=== PATIENT | male | born 1995 | race Caucasian/White ===

== ENCOUNTER 2022-05-20 17:30 | Inpatient (IN) | payer MEDICARE, MEDICAID, SELFPAY ==
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
[2022-05-20] MEDS: Milk of Magnesia 30 ML ORAL.SUSP PO (19:24)
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
[2022-05-21] MEDS: Magnesium Hydrox/Alum Hydrox 30 ML ORAL.SUSP PO (02:40)
[2022-05-21] MEDS: Acetaminophen 325 MG TABLET 650 MG PO (02:40)
[2022-05-21] MEDS: hydrOXYzine HCL 25 MG TABLET PO (04:23)
[2022-05-21 09:35] LABS: Estimated Average Glucose 105 mg/dL; Hemoglobin A1c % 5.3 %
[2022-05-21 10:18] LABS: Alanine Aminotransferase 75 U/L (0-40); Albumin Level 4.8 g/dL (3.5-5.0); Alkaline Phosphatase 109 U/L (39-117); Anion Gap 14 (12-20); Aspartate Amino Transferase 74 U/L (5-37); Bilirubin Direct 0.3 mg/dL (0.0-0.5); Bilirubin Total 0.9 mg/dL (0.0-1.0); Blood Urea Nitrogen 11 mg/dL (9-16); Calcium 9.5 mg/dL (8.4-10.2); Carbon Dioxide 25 mmol/L (22-29); Chloride 101 mmol/L (96-108); Cholesterol 203 mg/dL; Estimated Glomerular Filt Rate > 60; Glucose Fasting 73 mg/dL (60-99); HDL Cholesterol 43 mg/dL; LDL Cholesterol Calculated 150 mg/dl; Magnesium 2.3 mg/dL (1.6-2.6); Potassium 4.3 mmol/L (3.3-5.1); Sodium 136 mmol/L (135-145); Triglycerides 51 mg/dL
[2022-05-21 10:26] LABS: Free T4 (Free Thyroxine) 1.29 ng/dL (0.71-1.85); Thyroid Stimulating Hormone 1.47 uIU/mL (0.32-4.0)
[2022-05-21 10:31] VITALS: BP 120/81; PULSE 88; RESP 18; TEMP 36.4; O2SAT 98
[2022-05-21 11:10] LABS: Folate 10.2 ng/mL (> or = 4.0); Vitamin B12 605 pg/mL (200-900)
--- NOTE | 2022-05-21 16:10 | HO.PM.IMCN ---
History of Present Illness Data of Consult Service Date: 05/21/22 Requesting physician: Romana Sands Primary Care Provider: Karlo Hart MD [facility] Reason for consult: medical history and physical 26-year-old gentleman with past medical history of schizoaffective disorder bipolar type admitted to with vague suicidal ideation, patient offers no acute complaints at present he quit smoking 8 months ago he denies shortness of breath, no chest pain no palpitation tolerating diet denies nausea vomiting diarrhea, he denies chronic medical issues has not seen a primary care physician and a long time.. Review of Systems Review of Systems: General no headache no dizziness no fever chills. CVS no chest pain, no palpitation. Respiratory no cough, no sob. Gastrointestinal no nausea no vomiting, no abdominal pain Yes all other systems are reviewed and are negative PMFSH Pertinent family history: Family history of depression anxiety in mother side of family Social History Household Members: None Patient Tobacco Use Status: Never used Tobacco Currently Displaying Signs/Symptoms of Drug Intoxication Withdrawal: No Have you been hit, kicked, punched, or otherwise hurt by someone within the past year? If so, by whom?: No Do you feel safe in your current relationship?: No Current Relationship Is there a partner from a previous relationship who is making you feel unsafe now?: No Are you made to feel afraid or neglected: No Advance Directives: No Advance Directives Information Provided: No Do you have thoughts of harming others: None Do you have a plan to hurt others: No Plan Recently lost weight without trying: No Nutrition Risks: No Nutritional Risk Poor oral hygiene: No Meds Allergies Allergy/AdvReac Type Severity Reaction Status Date / Time olanzapine [From ZYPREXA] Allergy Unknown UNK Unverified 08/14/20 19:00 trazodone [TRAZODONE] Allergy Unknown UNK Unverified 08/14/20 19:00 lithium [LITHIUM] AdvReac Unknown OVER Unverified 08/14/20 19:00 SEDATION Active Medications: Current Medications Acetaminophen (Acetaminophen 325 Mg Tablet) 650 mg PO Q6H PRN PRN Reason: Headache/Pain Mild Scale (1-3) Last Admin: 05/21/22 02:40 Dose: 650 mg Al Hydroxide/Mg Hydroxide (Magnesium Hydrox/Alum Hydrox 30 Ml Oral.Susp) 30 ml PO Q6H PRN PRN Reason: Heartburn/Nausea Last Admin: 05/21/22 02:40 Dose: 30 ml Hydroxyzine HCl (Hydroxyzine Hcl 25 Mg Tablet) 25 mg PO Q6H PRN PRN Reason: Anxiety Last Admin: 05/21/22 04:23 Dose: 25 mg Magnesium Hydroxide (Milk Of Magnesia 30 Ml Oral.Susp) 30 ml PO DAILY PRN PRN Reason: Constipation Last Admin: 05/20/22 19:24 Dose: 30 ml Polyethylene Glycol (Polyethylene Glycol 3350 17 Gm Powd.Pack) 17 gm PO BID BRIGITTE Last Admin: 05/21/22 10:10 Dose: Not Given Physical Exam Vital Signs and Narrative: Vital Signs: Last Vital Signs Temp 97.6 F 05/21/22 10:31 Pulse 88 05/21/22 10:31 Resp 18 05/21/22 10:31 BP 120/81 05/21/22 10:31 Pulse Ox 98 05/21/22 10:31 O2 Del Method 05/21/22 10:31 Const: Other: General awake alert ,in no acute distress. HEENT PERRLA Neck no JVD. CVS regular rate rhythm, Respiratory lungs clear to auscultation, no respiratory distress, no wheeze, no rhonchi. Gastrointestinal abdomen soft, nontender, bowel sounds audible, no guarding , no rigidity. Extremities no edema. Neuro nonfocal Skin no rash Results Labs CBC and Chem 7: 05/21/22 08:36 Labs: Laboratory Results - last 24 hr 05/21/22 05/21/22 05/21/22 08:36 08:36 08:36 Anion Gap 14 Estim Creat Clear Calc TNP Estimated GFR > 60 Fasting Glucose 73 Estimat Average Glucose 105 Hemoglobin A1c % 5.3 Calcium 9.5 Magnesium 2.3 Total Bilirubin 0.9 Direct Bilirubin 0.3 AST 74 H ALT 75 H Alkaline Phosphatase 109 Total Protein 8.0 Albumin 4.8 Triglycerides 51 Cholesterol 203 LDL Cholesterol, Calc 150 HDL Cholesterol 43 Vitamin B12 605 Folate 10.2 TSH 1.47 Free T4 1.29 Assessment and Plan (1) Schizoaffective disorder, bipolar type: Status: Acute Plan 26-year-old gentleman with past medical history of schizoaffective bipolar type disorder order admitted to at present patient offers no acute medical complaints, patient quit smoking 8 months ago occasionally drinks alcohol uses cannabinoid is 1-2 times per week patient has no acute medical issues at this time thank you for allowing us to participate in the care of this gentleman.
[2022-05-21 16:39] VITALS: BP 134/91; PULSE 102
--- NOTE | 2022-05-21 17:38 | P.PNPSI_ITS ---
Subjective Subjective Date of Service: 05/21/22 Reason For Visit: SI, Med non-adherence Subjective Notes: Mckeon Warning and Conditional Voluntary Healthcare Proxy: No Guardianship: No Medical Problems Affecting Mental Status: No Interim History: Patient seen and discussed with team. Patient evaluated today and upon interview pt admits to med non-adherence, says he was skipping an extra day or two of invega PO. Pt says I dont wanna go invega no more, however later on in the evening pt asks for his medication. Re- started invega PO 6 mg QHS, as per chart review pt has been stable on invega sustenna. Reviewed past clozapine trial and pt says naw, i'm good. Pt says he feels safe here. Pt is ambivalent about medication, as he says it doesnt help, I still hears the voices regardless. Pt is responding to internal stimuli, appears internally preoccupied. [place] through interview, pt abruptly says im all done, walks out of the room, says something about disrespect under his breath. In the milieu, patient is pacing the hallways and responding to internal stimuli. Medication Compliance: Yes Side effects from medications: No Attending Groups: No Review of Systems Acute medical concerns: No Medical Review of Systems: unchanged Mental Status Exam Mental Status Exam Narrative: Alert but not oriented to situation. Poor eye contact, inattentive. No Tics or Tremors. No abnormal involuntary movements. Suspicious, difficult to engage. Non-pressured speech, spontaneous with regular rate and rhythm, normal volume and prosody. No prolonged speech latency or dysarthria. Mood is [does not state], affect is constricted. Denies SI/SIB/HI upon inquiry. Endorses AH, denies VH. Endorses paranoid delusional thought content. Thoughts are ta ngential, disorganized. No known cognitive or memory impairment. Insight/ Judgment poor. Diagnostics Vital Signs (24Hr): Vital Signs - 24 hr 05/21/22 10:31 05/21/22 16:39 Temperature 97.6 F Pulse Rate 88 102 H Respiratory Rate 18 Blood Pressure 120/81 134/91 H Pulse Oximetry 98 Oxygen Delivery Method Room Air Room Air Labs Results: 05/21/22 08:36 Labs: Laboratory Results - last 48 hr 06/24/22 06/24/22 06/24/22 08:36 08:36 08:36 Sodium 136 Potassium 4.3 Chloride 101 Carbon Dioxide 25 Anion Gap 14 BUN 11 Creatinine 1.15 Estim Creat Clear Calc TNP Estimated GFR > 60 Fasting Glucose 73 Estimat Average Glucose 105 Hemoglobin A1c % 5.3 Calcium 9.5 Magnesium 2.3 Total Bilirubin 0.9 Direct Bilirubin 0.3 AST 74 H ALT 75 H Alkaline Phosphatase 109 Total Protein 8.0 Albumin 4.8 Triglycerides 51 Cholesterol 203 LDL Cholesterol, Calc 150 HDL Cholesterol 43 Vitamin B12 605 Folate 10.2 TSH 1.47 Free T4 1.29 Medications Medications Current Medications Acetaminophen (Acetaminophen 325 Mg Tablet) 650 mg PO Q6H PRN PRN Reason: Headache/Pain Mild Scale (1-3) Last Admin: 05/21/22 02:40 Dose: 650 mg Al Hydroxide/Mg Hydroxide (Magnesium Hydrox/Alum Hydrox 30 Ml Oral.Susp) 30 ml PO Q6H PRN PRN Reason: Heartburn/Nausea Last Admin: 05/21/22 02:40 Dose: 30 ml Hydroxyzine HCl (Hydroxyzine Hcl 25 Mg Tablet) 25 mg PO Q6H PRN PRN Reason: Anxiety Last Admin: 05/21/22 04:23 Dose: 25 mg Magnesium Hydroxide (Milk Of Magnesia 30 Ml Oral.Susp) 30 ml PO DAILY PRN PRN Reason: Constipation Last Admin: 05/20/22 19:24 Dose: 30 ml Polyethylene Glycol (Polyethylene Glycol 3350 17 Gm Powd.Pack) 17 gm PO BID BRIGITTE Last Admin: 05/21/22 10:10 Dose: Not Given Allergies Allergies Allergy/AdvReac Type Severity Reaction Status Date / Time olanzapine [From ZYPREXA] Allergy Unknown UNK Unverified 08/14/20 19:00 trazodone [TRAZODONE] Allergy Unknown UNK Unverified 08/14/20 19:00 lithium [LITHIUM] AdvReac Unknown OVER Unverified 08/14/20 19:00 SEDATION Assessment & Plan Assessment & Plan (1) Schizoaffective disorder, bipolar type: Status: Acute Code(s): F25.0 - Schizoaffective disorder, bipolar type Plan Oliver is a 26 y.o. Who carries a dx of schizoaffective disorder bipolar type. He self-presented to [facility] on 05/18/22 due to , said I feel like I don't belong. In the ED he appeared anxious, tangential, and disorganized. He made vague SI statements. He reported he has not taken his invega PO ?for a long time,? however later said he has been taking it every other day. He had a recent medication change, as he was on invega sustenna 234 mg (last administered 02/16), this was switched to invega 6 mg PO (last filled 03/02/22) QD. Hx of multiple psych admissions, previous M5 admission in 2019, was on section VIII and given clozapine trial. Plan: -Discussed going back on invega sustenna vs switching to another antipsychotic, will defer to primary psych team. Will obtain EKG, baseline labs. Will start miralax for constipation. 05/21: Will re-start invega PO 6 mg and consider switching to NAPIER. Q15 min safety checks, CV Monitor response to medications. Monitor for safety in the milieu. Discharge on stabilization. Patient seen. Chart reviewed. Discussed with team. Obtain collateral contact info?as needed I spent minutes with the patient and/or on the patient floor today, greater than?50% of which was spent counseling/coordinating care. Patient educated on: medication risk/benefits Reason for contiued inpatient stay Substantial Risk for: inability to function, rapid decompensation and med/psych decompensation
[2022-05-21] MEDS: polyethylene glycoL 3350 17 GM POWD.PACK PO (23:14)
[2022-05-21] MEDS: Paliperidone ER 6 MG TAB.ER.24 PO (23:15)
[2022-05-22 06:00] VITALS: BP 126/83; PULSE 97; RESP 18; TEMP 36.6; O2SAT 98
--- NOTE | 2022-05-22 13:01 | PC.NURSE ---
pt eloped off the unit and refused to come back into the unit. pushed the elevator buttons. was escorted back onto unit after brief struggle.
[2022-05-22] MEDS: risperiDONE 1 MG TABLET PO ×3 (14:31→22:02)
[2022-05-22] MEDS: LORazepam 1 MG TABLET 2 MG PO (14:31)
--- NOTE | 2022-05-22 16:31 | PC.NURSE ---
Pt given nintendo switch. Pts mother is aware during visit. Pts mother took home pts green duffel bag with a secondary nintendo switch along with with fire stick and cable cords.
[2022-05-22 18:00] VITALS: BP 140/69; PULSE 120
[2022-05-22] MEDS: Paliperidone ER 6 MG TAB.ER.24 PO (19:03)
--- NOTE | 2022-05-22 22:31 | P.PNPSI_ITS ---
Subjective Subjective Date of Service: 05/22/22 Reason For Visit: SI, Med non-adherence Healthcare Proxy: No Guardianship: No Interim History: Patient manic pacing restless agitated and irritable.Has been manic agiated mostly not speaking Intermittently excepting medication Mental Status Exam Mental Status Exam Narrative: Patient observed on the unit pacing restless internally preoccupied patient internally preoccupied agitated suspicious intrusive intermittently aggressive not responding to redirection not answering questions directly Diagnostics Vital Signs (24Hr): Vital Signs - 24 hr 05/22/22 06:00 05/22/22 18:00 Temperature 97.8 F Pulse Rate 97 120 H Respiratory Rate 18 Blood Pressure 126/83 140/69 H Pulse Oximetry 98 Labs Results: 05/21/22 08:36 Labs: Laboratory Results - last 48 hr 05/21/22 05/21/22 05/21/22 08:36 08:36 08:36 Sodium 136 Potassium 4.3 Chloride 101 Carbon Dioxide 25 Anion Gap 14 BUN 11 Creatinine 1.15 Estim Creat Clear Calc TNP Estimated GFR > 60 Fasting Glucose 73 Estimat Average Glucose 105 Hemoglobin A1c % 5.3 Calcium 9.5 Magnesium 2.3 Total Bilirubin 0.9 Direct Bilirubin 0.3 AST 74 H ALT 75 H Alkaline Phosphatase 109 Total Protein 8.0 Albumin 4.8 Triglycerides 51 Cholesterol 203 LDL Cholesterol, Calc 150 HDL Cholesterol 43 Vitamin B12 605 Folate 10.2 TSH 1.47 Free T4 1.29 Medications Medications Current Medications Acetaminophen (Acetaminophen 325 Mg Tablet) 650 mg PO Q6H PRN PRN Reason: Headache/Pain Mild Scale (1-3) Last Admin: 05/21/22 02:40 Dose: 650 mg Al Hydroxide/Mg Hydroxide (Magnesium Hydrox/Alum Hydrox 30 Ml Oral.Susp) 30 ml PO Q6H PRN PRN Reason: Heartburn/Nausea Last Admin: 05/21/22 02:40 Dose: 30 ml Hydroxyzine HCl (Hydroxyzine Hcl 25 Mg Tablet) 25 mg PO Q6H PRN PRN Reason: Anxiety Last Admin: 05/21/22 04:23 Dose: 25 mg Lorazepam (Lorazepam 1 Mg Tablet) 2 mg PO TID PRN PRN Reason: anxiety/restlessness Magnesium Hydroxide (Milk Of Magnesia 30 Ml Oral.Susp) 30 ml PO DAILY PRN PRN Reason: Constipation Last Admin: 06/23/22 19:24 Dose: 30 ml Paliperidone (Paliperidone Er 6 Mg Tab.Er.24) 6 mg PO BEDTIME [facility] Last Admin: 05/22/22 19:03 Dose: 6 mg Polyethylene Glycol (Polyethylene Glycol 3350 17 Gm Powd.Pack) 17 gm PO BID [facility] Last Admin: 05/22/22 19:06 Dose: Not Given Risperidone (Risperidone 1 Mg Tablet) 1 mg PO TID PRN PRN Reason: Psychosis Last Admin: 05/22/22 22:02 Dose: 1 mg Allergies Allergies Allergy/AdvReac Type Severity Reaction Status Date / Time olanzapine [From ZYPREXA] Allergy Unknown UNK Unverified 08/14/20 19:00 trazodone [TRAZODONE] Allergy Unknown UNK Unverified 08/14/20 19:00 lithium [LITHIUM] AdvReac Unknown OVER Unverified 08/14/20 19:00 SEDATION Assessment & Plan Assessment & Plan (1) Schizoaffective disorder, bipolar type: Status: Acute Code(s): F25.0 - Schizoaffective disorder, bipolar type Sonam Boyd is a 26 y.o. Who carries a dx of schizoaffective disorder bipolar type. He self-presented to [facility] ED on 05/18/22 due to AH, said I feel like I don't belong. In the ED he appeared anxious, tangential, and disorganized. He made vague SI statements. He reported he has not taken his invega PO ?for a long time,? however later said he has been taking it every other day. He had a recent medication change, as he was on invega sustenna 234 mg (last administered 02/16/22), this was switched to invega 6 mg PO (last filled 03/02/22) QD. Hx of multiple psych admissions, previous M5 admission in 2019, was on section VIII and given clozapine trial. Plan: -Discussed going back on invega sustenna vs switching to another antipsychotic, will defer to primary psych team. Will obtain EKG, baseline labs. Will start miralax for constipation. Q15 min safety checks, CV Monitor response to medications. Monitor for safety in the milieu. Discharge on stabilization. Patient seen. Chart reviewed. Discussed with team. Obtain collateral contact info?as needed Assessment and plan for 05/22/2022 Patient seen in the milieu would not engage 101 aggressive pacing restless and intrusive restart Depakote follow LFTs Invega clonazepam for anxiety agitation Required clozapine last admission I spent minutes with the patient and/or on the patient floor today, greater than?50% of which was spent counseling/coordinating care. Reason for contiued inpatient stay Substantial Risk for: harm to others and rapid decompensation
[2022-05-23] MEDS: LORazepam 1 MG TABLET 2 MG PO ×3 (00:01→15:57)
[2022-05-23] MEDS: hydrOXYzine HCL 25 MG TABLET PO ×2 (02:34→15:57)
[2022-05-23] MEDS: Acetaminophen 325 MG TABLET 650 MG PO (02:34)
[2022-05-23 06:00] VITALS: BP 138/87; PULSE 112; RESP 18; TEMP 36.3; O2SAT 98
[2022-05-23] MEDS: clonazePAM 1 MG TABLET PO ×3 (08:16→20:30)
[2022-05-23] MEDS: Paliperidone ER 3 MG TAB.ER.24 PO (08:17)
--- NOTE | 2022-05-23 09:12 | PM.EVENT ---
Event Note Date of Service: 05/23/22 Event Note: SPOKE WITH STAFF PT MANIC IRRITABLE AGGRESSIVE THREATENING NOT RESPONDING TO VERBAL REDIRECTION REFUSING PO MEDS THORAZINE 100 MG IM ORDERED SPOKE WITH JOSE VIERA
--- NOTE | 2022-05-23 09:55 | P.PNPSI_ITS ---
Subjective Subjective Date of Service: 05/23/22 Reason For Visit: SI, Med non-adherence Subjective Notes: Mistry Order and Section 8 Interim History: pt seen for response to chemical restraint. Pt refused vital signs twice. Pt presents calm with gait steady, intermittently yelling; walking and up in bedroom;no balance problems or gait disturbance; no slurred speech. awake and alert; calmer; able to converse calmly; pt asking for headphones to listen to music. he denies distress; respirations regular and even; no acute distress. tolerating IM thorazine 100mg. Diagnostics Vital Signs (24Hr): Vital Signs - 24 hr 05/22/22 18:00 05/23/22 06:00 Temperature 97.4 F Pulse Rate 120 H 112 H Respiratory Rate 18 Blood Pressure 140/69 H 138/87 Pulse Oximetry 98 Labs Results: 05/21/22 08:36 Labs: Laboratory Results - last 48 hr 05/21/22 05/21/22 08:36 08:36 Sodium 136 Potassium 4.3 Chloride 101 Carbon Dioxide 25 Anion Gap 14 BUN 11 Creatinine 1.15 Estim Creat Clear Calc TNP Estimated GFR > 60 Fasting Glucose 73 Calcium 9.5 Magnesium 2.3 Total Bilirubin 0.9 Direct Bilirubin 0.3 AST 74 H ALT 75 H Alkaline Phosphatase 109 Total Protein 8.0 Albumin 4.8 Triglycerides 51 Cholesterol 203 LDL Cholesterol, Calc 150 HDL Cholesterol 43 Vitamin B12 605 Folate 10.2 TSH 1.47 Free T4 1.29 Medications Medications Current Medications Acetaminophen (Acetaminophen 325 Mg Tablet) 650 mg PO Q6H PRN PRN Reason: Headache/Pain Mild Scale (1-3) Last Admin: 05/23/22 02:34 Dose: 650 mg Al Hydroxide/Mg Hydroxide (Magnesium Hydrox/Alum Hydrox 30 Ml Oral.Susp) 30 ml PO Q6H PRN PRN Reason: Heartburn/Nausea Last Admin: 05/21/22 02:40 Dose: 30 ml Clonazepam (Clonazepam 1 Mg Tablet) 1 mg PO TID BRIGITTE Last Admin: 05/23/22 08:16 Dose: 1 mg Hydroxyzine HCl (Hydroxyzine Hcl 25 Mg Tablet) 25 mg PO Q6H PRN PRN Reason: Anxiety Last Admin: 05/23/22 02:34 Dose: 25 mg Lorazepam (Lorazepam 1 Mg Tablet) 2 mg PO TID PRN PRN Reason: anxiety/restlessness Last Admin: 05/23/22 00:01 Dose: 2 mg Magnesium Hydroxide (Milk Of Magnesia 30 Ml Oral.Susp) 30 ml PO DAILY PRN PRN Reason: Constipation Last Admin: 05/20/22 19:24 Dose: 30 ml Paliperidone (Paliperidone Er 6 Mg Tab.Er.24) 6 mg PO BEDTIME BRIGITTE Last Admin: 05/22/22 19:03 Dose: 6 mg Paliperidone (Paliperidone Er 3 Mg Tab.Er.24) 3 mg PO DAILY [facility] Last Admin: 05/23/22 08:17 Dose: 3 mg Polyethylene Glycol (Polyethylene Glycol 3350 17 Gm Powd.Pack) 17 gm PO BID BRIGITTE Last Admin: 05/23/22 08:17 Dose: Not Given Risperidone (Risperidone 1 Mg Tablet) 1 mg PO TID PRN PRN Reason: Psychosis Last Admin: 05/22/22 22:02 Dose: 1 mg Allergies Allergies Allergy/AdvReac Type Severity Reaction Status Date / Time olanzapine [From ZYPREXA] Allergy Unknown UNK Unverified 08/14/20 19:00 trazodone [TRAZODONE] Allergy Unknown UNK Unverified 08/14/20 19:00 lithium [LITHIUM] AdvReac Unknown OVER Unverified 08/14/20 19:00 SEDATION Assessment & Plan Assessment & Plan (1) Schizoaffective disorder, bipolar type: Status: Acute Code(s): F25.0 - Schizoaffective disorder, bipolar type Plan Oliver is a 26 y.o. Who carries a dx of schizoaffective disorder bipolar type. He self[place] [facility] [place] due to AH, said I feel like I don't belong. In the ED he appeared anxious, tangential, and disorganized. He made vague SI statements. He reported he has not taken his invega PO ?for a long time,? however later said he has been taking it every other day. He had a recent medication change, as he was on invega sustenna 234 mg (last administered 02/16/22), this was switched to invega 6 mg PO (last filled 03/02/22) QD. Hx of multiple psych admissions, previous M5 admission in 2019, was on section VIII and given clozapine trial. Plan: -Discussed going back on invega sustenna vs switching to another antipsychotic, will defer to primary psych team. Will obtain EKG, baseline labs. Will start miralax for constipation. Q15 min safety checks, CV Monitor response to medications. Monitor for safety in the milieu. Discharge on stabilization. Patient seen. Chart reviewed. Discussed with team. Obtain collateral contact info?as needed 05/23/22 change to 5 min checks continue treatment paln continue to assess response to medication I spent ____15__ minutes with the patient and/or on the patient floor today, greater than?50% of which was spent counseling/coordinating care. Reason for contiued inpatient stay Substantial Risk for: harm to self, harm to others, inability to function and rapid decompensation
--- NOTE | 2022-05-23 09:56 | PC.NURSE ---
Pt agitated, walking up and down the halls. Making threats to punch people in the face, and/or kill them. Pt yelling racial slurs at other pts. Laying on another pt's bed and refusing to leave room. Pt offered prn medications, refused. Security called, called. Pt received IM medications.
[2022-05-23] MEDS: risperiDONE 1 MG TABLET PO ×2 (14:00→15:57)
--- NOTE | 2022-05-23 16:25 | HO.PSYCHPN ---
Subjective Subjective Date of Service: 05/23/22 Reason For Visit: SI, Med non-adherence Subjective Notes: Conditional Voluntary Healthcare Proxy: No Guardianship: No Medical Problems Affecting Mental Status: No Interim History: Patient required medication restraint earlier in the day is secondary to aggressive behavior threatening refusing to leave another person's room and menacing and refusing p.o. medication. Did respond well to IM Thorazine without problem. Prior admission 2020 had responded to clozapine Invega Depakote and Klonopin. 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 appears to be responding to internal stimuli unable to evaluate mental status cognition further patient was reasonably groomed casually dressed Diagnostics Vital Signs (24Hr): Vital Signs - 24 hr 05/23/22 18:00 05/24/22 06:00 Temperature 97.6 F Pulse Rate 94 Respiratory Rate 18 18 Blood Pressure 128/86 Pulse Oximetry 98 Labs Results: 05/21/22 08:36 Labs: Laboratory Results - last 48 hr 05/24/22 05/24/22 07:51 07:51 Total Bilirubin 1.2 H Direct Bilirubin 0.5 AST 195 H ALT 152 H Alkaline Phosphatase 108 Total Protein 7.6 Albumin 4.5 Hep Bs Antigen Negative Hep Bs Antibody NONREACTIVE Hep B Core Total Ab Nonreactive Hepatitis C Ab (EIA) Nonreactive Medications Medications Current Medications Acetaminophen (Acetaminophen 325 Mg Tablet) 650 mg PO Q6H PRN PRN Reason: Headache/Pain Mild Scale (1-3) Last Admin: 05/23/22 02:34 Dose: 650 mg Al Hydroxide/Mg Hydroxide (Magnesium Hydrox/Alum Hydrox 30 Ml Oral.Susp) 30 ml PO Q6H PRN PRN Reason: Heartburn/Nausea Last Admin: 05/21/22 02:40 Dose: 30 ml Clonazepam (Clonazepam 1 Mg Tablet) 1 mg PO TID BRIGITTE Last Admin: 05/24/22 08:40 Dose: 1 mg Divalproex Sodium (Divalproex Sodium Er 500 Mg Tab.Er.24h) 1,500 mg PO BEDTIME BRIGITTE Last Admin: 05/23/22 20:30 Dose: 1,500 mg Hydroxyzine HCl (Hydroxyzine Hcl 25 Mg Tablet) 25 mg PO Q6H PRN PRN Reason: Anxiety Last Admin: 05/24/22 03:13 Dose: 25 mg Lorazepam (Lorazepam 1 Mg Tablet) 2 mg PO TID PRN PRN Reason: anxiety/restlessness Last Admin: 05/24/22 03:13 Dose: 2 mg Magnesium Hydroxide (Milk Of Magnesia 30 Ml Oral.Susp) 30 ml PO DAILY PRN PRN Reason: Constipation Last Admin: 05/20/22 19:24 Dose: 30 ml Paliperidone (Paliperidone Er 6 Mg Tab.Er.24) 6 mg PO BEDTIME BRIGITTE Last Admin: 05/23/22 20:30 Dose: 6 mg Paliperidone (Paliperidone Er 3 Mg Tab.Er.24) 3 mg PO DAILY BRIGITTE Last Admin: 05/24/22 08:40 Dose: 3 mg Polyethylene Glycol (Polyethylene Glycol 3350 17 Gm Powd.Pack) 17 gm PO BID BRIGITTE Last Admin: 05/24/22 08:55 Dose: Not Given Risperidone (Risperidone 1 Mg Tablet) 1 mg PO TID PRN PRN Reason: Psychosis Last Admin: 05/24/22 03:13 Dose: 1 mg Allergies Allergies Allergy/AdvReac Type Severity Reaction Status Date / Time olanzapine [From ZYPREXA] Allergy Unknown UNK Unverified 08/14/20 19:00 trazodone [TRAZODONE] Allergy Unknown UNK Unverified 08/14/20 19:00 lithium [LITHIUM] AdvReac Unknown OVER Unverified 08/14/20 19:00 SEDATION Assessment & Plan Assessment & Plan (1) Schizoaffective disorder, bipolar type: Status: Acute Code(s): F25.0 - Schizoaffective disorder, bipolar type Sonam Boyd is a 26 y.o. Who carries a dx of schizoaffective disorder bipolar type. He self[place]present[place] [facility]18[place] due to AH, said I feel like I don't belong. In the ED he appeared anxious, tangential, and disorganized. He made vague SI statements. He reported he has not taken his invega PO ?for a long time,? however later said he has been taking it every other day. He had a recent medication change, as he was on invega sustenna 234 mg (last administered 02/16/22), this was switched to invega 6 mg PO (last filled 03/02/22) QD. Hx of multiple psych admissions, previous M5 admission in 2019, was on section VIII and given clozapine trial. Plan: -Discussed going back on invega sustenna vs switching to another antipsychotic, will defer to primary psych team. Will obtain EKG, baseline labs. Will start miralax for constipation. Q15 min safety checks, CV Monitor response to medications. Monitor for safety in the milieu. Discharge on stabilization. Patient seen. Chart reviewed. Discussed with team. Obtain collateral contact info?as needed Assessment and plan for 05/22/2022 Patient seen in the milieu would not engage 101 aggressive pacing restless and intrusive restart Depakote follow LFTs Invega clonazepam for anxiety agitation Required clozapine last admission Assessment and plan for 05/23/2022 Patient started on 1500 mg of Depakote LFTs noted to be somewhat increased will follow did respond well the Depakote previously check hepatitis screen did well previously for for nadege with Klonopin increase Invega consider Clozaril encourage therapeutic [place] p.o. med compliance patient with history of noncompliance with outpatient treatment after initial medication restraint did not require further medication restraint I spent minutes with the patient and/or on the patient floor today, greater than?50% of which was spent counseling/coordinating care. Reason for contiued inpatient stay Substantial Risk for: harm to others, inability to function and rapid decompensation
[2022-05-23 18:00] VITALS: RESP 18
[2022-05-23] MEDS: Paliperidone ER 6 MG TAB.ER.24 PO (20:30)
[2022-05-23] MEDS: Divalproex Sodium ER 500 MG TAB.ER.24H 1500 MG PO (20:30)
[2022-05-24] MEDS: risperiDONE 1 MG TABLET PO (03:13)
[2022-05-24] MEDS: LORazepam 1 MG TABLET 2 MG PO ×2 (03:13→23:29)
[2022-05-24] MEDS: hydrOXYzine HCL 25 MG TABLET PO (03:13)
[2022-05-24 06:00] VITALS: BP 128/86; PULSE 94; RESP 18; TEMP 36.4; O2SAT 98
[2022-05-24] MEDS: clonazePAM 1 MG TABLET PO ×2 (08:40→21:25)
[2022-05-24] MEDS: Paliperidone ER 3 MG TAB.ER.24 PO (08:40)
[2022-05-24 09:00] LABS: Alanine Aminotransferase 152 U/L (0-40); Albumin Level 4.5 g/dL (3.5-5.0); Alkaline Phosphatase 108 U/L (39-117); Aspartate Amino Transferase 195 U/L (5-37); Bilirubin Direct 0.5 mg/dL (0.0-0.5); Bilirubin Total 1.2 mg/dL (0.0-1.0); Total Protein 7.6 g/dL (6.5-8.0)
[2022-05-24 09:16] LABS: HBc Num1 0.11 S/CO (0.00-0.79); HBsAGNum1 0.15 S/CO (0.00-0.99); Hepatitis B Core Antibody Nonreactive (Nonreactive); Hepatitis B Surface Antigen Negative (Negative); ~HepC Num1 0.06 S/CO (0.00-0.79); ~Hepatitis B Surface Antibody NONREACTIVE (Nonreactive); ~Hepatitis C Antibody Nonreactive (Nonreactive)
--- NOTE | 2022-05-24 10:57 | HO.PSYCHPN ---
Subjective Subjective Date of Service: 05/24/22 Reason For Visit: SI, Med non-adherence Interim History: Patient floridly manic and psychotic, pacing up and down the halls rambling with nonsensical speech talking about various unrelated things, such as being a principal, being the president, buying and selling tongue... or skin.... Difficult to approach as patient is highly irritable and reactive. At 1st he said I do not know you the ghost writer as ghost writer approached however after deductions patient was willing to talk a little bit and said he made a mistake of smoking cannabis and drinking alcohol which he said dysregulated him and that he will not do that again; then he said that the hospital is vampires since the drawing his blood and then he went on to talk about blood and numerous other unrelated things that were nonsensical; patient then said he was done talking and walked off continuing to rant and pacing the halls. Patient's afraid of him and removing themselves. Staff also wary. Discussed case with staff who know him, including Dr. Nguyen who reports pt stabilized in the past on Clozaril, Invega and Depakote. Patient has recently been on Haldol and Invega. Will get collateral Mental Status Exam Mental Status Exam Narrative: Pt is alert and oriented to self, place, not fully to situation; behavior is hyperactive, aggressively ranting about nonsensical things while pacing the hallways; dressed in casual attire with unkempt hair; adequate hygiene; mood is described as irritable and affect congruent, glaring at times; Speech is pressured and loud; significant psychomotor agitation present; thought process is disorganized and can only be briefly goal oriented; Thought content is on various bizarre unrelated topics; can think about treatment and at times has said he needs medications, though other times says he does not; delusional, paranoid and grandiose; denies any SI/HI. Unclear regarding AVH. Patients insight and judgment impaired though he has some sense that he may need medication though is ambivalent Diagnostics Vital Signs (24Hr): Vital Signs - 24 hr 05/23/22 18:00 05/24/22 06:00 Temperature 97.6 F Pulse Rate 94 Respiratory Rate 18 18 Blood Pressure 128/86 Pulse Oximetry 98 Labs Results: 05/25/22 07:51 05/21/22 08:36 Labs: Laboratory Results - last 48 hr 05/24/22 05/24/22 07:51 07:51 Total Bilirubin 1.2 H Direct Bilirubin 0.5 AST 195 H ALT 152 H Alkaline Phosphatase 108 Total Protein 7.6 Albumin 4.5 Hep Bs Antigen Negative Hep Bs Antibody NONREACTIVE Hep B Core Total Ab Nonreactive Hepatitis C Ab (EIA) Nonreactive Medications Medications Current Medications Acetaminophen (Acetaminophen 325 Mg Tablet) 650 mg PO Q6H PRN PRN Reason: Headache/Pain Mild Scale (1-3) Last Admin: 05/23/22 02:34 Dose: 650 mg Al Hydroxide/Mg Hydroxide (Magnesium Hydrox/Alum Hydrox 30 Ml Oral.Susp) 30 ml PO Q6H PRN PRN Reason: Heartburn/Nausea Last Admin: 05/21/22 02:40 Dose: 30 ml Clonazepam (Clonazepam 1 Mg Tablet) 1 mg PO TID BRIGITTE Last Admin: 05/24/22 08:40 Dose: 1 mg Divalproex Sodium (Divalproex Sodium Er 500 Mg Tab.Er.24h) 1,500 mg PO BEDTIME BRIGITTE Last Admin: 05/23/22 20:30 Dose: 1,500 mg Hydroxyzine HCl (Hydroxyzine Hcl 25 Mg Tablet) 25 mg PO Q6H PRN PRN Reason: Anxiety Last Admin: 05/24/22 03:13 Dose: 25 mg Lorazepam (Lorazepam 1 Mg Tablet) 2 mg PO TID PRN PRN Reason: anxiety/restlessness Last Admin: 05/24/22 03:13 Dose: 2 mg Magnesium Hydroxide (Milk Of Magnesia 30 Ml Oral.Susp) 30 ml PO DAILY PRN PRN Reason: Constipation Last Admin: 05/20/22 19:24 Dose: 30 ml Paliperidone (Paliperidone Er 6 Mg Tab.Er.24) 6 mg PO BEDTIME BRIGITTE Last Admin: 05/23/22 20:30 Dose: 6 mg Paliperidone (Paliperidone Er 3 Mg Tab.Er.24) 3 mg PO DAILY BRIGITTE Last Admin: 05/24/22 08:40 Dose: 3 mg Polyethylene Glycol (Polyethylene Glycol 3350 17 Gm Powd.Pack) 17 gm PO BID BRIGITTE Last Admin: 05/24/22 08:55 Dose: Not Given Risperidone (Risperidone 1 Mg Tablet) 1 mg PO TID PRN PRN Reason: Psychosis Last Admin: 05/24/22 03:13 Dose: 1 mg Allergies Allergies Allergy/AdvReac Type Severity Reaction Status Date / Time olanzapine [From ZYPREXA] Allergy Unknown UNK Unverified 08/14/20 19:00 trazodone [TRAZODONE] Allergy Unknown UNK Unverified 08/14/20 19:00 lithium [LITHIUM] AdvReac Unknown OVER Unverified 08/14/20 19:00 SEDATION Assessment & Plan Assessment & Plan (1) Schizoaffective disorder, bipolar type: Status: Acute Code(s): F25.0 - Schizoaffective disorder, bipolar type Plan Oliver is a 26 y.o. Who carries a dx of schizoaffective disorder bipolar type. He self-presented to [facility] [place] [facility] on 05/18/22 due to AH, said I feel like I don't belong. In the ED he appeared anxious, tangential, and disorganized. He made vague SI statements. He reported he has not taken his invega PO ?for a long time,? however later said he has been taking it every other day. He had a recent medication change, as he was on invega sustenna 234 mg (last administered 02/16/22), this was switched to invega 6 mg PO (last filled 03/02/22) QD. Hx of multiple psych admissions, previous M5 admission in 2019, was on section VIII and given clozapine trial. 05/22/22 would not engage 1:1; aggressive pacing restless and intrusive -restart Depakote follow LFTs -Invega -clonazepam for anxiety agitation -Required clozapine last admission 05/23/2022 [remains floridly manic] initial medication restraint did not require further medication restraint -started on 1500 mg of Depakote -LFTs noted to be somewhat increased will follow (did respond well the Depakote previously) -check hepatitis screen -Klonopin -increase Invega -consider Clozaril 05/24 floridly manic, pressured speech pacing the halls and aggressively yelling; irritable and with aggressive Edge making staff and patients wary. Has been willing to take some medications and not others. Currently refuses Invega Sustenna. Plan: Q15 min safety checks, CV Patient was started on Depakote ER 1500 mg q.h.s. Repeat LFTs as they were elevated; if remains stable will continue Depakote Continue Invega b.i.d. Encourage Invega Lee Zavala p.r.n. Consider Clozaril (reportedly patient stabilized on this in the past; however blood draws may pose a problem with adherence) Gather collateral since outpatient regimen seems to say Invega and Haldol Otherwise: Monitor response to medications. Monitor for safety in the milieu. Discharge on stabilization. Patient seen. Chart reviewed. Discussed with team. Obtain collateral contact info?as needed I spent minutes with the patient and/or on the patient floor today, greater than?50% of which was spent counseling/coordinating care. Patient educated on: diagnosis and medication risk/benefits Informed Consent: does not understand Reason for contiued inpatient stay Substantial Risk for: harm to others, inability to function and rapid decompensation
--- NOTE | 2022-05-24 14:02 | PC.NURSE ---
05/24 pt signed 3 day notice
--- NOTE | 2022-05-24 17:00 | PM.EVENT ---
Event Note Date of Service: 05/24/22 Event Note: evening shift pt barricaded in handicapped bathroom naked; threw feces at staff. Security called; could not be redirected and required IM medication and Thorazine 100mg, Ativan 2mg and Benadryl 50mg ordered.
[2022-05-24] MEDS: diphenhydrAMINE HCL 50 MG/ML VIAL IM (17:12)
[2022-05-24] MEDS: LORazepam 2 MG/ML VIAL IM (17:12)
[2022-05-24 18:00] VITALS: BP 123/89; PULSE 120; TEMP 36.4; O2SAT 96
--- NOTE | 2022-05-24 18:35 | PM.EVENT ---
Event Note Date of Service: 05/24/22 Event Note: Seen post chemical restraint, he was walking in the hospital on his power and then proceeded to go his room and sit to eat his dinner. Had no other complaint, no physical injury noted, Cardiac, lung exam unremarkable.
[2022-05-24] MEDS: Paliperidone ER 6 MG TAB.ER.24 PO (21:25)
[2022-05-24] MEDS: Divalproex Sodium ER 500 MG TAB.ER.24H 1500 MG PO (21:25)
[2022-05-24] MEDS: chlorproMAZINE HCl 25 MG TABLET 50 MG PO (23:29)
[2022-05-25 08:08] LABS: MANUAL DIFF FLAG NO
[2022-05-25 08:24] LABS: Basophils Percent Auto 0.4 % (0-2); Eosinophils Absolute Auto 0.1 X10*3/uL (0.0-0.4); Eosinophils Percent Auto 1.7 % (0-4); Hemoglobin 12.4 g/dl (14.0-18.0); Imm Gran Abs Auto 0.02 X10*3/uL (0.00-0.03); Imm Gran Pct Auto 0.3 % (0.0-0.4); Lymphocytes Absolute Auto 1.6 X10*3/uL (1.2-4.9); Lymphocytes Percent Auto 22.3 % (20-40); Mean Corpuscular HGB Conc 33.5 g/dl (31.0-36.0); Mean Corpuscular Hemoglobin 26.5 pg (27.0-33.0); Mean Corpuscular Volume 79.1 fL (80.0-98.0); Mean Platelet Volume 9.8 fL (9.4-12.4); Monocytes Absolute Auto 0.6 X10*3/uL (0.1-1.2); Monocytes Percent Auto 8.4 % (2-11); Neutrophils Absolute Auto 4.9 x10*3/uL (2.0-8.3); Neutrophils Percent Auto 66.9 % (45-73); Platelet Count 207 X10*3/uL (160-400); Red Blood Count 4.68 X10*6/uL (4.60-5.80); Red Cell Distribution Width 12.9 % (11.0-16.0); White Blood Count 7.3 X10*3/uL (4.8-10.8)
[2022-05-25 08:53] LABS: Ammonia 32 umol/L (13-55)
[2022-05-25 08:55] LABS: Alanine Aminotransferase 138 U/L (0-40); Albumin Level 4.4 g/dL (3.5-5.0); Alkaline Phosphatase 110 U/L (39-117); Aspartate Amino Transferase 174 U/L (5-37); Bilirubin Direct 0.5 mg/dL (0.0-0.5); Bilirubin Total 1.2 mg/dL (0.0-1.0); Total Protein 7.3 g/dL (6.5-8.0)
[2022-05-25 08:56] LABS: Valproate 64.1 mcg/mL (50.0-100.0)
[2022-05-25] MEDS: clonazePAM 1 MG TABLET PO ×3 (08:57→20:43)
[2022-05-25] MEDS: Paliperidone ER 3 MG TAB.ER.24 PO (08:57)
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
[2022-05-25] MEDS: chlorproMAZINE HCl 100 MG TABLET 200 MG PO (11:20)
[2022-05-25] MEDS: LORazepam 1 MG TABLET 2 MG PO ×2 (11:23→16:55)
[2022-05-25] MEDS: chlorproMAZINE HCl 25 MG TABLET 50 MG PO (16:55)
[2022-05-25 17:02] VITALS: TEMP 36.6
[2022-05-25] MEDS: Paliperidone ER 6 MG TAB.ER.24 PO (20:43)
[2022-05-25] MEDS: Divalproex Sodium ER 500 MG TAB.ER.24H 1500 MG PO (20:43)
[2022-05-25] MEDS: chlorproMAZINE HCl 100 MG TABLET PO (20:44)
[2022-05-26] MEDS: clonazePAM 1 MG TABLET PO ×2 (08:03→22:33)
[2022-05-26] MEDS: HaloperidoL 5 MG TABLET PO (08:03)
[2022-05-26] MEDS: HaloperidoL 1 MG TABLET PO (08:03)
[2022-05-26 08:11] LABS: Hepatitis A Antibody IgM 0.18 Index (0-0.79); ~Hepatitis A Antibody IgM Nonreactive (Nonreactive)
[2022-05-26] MEDS: LORazepam 1 MG TABLET 2 MG PO ×2 (08:45→18:01)
[2022-05-26] MEDS: chlorproMAZINE HCl 100 MG TABLET 200 MG PO (08:45)
[2022-05-26] MEDS: Omeprazole 20 MG CAPSULE.DR PO (09:02)
[2022-05-26] MEDS: Ezetimibe 10 MG TABLET PO (09:02)
[2022-05-26] MEDS: Atorvastatin Calcium 20 MG TABLET PO (09:02)
[2022-05-26] MEDS: hydrOXYzine HCL 25 MG TABLET PO (09:02)
[2022-05-26] MEDS: Cholecalciferol (Vitamin D3) 25 MCG TABLET PO (09:02)
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
[2022-05-26 13:39] VITALS: BP 133/79; PULSE 107; RESP 20; TEMP 36.4; O2SAT 97
[2022-05-26] MEDS: chlorproMAZINE HCl 100 MG TABLET PO (18:01)
[2022-05-26] MEDS: Paliperidone ER 3 MG TAB.ER.24 PO (20:52)
[2022-05-26] MEDS: Paliperidone ER 6 MG TAB.ER.24 PO (22:34)
[2022-05-26] MEDS: Divalproex Sodium Sprinkles 125 MG CAP.DR.SPR 1000 MG PO (22:34)
[2022-05-27 06:44] VITALS: BP 125/79; PULSE 103; RESP 20; TEMP 36.7; O2SAT 96
[2022-05-27] MEDS: polyethylene glycoL 3350 17 GM POWD.PACK PO ×2 (08:27→20:44)
[2022-05-27] MEDS: Ezetimibe 10 MG TABLET PO (08:27)
[2022-05-27] MEDS: Paliperidone ER 6 MG TAB.ER.24 PO ×2 (08:27→20:40)
[2022-05-27] MEDS: Lactulose 20 GM/30 ML SOLUTION 10 GM PO (08:27)
[2022-05-27] MEDS: clonazePAM 1 MG TABLET PO ×2 (08:27→20:38)
[2022-05-27] MEDS: Atorvastatin Calcium 20 MG TABLET PO (08:27)
[2022-05-27] MEDS: Cholecalciferol (Vitamin D3) 25 MCG TABLET PO (08:27)
[2022-05-27] MEDS: Omeprazole 20 MG CAPSULE.DR PO (08:28)
[2022-05-27 10:40] LABS: Alanine Aminotransferase 125 U/L (0-40); Albumin Level 4.3 g/dL (3.5-5.0); Alkaline Phosphatase 103 U/L (39-117); Aspartate Amino Transferase 161 U/L (5-37); Bilirubin Direct 0.3 mg/dL (0.0-0.5); Bilirubin Total 0.7 mg/dL (0.0-1.0)
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
[2022-05-27] MEDS: LORazepam 1 MG TABLET 2 MG PO ×2 (14:47→21:42)
[2022-05-27] MEDS: chlorproMAZINE HCl 100 MG TABLET PO (14:47)
[2022-05-27] MEDS: Milk of Magnesia 30 ML ORAL.SUSP PO (14:47)
[2022-05-27 19:55] VITALS: BP 117/72; PULSE 116; TEMP 36.4
[2022-05-27] MEDS: Divalproex Sodium Sprinkles 125 MG CAP.DR.SPR 1000 MG PO (20:32)
[2022-05-27] MEDS: Zolpidem Tartrate 5 MG TABLET PO (20:43)
[2022-05-27] MEDS: chlorproMAZINE HCl 100 MG TABLET 200 MG PO (21:42)
--- NOTE | 2022-05-28 | ECG_ITS ---
Test Reason : cp Blood Pressure : / mmHG Vent. Rate : 106 BPM Atrial Rate : 106 BPM P-R Int : 154 ms QRS Dur : 088 ms QT Int : 346 ms P-R-T Axes : 052 076 037 degrees QTc Int : 459 ms Sinus tachycardia Otherwise normal ECG When compared with ECG of 20-MAY-2022 20:55, No significant change was found Referred By: Aris Smith Electronically Signed By:Colton Hayward
[2022-05-28] MEDS: Ibuprofen 600 MG TABLET PO ×2 (02:26→12:24)
[2022-05-28] MEDS: Lactulose 20 GM/30 ML SOLUTION 10 GM PO (08:20)
[2022-05-28] MEDS: Ezetimibe 10 MG TABLET PO (08:20)
[2022-05-28] MEDS: Cholecalciferol (Vitamin D3) 25 MCG TABLET PO (08:20)
[2022-05-28] MEDS: chlorproMAZINE HCl 100 MG TABLET PO ×3 (08:20→20:04)
[2022-05-28] MEDS: Paliperidone ER 6 MG TAB.ER.24 PO ×2 (08:20→20:03)
[2022-05-28] MEDS: Omeprazole 20 MG CAPSULE.DR PO (08:20)
[2022-05-28] MEDS: Atorvastatin Calcium 20 MG TABLET PO (08:21)
[2022-05-28] MEDS: clonazePAM 1 MG TABLET PO ×2 (08:21→20:04)
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
[2022-05-28 18:00] VITALS: BP 133/76; PULSE 117; TEMP 36.8; O2SAT 98
[2022-05-28] MEDS: Divalproex Sodium Sprinkles 125 MG CAP.DR.SPR 1000 MG PO (20:03)
[2022-05-28] MEDS: Zolpidem Tartrate 5 MG TABLET PO (20:04)
[2022-05-28] MEDS: polyethylene glycoL 3350 17 GM POWD.PACK PO (20:05)
[2022-05-28] MEDS: chlorproMAZINE HCl 100 MG TABLET 200 MG PO (23:30)
[2022-05-28] MEDS: LORazepam 1 MG TABLET 2 MG PO (23:30)
[2022-05-29] MEDS: Atorvastatin Calcium 20 MG TABLET PO (08:18)
[2022-05-29] MEDS: chlorproMAZINE HCl 100 MG TABLET PO ×2 (08:18→16:39)
[2022-05-29] MEDS: Omeprazole 20 MG CAPSULE.DR PO (08:18)
[2022-05-29] MEDS: Paliperidone ER 6 MG TAB.ER.24 PO ×2 (08:18→19:48)
[2022-05-29] MEDS: Cholecalciferol (Vitamin D3) 25 MCG TABLET PO (08:18)
[2022-05-29] MEDS: Lactulose 20 GM/30 ML SOLUTION 10 GM PO (08:18)
[2022-05-29] MEDS: Ezetimibe 10 MG TABLET PO (08:19)
[2022-05-29] MEDS: clonazePAM 1 MG TABLET PO ×2 (08:19→19:48)
[2022-05-29] MEDS: LORazepam 1 MG TABLET 2 MG PO ×3 (08:19→23:24)
[2022-05-29] MEDS: chlorproMAZINE HCl 100 MG TABLET 200 MG PO ×2 (10:45→19:49)
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
[2022-05-29 18:00] VITALS: BP 118/79; PULSE 79; RESP 16; TEMP 36.6; O2SAT 99
[2022-05-29] MEDS: polyethylene glycoL 3350 17 GM POWD.PACK PO (19:49)
[2022-05-29] MEDS: Divalproex Sodium Sprinkles 125 MG CAP.DR.SPR 1000 MG PO (19:49)
--- NOTE | 2022-05-29 22:18 | PC.NURSE ---
Pt alert and wake, drowsy on medications, took evening depakote but spat it out. Provider Zachary Clarke notified. No new orders given.
[2022-05-29] MEDS: diphenhydrAMINE HCL 25 MG TABLET 50 MG PO (23:23)
[2022-05-30] MEDS: Paliperidone ER 6 MG TAB.ER.24 PO ×2 (08:40→21:21)
[2022-05-30] MEDS: polyethylene glycoL 3350 17 GM POWD.PACK PO (08:40)
[2022-05-30] MEDS: Atorvastatin Calcium 20 MG TABLET PO (08:40)
[2022-05-30] MEDS: Omeprazole 20 MG CAPSULE.DR PO (08:40)
[2022-05-30] MEDS: clonazePAM 1 MG TABLET PO ×2 (08:40→21:22)
[2022-05-30] MEDS: Lactulose 20 GM/30 ML SOLUTION 10 GM PO (08:40)
[2022-05-30] MEDS: chlorproMAZINE HCl 100 MG TABLET PO ×2 (08:40→14:19)
[2022-05-30] MEDS: Ezetimibe 10 MG TABLET PO (08:40)
[2022-05-30] MEDS: Cholecalciferol (Vitamin D3) 25 MCG TABLET PO (08:40)
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
[2022-05-30 13:45] LABS: Glucose, Whole Blood 99 mg/dL (60-115)
--- NOTE | 2022-05-30 13:50 | PC.NURSE ---
Intentional Fall This afternoon Oliver was noted having an intentional fall in the hallway outside of Group Room C. He was walking with his 2:1 staff and noted lunging to the ground head first and braced himself with his hand, elbow, and knees. Staff reported that he did not hit his head and may have hit an elbow hard on the way down. The 2:1 staff called for help and nursing staff on the floor responded with vital signs, POC, and physical assessment. Oliver was initially not responding to staff's verbal and physical prompts, he did respond to a sternal rub. The production generalist Psychiatrist, Dr. Clarke, and Hospitalist were notified and the Hospitalist came to the unit to examine Oliver. Before the Hospitalist could arrive Oliver popped up off the floor, laughed, and stated, I got you . He admitted that he was playing possum when asked by staff. The Hospitalist, Dr. Azar, reported that there was no apparent injuries; he was able to walk, talk, was alert and oriented, responded appropriately to questions, and had full range of motion. No orders nor interventions were obtained nor recommended at the time. Oliver was instructed on the dangerousness of these repeated false alarms while in the hospital.
--- NOTE | 2022-05-30 13:53 | PM.EVENT ---
Event Note Date of Service: 05/30/22 Event Note: Called to evaluate patient- Patient was walking with the staff in the hallway lowered himself to the ground , did not hit his head. intially not responding to staff and reportedly had a similar presentation last week as per the staff,by the time i reached to see him -he was awake and standing. staff said- He popped up laughing and said, I got you and just admitted he was playing possum Vitals: 115/64, 98, 98%, 14 resp. Physical exam: Appearance: Alert.? Oriented X3.? not in distress.? head : AT Neck: supple cvs: rrr, [id number] res: clear to auscultation ,no rhonchii or wheezing abd: no rebound or guarding ,nt, bs present. ext pulses present , no cyanosis. skin : intact ,no bruise neuro: axo3 , nonfocal Cn2-12 intact gait stable walked fine with staff and me.
[2022-05-30] MEDS: LORazepam 1 MG TABLET 2 MG PO (17:22)
[2022-05-30] MEDS: Divalproex Sodium Sprinkles 125 MG CAP.DR.SPR 1000 MG PO (21:21)
[2022-05-30] MEDS: chlorproMAZINE HCl 100 MG TABLET 200 MG PO (21:22)
[2022-05-30] MEDS: Zolpidem Tartrate 5 MG TABLET PO (21:23)
[2022-05-31 06:00] VITALS: BP 122/77; PULSE 114; TEMP 36.8; O2SAT 97
[2022-05-31] MEDS: Ezetimibe 10 MG TABLET PO (08:23)
[2022-05-31] MEDS: Paliperidone ER 6 MG TAB.ER.24 PO (08:23)
[2022-05-31] MEDS: Atorvastatin Calcium 20 MG TABLET PO (08:23)
[2022-05-31] MEDS: Omeprazole 20 MG CAPSULE.DR PO (08:23)
[2022-05-31] MEDS: clonazePAM 1 MG TABLET PO (08:23)
[2022-05-31] MEDS: Cholecalciferol (Vitamin D3) 25 MCG TABLET PO (08:23)
[2022-05-31] MEDS: chlorproMAZINE HCl 100 MG TABLET PO ×3 (08:23→15:11)
[2022-05-31] MEDS: Lactulose 20 GM/30 ML SOLUTION 10 GM PO (08:24)
[2022-05-31] MEDS: polyethylene glycoL 3350 17 GM POWD.PACK PO (08:24)
[2022-05-31] MEDS: LORazepam 1 MG TABLET 2 MG PO (13:41)
[2022-05-31] MEDS: diphenhydrAMINE HCL 25 MG TABLET 50 MG PO (15:11)
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
[2022-06-01] MEDS: Ibuprofen 600 MG TABLET PO (01:20)
[2022-06-01] MEDS: diphenhydrAMINE HCL 25 MG TABLET 50 MG PO (01:21)
[2022-06-01] MEDS: clonazePAM 1 MG TABLET PO ×3 (01:21→19:00)
[2022-06-01] MEDS: Zolpidem Tartrate 5 MG TABLET PO ×2 (01:21→18:59)
[2022-06-01] MEDS: chlorproMAZINE HCl 100 MG TABLET 200 MG PO (01:45)
[2022-06-01] MEDS: Divalproex Sodium Sprinkles 125 MG CAP.DR.SPR 1000 MG PO ×2 (01:45→19:00)
[2022-06-01] MEDS: Atorvastatin Calcium 20 MG TABLET PO (08:04)
[2022-06-01] MEDS: Paliperidone ER 6 MG TAB.ER.24 PO ×2 (08:05→18:59)
[2022-06-01] MEDS: Cholecalciferol (Vitamin D3) 25 MCG TABLET PO (08:05)
[2022-06-01] MEDS: chlorproMAZINE HCl 100 MG TABLET PO (08:07)
[2022-06-01] MEDS: Ezetimibe 10 MG TABLET PO (08:07)
[2022-06-01] MEDS: Lactulose 20 GM/30 ML SOLUTION 10 GM PO (08:08)
[2022-06-01] MEDS: Omeprazole 20 MG CAPSULE.DR PO (08:17)
[2022-06-01] MEDS: polyethylene glycoL 3350 17 GM POWD.PACK PO ×2 (08:21→18:20)
[2022-06-01] MEDS: OLANZapine 5 MG TABLET PO (13:41)
[2022-06-01] MEDS: Paliperidone Palmitate 234 MG/1.5 ML SYRINGE IM (13:42)
[2022-06-01 13:46] VITALS: BP 126/82; PULSE 111
[2022-06-01] MEDS: OLANZapine ODT 10 MG TAB.RAPDIS TRANSLINGU (16:09)
[2022-06-01 16:49] VITALS: BP 115/77; PULSE 97; TEMP 36.6
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
[2022-06-01] MEDS: OLANZapine 10 MG TABLET PO (18:59)
[2022-06-02] MEDS: polyethylene glycoL 3350 17 GM POWD.PACK PO ×2 (08:03→23:18)
[2022-06-02] MEDS: Lactulose 20 GM/30 ML SOLUTION 10 GM PO (08:03)
[2022-06-02] MEDS: Ibuprofen 600 MG TABLET PO (08:04)
[2022-06-02] MEDS: Milk of Magnesia 30 ML ORAL.SUSP PO (08:04)
[2022-06-02] MEDS: Omeprazole 20 MG CAPSULE.DR PO (08:04)
[2022-06-02] MEDS: Cholecalciferol (Vitamin D3) 25 MCG TABLET PO (08:05)
[2022-06-02] MEDS: OLANZapine ODT 10 MG TAB.RAPDIS TRANSLINGU ×2 (08:05→16:25)
[2022-06-02] MEDS: Ezetimibe 10 MG TABLET PO (08:05)
[2022-06-02] MEDS: clonazePAM 1 MG TABLET PO ×2 (08:05→23:09)
[2022-06-02] MEDS: Paliperidone ER 6 MG TAB.ER.24 PO ×2 (08:05→23:09)
[2022-06-02] MEDS: Atorvastatin Calcium 20 MG TABLET PO (08:05)
[2022-06-02] MEDS: chlorproMAZINE HCl 100 MG TABLET PO ×2 (08:06→17:11)
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
--- NOTE | 2022-06-02 20:36 | PC.NURSE ---
Oliver's mother called at approx 20:36, concerned about him not being able to sleep at night, she referred to Thorazine as the reason why he might be sleepless, mother reassured about the safety of the patient and advised to discuss this concern with the provider.
[2022-06-02] MEDS: Divalproex Sodium Sprinkles 125 MG CAP.DR.SPR 1000 MG PO (23:08)
[2022-06-02] MEDS: Zolpidem Tartrate 5 MG TABLET PO (23:12)
--- NOTE | 2022-06-03 | ECG_ITS ---
Test Reason : CHECK QTC Blood Pressure : / mmHG Vent. Rate : 102 BPM Atrial Rate : 102 BPM P-R Int : 148 ms QRS Dur : 086 ms QT Int : 336 ms P-R-T Axes : 052 071 039 degrees QTc Int : 437 ms Sinus tachycardia Otherwise normal ECG When compared with ECG of 28-MAY-2022 18:38, No significant change was found Referred By: Aris Smith Electronically Signed By:Colton Hayward
[2022-06-03] MEDS: chlorproMAZINE HCl 100 MG TABLET PO ×2 (01:54→10:12)
[2022-06-03 07:00] VITALS: BMI 36.0
[2022-06-03 08:00] VITALS: BP 116/64; PULSE 109; RESP 16; TEMP 36.6; O2SAT 96
[2022-06-03] MEDS: polyethylene glycoL 3350 17 GM POWD.PACK PO ×2 (08:27→19:58)
[2022-06-03] MEDS: Lactulose 20 GM/30 ML SOLUTION 10 GM PO (08:27)
[2022-06-03] MEDS: OLANZapine ODT 10 MG TAB.RAPDIS TRANSLINGU ×2 (08:28→16:20)
[2022-06-03] MEDS: Ezetimibe 10 MG TABLET PO (08:28)
[2022-06-03] MEDS: Paliperidone ER 6 MG TAB.ER.24 PO (08:29)
[2022-06-03] MEDS: Cholecalciferol (Vitamin D3) 25 MCG TABLET PO (08:29)
[2022-06-03] MEDS: Atorvastatin Calcium 20 MG TABLET PO (08:29)
[2022-06-03] MEDS: Omeprazole 20 MG CAPSULE.DR PO (08:29)
[2022-06-03] MEDS: clonazePAM 1 MG TABLET PO ×2 (08:29→19:58)
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
[2022-06-03] MEDS: Ibuprofen 600 MG TABLET PO (15:55)
[2022-06-03 18:00] VITALS: RESP 16
[2022-06-03] MEDS: Zolpidem Tartrate 5 MG TABLET PO (19:58)
[2022-06-03] MEDS: Divalproex Sodium Sprinkles 125 MG CAP.DR.SPR 1000 MG PO (19:58)
[2022-06-03] MEDS: OLANZapine ODT 10 MG TAB.RAPDIS 20 MG TRANSLINGU (19:58)
[2022-06-04 06:00] VITALS: BP 118/68; PULSE 100; RESP 18; TEMP 36.5; O2SAT 97
[2022-06-04] MEDS: Ezetimibe 10 MG TABLET PO (08:30)
[2022-06-04] MEDS: clonazePAM 1 MG TABLET PO ×2 (08:30→21:01)
[2022-06-04] MEDS: Cholecalciferol (Vitamin D3) 25 MCG TABLET PO (08:30)
[2022-06-04] MEDS: OLANZapine ODT 10 MG TAB.RAPDIS TRANSLINGU (08:30)
[2022-06-04] MEDS: Lactulose 20 GM/30 ML SOLUTION 10 GM PO (08:31)
[2022-06-04] MEDS: Atorvastatin Calcium 20 MG TABLET PO (08:31)
[2022-06-04] MEDS: polyethylene glycoL 3350 17 GM POWD.PACK PO ×2 (08:35→21:14)
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
[2022-06-04] MEDS: Milk of Magnesia 30 ML ORAL.SUSP PO (16:46)
[2022-06-04 18:56] VITALS: BP 114/75; PULSE 106; TEMP 36.2
[2022-06-04] MEDS: Divalproex Sodium Sprinkles 125 MG CAP.DR.SPR 1000 MG PO (20:55)
[2022-06-04] MEDS: OLANZapine ODT 10 MG TAB.RAPDIS 20 MG TRANSLINGU (21:00)
[2022-06-04] MEDS: Ibuprofen 600 MG TABLET PO (21:11)
[2022-06-05 06:00] VITALS: BP 117/65; PULSE 102; RESP 16; TEMP 36.3; O2SAT 97
[2022-06-05] MEDS: Omeprazole 20 MG CAPSULE.DR PO (06:28)
[2022-06-05] MEDS: Ezetimibe 10 MG TABLET PO (08:35)
[2022-06-05] MEDS: clonazePAM 1 MG TABLET PO ×2 (08:35→19:22)
[2022-06-05] MEDS: Cholecalciferol (Vitamin D3) 25 MCG TABLET PO (08:35)
[2022-06-05] MEDS: Lactulose 20 GM/30 ML SOLUTION 10 GM PO (08:35)
[2022-06-05] MEDS: OLANZapine ODT 10 MG TAB.RAPDIS TRANSLINGU (08:35)
[2022-06-05] MEDS: polyethylene glycoL 3350 17 GM POWD.PACK PO (08:35)
[2022-06-05] MEDS: Atorvastatin Calcium 20 MG TABLET PO (08:36)
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
[2022-06-05 17:54] VITALS: BP 130/68; PULSE 82; TEMP 36.7; O2SAT 100
[2022-06-05] MEDS: Divalproex Sodium Sprinkles 125 MG CAP.DR.SPR 1000 MG PO (19:21)
[2022-06-05] MEDS: Zolpidem Tartrate 5 MG TABLET PO (19:22)
[2022-06-05] MEDS: OLANZapine ODT 10 MG TAB.RAPDIS 20 MG TRANSLINGU (19:22)
[2022-06-05] MEDS: diphenhydrAMINE HCL 25 MG TABLET 50 MG PO (23:53)
[2022-06-05] MEDS: chlorproMAZINE HCl 100 MG TABLET 200 MG PO (23:54)
[2022-06-06 06:00] VITALS: BP 139/73; PULSE 91; RESP 16; TEMP 36.3; O2SAT 98
[2022-06-06] MEDS: Omeprazole 20 MG CAPSULE.DR PO (07:08)
[2022-06-06] MEDS: Atorvastatin Calcium 20 MG TABLET PO (07:59)
[2022-06-06] MEDS: Ezetimibe 10 MG TABLET PO (07:59)
[2022-06-06] MEDS: Cholecalciferol (Vitamin D3) 25 MCG TABLET PO (07:59)
[2022-06-06] MEDS: clonazePAM 1 MG TABLET PO ×2 (07:59→20:05)
[2022-06-06] MEDS: OLANZapine ODT 10 MG TAB.RAPDIS TRANSLINGU (07:59)
[2022-06-06] MEDS: Lactulose 20 GM/30 ML SOLUTION 10 GM PO (08:00)
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
[2022-06-06 10:56] LABS: Neut%MD 59.1 %; Neutrophils Absolute Auto 4.3 x10*3/uL (2.0-8.3); WBCANC 7.3 X10*3/uL
[2022-06-06] MEDS: cloZAPine 25 MG TABLET PO ×2 (13:23→20:05)
[2022-06-06] MEDS: Ibuprofen 600 MG TABLET PO (16:45)
[2022-06-06] MEDS: OLANZapine ODT 10 MG TAB.RAPDIS 20 MG TRANSLINGU (20:05)
[2022-06-06] MEDS: Divalproex Sodium Sprinkles 125 MG CAP.DR.SPR 1000 MG PO (20:06)
[2022-06-06] MEDS: polyethylene glycoL 3350 17 GM POWD.PACK PO (20:09)
[2022-06-06 23:30] VITALS: BP 125/68; PULSE 92; TEMP 36
[2022-06-07] MEDS: chlorproMAZINE HCl 100 MG TABLET 200 MG PO (02:48)
[2022-06-07] MEDS: diphenhydrAMINE HCL 25 MG TABLET 50 MG PO (02:49)
[2022-06-07] MEDS: Omeprazole 20 MG CAPSULE.DR PO (05:40)
[2022-06-07 06:00] VITALS: BP 119/63; PULSE 84; RESP 16; TEMP 36.4; O2SAT 96
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
[2022-06-07] MEDS: Atorvastatin Calcium 20 MG TABLET PO (12:46)
[2022-06-07] MEDS: cloZAPine 25 MG TABLET PO ×2 (12:47→15:05)
[2022-06-07] MEDS: Ezetimibe 10 MG TABLET PO (12:47)
[2022-06-07] MEDS: OLANZapine ODT 10 MG TAB.RAPDIS TRANSLINGU (12:47)
[2022-06-07] MEDS: clonazePAM 1 MG TABLET PO (12:49)
[2022-06-07] MEDS: Cholecalciferol (Vitamin D3) 25 MCG TABLET PO (12:50)
[2022-06-07] MEDS: Lactulose 20 GM/30 ML SOLUTION 10 GM PO (12:51)
[2022-06-07] MEDS: Milk of Magnesia 30 ML ORAL.SUSP PO (13:42)
[2022-06-07 18:00] VITALS: BP 129/75; PULSE 102; TEMP 36.3; O2SAT 99
[2022-06-07] MEDS: Divalproex Sodium Sprinkles 125 MG CAP.DR.SPR 1000 MG PO (19:40)
[2022-06-07] MEDS: cloZAPine 25 MG TABLET 50 MG PO (19:40)
[2022-06-07] MEDS: clonazePAM 0.5 MG TABLET PO (19:40)
[2022-06-07] MEDS: OLANZapine ODT 10 MG TAB.RAPDIS 20 MG TRANSLINGU (19:40)
[2022-06-08] MEDS: polyethylene glycoL 3350 17 GM POWD.PACK PO ×2 (08:27→22:41)
[2022-06-08] MEDS: Lactulose 20 GM/30 ML SOLUTION 10 GM PO (08:28)
[2022-06-08] MEDS: Cholecalciferol (Vitamin D3) 25 MCG TABLET PO (08:29)
[2022-06-08] MEDS: OLANZapine ODT 10 MG TAB.RAPDIS TRANSLINGU (08:29)
[2022-06-08] MEDS: Atorvastatin Calcium 20 MG TABLET PO (08:29)
[2022-06-08] MEDS: Omeprazole 20 MG CAPSULE.DR PO (08:29)
[2022-06-08] MEDS: Ezetimibe 10 MG TABLET PO (08:29)
[2022-06-08] MEDS: clonazePAM 0.5 MG TABLET PO ×3 (08:30→22:40)
[2022-06-08 08:49] VITALS: BP 132/86; PULSE 90; RESP 18; TEMP 36.2; O2SAT 98
[2022-06-08] MEDS: chlorproMAZINE HCl 100 MG TABLET PO (14:01)
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
[2022-06-08] MEDS: chlorproMAZINE HCl 100 MG TABLET 200 MG PO (17:01)
[2022-06-08 18:00] VITALS: BP 119/79; PULSE 101; RESP 16; TEMP 37; O2SAT 99
[2022-06-08] MEDS: OLANZapine ODT 10 MG TAB.RAPDIS 20 MG TRANSLINGU (22:40)
[2022-06-08] MEDS: cloZAPine 25 MG TABLET 75 MG PO (22:40)
[2022-06-08] MEDS: Milk of Magnesia 30 ML ORAL.SUSP PO (22:42)
[2022-06-09] MEDS: Omeprazole 20 MG CAPSULE.DR PO (08:54)
[2022-06-09] MEDS: cloZAPine 25 MG TABLET PO ×2 (08:54→14:10)
[2022-06-09] MEDS: Lactulose 20 GM/30 ML SOLUTION 10 GM PO (08:55)
[2022-06-09] MEDS: polyethylene glycoL 3350 17 GM POWD.PACK PO ×2 (08:55→22:26)
[2022-06-09] MEDS: Ezetimibe 10 MG TABLET PO (09:03)
[2022-06-09] MEDS: clonazePAM 0.5 MG TABLET PO ×2 (14:10→22:25)
[2022-06-09] MEDS: Milk of Magnesia 30 ML ORAL.SUSP PO (15:07)
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
[2022-06-09 20:52] VITALS: BP 115/69; PULSE 109; TEMP 36.6
[2022-06-09] MEDS: cloZAPine 100 MG TABLET PO (22:24)
[2022-06-09] MEDS: Divalproex Sodium Sprinkles 125 MG CAP.DR.SPR 1000 MG PO (22:25)
[2022-06-09] MEDS: Zolpidem Tartrate 5 MG TABLET PO (22:26)
[2022-06-09] MEDS: OLANZapine ODT 10 MG TAB.RAPDIS 20 MG TRANSLINGU (22:26)
[2022-06-10 07:00] VITALS: BMI 35.6
[2022-06-10 07:06] VITALS: BP 132/72; PULSE 104; RESP 16; TEMP 36.2; O2SAT 97
--- NOTE | 2022-06-10 08:37 | PC.NURSE ---
pt signed a 3 day up on friday 06/15. , efren, ur aware.
[2022-06-10] MEDS: clonazePAM 0.5 MG TABLET PO ×3 (08:41→20:44)
[2022-06-10] MEDS: Cholecalciferol (Vitamin D3) 25 MCG TABLET PO (08:41)
[2022-06-10] MEDS: cloZAPine 25 MG TABLET PO (08:41)
[2022-06-10] MEDS: OLANZapine ODT 10 MG TAB.RAPDIS TRANSLINGU (08:41)
[2022-06-10] MEDS: Atorvastatin Calcium 20 MG TABLET PO (08:41)
[2022-06-10] MEDS: Ezetimibe 10 MG TABLET PO (08:41)
[2022-06-10] MEDS: Omeprazole 20 MG CAPSULE.DR PO (08:42)
[2022-06-10] MEDS: polyethylene glycoL 3350 17 GM POWD.PACK PO (09:09)
[2022-06-10] MEDS: Lactulose 20 GM/30 ML SOLUTION 10 GM PO (09:09)
[2022-06-10] MEDS: chlorproMAZINE HCl 100 MG TABLET PO (14:29)
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
[2022-06-10 18:00] VITALS: BP 140/80; PULSE 89
[2022-06-10] MEDS: cloZAPine 25 MG TABLET 150 MG PO (20:43)
[2022-06-10] MEDS: Zolpidem Tartrate 5 MG TABLET PO (20:44)
[2022-06-10] MEDS: OLANZapine ODT 10 MG TAB.RAPDIS 20 MG TRANSLINGU (20:44)
[2022-06-10] MEDS: Divalproex Sodium Sprinkles 125 MG CAP.DR.SPR 1000 MG PO (20:44)
[2022-06-11 06:00] VITALS: BP 134/82; PULSE 102; RESP 18; TEMP 36.3; O2SAT 98
[2022-06-11] MEDS: Omeprazole 20 MG CAPSULE.DR PO (06:19)
[2022-06-11 08:20] LABS: Neut%MD 66.2 %; Neutrophils Absolute Auto 5.5 x10*3/uL (2.0-8.3); WBCANC 8.2 X10*3/uL
[2022-06-11] MEDS: Atorvastatin Calcium 20 MG TABLET PO (08:41)
[2022-06-11] MEDS: polyethylene glycoL 3350 17 GM POWD.PACK PO (08:41)
[2022-06-11] MEDS: Ezetimibe 10 MG TABLET PO (08:41)
[2022-06-11] MEDS: clonazePAM 0.5 MG TABLET PO ×3 (08:41→20:42)
[2022-06-11] MEDS: Cholecalciferol (Vitamin D3) 25 MCG TABLET PO (08:41)
[2022-06-11] MEDS: Lactulose 20 GM/30 ML SOLUTION 10 GM PO (08:41)
[2022-06-11] MEDS: Milk of Magnesia 30 ML ORAL.SUSP PO (16:11)
[2022-06-11] MEDS: cloZAPine 25 MG TABLET 175 MG PO (20:41)
[2022-06-11] MEDS: Zolpidem Tartrate 5 MG TABLET PO (20:42)
[2022-06-11] MEDS: OLANZapine ODT 10 MG TAB.RAPDIS 30 MG TRANSLINGU (20:42)
[2022-06-11] MEDS: Divalproex Sodium Sprinkles 125 MG CAP.DR.SPR 1000 MG PO (20:42)
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
[2022-06-12 06:00] VITALS: BP 134/89; PULSE 108; TEMP 36.2; O2SAT 97
[2022-06-12] MEDS: polyethylene glycoL 3350 17 GM POWD.PACK PO ×2 (08:24→19:36)
[2022-06-12] MEDS: Atorvastatin Calcium 20 MG TABLET PO (08:24)
[2022-06-12] MEDS: Omeprazole 20 MG CAPSULE.DR PO (08:24)
[2022-06-12] MEDS: Ezetimibe 10 MG TABLET PO (08:24)
[2022-06-12] MEDS: Cholecalciferol (Vitamin D3) 25 MCG TABLET PO (08:24)
[2022-06-12] MEDS: clonazePAM 0.5 MG TABLET PO ×2 (08:24→19:36)
[2022-06-12] MEDS: Lactulose 20 GM/30 ML SOLUTION 10 GM PO (08:24)
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
[2022-06-12 18:00] VITALS: BP 135/78; PULSE 102; RESP 16; TEMP 36.6; O2SAT 99
[2022-06-12] MEDS: OLANZapine ODT 10 MG TAB.RAPDIS 30 MG TRANSLINGU (19:34)
[2022-06-12] MEDS: Zolpidem Tartrate 5 MG TABLET PO (19:34)
[2022-06-12] MEDS: Divalproex Sodium Sprinkles 125 MG CAP.DR.SPR 1000 MG PO (19:34)
[2022-06-12] MEDS: cloZAPine 25 MG TABLET 175 MG PO (19:35)
[2022-06-13 06:00] VITALS: BP 122/71; PULSE 100; TEMP 36.2; O2SAT 96
[2022-06-13 08:08] LABS: Neut%MD 64.6 %; Neutrophils Absolute Auto 5.3 x10*3/uL (2.0-8.3); WBCANC 8.2 X10*3/uL
[2022-06-13] MEDS: Cholecalciferol (Vitamin D3) 25 MCG TABLET PO (08:46)
[2022-06-13] MEDS: Atorvastatin Calcium 20 MG TABLET PO (08:46)
[2022-06-13] MEDS: polyethylene glycoL 3350 17 GM POWD.PACK PO (08:46)
[2022-06-13] MEDS: Omeprazole 20 MG CAPSULE.DR PO (08:46)
[2022-06-13] MEDS: Ezetimibe 10 MG TABLET PO (08:47)
[2022-06-13] MEDS: Lactulose 20 GM/30 ML SOLUTION 10 GM PO (08:47)
[2022-06-13] MEDS: clonazePAM 0.5 MG TABLET PO ×2 (08:47→20:18)
[2022-06-13 18:00] VITALS: BP 142/82; PULSE 98; RESP 16; TEMP 36.5; O2SAT 99
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
[2022-06-13] MEDS: OLANZapine ODT 10 MG TAB.RAPDIS 30 MG TRANSLINGU (20:18)
[2022-06-13] MEDS: Zolpidem Tartrate 5 MG TABLET PO (20:19)
[2022-06-13] MEDS: cloZAPine 100 MG TABLET 200 MG PO (20:19)
[2022-06-13] MEDS: chlorproMAZINE HCl 100 MG TABLET 200 MG PO (21:19)
--- NOTE | 2022-06-13 22:38 | PC.NURSE ---
Pt alert and confused. VSS. Pt refused bed time depakote 1000mg.
[2022-06-14] MEDS: diphenhydrAMINE HCL 25 MG TABLET 50 MG PO (01:19)
[2022-06-14] MEDS: chlorproMAZINE HCl 100 MG TABLET PO (01:19)
[2022-06-14 06:00] VITALS: BP 131/86; PULSE 102; RESP 18; TEMP 36.6; O2SAT 99
[2022-06-14] MEDS: Omeprazole 20 MG CAPSULE.DR PO (06:58)
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
[2022-06-14 21:20] VITALS: BP 135/84; PULSE 119; RESP 18; TEMP 36.4; O2SAT 96
[2022-06-14] MEDS: cloZAPine 25 MG TABLET 250 MG PO (21:27)
[2022-06-14] MEDS: clonazePAM 0.5 MG TABLET PO (21:28)
[2022-06-14] MEDS: Zolpidem Tartrate 5 MG TABLET PO (21:28)
[2022-06-14] MEDS: OLANZapine ODT 10 MG TAB.RAPDIS 30 MG TRANSLINGU (21:28)
[2022-06-14] MEDS: Divalproex Sodium Sprinkles 125 MG CAP.DR.SPR 1000 MG PO (21:36)
[2022-06-15 06:00] VITALS: BP 129/68; PULSE 104; RESP 18; TEMP 36.6; O2SAT 96
[2022-06-15] MEDS: Lactulose 20 GM/30 ML SOLUTION 10 GM PO (08:40)
[2022-06-15] MEDS: clonazePAM 0.5 MG TABLET PO ×2 (08:42→19:03)
[2022-06-15] MEDS: Cholecalciferol (Vitamin D3) 25 MCG TABLET PO (08:43)
[2022-06-15] MEDS: Omeprazole 20 MG CAPSULE.DR PO (08:43)
[2022-06-15] MEDS: polyethylene glycoL 3350 17 GM POWD.PACK PO (08:51)
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
[2022-06-15 17:25] VITALS: BP 137/81; PULSE 105
[2022-06-15] MEDS: cloZAPine 25 MG TABLET 275 MG PO (19:02)
[2022-06-15] MEDS: Zolpidem Tartrate 5 MG TABLET PO (19:02)
[2022-06-15] MEDS: OLANZapine ODT 10 MG TAB.RAPDIS 30 MG TRANSLINGU (19:03)
[2022-06-15] MEDS: Divalproex Sodium Sprinkles 125 MG CAP.DR.SPR 1000 MG PO (19:03)
[2022-06-16 06:00] VITALS: BP 134/81; PULSE 104; TEMP 35.8; O2SAT 97
[2022-06-16] MEDS: Lactulose 20 GM/30 ML SOLUTION 10 GM PO (08:43)
[2022-06-16] MEDS: polyethylene glycoL 3350 17 GM POWD.PACK PO ×2 (08:43→20:05)
[2022-06-16] MEDS: clonazePAM 0.5 MG TABLET PO ×2 (08:43→20:06)
[2022-06-16] MEDS: Cholecalciferol (Vitamin D3) 25 MCG TABLET PO (08:43)
[2022-06-16] MEDS: Omeprazole 20 MG CAPSULE.DR PO (08:43)
--- NOTE | 2022-06-16 13:08 | PC.NURSE ---
Three Day Notice Oliver filed another Three Day Notice today, which will be up on Tuesday
[2022-06-16 18:00] VITALS: BP 120/78; PULSE 87; RESP 16; TEMP 36.5; O2SAT 97
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
[2022-06-16] MEDS: OLANZapine ODT 10 MG TAB.RAPDIS 25 MG TRANSLINGU (20:02)
[2022-06-16] MEDS: cloZAPine 100 MG TABLET 300 MG PO (20:05)
[2022-06-16] MEDS: Divalproex Sodium Sprinkles 125 MG CAP.DR.SPR 1000 MG PO (20:06)
[2022-06-16] MEDS: Zolpidem Tartrate 5 MG TABLET PO (20:06)
[2022-06-16] MEDS: chlorproMAZINE HCl 100 MG TABLET 200 MG PO (20:47)
[2022-06-16] MEDS: chlorproMAZINE HCl 100 MG TABLET PO (20:47)
[2022-06-16] MEDS: diphenhydrAMINE HCL 25 MG TABLET 50 MG PO (21:48)
[2022-06-17 06:35] VITALS: BP 121/80; PULSE 89; RESP 16; TEMP 36.1; O2SAT 99
[2022-06-17 07:00] VITALS: BMI 35.7
[2022-06-17] MEDS: Omeprazole 20 MG CAPSULE.DR PO (09:13)
[2022-06-17] MEDS: Lactulose 20 GM/30 ML SOLUTION 10 GM PO (09:13)
[2022-06-17] MEDS: polyethylene glycoL 3350 17 GM POWD.PACK PO (09:13)
[2022-06-17] MEDS: Cholecalciferol (Vitamin D3) 25 MCG TABLET PO (09:13)
[2022-06-17] MEDS: clonazePAM 0.5 MG TABLET PO ×2 (09:13→18:45)
[2022-06-17] MEDS: chlorproMAZINE HCl 100 MG TABLET 200 MG PO (18:40)
[2022-06-17] MEDS: Divalproex Sodium Sprinkles 125 MG CAP.DR.SPR 1000 MG PO (18:44)
[2022-06-17] MEDS: OLANZapine ODT 10 MG TAB.RAPDIS 25 MG TRANSLINGU (18:45)
[2022-06-17] MEDS: cloZAPine 300 MG, cloZAPine 25 MG 325 MG PO (18:45)
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
[2022-06-17] MEDS: Zolpidem Tartrate 5 MG TABLET PO (21:17)
[2022-06-18 06:00] VITALS: BP 132/85; PULSE 98; RESP 18; TEMP 36.2; O2SAT 94
[2022-06-18] MEDS: Cholecalciferol (Vitamin D3) 25 MCG TABLET PO (08:46)
[2022-06-18] MEDS: Omeprazole 20 MG CAPSULE.DR PO (08:46)
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
[2022-06-18] MEDS: chlorproMAZINE HCl 100 MG TABLET 200 MG PO (14:19)
[2022-06-18 18:36] VITALS: RESP 18
[2022-06-19 06:00] VITALS: BP 128/84; PULSE 101; RESP 18; TEMP 36.3; O2SAT 97
[2022-06-19] MEDS: Omeprazole 20 MG CAPSULE.DR PO (06:37)
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
[2022-06-19] MEDS: chlorproMAZINE HCl 100 MG TABLET 200 MG PO (09:29)
[2022-06-19] MEDS: Cholecalciferol (Vitamin D3) 25 MCG TABLET PO (09:29)
[2022-06-19] MEDS: cloZAPine 300 MG, cloZAPine 25 MG 325 MG PO (15:45)
--- NOTE | 2022-06-19 15:52 | PC.NURSE ---
Per doctor, pt given 325 clozapine this afternoon. Pt refused his nightly dose yesterday.
[2022-06-19 17:24] VITALS: BP 151/88; PULSE 115; RESP 18; TEMP 36.5; O2SAT 96
[2022-06-19] MEDS: polyethylene glycoL 3350 17 GM POWD.PACK PO (18:53)
[2022-06-19] MEDS: clonazePAM 0.5 MG TABLET PO (18:54)
[2022-06-19] MEDS: OLANZapine ODT 10 MG TAB.RAPDIS 25 MG TRANSLINGU (18:54)
[2022-06-19] MEDS: Divalproex Sodium Sprinkles 125 MG CAP.DR.SPR 1000 MG PO (18:54)
[2022-06-19] MEDS: Zolpidem Tartrate 5 MG TABLET PO (18:54)
[2022-06-20 06:00] VITALS: BP 131/68; PULSE 103; RESP 16; TEMP 36.7; O2SAT 97
[2022-06-20] MEDS: Omeprazole 20 MG CAPSULE.DR PO (06:12)
[2022-06-20 07:16] LABS: Neut%MD 62.3 %; Neutrophils Absolute Auto 5.3 x10*3/uL (2.0-8.3); WBCANC 8.5 X10*3/uL
[2022-06-20] MEDS: chlorproMAZINE HCl 100 MG TABLET 200 MG PO (08:07)
[2022-06-20] MEDS: Cholecalciferol (Vitamin D3) 25 MCG TABLET PO (08:08)
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
[2022-06-20 16:44] VITALS: BP 155/76; PULSE 125; RESP 18; TEMP 35.8; O2SAT 95
[2022-06-20] MEDS: cloZAPine 300 MG, cloZAPine 25 MG 325 MG PO (19:06)
[2022-06-21] MEDS: Omeprazole 20 MG CAPSULE.DR PO (05:57)
[2022-06-21 06:00] VITALS: BP 136/76; PULSE 111; RESP 18; TEMP 36.3; O2SAT 96
[2022-06-21] MEDS: chlorproMAZINE HCl 100 MG TABLET 200 MG PO (08:22)
[2022-06-21] MEDS: Cholecalciferol (Vitamin D3) 25 MCG TABLET PO (08:22)
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
[2022-06-21 18:00] VITALS: BP 125/84; PULSE 100; TEMP 36.7; O2SAT 97
[2022-06-21] MEDS: cloZAPine 300 MG, cloZAPine 25 MG 325 MG PO (18:23)
[2022-06-21] MEDS: diphenhydrAMINE HCL 25 MG TABLET 50 MG PO (18:25)
[2022-06-22 06:41] VITALS: BP 125/80; PULSE 101; RESP 16; TEMP 36.4; O2SAT 96
[2022-06-22 08:40] LABS: MANUAL DIFF FLAG NO
[2022-06-22] MEDS: chlorproMAZINE HCl 100 MG TABLET 200 MG PO (08:54)
[2022-06-22 08:57] LABS: Basophils Percent Auto 0.4 % (0-2); Eosinophils Absolute Auto 0.2 X10*3/uL (0.0-0.4); Eosinophils Percent Auto 2.7 % (0-4); Hematocrit 40.3 % (42.0-52.0); Imm Gran Abs Auto 0.03 X10*3/uL (0.00-0.03); Imm Gran Pct Auto 0.4 % (0.0-0.4); Lymphocytes Absolute Auto 1.9 X10*3/uL (1.2-4.9); Lymphocytes Percent Auto 24.7 % (20-40); Mean Corpuscular HGB Conc 32.3 g/dl (31.0-36.0); Mean Corpuscular Hemoglobin 26.4 pg (27.0-33.0); Mean Corpuscular Volume 81.9 fL (80.0-98.0); Mean Platelet Volume 9.8 fL (9.4-12.4); Monocytes Absolute Auto 0.9 X10*3/uL (0.1-1.2); Monocytes Percent Auto 11.1 % (2-11); Neutrophils Absolute Auto 4.7 x10*3/uL (2.0-8.3); Neutrophils Percent Auto 60.7 % (45-73); Platelet Count 258 X10*3/uL (160-400); Red Blood Count 4.92 X10*6/uL (4.60-5.80); Red Cell Distribution Width 12.8 % (11.0-16.0); White Blood Count 7.8 X10*3/uL (4.8-10.8)
[2022-06-22 09:05] LABS: Estimated Average Glucose 111 mg/dL; Hemoglobin A1c % 5.5 %
[2022-06-22 09:21] LABS: Alanine Aminotransferase 81 U/L (0-40); Albumin Level 4.4 g/dL (3.5-5.0); Alkaline Phosphatase 107 U/L (39-117); Aspartate Amino Transferase 73 U/L (5-37); Bilirubin Direct 0.2 mg/dL (0.0-0.5); Bilirubin Total 0.3 mg/dL (0.0-1.0); Total Protein 7.5 g/dL (6.5-8.0)
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
[2022-06-22 18:00] VITALS: BP 136/86; PULSE 107; RESP 16; TEMP 36.5; O2SAT 97
[2022-06-22] MEDS: cloZAPine 300 MG, cloZAPine 25 MG 325 MG PO (23:44)
--- NOTE | 2022-06-22 23:59 | PC.NURSE ---
pt took his clozaril that was earlier refused.
[2022-06-23] MEDS: Zolpidem Tartrate 5 MG TABLET PO (01:13)
[2022-06-23] MEDS: diphenhydrAMINE HCL 25 MG TABLET 50 MG PO ×2 (01:14→08:37)
[2022-06-23] MEDS: OLANZapine ODT 10 MG TAB.RAPDIS 30 MG TRANSLINGU ×2 (01:14→21:07)
[2022-06-23] MEDS: chlorproMAZINE HCl 100 MG TABLET 200 MG PO ×3 (01:14→15:40)
[2022-06-23] MEDS: Divalproex Sodium ER 500 MG TAB.ER.24H 1000 MG PO (11:13)
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
[2022-06-23] MEDS: diazePAM 10 MG/2 ML CARTRIDGE 15 MG IM (12:15)
[2022-06-23] MEDS: diphenhydrAMINE HCL 50 MG/ML VIAL 100 MG IM (12:26)
[2022-06-23 12:30] VITALS: BP 142/67
[2022-06-23 12:45] VITALS: BP 113/70; PULSE 124; O2SAT 97
[2022-06-23 13:00] VITALS: BP 112/62; PULSE 120
[2022-06-23 17:10] VITALS: BP 123/59; PULSE 122; TEMP 35.7
[2022-06-23] MEDS: Divalproex Sodium ER 500 MG TAB.ER.24H PO (19:15)
[2022-06-23] MEDS: Paliperidone Palmitate 234 MG/1.5 ML SYRINGE IM (19:37)
[2022-06-23] MEDS: clonazePAM 1 MG TABLET PO (21:08)
[2022-06-23] MEDS: cloZAPine 100 MG TABLET 350 MG PO (21:09)
[2022-06-24 06:30] VITALS: BP 130/67; PULSE 111; RESP 16; TEMP 36.9; O2SAT 97
[2022-06-24 07:00] VITALS: BMI 35.8
[2022-06-24] MEDS: chlorproMAZINE HCl 100 MG TABLET 200 MG PO (09:01)
[2022-06-24] MEDS: clonazePAM 1 MG TABLET PO ×2 (09:01→19:06)
[2022-06-24] MEDS: Omeprazole 20 MG CAPSULE.DR PO (09:08)
[2022-06-24] MEDS: Throat Lozenge, Medicated LOZENGE 1 LOZENGE MUCOUS MEM ×2 (09:08→11:50)
[2022-06-24] MEDS: diphenhydrAMINE HCL 25 MG TABLET 50 MG PO (09:16)
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
--- NOTE | 2022-06-24 09:36 | PC.NURSE ---
Late entrance from event of 06/23/22: At approximately 1200 pt had been becoming increasingly agitated, having refused his scheduled morning meds multiple times, pt began disrobing, then soaking a shirt in water and swinging it around while running up and down the unit screaming. Pt was not able to be re-dircted, he was hyperverbal and continued to refuse PO meds secondary to paranoid thoughts. MD Dr Espinoza notified, medication restraint orders received for Thorazine 100mg, Diazepam 15mg and Benedryl 100MG, all IM, with good effect.
[2022-06-24 16:37] VITALS: BP 128/73; PULSE 102; TEMP 36.3; O2SAT 98
[2022-06-24] MEDS: cloZAPine 100 MG TABLET 350 MG PO (19:05)
--- NOTE | 2022-06-24 21:08 | PC.NURSE ---
Pt signed a 3-day notice on 06/24/22, up on 06/29/22
[2022-06-25 06:00] VITALS: BP 121/62; PULSE 112; RESP 18; TEMP 36.3; O2SAT 97
[2022-06-25] MEDS: Omeprazole 20 MG CAPSULE.DR PO ×2 (07:15→07:17)
[2022-06-25] MEDS: chlorproMAZINE HCl 100 MG TABLET 200 MG PO (09:49)
[2022-06-25] MEDS: Glycopyrrolate 1 MG TABLET PO ×2 (09:50→19:25)
[2022-06-25] MEDS: clonazePAM 1 MG TABLET PO ×2 (09:50→19:24)
[2022-06-25] MEDS: diphenhydrAMINE HCL 25 MG TABLET 50 MG PO (19:25)
[2022-06-25] MEDS: OLANZapine ODT 10 MG TAB.RAPDIS 30 MG TRANSLINGU (19:25)
[2022-06-25] MEDS: Divalproex Sodium ER 500 MG TAB.ER.24H 1500 MG PO (19:25)
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
[2022-06-26 08:33] LABS: Blood Urea Nitrogen 9 mg/dL (9-16); Creatinine Clr Calc Pharmacy 153.8; Estimated Glomerular Filt Rate > 60
[2022-06-26] MEDS: clonazePAM 1 MG TABLET PO ×2 (08:39→20:12)
[2022-06-26] MEDS: chlorproMAZINE HCl 100 MG TABLET 200 MG PO ×2 (08:39→20:13)
[2022-06-26] MEDS: cloZAPine 100 MG TABLET 350 MG PO ×2 (13:14→20:12)
[2022-06-26] MEDS: Glycopyrrolate 1 MG TABLET PO (13:14)
[2022-06-26] MEDS: Magnesium Hydrox/Alum Hydrox 30 ML ORAL.SUSP PO (17:18)
[2022-06-26 18:00] VITALS: BP 119/82; PULSE 99; RESP 16; TEMP 36.8; O2SAT 98
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
[2022-06-26] MEDS: OLANZapine ODT 10 MG TAB.RAPDIS 20 MG TRANSLINGU (20:11)
[2022-06-26] MEDS: Divalproex Sodium ER 500 MG TAB.ER.24H 1500 MG PO (20:12)
[2022-06-26] MEDS: chlorproMAZINE HCl 100 MG TABLET PO (20:13)
[2022-06-27 06:00] VITALS: BP 115/77; PULSE 110; RESP 18; TEMP 36.4; O2SAT 98
[2022-06-27 06:47] LABS: Neut%MD 60.6 %; Neutrophils Absolute Auto 4.4 x10*3/uL (2.0-8.3); WBCANC 7.3 X10*3/uL
[2022-06-27] MEDS: Omeprazole 20 MG CAPSULE.DR PO (08:35)
[2022-06-27] MEDS: chlorproMAZINE HCl 100 MG TABLET 200 MG PO (08:35)
[2022-06-27] MEDS: clonazePAM 1 MG TABLET PO ×2 (08:35→19:29)
[2022-06-27] MEDS: Glycopyrrolate 1 MG TABLET PO (08:35)
[2022-06-27] MEDS: Ibuprofen 600 MG TABLET PO (08:59)
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
[2022-06-27 18:00] VITALS: BP 122/78; PULSE 99; RESP 16; TEMP 36.4; O2SAT 99
[2022-06-27] MEDS: cloZAPine 100 MG TABLET 350 MG PO (19:29)
[2022-06-27] MEDS: OLANZapine ODT 10 MG TAB.RAPDIS 20 MG TRANSLINGU (19:31)
[2022-06-27] MEDS: Divalproex Sodium ER 500 MG TAB.ER.24H 1500 MG PO (19:33)
[2022-06-28 00:06] LABS: Clozapine (Clozaril) 291 mcg/L; Norclozapine 109 mcg/L (25-400)
[2022-06-28 06:00] VITALS: BP 122/83; PULSE 102; RESP 18; TEMP 36.6; O2SAT 99
[2022-06-28] MEDS: Omeprazole 20 MG CAPSULE.DR PO (06:49)
[2022-06-28] MEDS: chlorproMAZINE HCl 100 MG TABLET 200 MG PO (08:12)
[2022-06-28] MEDS: clonazePAM 1 MG TABLET PO ×2 (08:13→20:39)
[2022-06-28 16:20] VITALS: BP 121/70; PULSE 122; TEMP 36.3
[2022-06-28] MEDS: Melatonin 3 MG TABLET 6 MG PO (20:37)
[2022-06-28] MEDS: OLANZapine ODT 10 MG TAB.RAPDIS 20 MG TRANSLINGU (20:37)
[2022-06-28] MEDS: cloZAPine 100 MG TABLET 350 MG PO (20:38)
[2022-06-28] MEDS: Divalproex Sodium ER 500 MG TAB.ER.24H 1500 MG PO (20:39)
[2022-06-28] MEDS: Glycopyrrolate 1 MG TABLET PO (20:43)
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
[2022-06-29 06:00] VITALS: BP 137/84; PULSE 94; RESP 20; TEMP 36.3; O2SAT 96
[2022-06-29] MEDS: Omeprazole 20 MG CAPSULE.DR PO (06:19)
[2022-06-29] MEDS: Ibuprofen 600 MG TABLET PO (08:31)
[2022-06-29] MEDS: Glycopyrrolate 1 MG TABLET PO (11:00)
[2022-06-29 18:00] VITALS: BP 139/58; PULSE 110; TEMP 36.7; O2SAT 94
[2022-06-29] MEDS: Divalproex Sodium ER 500 MG TAB.ER.24H 1500 MG PO (19:47)
[2022-06-29] MEDS: cloZAPine 100 MG TABLET 350 MG PO (19:48)
[2022-06-29] MEDS: OLANZapine ODT 10 MG TAB.RAPDIS 15 MG TRANSLINGU (19:49)
[2022-06-29] MEDS: Melatonin 3 MG TABLET 6 MG PO (21:20)
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
[2022-06-30] MEDS: chlorproMAZINE HCl 100 MG TABLET 200 MG PO (07:55)
[2022-06-30] MEDS: Omeprazole 20 MG CAPSULE.DR PO (07:55)
[2022-06-30 08:00] VITALS: BP 118/84; PULSE 115; RESP 16; TEMP 36.2; O2SAT 96
[2022-06-30 18:15] VITALS: BP 124/63; PULSE 122; TEMP 36.4; O2SAT 97
[2022-06-30] MEDS: OLANZapine ODT 10 MG TAB.RAPDIS 15 MG TRANSLINGU (20:46)
[2022-06-30] MEDS: Divalproex Sodium ER 500 MG TAB.ER.24H 1500 MG PO (20:49)
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
[2022-07-01 06:00] VITALS: BP 144/79; PULSE 60; RESP 16; TEMP 35.9; O2SAT 98
[2022-07-01] MEDS: Omeprazole 20 MG CAPSULE.DR PO (08:43)
[2022-07-01] MEDS: chlorproMAZINE HCl 100 MG TABLET 200 MG PO (08:43)
[2022-07-01] MEDS: cloZAPine 100 MG TABLET 400 MG PO (08:56)
[2022-07-01] MEDS: diphenhydrAMINE HCL 25 MG TABLET 50 MG PO (10:18)
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
[2022-07-01] MEDS: Glycopyrrolate 1 MG TABLET PO (13:44)
[2022-07-01 17:04] VITALS: BP 143/81; PULSE 110; RESP 16; TEMP 36.5; O2SAT 99
[2022-07-01] MEDS: Divalproex Sodium ER 500 MG TAB.ER.24H 1500 MG PO (20:03)
[2022-07-01] MEDS: OLANZapine ODT 10 MG TAB.RAPDIS 15 MG TRANSLINGU (20:03)
[2022-07-02 08:30] VITALS: BP 131/69; PULSE 121; TEMP 36.9
[2022-07-02] MEDS: Omeprazole 20 MG CAPSULE.DR PO (08:58)
[2022-07-02] MEDS: chlorproMAZINE HCl 100 MG TABLET 200 MG PO (08:58)
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
[2022-07-02] MEDS: cloZAPine 100 MG TABLET PO (13:04)
[2022-07-02 15:59] VITALS: BP 141/67; PULSE 107; TEMP 36.6; O2SAT 98
[2022-07-02] MEDS: Divalproex Sodium ER 500 MG TAB.ER.24H 1500 MG PO (19:28)
[2022-07-02] MEDS: OLANZapine ODT 10 MG TAB.RAPDIS 15 MG TRANSLINGU (19:28)
[2022-07-02] MEDS: cloZAPine 100 MG TABLET 300 MG PO (19:28)
[2022-07-02] MEDS: Glycopyrrolate 1 MG TABLET PO (19:34)
[2022-07-03 06:00] VITALS: BP 136/82; PULSE 79; RESP 18; TEMP 36.4; O2SAT 96
[2022-07-03] MEDS: Omeprazole 20 MG CAPSULE.DR PO (06:25)
[2022-07-03 07:41] LABS: MANUAL DIFF FLAG NO
[2022-07-03 07:45] LABS: Basophils Percent Auto 0.4 % (0-2); Eosinophils Absolute Auto 0.3 X10*3/uL (0.0-0.4); Eosinophils Percent Auto 3.9 % (0-4); Hematocrit 39.5 % (42.0-52.0); Hemoglobin 12.6 g/dl (14.0-18.0); Imm Gran Abs Auto 0.04 X10*3/uL (0.00-0.03); Imm Gran Pct Auto 0.5 % (0.0-0.4); Lymphocytes Absolute Auto 1.9 X10*3/uL (1.2-4.9); Lymphocytes Percent Auto 23.6 % (20-40); Mean Corpuscular HGB Conc 31.9 g/dl (31.0-36.0); Mean Corpuscular Hemoglobin 26.3 pg (27.0-33.0); Mean Corpuscular Volume 82.5 fL (80.0-98.0); Mean Platelet Volume 9.3 fL (9.4-12.4); Monocytes Absolute Auto 0.8 X10*3/uL (0.1-1.2); Monocytes Percent Auto 9.8 % (2-11); Neutrophils Percent Auto 61.8 % (45-73); Platelet Count 245 X10*3/uL (160-400); Red Blood Count 4.79 X10*6/uL (4.60-5.80); Red Cell Distribution Width 12.7 % (11.0-16.0); White Blood Count 8.2 X10*3/uL (4.8-10.8)
[2022-07-03] MEDS: chlorproMAZINE HCl 100 MG TABLET 200 MG PO (08:18)
[2022-07-03] MEDS: cloZAPine 100 MG TABLET PO (08:18)
[2022-07-03] MEDS: Glycopyrrolate 1 MG TABLET PO (08:22)
[2022-07-03 16:15] VITALS: BP 124/74; PULSE 122
[2022-07-03] MEDS: cloZAPine 100 MG TABLET 300 MG PO (18:19)
[2022-07-03] MEDS: Divalproex Sodium ER 500 MG TAB.ER.24H 1500 MG PO (18:19)
[2022-07-03] MEDS: Glycopyrrolate 1 MG TABLET 2 MG PO (18:20)
[2022-07-03] MEDS: OLANZapine ODT 10 MG TAB.RAPDIS 15 MG TRANSLINGU (18:20)
[2022-07-03] MEDS: diphenhydrAMINE HCL 25 MG TABLET 50 MG PO (21:21)
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
[2022-07-04] MEDS: Melatonin 3 MG TABLET 6 MG PO (04:12)
[2022-07-04 06:00] VITALS: BP 127/86; PULSE 88; RESP 18; TEMP 36.4; O2SAT 96
[2022-07-04 07:30] LABS: Neut%MD 59.4 %; Neutrophils Absolute Auto 5.7 x10*3/uL (2.0-8.3); WBCANC 9.6 X10*3/uL
[2022-07-04] MEDS: chlorproMAZINE HCl 100 MG TABLET 200 MG PO (07:56)
[2022-07-04] MEDS: cloZAPine 100 MG TABLET PO (07:56)
[2022-07-04] MEDS: Glycopyrrolate 1 MG TABLET PO (07:57)
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
[2022-07-04 16:27] VITALS: BP 131/81; PULSE 130; TEMP 36.6
[2022-07-04] MEDS: Divalproex Sodium ER 500 MG TAB.ER.24H 1500 MG PO (19:25)
[2022-07-04] MEDS: OLANZapine ODT 10 MG TAB.RAPDIS 15 MG TRANSLINGU (19:25)
[2022-07-04] MEDS: Glycopyrrolate 1 MG TABLET 2 MG PO (19:26)
[2022-07-04] MEDS: cloZAPine 100 MG TABLET 300 MG PO (19:26)
[2022-07-05 06:00] VITALS: BP 132/78; PULSE 107; TEMP 36.6; O2SAT 96
[2022-07-05] MEDS: Omeprazole 20 MG CAPSULE.DR PO ×2 (08:03→08:06)
[2022-07-05] MEDS: chlorproMAZINE HCl 100 MG TABLET 200 MG PO ×2 (08:04→19:24)
[2022-07-05] MEDS: cloZAPine 100 MG TABLET PO (08:04)
[2022-07-05 16:52] VITALS: BP 137/91; PULSE 124; TEMP 36.8
[2022-07-05] MEDS: cloZAPine 100 MG TABLET 300 MG PO (18:50)
[2022-07-05] MEDS: OLANZapine ODT 10 MG TAB.RAPDIS 15 MG TRANSLINGU (18:51)
[2022-07-05] MEDS: Divalproex Sodium ER 500 MG TAB.ER.24H 1500 MG PO (18:53)
[2022-07-05] MEDS: Glycopyrrolate 1 MG TABLET 2 MG PO (18:54)
[2022-07-05] MEDS: diphenhydrAMINE HCL 25 MG TABLET 50 MG PO (18:54)
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
[2022-07-06 06:00] VITALS: BP 140/74; PULSE 126; RESP 18; TEMP 36.4; O2SAT 96
[2022-07-06] MEDS: chlorproMAZINE HCl 100 MG TABLET 200 MG PO (08:42)
[2022-07-06] MEDS: Omeprazole 20 MG CAPSULE.DR PO (08:42)
[2022-07-06] MEDS: cloZAPine 100 MG TABLET PO (08:42)
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
[2022-07-06] MEDS: Glycopyrrolate 1 MG TABLET PO ×2 (17:45→21:08)
[2022-07-06 18:00] VITALS: BP 156/92; PULSE 113; RESP 20; TEMP 36.1; O2SAT 100
[2022-07-06] MEDS: Zolpidem Tartrate 5 MG TABLET PO (21:07)
[2022-07-06] MEDS: Divalproex Sodium ER 500 MG TAB.ER.24H 1500 MG PO (21:07)
[2022-07-06] MEDS: cloZAPine 100 MG TABLET 300 MG PO (21:08)
[2022-07-06] MEDS: OLANZapine ODT 10 MG TAB.RAPDIS 15 MG TRANSLINGU (21:08)
[2022-07-07 02:16] LABS: Clozapine (Clozaril) 497 mcg/L; Norclozapine 175 mcg/L (25-400)
[2022-07-07 06:00] VITALS: BP 139/79; PULSE 110; RESP 16; TEMP 36.2; O2SAT 96
[2022-07-07] MEDS: cloZAPine 100 MG TABLET PO (08:17)
[2022-07-07] MEDS: chlorproMAZINE HCl 100 MG TABLET 200 MG PO ×2 (08:18→18:25)
[2022-07-07] MEDS: Glycopyrrolate 1 MG TABLET PO ×3 (08:18→22:00)
[2022-07-07] MEDS: Omeprazole 20 MG CAPSULE.DR PO (08:19)
[2022-07-07] MEDS: Ezetimibe 10 MG TABLET PO (09:54)
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
[2022-07-07 18:00] VITALS: BP 144/86; PULSE 124; RESP 24; TEMP 36.8; O2SAT 98
[2022-07-07] MEDS: Divalproex Sodium ER 500 MG TAB.ER.24H 1500 MG PO (21:55)
[2022-07-07] MEDS: cloZAPine 25 MG TABLET 325 MG PO (21:57)
[2022-07-07] MEDS: diphenhydrAMINE HCL 25 MG TABLET 50 MG PO (21:58)
[2022-07-07] MEDS: OLANZapine ODT 10 MG TAB.RAPDIS 15 MG TRANSLINGU (21:58)
[2022-07-07] MEDS: Melatonin 3 MG TABLET 6 MG PO (22:00)
[2022-07-07] MEDS: Zolpidem Tartrate 5 MG TABLET PO (22:00)
[2022-07-08 06:00] VITALS: BP 133/67; PULSE 104; RESP 19; TEMP 36.3; O2SAT 96
[2022-07-08] MEDS: chlorproMAZINE HCl 100 MG TABLET 200 MG PO ×2 (08:06→20:03)
[2022-07-08] MEDS: Ezetimibe 10 MG TABLET PO (08:06)
[2022-07-08] MEDS: Omeprazole 20 MG CAPSULE.DR PO (08:06)
[2022-07-08] MEDS: Glycopyrrolate 1 MG TABLET PO ×3 (08:06→18:54)
[2022-07-08 08:08] VITALS: BMI 37.0
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
[2022-07-08 15:54] VITALS: BP 142/75; PULSE 120; TEMP 35.9
[2022-07-08] MEDS: chlorproMAZINE HCl 100 MG TABLET PO (18:53)
[2022-07-08] MEDS: diphenhydrAMINE HCL 25 MG TABLET 50 MG PO (18:53)
[2022-07-08] MEDS: cloZAPine 100 MG TABLET 400 MG PO (18:53)
[2022-07-08] MEDS: OLANZapine ODT 10 MG TAB.RAPDIS 15 MG TRANSLINGU (18:53)
[2022-07-08] MEDS: cloZAPine 25 MG TABLET PO (18:53)
[2022-07-08] MEDS: Divalproex Sodium ER 500 MG TAB.ER.24H 1500 MG PO (18:54)
[2022-07-09 06:00] VITALS: BP 132/72; PULSE 102; RESP 18; TEMP 36.3; O2SAT 97
[2022-07-09] MEDS: Omeprazole 20 MG CAPSULE.DR PO (06:06)
[2022-07-09] MEDS: Ezetimibe 10 MG TABLET PO (08:20)
[2022-07-09] MEDS: Glycopyrrolate 1 MG TABLET PO (08:21)
[2022-07-09] MEDS: chlorproMAZINE HCl 100 MG TABLET 200 MG PO (08:21)
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
== END 2022-07-09 15:05 | disposition home or self-care (01) | DRG 885 ==
PROVIDERS: Psychiatry & Neurology Psychiatry; Registered Nurse; Admitting Provider Psychiatry & Neurology Psychiatry; PCP Internal Medicine; Visit Provider Psychiatry & Neurology Psychiatry
DX: F25.0 Schizoaffective disorder, bipolar type (principal); R45.851 Suicidal ideations; F43.12 Post-traumatic stress disorder, chronic; Z88.8 Allergy status to other drugs, medicaments and biological substances; Z79.899 Other long term (current) drug therapy
CPT/HCPCS: 36415; 80053; 80061; 80076; 80159; 80164; 82140; 82565; 82607; 82746; 82947; 83036; 83735; 84439; 84443; 84520; 85025; 85048; 86704; 86706; 86709; 86803; 87340; 92950; 93005; J1200; J2060; J2426; J3230; J3360; Q0163

== ENCOUNTER 2024-10-30 13:12 | Inpatient (IN) | payer OTHER, MEDICAID, SELFPAY ==
[2024-10-30 13:52] VITALS: BMI 39.8
[2024-10-30 13:53] VITALS: BP 116/70; PULSE 92; RESP 18; TEMP 36.2; O2SAT 97
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
[2024-10-30 18:22] LABS: Anion Gap 15 (12-20); Blood Urea Nitrogen 11 mg/dL (9-16); Calcium 9.5 mg/dL (8.4-10.2); Carbon Dioxide 22 mmol/L (22-29); Chloride 105 mmol/L (96-108); Creatinine Clr Calc Pharmacy 139.2; Estimated Glomerular Filt Rate > 60; Glucose Random 83 mg/dL (60-115); Potassium 3.7 mmol/L (3.3-5.1); Sodium 138 mmol/L (135-145)
[2024-10-30 20:00] VITALS: BP 118/73; PULSE 114; RESP 16; TEMP 36.4; O2SAT 97
[2024-10-30] MEDS: Divalproex Sodium ER 500 MG TAB.ER.24H PO (21:54)
[2024-10-30 21:55] VITALS: BP 118/73; PULSE 114
[2024-10-30] MEDS: Propranolol HCL 20 MG TABLET PO (21:55)
--- NOTE | 2024-10-30 23:16 | P.CONHOSP_ITS ---
History of Present Illness Data of Consult Service Date: 10/30/24 Requesting physician: Mark Mendes Primary Care Provider: Unknown Physician HPI Reason for consult: medical consult Patient is a 28-year-old male with a past medical history significant for mild intermittent asthma and schizoaffective disorder, admitted to adult Psychiatry for decompensated schizoaffective disorder after stopping his medications 1 week ago. He did receive Invega on 10/26 and reported feeling tremors afterwards. He has no medical concerns currently. Review of Systems 2 Constitutional: Constitutional: Denies chills, Denies fatigue, Denies fever(s) and Denies headache(s) Eyes: Eyes: Denies change in vision ENT: Denies headache(s), Denies nasal congestion, Denies nasal discharge and Denies sore throat Cardiovascular: Cardiovascular: Denies chest pain, Denies rapid heart rate, Denies leg edema and Denies dyspnea Respiratory: Respiratory: Denies chest congestion, Denies cough, Denies dyspnea and Denies wheezing Gastrointestinal: Gastrointestinal: Denies constipation, Denies diarrhea, Denies nausea and Denies vomiting Genitourinary: Genitourinary: Denies dysuria and Denies urinary frequency Musculoskeletal: Musculoskeletal: Denies numbness and Denies tingling Integumentary/Breasts: Skin/Breast: Denies rash Neurologic: Denies headache(s), Denies numbness and Denies tingling Psychiatric: Psychiatric: Reports as per HPI Endocrine: Endocrine: Denies fatigue Hematologic/Lymphatic: Hematologic/Lymphatic: Denies easy bleeding Allergic/Immunologic: Allergic/Immunologic: Denies wheezing [facility] Medical History (Updated 10/30/24 @ 23:23 by Ela Cueto PA-C) Mild intermittent asthma Schizoaffective disorder, bipolar type Chronic post-traumatic stress disorder (PTSD) Functional capacity: independent ambulation Social History Household Members: Family Housing: House Do you presently have visiting nurse or other home services: Yes Patient Tobacco Use Status: Never used Tobacco Smoked in Last 30 Days: No Patient Interested in Nicotine Replacement: No Patient Given Instructions on How to Stop Smoking: No Second Hand Smoke Exposure: No Use of substances other than those prescribed or required for medical reasons: Yes Substance Use Type: Marijuana Last Used Substance Other:: 4.5 years ago Currently Displaying Signs/Symptoms of Drug Intoxication Withdrawal: No Any prior treatment program specific to substance use: No Have you been hit, kicked, punched, or otherwise hurt by someone within the past year? If so, by whom?: No Do you feel safe in your current relationship?: Yes Is there a partner from a previous relationship who is making you feel unsafe now?: No Are you made to feel afraid or neglected: No Advance Directives: No Advance Directives Information Provided: Yes Do you have a plan to hurt others: No Plan Recently lost weight without trying: No How much weight loss: Not applicable Eating poorly because of decreased appetite: No Nutrition screen score: 0 Nutrition Risks: No Nutritional Risk Poor oral hygiene: No service: No Sexual orientation: Straight/Heterosexual Narrative: no smoking, etoh or drug use. Meds Allergies Allergy/AdvReac Type Severity Reaction Status Date / Time trazodone [TRAZODONE] Allergy Severe OVER Verified 06/08/22 14:15 SEDATION Active Medications: Current Medications Acetaminophen (Acetaminophen 325 Mg Tablet) 650 mg PO Q6H PRN PRN Reason: Headache/Pain Mild Scale (1-3) Al Hydroxide/Mg Hydroxide (Magnesium Hydrox/Alum Hydrox 30 Ml Oral.Susp) 30 ml PO Q6H PRN PRN Reason: Heartburn/Nausea Divalproex Sodium (Divalproex Sodium Er 500 Mg Tab.Er.24h) 500 mg PO BEDTIME [facility] Last Admin: 10/30/24 21:54 Dose: 500 mg Hydroxyzine HCl (Hydroxyzine Hcl 25 Mg Tablet) 25 mg PO Q6H PRN PRN Reason: Anxiety Loratadine (Loratadine 10 Mg Tablet) 10 mg PO DAILY [facility] Magnesium Hydroxide (Milk Of Magnesia 30 Ml Oral.Susp) 30 ml PO DAILY PRN PRN Reason: Constipation Nicotine Polacrilex (Nicotine Polacrilex 2 Mg Gum) 4 mg BUCCAL Q2H PRN PRN Reason: Nicotine Cravings Omeprazole (Omeprazole 20 Mg Capsule.Dr) 20 mg PO DAILY@0630 [facility] Polyethylene Glycol (Polyethylene Glycol 3350 17 Gm Powd.Pack) 17 gm PO BID PRN PRN Reason: constipation Propranolol HCl (Propranolol Hcl 20 Mg Tablet) 20 mg PO BID [facility]; Protocol Last Admin: 10/30/24 21:55 Dose: 20 mg Trazodone HCl (Trazodone Hcl 50 Mg Tablet) 50 mg PO BEDTIME MRX1 PRN PRN Reason: Insomnia Vitamin D (Cholecalciferol (Vitamin D3) 25 Mcg Tablet) 50 mcg PO DAILY [facility] Home Medications ?Medication ?Instructions ?Recorded ?Confirmed ?Last Taken ?Type omega 2-tkj-uyb-fish oil 300 2 cap PO DAILY 05/25/22 10/30/24 Unknown History mg-1,000 mg capsule (Fish Oil) cholecalciferol (vitamin D3) 50 50 mcg PO DAILY 10/30/24 10/30/24 Unknown History mcg (2,000 unit) capsule divalproex 500 mg tablet,extended 500 mg PO BEDTIME 10/30/24 10/30/24 Unknown History release 24 hr loratadine 10 mg tablet 10 mg PO DAILY 10/30/24 10/30/24 Unknown History lorazepam 1 mg tablet 1 mg PO BID-TID 10/30/24 10/30/24 10/29/24 History paliperidone palmitate 156 mg/mL 156 mg IM Q4W 10/30/24 10/30/24 Unknown History intramuscular syringe (Invega Sustenna) pantoprazole 40 mg tablet,delayed 40 mg PO DAILY 10/30/24 10/30/24 Unknown History release propranolol 10 mg tablet 20 mg PO BID 10/30/24 10/30/24 Unknown History Physical Exam 2 Vital Signs and Narrative: Vital Signs: Last Vital Signs Temp 97.5 F 10/30/24 20:00 Pulse 114 H 10/30/24 21:55 Resp 16 10/30/24 20:00 BP 118/73 10/30/24 21:55 Pulse Ox 97 10/30/24 20:00 O2 Del Method Room Air 10/30/24 20:00 BMI result Body Mass Index 39.8 General: AOx3, no acute distress Resp: CTA bilaterally CVS: S1, S2, RRR GI: +BS, NT, no distention Skin: Warm, dry Neuro: Cranial nerves II-XII grossly intact bilaterally. Motor grossly intact bilaterally. strength 5/5 bilateral upper and lower extremities. constant tremor or the upper extremities. Extremities: No LE edema Psych: Appropriate affect, appears nervous. some occasional inappropriate laughing. Results Labs 10/30/24 13:54 Labs: Laboratory Results - last 24 hr 10/30/24 10/30/24 13:54 14:09 Hold Purple Top SEE NOTE Anion Gap 15 Estim Creat Clear Calc 139.2 Estimated GFR > 60 Random Glucose 83 Calcium 9.5 Assessment and Plan (1) Medical clearance for psychiatric admission: Status: Acute Plan Patient is a 28-year-old male with a past medical history significant for mild intermittent asthma and schizoaffective disorder, admitted to adult Psychiatry M3 for decompensated schizoaffective disorder after stopping his medications 1 week ago. He reported a tremor after his last Invega injection. mood disorder - plan per psych tremor - likely medication related due to timing per pt hx - no seizure-like activity mild intermittent asthma - albuterol PRN Thank you for allowing me to participate in the pt's care. Signing off for now. Please contact the medical team if any questions or concerns.
[2024-10-31] MEDS: traZODone HCL 50 MG TABLET PO ×2 (02:22→20:23)
[2024-10-31 08:17] VITALS: BP 125/66; PULSE 107; RESP 16; TEMP 36.5; O2SAT 95
[2024-10-31] MEDS: Propranolol HCL 20 MG TABLET PO ×2 (08:17→20:23)
[2024-10-31] MEDS: Loratadine 10 MG TABLET PO (08:17)
[2024-10-31] MEDS: Cholecalciferol (Vitamin D3) 25 MCG TABLET 50 MCG PO (08:17)
[2024-10-31] MEDS: Omeprazole 20 MG CAPSULE.DR PO (08:17)
[2024-10-31] MEDS: Acetaminophen 325 MG TABLET 650 MG PO (08:19)
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
--- NOTE | 2024-10-31 17:03 | PC.NURSE ---
Per Arlene Zuniga RN at [facility] in Dr Dakota Mendez's note from 09/06/24 the medications ordered were: Depakote 500mg q hs, propranolol 10mg bid, invega sustenna 156mg IM q 28 days and Ativan 1mg qam, q noon and an additional 1mg daily prn.
[2024-10-31 20:00] VITALS: BP 140/80; PULSE 114; RESP 16; TEMP 36.8; O2SAT 95
[2024-10-31] MEDS: Divalproex Sodium ER 500 MG TAB.ER.24H PO (20:23)
[2024-10-31] MEDS: hydrOXYzine HCL 25 MG TABLET PO (20:23)
[2024-10-31 21:00] VITALS: BP 132/78
[2024-11-01] MEDS: Acetaminophen 325 MG TABLET 650 MG PO (01:44)
--- NOTE | 2024-11-01 05:12 | HO.PSYEVENT ---
Event Note Date of Service: 11/01/24 Psych Restraint Event Note: I was called earlier last night regarding this patient refusing [place] and Invega. Later, around 3 AM, I was called again and the patient was grossly disorganzied and disruptive, he was eating plastic, loud but he agreed to go to the quiet room, it looked like descalation was working but later, around 5 AM, he was self harming banging himself on the floor, , loud and aggressive so we needed to do a chemical restrain and physical hold for medications. As per nursing report, no evident injuries, VS stable. Hospitalist called as per protocol. Time Spent With Patient Time: Total time managing care of this patient today _30___ minutes.
[2024-11-01] MEDS: LORazepam 2 MG/ML VIAL IM (05:22)
[2024-11-01] MEDS: OLANZapine 10 MG VIAL IM (05:22)
--- NOTE | 2024-11-01 05:45 | PM.EVENT ---
Event Note Date of Service: 11/01/24 Event Note: Code assist was called on patient who became agitated and aggressive towards roommate and staff. Earlier this morning he was attempting to eat a water bottle and security was called to help remove it. Deescalation and redirection techniques initally helped however a few hours later he was laying on the gound naked in the hallway hitting himself, requiring pt to be chemically restrained. he is refusing PO meds, IM order for olanzapine put in by Dr Cortes. he was placed in 4-point restraints with spit cervantes. Patient seen and examined, alert and verbal, swearing at staff members. lungs clear.circulation intact to upper and lower extremities bilaterally. Patient appears in no acute distress. Time Spent With Patient Time: Total time managing care of this patient today ____ minutes.
[2024-11-01 07:00] VITALS: BMI 89.3
[2024-11-01 09:31] VITALS: BP 128/80; PULSE 106; RESP 18; TEMP 36.8; O2SAT 96
--- NOTE | 2024-11-01 13:48 | P.PNPSI_ITS ---
Subjective Subjective Date of Service: 11/01/24 Reason For Visit: Schizophrenia Subjective Notes: Mckeon Warning Interim History: restraint this morning due to aggressive/disorganized behavior, self-harm. disorganized, non-sensical. refusing medication. Mental Status Exam Mental Status Exam Narrative: Pt is alert and oriented; friendly, pleasant; intermittent pacing halls, bizarre behaviors like robotic movements; appropriately dressed; rambles to himself, nonsensical, bizarre delusional things; mood is euthymic and affect congruent; Speech is normal loudness, amount, rate. Mild psychomotor agitation present; thought process can be goal oriented, but also disorganized; rambling with loose associations; Thought content is on various delusional unrelated topics; no SI/HI expressed;? no AVH expressed. Patient's insight and judgment impaired. Diagnostics Vital Signs (24Hr): Vital Signs - 24 hr 10/31/24 20:00 10/31/24 21:00 11/01/24 09:31 Temperature 98.2 F 98.2 F Pulse Rate 114 H 106 H Respiratory Rate 16 18 Blood Pressure 140/80 H 132/78 128/80 Pulse Oximetry 95 96 Oxygen Delivery Method Room Air Room Air BMI result Body Mass Index 89.3 Labs 10/30/24 13:54 Labs: Laboratory Results - last 48 hr 10/30/24 10/30/24 13:54 14:09 Hold Purple Top SEE NOTE Sodium 138 Potassium 3.7 Chloride 105 Carbon Dioxide 22 Anion Gap 15 BUN 11 Creatinine 1.02 Estim Creat Clear Calc 139.2 Estimated GFR > 60 Random Glucose 83 Calcium 9.5 Medications Medications Current Medications Acetaminophen (Acetaminophen 325 Mg Tablet) 650 mg PO Q6H PRN PRN Reason: Headache/Pain Mild Scale (1-3) Last Admin: 11/01/24 01:44 Dose: 650 mg Al Hydroxide/Mg Hydroxide (Magnesium Hydrox/Alum Hydrox 30 Ml Oral.Susp) 30 ml PO Q6H PRN PRN Reason: Heartburn/Nausea Albuterol Sulfate (Albuterol Sulfate 90 Mcg 8 Gm Inhaler) 2 puff INHALE Q4H PRN PRN Reason: Shortness of Breath/Wheezing Hydroxyzine HCl (Hydroxyzine Hcl 25 Mg Tablet) 25 mg PO Q6H PRN PRN Reason: Anxiety Last Admin: 10/31/24 20:23 Dose: 25 mg [place] Carbonate ([place] Carbonate Er 300 Mg Tablet.Er) 600 mg PO BID [facility] Last Admin: 11/01/24 09:11 Dose: Not Given Loratadine (Loratadine 10 Mg Tablet) 10 mg PO DAILY [facility] Last Admin: 11/01/24 09:11 Dose: Not Given Magnesium Hydroxide (Milk Of Magnesia 30 Ml Oral.Susp) 30 ml PO DAILY PRN PRN Reason: Constipation Nicotine Polacrilex (Nicotine Polacrilex 2 Mg Gum) 4 mg BUCCAL Q2H PRN PRN Reason: Nicotine Cravings Omeprazole (Omeprazole 20 Mg Capsule.Dr) 20 mg PO DAILY@0630 [facility] Last Admin: 11/01/24 06:29 Dose: Not Given Paliperidone (Paliperidone Er 6 Mg Tab.Er.24) 6 mg PO BEDTIME [facility] Last Admin: 10/31/24 21:15 Dose: Not Given Polyethylene Glycol (Polyethylene Glycol 3350 17 Gm Powd.Pack) 17 gm PO BID PRN PRN Reason: constipation Propranolol HCl (Propranolol Hcl 20 Mg Tablet) 20 mg PO BID [facility]; Protocol Last Admin: 11/01/24 09:11 Dose: Not Given Trazodone HCl (Trazodone Hcl 50 Mg Tablet) 50 mg PO BEDTIME MRX1 PRN PRN Reason: Insomnia Last Admin: 10/31/24 20:23 Dose: 50 mg Vitamin D (Cholecalciferol (Vitamin D3) 25 Mcg Tablet) 50 mcg PO DAILY [facility] Last Admin: 11/01/24 09:11 Dose: Not Given Allergies Allergies Allergy/AdvReac Type Severity Reaction Status Date / Time trazodone [TRAZODONE] Allergy Severe OVER Verified 06/08/22 14:15 SEDATION Assessment & Plan Assessment & Plan (1) Schizoaffective disorder, bipolar type: Status: Acute Code(s): F25.0 - Schizoaffective disorder, bipolar type Plan 10/31: DC VPA as it appears outpt provider was tapering it, likely due to LFT elevations. start lithium. start PO invega, plan to increase NAPIER dosing. collect collateral. 11/01: refusing lithium and PO invega. states he will not take medication and will stay here indefinitely. file for commitment tomorrow. mckeon warning provided. Reason for continued inpatient stay Substantial Risk for: harm to self, harm to others and inability to function Time Spent With Patient Time: Total time managing care of this patient today __25__ minutes.
[2024-11-01 20:10] VITALS: BP 134/87; PULSE 119; RESP 16; TEMP 37; O2SAT 96
[2024-11-02 08:00] VITALS: RESP 18
--- NOTE | 2024-11-02 10:52 | PC.NURSE ---
Pt was sitting by the patient phone yelling, swearing and becoming increasingly agitated. Pt stated I want to take all the drugs in the fucking world. RN offered pt medication which pt initially agreed to, but when RN approached pt with medication pt did not look up and said I'm not taking that. RN emphasized to pt that if he wanted to yell and swear he would need to go in his room otherwise he would need to remain calm while in the milieu due to frightening other patients. Pt was unable to verbalize understanding but remained in behavioral control.
--- NOTE | 2024-11-02 15:05 | P.PNPSI_ITS ---
Subjective Subjective Date of Service: 11/02/24 Reason For Visit: Schizophrenia Interim History: disorganized, constant activity in the [place], pacing, clapping, screaming, incessantly talking to himself. 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 refusing medication. asking about discharge or commitment. informed we are filing, he said that's fine he'll stay. but he won't take meds. per staff, 12b up today. denies depression, endorses anxiety. labile, visible. bizarre movements and comments. +RIS. selling body parts fixation. lots of time naked in his room. masturbating. Mental Status Exam Mental Status Exam Narrative: Pt is alert and oriented; friendly, pleasant; pacing halls, bizarre behaviors like robotic movements; appropriately dressed; rambles to himself, nonsensical, bizarre delusional things; mood is euthymic and affect congruent; Speech is normal loudness, incr amount, nml rate. Mild psychomotor agitation present; thought process can be goal oriented, but also disorganized; rambling with loose associations; Thought content is on various delusional unrelated topics, especially what body parts he does not sell; no SI/HI expressed;? no AVH expressed. Patient's insight and judgment impaired. Diagnostics Vital Signs (24Hr): Vital Signs - 24 hr 11/01/24 20:10 11/02/24 08:00 Temperature 98.6 F Pulse Rate 119 H Respiratory Rate 16 18 Blood Pressure 134/87 Pulse Oximetry 96 Oxygen Delivery Method Room Air BMI result Body Mass Index 89.3 Labs 10/30/24 13:54 Medications Medications Current Medications Acetaminophen (Acetaminophen 325 Mg Tablet) 650 mg PO Q6H PRN PRN Reason: Headache/Pain Mild Scale (1-3) Last Admin: 11/01/24 01:44 Dose: 650 mg Al Hydroxide/Mg Hydroxide (Magnesium Hydrox/Alum Hydrox 30 Ml Oral.Susp) 30 ml PO Q6H PRN PRN Reason: Heartburn/Nausea Albuterol Sulfate (Albuterol Sulfate 90 Mcg 8 Gm Inhaler) 2 puff INHALE Q4H PRN PRN Reason: Shortness of Breath/Wheezing Chlorpromazine HCl (Chlorpromazine Hcl 100 Mg Tablet) 200 mg PO QID PRN PRN Reason: agitation Hydroxyzine HCl (Hydroxyzine Hcl 25 Mg Tablet) 25 mg PO Q6H PRN PRN Reason: Anxiety Last Admin: 10/31/24 20:23 Dose: 25 mg [place] Carbonate ([place] Carbonate Er 300 Mg Tablet.Er) 600 mg PO BID [facility] Last Admin: 11/02/24 09:00 Dose: Not Given Loratadine (Loratadine 10 Mg Tablet) 10 mg PO DAILY [facility] Last Admin: 11/02/24 09:00 Dose: Not Given Magnesium Hydroxide (Milk Of Magnesia 30 Ml Oral.Susp) 30 ml PO DAILY PRN PRN Reason: Constipation Nicotine Polacrilex (Nicotine Polacrilex 2 Mg Gum) 4 mg BUCCAL Q2H PRN PRN Reason: Nicotine Cravings Omeprazole (Omeprazole 20 Mg Capsule.Dr) 20 mg PO DAILY@629 [facility] Last Admin: 11/02/24 05:56 Dose: Not Given Paliperidone (Paliperidone Er 6 Mg Tab.Er.24) 6 mg PO BEDTIME [facility] Last Admin: 11/01/24 22:19 Dose: Not Given Polyethylene Glycol (Polyethylene Glycol 3350 17 Gm Powd.Pack) 17 gm PO BID PRN PRN Reason: constipation Propranolol HCl (Propranolol Hcl 20 Mg Tablet) 20 mg PO BID [facility]; Protocol Last Admin: 11/02/24 09:00 Dose: Not Given Trazodone HCl (Trazodone Hcl 50 Mg Tablet) 50 mg PO BEDTIME MRX1 PRN PRN Reason: Insomnia Last Admin: 10/31/24 20:23 Dose: 50 mg Vitamin D (Cholecalciferol (Vitamin D3) 25 Mcg Tablet) 50 mcg PO DAILY [facility] Last Admin: 11/02/24 09:00 Dose: Not Given Allergies Allergies Allergy/AdvReac Type Severity Reaction Status Date / Time trazodone [TRAZODONE] Allergy Severe OVER Verified 06/08/22 14:15 SEDATION Assessment & Plan Assessment & Plan (1) Schizoaffective disorder, bipolar type: Status: Acute Code(s): F25.0 - Schizoaffective disorder, bipolar type Plan 10/31: DC VPA as it appears outpt provider was tapering it, likely due to LFT elevations. start lithium. start PO invega, plan to increase NAPIER dosing. collect collateral. 11/01: refusing lithium and PO invega. states he will not take medication and will stay here indefinitely. file for commitment tomorrow. ramirez warning provided. 11/02: filed for commitment. 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 continue to offer medication. Reason for continued inpatient stay Substantial Risk for: harm to self, harm to others, inability to function and rapid decompensation Time Spent With Patient Time: Total time managing care of this patient today __35__ minutes.
[2024-11-02 20:00] VITALS: RESP 20
[2024-11-03] MEDS: Acetaminophen 325 MG TABLET 650 MG PO (02:17)
[2024-11-03] MEDS: chlorproMAZINE HCl 100 MG TABLET 200 MG PO (02:18)
--- NOTE | 2024-11-03 07:39 | P.PNPSI_ITS ---
Subjective Subjective Date of Service: 11/03/24 Reason For Visit: Schizophrenia Subjective Notes: Section 7 Interim History: ongoing difficulty with boundaries, intrusiveness, verbal outbursts, bizarre behavior and refusing medications. Reports that is all poison. Clear bizarre behavior on the unit Strange hand movements, laying on the floor in certain positions, rambling, clearly internally preoccupied. Talked about food and poison. Reported he was not going to court and did not need medications. Was also disrobing throughout the day. Noted [address] scheduled 11/08/2024[address] Medication Compliance: No Side effects from medications: No Attending Groups: No Review of Systems Acute medical concerns: No Review of Systems Review of Systems Yes Unobtainable due to mental status Mental Status Exam Mental Status Exam Narrative: Bizarre behavior. Paranoid and guarded. Strange hand movements and body positions. Disrobing at times. Internally preoccupied. Diagnostics Vital Signs (24Hr): Vital Signs - 24 hr 11/02/24 08:00 11/02/24 20:00 Respiratory Rate 18 20 BMI result Body Mass Index 89.3 Labs 10/30/24 13:54 Medications Medications Current Medications Acetaminophen (Acetaminophen 325 Mg Tablet) 650 mg PO Q6H PRN PRN Reason: Headache/Pain Mild Scale (1-3) Last Admin: 11/03/24 02:17 Dose: 650 mg Al Hydroxide/Mg Hydroxide (Magnesium Hydrox/Alum Hydrox 30 Ml Oral.Susp) 30 ml PO Q6H PRN PRN Reason: Heartburn/Nausea Albuterol Sulfate (Albuterol Sulfate 90 Mcg 8 Gm Inhaler) 2 puff INHALE Q4H PRN PRN Reason: Shortness of Breath/Wheezing Chlorpromazine HCl (Chlorpromazine Hcl 100 Mg Tablet) 200 mg PO QID PRN PRN Reason: agitation Last Admin: 11/03/24 02:18 Dose: 200 mg Hydroxyzine HCl (Hydroxyzine Hcl 25 Mg Tablet) 25 mg PO Q6H PRN PRN Reason: Anxiety Last Admin: 10/31/24 20:23 Dose: 25 mg [place] Carbonate ([place] Carbonate Er 300 Mg Tablet.Er) 600 mg PO BID [facility] Last Admin: 11/02/24 22:34 Dose: Not Given Loratadine (Loratadine 10 Mg Tablet) 10 mg PO DAILY [facility] Last Admin: 11/02/24 09:00 Dose: Not Given Magnesium Hydroxide (Milk Of Magnesia 30 Ml Oral.Susp) 30 ml PO DAILY PRN PRN Reason: Constipation Nicotine Polacrilex (Nicotine Polacrilex 2 Mg Gum) 4 mg BUCCAL Q2H PRN PRN Reason: Nicotine Cravings Omeprazole (Omeprazole 20 Mg Capsule.Dr) 20 mg PO DAILY@0630 [facility] Last Admin: 11/02/24 05:56 Dose: Not Given Paliperidone (Paliperidone Er 6 Mg Tab.Er.24) 6 mg PO BEDTIME [facility] Last Admin: 11/02/24 22:34 Dose: Not Given Polyethylene Glycol (Polyethylene Glycol 3350 17 Gm Powd.Pack) 17 gm PO BID PRN PRN Reason: constipation Propranolol HCl (Propranolol Hcl 20 Mg Tablet) 20 mg PO BID [facility]; Protocol Last Admin: 11/02/24 22:36 Dose: Not Given Trazodone HCl (Trazodone Hcl 50 Mg Tablet) 50 mg PO BEDTIME MRX1 PRN PRN Reason: Insomnia Last Admin: 10/31/24 20:23 Dose: 50 mg Vitamin D (Cholecalciferol (Vitamin D3) 25 Mcg Tablet) 50 mcg PO DAILY [facility] Last Admin: 11/02/24 09:00 Dose: Not Given Allergies Allergies Allergy/AdvReac Type Severity Reaction Status Date / Time trazodone [TRAZODONE] Allergy Severe OVER Verified 06/08/22 14:15 SEDATION haloperidol [From Haldol] Allergy Hives Verified 11/02/24 18:44 lithium Allergy Hives Verified 11/02/24 18:44 Assessment & Plan Assessment & Plan (1) Schizoaffective disorder, bipolar type: Status: Acute Code(s): F25.0 - Schizoaffective disorder, bipolar type Plan 10/31: DC VPA as it appears outpt provider was tapering it, likely due to LFT elevations. start lithium. start PO invega, plan to increase NAPIER dosing. collect collateral. 11/01: refusing lithium and PO invega. states he will not take medication and will stay here indefinitely. file for commitment tomorrow. ramirez warning provided. 11/02: filed for commitment. 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 continue to offer medication. 11/03/2024: Continue to encourage med adherence. [address] hearing scheduled 11/08/2024[address] Reason for continued inpatient stay Substantial Risk for: inability to function Time Spent With Patient Time: Total time managing care of this patient today ____ minutes.
[2024-11-03 08:00] VITALS: BP 131/71; PULSE 132; RESP 18; TEMP 36.6; O2SAT 95
[2024-11-03] MEDS: LORazepam 2 MG/ML VIAL 4 MG IM (16:15)
[2024-11-03] MEDS: chlorproMAZINE HCl 25 MG/ML AMPUL 100 MG IM (16:16)
[2024-11-03 16:19] VITALS: BP 109/85; PULSE 145; RESP 16; TEMP 37.9
--- NOTE | 2024-11-03 16:33 | HO.BHRESTREX ---
Behavioral Restraint Exam Behavioral Health Restraint Exam Type of Restraint: Medication and Mechanical Reason for Restraint: Substantial Risk Medical Concerns for Restraint: No medical concerns, pt w/o acute inj / no noted resp/VS abnormalities Behavioral Assessment / Plan: No further behavioral concerns, continue current plan.
[2024-11-03 16:34] VITALS: PULSE 143; RESP 16; TEMP 37.9
--- NOTE | 2024-11-03 16:36 | HO.PSYEVENT ---
Event Note Date of Service: 11/03/24 Psych Restraint Event Note: Pt escalating throughout the day, with disrobing, increasing disorganized behavior driven by psychosis agitation. No insight/ Declining medications. Posturing at staff. Later shoving and charging at security staff. Given clear danger to others, Restraint initiated at 1604, restraint chair 1606. IM medications (ativan 4mg and thorazine 100mg) given. Time Spent With Patient Time: Total time managing care of this patient today ____ minutes.
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
[2024-11-03 22:52] VITALS: BP 118/68; PULSE 122; RESP 18; TEMP 37; O2SAT 97
[2024-11-04 06:48] VITALS: RESP 20
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
[2024-11-04 08:00] VITALS: BP 135/78; PULSE 128; RESP 18; TEMP 36.4; O2SAT 100
--- NOTE | 2024-11-04 08:47 | PC.NURSE ---
Patient has tachycardia and is refusing propranolol. I am not taking any pills. Yall can keep me here on section 5 but you can't make me swallow pills. Patient education provided r/t tachycardia and propranolol to treat it. Patient continued to refuse all medications.
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
[2024-11-04 20:00] VITALS: RESP 18
[2024-11-05 07:45] VITALS: BP 115/72; PULSE 106; RESP 16; TEMP 36.4; O2SAT 97
--- NOTE | 2024-11-05 13:49 | P.PNPSI_ITS ---
Subjective Subjective Date of Service: 11/05/24 Reason For Visit: Schizophrenia Interim History: labile, disorganized, delusional. per staff, commitment hearing 11/08. remains on 1:1 paranoid, labile, PMA. verbal sexual-themed content. refusing PO meds. restrained x2 on tuesday. later in the morning naked in the hallway again, had to be redirected back to room. Mental Status Exam Mental Status Exam Narrative: intense and labile. Bizarre behavior. paranoid. Internally preoccupied. Thought form still tangential and loose. No SI or HI noted. Insight very poor Diagnostics Vital Signs (24Hr): Vital Signs - 24 hr 11/04/24 20:00 11/05/24 07:45 Temperature 97.5 F Pulse Rate 106 H Respiratory Rate 18 16 Blood Pressure 115/72 Pulse Oximetry 97 Oxygen Delivery Method Room Air BMI result Body Mass Index 89.3 Labs 10/30/24 13:54 Medications Medications Current Medications Acetaminophen (Acetaminophen 325 Mg Tablet) 650 mg PO Q6H PRN PRN Reason: Headache/Pain Mild Scale (1-3) Last Admin: 11/03/24 02:17 Dose: 650 mg Al Hydroxide/Mg Hydroxide (Magnesium Hydrox/Alum Hydrox 30 Ml Oral.Susp) 30 ml PO Q6H PRN PRN Reason: Heartburn/Nausea Albuterol Sulfate (Albuterol Sulfate 90 Mcg 8 Gm Inhaler) 2 puff INHALE Q4H PRN PRN Reason: Shortness of Breath/Wheezing Chlorpromazine HCl (Chlorpromazine Hcl 100 Mg Tablet) 200 mg PO QID PRN PRN Reason: agitation Last Admin: 11/03/24 02:18 Dose: 200 mg Loratadine (Loratadine 10 Mg Tablet) 10 mg PO DAILY [facility] Last Admin: 11/05/24 08:33 Dose: Not Given Lorazepam (Lorazepam 1 Mg Tablet) 2 mg PO Q6H PRN PRN Reason: anxiety, restlessness Magnesium Hydroxide (Milk Of Magnesia 30 Ml Oral.Susp) 30 ml PO DAILY PRN PRN Reason: Constipation Nicotine Polacrilex (Nicotine Polacrilex 2 Mg Gum) 4 mg BUCCAL Q2H PRN PRN Reason: Nicotine Cravings Omeprazole (Omeprazole 20 Mg Capsule.) 20 mg PO DAILY@0630 [facility] Last Admin: 11/05/24 06:12 Dose: Not Given Paliperidone (Paliperidone Er 6 Mg Tab.Er.24) 6 mg PO BEDTIME [facility] Last Admin: 11/04/24 21:54 Dose: Not Given Polyethylene Glycol (Polyethylene Glycol 3350 17 Gm Powd.Pack) 17 gm PO BID PRN PRN Reason: constipation Propranolol HCl (Propranolol Hcl 20 Mg Tablet) 20 mg PO BID [facility]; Protocol Last Admin: 11/05/24 08:33 Dose: Not Given Trazodone HCl (Trazodone Hcl 50 Mg Tablet) 50 mg PO BEDTIME MRX1 PRN PRN Reason: Insomnia Last Admin: 10/31/24 20:23 Dose: 50 mg Vitamin D (Cholecalciferol (Vitamin D3) 25 Mcg Tablet) 50 mcg PO DAILY [facility] Last Admin: 11/05/24 08:33 Dose: Not Given Allergies Allergies Allergy/AdvReac Type Severity Reaction Status Date / Time trazodone [TRAZODONE] Allergy Severe OVER Verified 06/08/22 14:15 SEDATION haloperidol [From Haldol] Allergy Hives Verified 11/02/24 18:44 lithium Allergy Hives Verified 11/02/24 18:44 Assessment & Plan Assessment & Plan (1) Schizoaffective disorder, bipolar type: Status: Acute Code(s): F25.0 - Schizoaffective disorder, bipolar type Plan 10/31: DC VPA as it appears outpt provider was tapering it, likely due to LFT elevations. start lithium. start PO invega, plan to increase NAPIER dosing. collect collateral. 11/01: refusing lithium and PO invega. states he will not take medication and will stay here indefinitely. file for commitment tomorrow. ramirez warning provided. 11/02: filed for commitment. 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 continue to offer medication. 11/04/2024: Continue to encourage med adherence. Section [address] hearing scheduled 11/08/2024. 11/05: commitment hearing . continue current mgmt. behaviors c/w nadege persist. Reason for continued inpatient stay Substantial Risk for: harm to self, harm to others and inability to function Time Spent With Patient Time: Total time managing care of this patient today __25__ minutes.
[2024-11-06] VITALS (11 sets, daily range): BP systolic 100–122; BP diastolic 52–72; PULSE 67–116; RESP 16–24; TEMP 36.7–37.7
[2024-11-06] MEDS: OLANZapine 10 MG VIAL IM (07:51)
[2024-11-06] MEDS: LORazepam 2 MG/ML VIAL 1 MG IM (07:51)
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
--- NOTE | 2024-11-06 08:43 | PC.NURSE ---
Mother, Jossy notified of restraint.
--- NOTE | 2024-11-06 09:12 | PC.NURSE ---
released from chair restraint at 0900. patient is in control. was able to move from chair to bed with assist. in bed with eyes closed. released at 0900. bruising upper, inner L arm.
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
[2024-11-06] MEDS: chlorproMAZINE HCl 25 MG/ML AMPUL 200 MG IM (16:29)
[2024-11-06] MEDS: LORazepam 2 MG/ML VIAL IM (16:30)
--- NOTE | 2024-11-06 17:02 | HO.BHRESTREX ---
Behavioral Restraint Exam Behavioral Health Restraint Exam Type of Restraint: Physical Hold, Medication and Mechanical Reason for Restraint: Substantial Risk of Harm to Others Medical Concerns for Restraint: No medical concerns, pt w/o acute inj / no noted resp/VS abnormalities Behavioral Assessment / Plan: No further behavioral concerns, continue current plan.
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
[2024-11-07] VITALS (9 sets, daily range): BP systolic 109–140; BP diastolic 57–73; PULSE 82–112; RESP 16–20; TEMP 36.6–37.1; O2SAT 97
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
[2024-11-07] MEDS: OLANZapine 10 MG VIAL IM (03:47)
[2024-11-07] MEDS: LORazepam 2 MG/ML VIAL 1 MG IM (03:47)
--- NOTE | 2024-11-07 04:05 | PC.NURSE ---
seen by hospitalist.
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
--- NOTE | 2024-11-07 04:43 | PC.NURSE ---
released from chair restraint at 0415 as patent fell asleep. in currently in bed. 1:1 maintained.
--- NOTE | 2024-11-07 05:35 | PC.NURSE ---
documentation reviewed. for clarification patient was singing and rapping. misspelling was noted when documentation was reviewed.
--- NOTE | 2024-11-07 06:30 | PC.NURSE ---
patient is up and awake. no change in delusional thinking. is also speaking in a grandiose manner ''I am the doctor, I am God, I am an assisted sales representative'' remains tense. easily escalates. 1:1 at side
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
[2024-11-07] MEDS: chlorproMAZINE HCl 25 MG/ML AMPUL 200 MG IM (13:39)
[2024-11-07] MEDS: LORazepam 2 MG/ML VIAL IM (13:39)
--- NOTE | 2024-11-07 13:57 | HO.BHRESTREX ---
Behavioral Restraint Exam Behavioral Health Restraint Exam Type of Restraint: Physical Hold, Medication and Mechanical Reason for Restraint: Substantial Risk of Harm to Others Medical Concerns for Restraint: No medical concerns, pt w/o acute inj / no noted resp/VS abnormalities Behavioral Assessment / Plan: No further behavioral concerns, continue current plan. Comment: softly snoring in restraint chair
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
--- NOTE | 2024-11-08 03:27 | PC.NURSE ---
NN FOR event on 11/01/24 @ 0522: Code assist was called on patient who became agitated and aggressive towards staff, exhibiting SIB. Earlier in shift He attempted to eat a water bottle which was removed by staff. Deescalation and redirection techniques initially helped however a few hours later he was laying on the ground naked in the hallway and began hitting himself in the groin, requiring pt to be physically restrained, He refused PO meds. Aggression toward staff escalated and SIB continued requiring IM order given by on-call provider and placement in 4-point restraints with spit cervantes because he was spitting @ staff. Patient seen and examined by Hospitalist on-call. Released from restraints once he regained control, restraint x 45 min.
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
[2024-11-08 07:00] VITALS: BMI 44.8
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
[2024-11-08] MEDS: Ziprasidone Mesylate 20 MG VIAL 40 MG IM (07:14)
[2024-11-08] MEDS: LORazepam 2 MG/ML VIAL IM (07:15)
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
[2024-11-08 11:02] VITALS: BP 119/61; PULSE 120; RESP 16; TEMP 36.8
--- NOTE | 2024-11-08 14:00 | HO.BHRESTREX ---
Behavioral Restraint Exam Behavioral Health Restraint Exam Type of Restraint: Physical Hold, Medication and Mechanical Reason for Restraint: Substantial Risk and Substantial Risk of Harm to Others Medical Concerns for Restraint: No medical concerns, pt w/o acute inj / no noted resp/VS abnormalities Behavioral Assessment / Plan: No further behavioral concerns, continue current plan. Comment: late entry; pt was seen at 1405.
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
[2024-11-08] MEDS: diazePAM 10 MG/2 ML CARTRIDGE IM (14:07)
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
== END 2024-11-08 14:58 | disposition short-term general hospital (02) | DRG 885 ==
PROVIDERS: Admitting Provider Psychiatry & Neurology Psychiatry; Visit Provider Psychiatry & Neurology Psychiatry
DX: F25.0 Schizoaffective disorder, bipolar type (principal); F43.12 Post-traumatic stress disorder, chronic; J45.20 Mild intermittent asthma, uncomplicated; G25.1 Drug-induced tremor; Z78.1 Physical restraint status; Z79.899 Other long term (current) drug therapy
CPT/HCPCS: 36415; 80048; J2060; J2359; J3230; J3360; J3486

== ENCOUNTER → 2024-10-30 13:12 | Outpatient (BNV) | payer MEDICARE, MEDICAID, SELFPAY | PROVIDERS: Admitting Provider Psychiatry & Neurology Psychiatry; Visit Provider Physician Assistant | DX: Z02.2 Encounter for examination for admission to residential institution (principal) | CPT/HCPCS: 99429; 99499 ==

== ENCOUNTER → 2024-10-30 13:12 | Outpatient (BNV) | payer MEDICARE, MEDICAID, SELFPAY | PROVIDERS: Admitting Provider Psychiatry & Neurology Psychiatry; Visit Provider Psychiatry & Neurology Psychiatry | DX: F25.0 Schizoaffective disorder, bipolar type (principal) | CPT/HCPCS: 90792; 99232; 99233; 99499 ==

== ENCOUNTER 2024-11-08 15:18 | Outpatient (BNV) | payer MEDICARE, MEDICAID, SELFPAY | END 2024-11-12 11:19 | PROVIDERS: Admitting Provider Internal Medicine Pulmonary Disease; Visit Provider Internal Medicine | DX: I45.81 Long QT syndrome (principal) | CPT/HCPCS: 93010 ==

== ENCOUNTER 2024-11-08 15:18 | Outpatient (BNV) | payer MEDICARE, MEDICAID, SELFPAY | END 2024-11-11 08:19 | PROVIDERS: Admitting Provider Internal Medicine Pulmonary Disease; Visit Provider Internal Medicine Cardiovascular Disease | DX: I45.81 Long QT syndrome (principal) | CPT/HCPCS: 93010 ==

== ENCOUNTER 2024-11-08 15:18 | Outpatient (BNV) | payer MEDICARE, MEDICAID, SELFPAY | END 2024-11-09 08:43 | PROVIDERS: Admitting Provider Internal Medicine Pulmonary Disease; Visit Provider Internal Medicine Cardiovascular Disease | DX: R00.1 Bradycardia, unspecified (principal) | CPT/HCPCS: 93010 ==

== ENCOUNTER 2024-11-08 15:18 | Inpatient (IN) | payer MEDICARE, MEDICAID, SELFPAY ==
[2024-11-08] VITALS (14 sets, daily range): BP systolic 89–99; BP diastolic 50–58; PULSE 61–78; RESP 18–20; TEMP 35.9–36.2; O2SAT 97–100
--- NOTE | ~2024-11-08 | US_ITS ---
EXAMINATION: US ABDOMEN LIMITED CLINICAL INFORMATION: Assess fatty liver. COMPARISON: None available. TECHNIQUE: Real-time imaging of the right upper quadrant abdominal viscera. Limited visualization due to bowel gas and patient movement. FINDINGS: PANCREAS: Limited visualization. LIVER: Hepatomegaly, 16.5 cm. Hepatic contour is smooth. Substantially limited visualization due to bowel gas and patient movement. Hepatic parenchymal echogenicity is unremarkable. GALLBLADDER: Partially contracted, limiting visualization. Per residential service technician patient not fasting COMMON BILE DUCT: Poorly visualized, although a structure felt to possibly represent common duct measures 0.3 cm in diameter. RIGHT KIDNEY: No hydronephrosis. No renal calculi. Limited visualization. The kidney measures 12.2 cm in maximum dimension. FREE FLUID: None. US/US abdomen limited IMPRESSION: Hepatomegaly, 16.5 cm. Gallbladder partially contracted, limiting visualization. Per residential service technician patient not fasting . This study was presented today to November 14, 2024 for interpretation. Stat results provided at this time as requested by referring provider. Electronically signed by: Paula George MD 11/14/2024 11:36 AM EST
[2024-11-08] MEDS: dexmedeTOMIDidine HCL/NS 400 MCG/100 ML INFUS..BTL 46.31 MCG IVCONT ×3 (15:05→18:41)
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
--- NOTE | 2024-11-08 16:04 | PC.NURSE ---
Pt. Transferred to ICU from at approx 1500 via restraint chair, accompanied by 5 security officers, M3 RN, and [facility] director. Pt drowsy but arousable to name, with nonsensical and bizzare speech. Pt. FELISA, tracking speaker, occasionally following commands. IV access obtained. MD at bedside, precedex gtt started per MD- see EMAR. Pt. assisted to bed by security personnel. Pt. HR 80s-120s, O2 >92% on RA, MAPs >65. B/L soft wrist and ankle restraints applied per MD order. End-tidal NC applied by RT- EtCO2 40-50, MD aware. Currently pt. resting in bed with eyes closed, RASS -3, CUrrent VS HR 73, RR20, 98% on 1L NC, BP 98/54 (65). Bed locked in lowest position. Q2 repositioning performed as tolerated. Call jerez within reach. Plan of care ongoing.
[2024-11-08 16:23] LABS: MANUAL DIFF FLAG NO
[2024-11-08 16:26] LABS: Basophils Percent Auto 0.4 % (0-2); Eosinophils Absolute Auto 0.1 X10*3/uL (0.0-0.4); Eosinophils Percent Auto 1.1 % (0-4); Hemoglobin 10.2 g/dl (14.0-18.0); Imm Gran Abs Auto 0.01 X10*3/uL (0.00-0.03); Imm Gran Pct Auto 0.1 % (0.0-0.4); Lymphocytes Absolute Auto 1.6 X10*3/uL (1.2-4.9); Lymphocytes Percent Auto 20.3 % (20-40); Mean Corpuscular Hemoglobin 26.8 pg (27.0-33.0); Mean Corpuscular Volume 78.9 fL (80.0-98.0); Mean Platelet Volume 9.4 fL (9.4-12.4); Monocytes Absolute Auto 1.2 X10*3/uL (0.1-1.2); Monocytes Percent Auto 14.6 % (2-11); Neutrophils Percent Auto 63.5 % (45-73); Platelet Count 219 X10*3/uL (160-400); Red Cell Distribution Width 12.9 % (11.0-16.0); White Blood Count 7.9 X10*3/uL (4.8-10.8)
[2024-11-08 16:40] LABS: Alanine Aminotransferase 331 U/L (0-40); Albumin Level 3.7 g/dL (3.5-5.0); Alkaline Phosphatase 81 U/L (39-117); Anion Gap 13 (12-20); Aspartate Amino Transferase 247 U/L (5-37); Bilirubin Total 0.9 mg/dL (0.0-1.0); Blood Urea Nitrogen 9 mg/dL (9-16); Calcium 8.9 mg/dL (8.4-10.2); Carbon Dioxide 27 mmol/L (22-29); Chloride 103 mmol/L (96-108); Estimated Glomerular Filt Rate > 60; Glucose Random 108 mg/dL (60-115); Magnesium 1.9 mg/dL (1.6-2.6); Phosphorus 4.1 mg/dL (2.7-4.5); Potassium 3.9 mmol/L (3.3-5.1); Sodium 139 mmol/L (135-145); Total Protein 6.5 g/dL (6.5-8.0)
[2024-11-08] MEDS: Enoxaparin Sodium 40 MG/0.4 ML SYRINGE SUBCUT (17:39)
[2024-11-08 18:09] LABS: Ammonia 41 umol/L (13-55)
[2024-11-08] MEDS: dexmedeTOMIDidine HCL/NS 400 MCG/100 ML INFUS..BTL 30.88 MCG IVCONT (20:53)
--- NOTE | 2024-11-08 21:27 | PHA.MEDREC ---
Addendum entered by Essence Santana RPh 11/08/24 21:37: reviewed by [facility]. Original Note: Pharmacy Consult ? Medication Reconciliation Pharmacy has completed the medication reconciliation. Spoke with patients Mom (Jossy [phone]) and she was able to confirm patients medications. She confirmed her sons Invega Sustenna and confirmed he is taking the 156mg dose once every 4 weeks and states she got it about 2 weeks ago but did not remember the exact date and states he is due for it in 2 weeks. She also confirmed his Propanolol and confirmed he is taking the 10mg tab once daily. She cofnirmed her sons Fish oil tablet and stated he is taking 1 tab TID now. She states her son has no been home in about a week ago and he has not taken them at home since then.
[2024-11-08] MEDS: Lactated Ringers 1,000 ML 80 ML IVCONT (22:22)
[2024-11-09] VITALS (32 sets, daily range): BP systolic 94–126; BP diastolic 56–78; PULSE 53–80; RESP 12–24; TEMP 35.3–36.6; O2SAT 90–100; BMI 38.8
[2024-11-09] MEDS: dexmedeTOMIDidine HCL/NS 400 MCG/100 ML INFUS..BTL 30.88 MCG IVCONT ×2 (00:03→03:05)
[2024-11-09] MEDS: Midazolam HCl/PF 2 MG/2 ML VIAL 4 MG IVPUSH ×5 (03:40→22:05)
[2024-11-09] MEDS: Haloperidol Lactate 5 MG/ML VIAL IM ×4 (03:40→22:00)
--- NOTE | 2024-11-09 04:22 | PC.NURSE ---
`CARE ASSUMED 7PM...DEEPLY SEDATED ON PRECIDEX 1.5 MCG/KG/HR...NSR/S.NINA HR 60-64...RESPIRATIONS EASY...BLADDER SCANNED FOR 550ML...TEMP RECIO INSERTED PER ICU PA...PRECIDEX DRIP WEANED TO 1.0 MCG/KG/HR OVER TIME PER PA...initially with deep sedation..suddenly wide awake o3:35..agitated/yelling..sitting up in bed attempting to climb oob despite 4pt soft limb restraints...STATED GET THE FUCK AWAY FROM ME..I'M CALLING MY NEWBORN HEARING SCREENER...ATTEMPTING TO PULL OFF LEADS AND LINES...SECURITY PRESENT..PER ICU PA PRECIDEX DRIP RETURNED TO 1.5 MCG/KG/HR...HALDOL 5MG IM GIVEN PER PA..VERSED 4MG IV GIVEN..GRADUAL RETURN TO DEEP SEDATION...PRECIDEX DRIP WEANED TO 1.3 MCG/KG/HR PER ICU PA
[2024-11-09 04:49] LABS: MANUAL DIFF FLAG NO
[2024-11-09 04:51] LABS: Basophils Percent Auto 0.3 % (0-2); Eosinophils Absolute Auto 0.2 X10*3/uL (0.0-0.4); Eosinophils Percent Auto 2.5 % (0-4); Hemoglobin 10.4 g/dl (14.0-18.0); Imm Gran Abs Auto 0.03 X10*3/uL (0.00-0.03); Imm Gran Pct Auto 0.4 % (0.0-0.4); Lymphocytes Absolute Auto 1.6 X10*3/uL (1.2-4.9); Lymphocytes Percent Auto 23.3 % (20-40); Mean Corpuscular HGB Conc 33.5 g/dl (31.0-36.0); Mean Corpuscular Hemoglobin 26.8 pg (27.0-33.0); Mean Corpuscular Volume 79.9 fL (80.0-98.0); Mean Platelet Volume 9.4 fL (9.4-12.4); Monocytes Percent Auto 13.8 % (2-11); Neutrophils Absolute Auto 4.1 x10*3/uL (2.0-8.3); Neutrophils Percent Auto 59.7 % (45-73); Platelet Count 208 X10*3/uL (160-400); Red Blood Count 3.88 X10*6/uL (4.60-5.80); White Blood Count 6.9 X10*3/uL (4.8-10.8)
[2024-11-09] MEDS: dexmedeTOMIDidine HCL/NS 400 MCG/100 ML INFUS..BTL 40.14 MCG IVCONT ×2 (05:05→07:30)
[2024-11-09 05:10] LABS: Alanine Aminotransferase 302 U/L (0-40); Albumin Level 3.5 g/dL (3.5-5.0); Alkaline Phosphatase 79 U/L (39-117); Anion Gap 12 (12-20); Aspartate Amino Transferase 177 U/L (5-37); Blood Urea Nitrogen 10 mg/dL (9-16); Calcium 8.6 mg/dL (8.4-10.2); Carbon Dioxide 26 mmol/L (22-29); Chloride 104 mmol/L (96-108); Creatinine Clr Calc Pharmacy 162.8; Estimated Glomerular Filt Rate > 60; Glucose Random 109 mg/dL (60-115); Lipase 127 U/L (8-78); Magnesium 2.1 mg/dL (1.6-2.6); Potassium 4.1 mmol/L (3.3-5.1); Sodium 138 mmol/L (135-145); Total Protein 6.3 g/dL (6.5-8.0)
[2024-11-09] MEDS: FLUPHENAZINE 2.5 MG/5 ML PO (08:33)
[2024-11-09] MEDS: carBAMazepine 200 MG/10 ML ORAL.SUSP PO (08:33)
--- NOTE | 2024-11-09 08:43 | ECG_ITS ---
Test Reason : check qtc Blood Pressure : / mmHG Vent. Rate : 056 BPM Atrial Rate : 056 BPM P-R Int : 152 ms QRS Dur : 092 ms QT Int : 476 ms P-R-T Axes : 035 073 049 degrees QTc Int : 459 ms Sinus bradycardia Early repolarization Otherwise normal ECG When compared with ECG of 03-JUN-2022 13:48, Vent. rate has decreased BY 46 BPM Referred By: Antoni Mcfadden Electronically Signed By:KARY SORIANO MD
[2024-11-09 09:13] LABS: HBS Num1 0.59 mIU/mL (0-7.99); HBsAGNum1 0.58 S/CO (0.00-0.99); Hepatitis A Antibody IgM 0.16 Index (0-0.79); Hepatitis B Core Antibody Nonreactive (Nonreactive); Hepatitis B Surface Antigen Negative (Negative); ~HepC Num1 0.08 S/CO (0.00-0.79); ~Hepatitis A Antibody IgM Nonreactive (Nonreactive); ~Hepatitis B Surface Antibody NONREACTIVE (Nonreactive); ~Hepatitis C Antibody Nonreactive (Nonreactive)
[2024-11-09] MEDS: dexmedeTOMIDidine HCL/NS 400 MCG/100 ML INFUS..BTL 46.31 MCG IVCONT ×8 (09:42→23:58)
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
--- NOTE | 2024-11-09 09:43 | MHC.CM.PN ---
CM assessment primarily completed w/ chart review. Patient currently in ICU care on precedex gtt for agitation, unable to participate in conversation. LM for mother, Jossy, and verbally delivered IMM on VM. Patient initially admitted to [facility]. Lives independently, but goes to [facility] day [facility]. Has a [facility] showcase maker (Tena [phone]). No PCP listed and no HCP on file. Will address when patient is more alert. DP: Per MD rounds, plan to return to [facility] on Monday 11/12 if behaviors are controlled. CM will continue to follow.
[2024-11-09] MEDS: Lactated Ringers 1,000 ML 80 ML IVCONT ×2 (09:52→20:54)
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
[2024-11-09] MEDS: Valproic Acid (as Sodium Salt) 750 MG in Dextrose 5 % 50 ML 55 MG IV (18:16)
[2024-11-09] MEDS: 0.9 % Sodium Chloride Flush 3 ML SYRINGE IVFLUSH (23:58)
[2024-11-10] VITALS (24 sets, daily range): BP systolic 102–155; BP diastolic 44–91; PULSE 53–92; RESP 13–24; TEMP 35.8–36.3; O2SAT 95–100; BMI 39.2
[2024-11-10] MEDS: Midazolam HCl/PF 2 MG/2 ML VIAL 4 MG IVPUSH ×5 (01:16→16:30)
[2024-11-10] MEDS: Valproic Acid (as Sodium Salt) 750 MG in Dextrose 5 % 50 ML 55 MG IV ×2 (01:18→13:13)
[2024-11-10] MEDS: dexmedeTOMIDidine HCL/NS 400 MCG/100 ML INFUS..BTL 46.31 MCG IVCONT ×4 (02:03→21:49)
[2024-11-10] MEDS: Haloperidol Lactate 5 MG/ML VIAL IM ×3 (02:45→12:35)
[2024-11-10] MEDS: Midazolam HCl/NS 50 MG/50 ML PLAST..BAG IVCONT ×2 (03:00→11:35)
[2024-11-10] MEDS: dexmedeTOMIDidine HCL/NS 400 MCG/100 ML INFUS..BTL 30.88 MCG IVCONT ×3 (04:36→11:37)
[2024-11-10 05:06] LABS: MANUAL DIFF FLAG NO
[2024-11-10 05:08] LABS: Basophils Percent Auto 0.3 % (0-2); Eosinophils Absolute Auto 0.1 X10*3/uL (0.0-0.4); Eosinophils Percent Auto 2.1 % (0-4); Hematocrit 31.9 % (42.0-52.0); Hemoglobin 10.5 g/dl (14.0-18.0); Imm Gran Abs Auto 0.01 X10*3/uL (0.00-0.03); Imm Gran Pct Auto 0.2 % (0.0-0.4); Lymphocytes Absolute Auto 1.3 X10*3/uL (1.2-4.9); Lymphocytes Percent Auto 20.5 % (20-40); Mean Corpuscular HGB Conc 32.9 g/dl (31.0-36.0); Mean Corpuscular Hemoglobin 26.9 pg (27.0-33.0); Mean Corpuscular Volume 81.8 fL (80.0-98.0); Monocytes Absolute Auto 0.8 X10*3/uL (0.1-1.2); Monocytes Percent Auto 11.9 % (2-11); Neutrophils Absolute Auto 4.1 x10*3/uL (2.0-8.3); Platelet Count 217 X10*3/uL (160-400); Red Cell Distribution Width 12.7 % (11.0-16.0); White Blood Count 6.3 X10*3/uL (4.8-10.8)
[2024-11-10 05:25] LABS: Alanine Aminotransferase 229 U/L (0-40); Albumin Level 3.3 g/dL (3.5-5.0); Alkaline Phosphatase 76 U/L (39-117); Anion Gap 11 (12-20); Aspartate Amino Transferase 106 U/L (5-37); Bilirubin Total 0.5 mg/dL (0.0-1.0); Blood Urea Nitrogen 6 mg/dL (9-16); Calcium 8.3 mg/dL (8.4-10.2); Carbon Dioxide 24 mmol/L (22-29); Chloride 107 mmol/L (96-108); Creatinine Clr Calc Pharmacy 197.8; Estimated Glomerular Filt Rate > 60; Glucose Random 108 mg/dL (60-115); Lipase 24 U/L (8-78); Potassium 4.1 mmol/L (3.3-5.1); Sodium 138 mmol/L (135-145); Total Protein 6.2 g/dL (6.5-8.0)
--- NOTE | 2024-11-10 05:44 | W.MHC.ACPN ---
Advanced Care Planning Note Advanced Care Planning Note Discussed with: family member(s) (pts mother Jossy) Time spent (in minutes): 15 Narrative: Throughout the night, the patient has been very difficult to control despite of the administration of multiple medications including Precedex drip, Haldol, Versed p.r.n. doses The patient has been extremely agitated, verbally and physically aggressive. Given the repetitive and risky situations of harming nursing personnel and myself, I reached out to the patient's mother and made her aware of the situation explaining her that if we were not able to control him he may need to be sedated and intubated. In addition his current status does not allow us to have him take his antipsychotic medications. Patient's mother agreed that if we were having trouble controlling him she would be okay with intubation, this information was also share with the ICU nurse Catrina who was a witness to this conversation and decision. Since the conversation with the patient's mother, however the patient last received Haldol and was placed on a Versed drip which has had good effect. Critical care time used for critical evaluation of this patient controlling his behavioral issues, diagnosis, treatment and coordination of care, review her records and documentation TOTAL CRITICAL CARE TIME 60 MIN . discussion and coordination with consultants, completely separate from any procedures performed. . Patient's care was discussed in detail with Dr. Mcfadden. He is aware of all the above as well as the plan of care for this patient. Problems Discussed (1) Schizoaffective disorder, bipolar type:
[2024-11-10] MEDS: 0.9 % Sodium Chloride Flush 3 ML SYRINGE IVFLUSH ×2 (08:03→15:05)
[2024-11-10] MEDS: Lactated Ringers 1,000 ML 80 ML IVCONT ×2 (08:34→20:57)
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
[2024-11-10] MEDS: chlorproMAZINE HCl 25 MG/ML AMPUL IM (10:59)
[2024-11-10] MEDS: dexmedeTOMIDidine HCL/NS 400 MCG/100 ML INFUS..BTL 43.23 MCG IVCONT (14:35)
[2024-11-10] MEDS: Haloperidol Lactate 5 MG/ML VIAL IVPUSH ×2 (14:58→19:46)
[2024-11-10] MEDS: Valproic Acid (as Sodium Salt) 1,000 MG in Dextrose 5 % 50 ML 55 MG IV ×2 (15:01→21:51)
--- NOTE | 2024-11-10 16:39 | P.PNCC_ITS ---
Subjective Subjective Date of Service: 11/10/24 Critical Care Time (minutes): 35 Comment: Continues to be significantly agitated despite being on Precedex and Versed drip needing multiple p.r.n. medications every couple of hours Physical Exam 2 Vital Signs: Vital Signs: Last Vital Signs Temp 97.0 F 11/10/24 16:00 Pulse 67 11/10/24 16:00 Resp 13 11/10/24 16:00 BP 113/70 11/10/24 16:00 Pulse Ox 100 11/10/24 16:00 O2 Del Method Room Air 11/10/24 16:00 O2 Flow Rate 2 11/09/24 15:00 Oxygen Flow Rate 1 11/08/24 15:18 BMI result Body Mass Index 39.2 General: acute distress, ill appearing and tired appearing Nutritional Appearance: well nourished and overweight Eyes: appearance normal, both eyes and all related structures; Alignment and Position: alignment normal and position normal Neck: No lymphadenopathy, no thyromegaly Resp: bilateral air entry equal, no added sounds present Cardio: Regular rate, regular rhythm; Heart sounds: S1 normal heart sound present and S2 normal heart sound present GI: soft, nontender, no guarding, no hepatosplenomegaly : bladder normal to inspection, bladder normal to palpation, no renal angle tenderness Skin: no rashes or lesions noted and elasticity normal Neuro: Confused, agitated moves all extremities Objective Data Labs 11/10/24 04:29 11/10/24 04:29 Labs: Laboratory Results - last 24 hr 11/10/24 04:29 WBC 6.3 RBC 3.90 L Hgb 10.5 L Hct 31.9 L MCV 81.8 MCH 26.9 L MCHC 32.9 RDW 12.7 Plt Count 217 MPV 10.0 Immature Gran % (Auto) 0.2 Neut % (Auto) 65.0 Lymph % (Auto) 20.5 [place] % (Auto) 11.9 H Eos % (Auto) 2.1 Baso % (Auto) 0.3 Lymph # (Auto) 1.3 [place] # (Auto) 0.8 Eos # (Auto) 0.1 Baso # (Auto) 0.0 Abs Immat Gran (auto) 0.01 Absolute Neuts (auto) 4.1 Absolute Nucleated RBC 0.000 Nucleated RBC % (auto) 0.0 Sodium 138 Potassium 4.1 Chloride 107 Carbon Dioxide 24 Anion Gap 11 L BUN 6 L Creatinine 0.73 Estim Creat Clear Calc 197.8 Estimated GFR > 60 Random Glucose 108 Calcium 8.3 L Total Bilirubin 0.5 AST 106 H ALT 229 H Alkaline Phosphatase 76 Total Protein 6.2 L Albumin 3.3 L Lipase 24 Progress Note: A&P Assessment and plan (1) Schizoaffective disorder, bipolar type: Status: Acute (2) Chronic post-traumatic stress disorder (PTSD): Status: Acute (3) Acute encephalopathy: Status: Acute (4) Mild intermittent asthma: Status: Acute Plan Acute encephalopathy: Schizoaffective disorder: Bipolar disorder: Patient has medication-related encephalopathy as he is on a continuous Precedex drip and Versed drip to keep him calm and drowsy to prevent the agitation episodes. He still has multiple episodes of agitation and rage every couple of hours needing p.r.n. IV Haldol and IV Versed pushes. We will try to change the Versed drip to a ketamine drip to see if we have any better affect. We are closely monitoring his QT intervals every few hours, the last QT interval I have is 472 given his multiple need for antipsychotic medications. His psych medications is being up titrated per by Psychology once the medications were up titrated we will slowly wean the Precedex we will closely monitor his mental status. His antipsychotics are being managed and adjusted by Psychiatry. Transaminitis: Slightly better when compared to yesterday Hepatitis panel pending, ammonia normal Could not get ultrasound of the liver due to agitation Quality Stroke Does the patient have a stroke diagnosis?: No VTE Prior VTE?: No VTE Risk Level:: Medical - low VTE Device Contraindication: N/A - Device Ordered VTE Drug Contraindication: N/A - Med Ordered
[2024-11-10] MEDS: Enoxaparin Sodium 40 MG/0.4 ML SYRINGE SUBCUT (17:18)
[2024-11-10] MEDS: Ketamine HCl 500 MG in 0.9 % Sodium Chloride 250 ML 18.94 MG IVCONT (20:13)
[2024-11-11] VITALS (24 sets, daily range): BP systolic 94–144; BP diastolic 61–96; PULSE 51–99; RESP 12–25; TEMP 35.7–36.6; O2SAT 95–100; BMI 39.4
[2024-11-11] MEDS: Haloperidol Lactate 5 MG/ML VIAL IVPUSH ×3 (01:12→23:01)
[2024-11-11] MEDS: 0.9 % Sodium Chloride Flush 3 ML SYRINGE IVFLUSH ×3 (01:13→15:21)
[2024-11-11] MEDS: dexmedeTOMIDidine HCL/NS 400 MCG/100 ML INFUS..BTL 30.88 MCG IVCONT (01:26)
[2024-11-11] MEDS: dexmedeTOMIDidine HCL/NS 400 MCG/100 ML INFUS..BTL 24.7 MCG IVCONT ×2 (04:45→09:20)
[2024-11-11 05:18] LABS: VBG Base Excess 3.4 mmol/L; VBG HCO3 29 mmol/L (22-26); VBG pCO2 50 mmHg; VBG pH 7.37 (7.32-7.43); VBG pO2 64 mmHg
[2024-11-11 05:19] LABS: MANUAL DIFF FLAG NO
[2024-11-11 05:22] LABS: Basophils Percent Auto 0.2 % (0-2); Eosinophils Absolute Auto 0.1 X10*3/uL (0.0-0.4); Eosinophils Percent Auto 1.7 % (0-4); Hematocrit 33.9 % (42.0-52.0); Hemoglobin 11.4 g/dl (14.0-18.0); Imm Gran Abs Auto 0.03 X10*3/uL (0.00-0.03); Imm Gran Pct Auto 0.5 % (0.0-0.4); Lymphocytes Absolute Auto 1.3 X10*3/uL (1.2-4.9); Lymphocytes Percent Auto 20.3 % (20-40); Mean Corpuscular HGB Conc 33.6 g/dl (31.0-36.0); Mean Corpuscular Hemoglobin 26.8 pg (27.0-33.0); Mean Corpuscular Volume 79.6 fL (80.0-98.0); Mean Platelet Volume 9.3 fL (9.4-12.4); Monocytes Absolute Auto 0.6 X10*3/uL (0.1-1.2); Monocytes Percent Auto 9.9 % (2-11); Neutrophils Absolute Auto 4.3 x10*3/uL (2.0-8.3); Neutrophils Percent Auto 67.4 % (45-73); Platelet Count 245 X10*3/uL (160-400); Red Blood Count 4.26 X10*6/uL (4.60-5.80); Red Cell Distribution Width 12.6 % (11.0-16.0); White Blood Count 6.4 X10*3/uL (4.8-10.8)
[2024-11-11 05:54] LABS: Alanine Aminotransferase 188 U/L (0-40); Albumin Level 3.2 g/dL (3.5-5.0); Alkaline Phosphatase 84 U/L (39-117); Anion Gap 13 (12-20); Aspartate Amino Transferase 85 U/L (5-37); Bilirubin Total 0.4 mg/dL (0.0-1.0); Blood Urea Nitrogen 6 mg/dL (9-16); Calcium 8.5 mg/dL (8.4-10.2); Carbon Dioxide 26 mmol/L (22-29); Chloride 109 mmol/L (96-108); Creatinine Clr Calc Pharmacy 188.5; Estimated Glomerular Filt Rate > 60; Glucose Random 104 mg/dL (60-115); Potassium 3.9 mmol/L (3.3-5.1); Sodium 144 mmol/L (135-145); Total Protein 6.2 g/dL (6.5-8.0)
[2024-11-11 06:03] LABS: Venous Blood Gas Refer to POC result
[2024-11-11] MEDS: Valproic Acid (as Sodium Salt) 1,000 MG in Dextrose 5 % 50 ML 55 MG IV ×3 (06:28→21:50)
[2024-11-11] MEDS: Ketamine HCl 500 MG in 0.9 % Sodium Chloride 250 ML 31.57 MG IVCONT ×3 (07:02→22:42)
--- NOTE | 2024-11-11 08:19 | ECG_ITS ---
Test Reason : QTC Blood Pressure : / mmHG Vent. Rate : 066 BPM Atrial Rate : 066 BPM P-R Int : 190 ms QRS Dur : 104 ms QT Int : 480 ms P-R-T Axes : 042 048 023 degrees QTc Int : 503 ms Normal sinus rhythm Early Repolarization Prolonged QT Lead misplacement When compared with ECG of 09-NOV-2024 08:55, Repeat EKG with proper precordial lead placement Referred By: Antoni Mcfadden Electronically Signed By:KARY SORIANO MD
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
[2024-11-11] MEDS: dexmedeTOMIDidine HCL/NS 400 MCG/100 ML INFUS..BTL 46.31 MCG IVCONT (13:40)
--- NOTE | 2024-11-11 14:54 | P.PNCC_ITS ---
Subjective Subjective Date of Service: 11/11/24 Critical Care Time (minutes): 30 Comment: No new events overnight, episodes of agitation better after starting ketamine drip Added ketamine drip to taper off Versed Liver function test slowly improving Physical Exam 2 Vital Signs: Vital Signs: Last Vital Signs Temp 96.5 F L 11/11/24 12:00 Pulse 64 11/11/24 14:00 Resp 16 11/11/24 14:00 BP 125/91 H 11/11/24 14:00 Pulse Ox 100 11/11/24 14:00 O2 Del Method Room Air 11/11/24 14:00 O2 Flow Rate 2 11/09/24 15:00 Oxygen Flow Rate 1 11/08/24 15:18 BMI result Body Mass Index 39.4 General: Not in acute distress, often agitated Nutritional Appearance: well nourished and overweight Eyes: appearance normal, both eyes and all related structures; Alignment and Position: alignment normal and position normal Neck: No lymphadenopathy, no thyromegaly Resp: bilateral air entry equal, no added sounds present Cardio: Regular rate, regular rhythm; Heart sounds: S1 normal heart sound present and S2 normal heart sound present GI: soft, nontender, no guarding, no hepatosplenomegaly : bladder normal to inspection, bladder normal to palpation, no renal angle tenderness Skin: no rashes or lesions noted and elasticity normal Neuro: Drowsy, no focal deficits and moves all extremities Objective Data Labs 11/11/24 05:09 11/11/24 05:09 Labs: Laboratory Results - last 24 hr 11/11/24 11/11/24 05:05 05:09 WBC 6.4 RBC 4.26 L Hgb 11.4 L Hct 33.9 L MCV 79.6 L MCH 26.8 L MCHC 33.6 RDW 12.6 Plt Count 245 MPV 9.3 L Immature Gran % (Auto) 0.5 H Neut % (Auto) 67.4 Lymph % (Auto) 20.3 [place] % (Auto) 9.9 Eos % (Auto) 1.7 Baso % (Auto) 0.2 Lymph # (Auto) 1.3 [place] # (Auto) 0.6 Eos # (Auto) 0.1 Baso # (Auto) 0.0 Abs Immat Gran (auto) 0.03 Absolute Neuts (auto) 4.3 Absolute Nucleated RBC 0.000 Nucleated RBC % (auto) 0.0 VBG pH 7.37 VBG pCO2 50 VBG pO2 64 VBG HCO3 29 H VBG O2 Saturation 90.0 VBG Base Excess 3.4 Sodium 144 Potassium 3.9 Chloride 109 H Carbon Dioxide 26 Anion Gap 13 BUN 6 L Creatinine 0.77 Estim Creat Clear Calc 188.5 Estimated GFR > 60 Random Glucose 104 Calcium 8.5 Total Bilirubin 0.4 AST 85 H ALT 188 H Alkaline Phosphatase 84 Total Protein 6.2 L Albumin 3.2 L Progress Note: A&P Assessment and plan (1) Schizoaffective disorder, bipolar type: Status: Acute (2) Chronic post-traumatic stress disorder (PTSD): Status: Acute (3) Mild intermittent asthma: Status: Acute (4) Medical clearance for psychiatric admission: Status: Acute (5) Acute encephalopathy: Status: Acute Plan Acute encephalopathy: Schizoaffective disorder: Bipolar disorder: Patient has medication-related encephalopathy as he is on a continuous Precedex drip, ketamine drip and Versed drip to keep him calm and drowsy to prevent the agitation episodes. Patient was agitated despite being on Versed and Precedex drip yesterday so ketamine was added to taper off the Versed. Now the Versed drip has a at 1 milligram/hour He still has multiple episodes of agitation and rage every couple of hours needing p.r.n. IV Haldol and IV Versed pushes. We are closely monitoring his QT intervals every few hours, the last QT interval I have is 494 given his multiple need for antipsychotic medications. His psych medications is being up titrated per by Psychology once the medications were up titrated we will slowly wean the drips down we will closely monitor his mental status. His antipsychotics are being managed and adjusted by Psychiatry. Transaminitis: Liver function test improving Hepatitis panel pending, ammonia normal Could not get ultrasound of the liver due to agitation Quality Stroke Does the patient have a stroke diagnosis?: No VTE Prior VTE?: No VTE Risk Level:: Medical - low VTE Device Contraindication: N/A - Device Ordered VTE Drug Contraindication: N/A - Med Ordered
[2024-11-11] MEDS: dexmedeTOMIDidine HCL/NS 400 MCG/100 ML INFUS..BTL 40.14 MCG IVCONT (15:50)
[2024-11-11] MEDS: dexmedeTOMIDidine HCL/NS 400 MCG/100 ML INFUS..BTL 27.79 MCG IVCONT ×2 (19:27→22:41)
[2024-11-11] MEDS: Enoxaparin Sodium 40 MG/0.4 ML SYRINGE SUBCUT (21:51)
[2024-11-12] VITALS (25 sets, daily range): BP systolic 95–178; BP diastolic 50–130; PULSE 55–132; RESP 10–25; TEMP 35.6–37.2; O2SAT 91–100; BMI 38.4
[2024-11-12] MEDS: dexmedeTOMIDidine HCL/NS 400 MCG/100 ML INFUS..BTL 46.31 MCG IVCONT ×5 (00:43→08:50)
[2024-11-12] MEDS: 0.9 % Sodium Chloride Flush 3 ML SYRINGE IVFLUSH ×4 (00:44→22:06)
[2024-11-12 05:03] LABS: MANUAL DIFF FLAG NO
[2024-11-12 05:05] LABS: Basophils Percent Auto 0.2 % (0-2); Eosinophils Absolute Auto 0.1 X10*3/uL (0.0-0.4); Eosinophils Percent Auto 1.6 % (0-4); Hemoglobin 11.9 g/dl (14.0-18.0); Imm Gran Abs Auto 0.02 X10*3/uL (0.00-0.03); Imm Gran Pct Auto 0.4 % (0.0-0.4); Lymphocytes Percent Auto 18.8 % (20-40); Mean Corpuscular HGB Conc 33.1 g/dl (31.0-36.0); Mean Corpuscular Hemoglobin 26.7 pg (27.0-33.0); Mean Corpuscular Volume 80.9 fL (80.0-98.0); Mean Platelet Volume 9.6 fL (9.4-12.4); Monocytes Absolute Auto 0.6 X10*3/uL (0.1-1.2); Monocytes Percent Auto 11.2 % (2-11); Neutrophils Absolute Auto 3.5 x10*3/uL (2.0-8.3); Neutrophils Percent Auto 67.8 % (45-73); Platelet Count 253 X10*3/uL (160-400); Red Blood Count 4.45 X10*6/uL (4.60-5.80); Red Cell Distribution Width 12.6 % (11.0-16.0); White Blood Count 5.2 X10*3/uL (4.8-10.8)
[2024-11-12 05:09] LABS: VBG Base Excess 1.3 mmol/L; VBG HCO3 23 mmol/L (22-26); VBG pCO2 30 mmHg; VBG pH 7.49 (7.32-7.43); VBG pO2 76 mmHg; Venous Blood Gas Refer to POC result
[2024-11-12 05:29] LABS: Sodium 143 mmol/L (135-145)
[2024-11-12 05:30] LABS: Anion Gap 16 (12-20); Blood Urea Nitrogen 6 mg/dL (9-16); Carbon Dioxide 22 mmol/L (22-29); Chloride 109 mmol/L (96-108); Creatinine Clr Calc Pharmacy 173.4; Estimated Glomerular Filt Rate > 60; Potassium 4.1 mmol/L (3.3-5.1)
[2024-11-12 05:31] LABS: Aspartate Amino Transferase 73 U/L (5-37); Bilirubin Total 0.4 mg/dL (0.0-1.0); Calcium 8.5 mg/dL (8.4-10.2); Glucose Random 82 mg/dL (60-115); Phosphorus 3.9 mg/dL (2.7-4.5)
[2024-11-12 05:32] LABS: Albumin Level 3.3 g/dL (3.5-5.0); Total Protein 6.4 g/dL (6.5-8.0)
[2024-11-12 05:37] LABS: Alanine Aminotransferase 156 U/L (0-40); Alkaline Phosphatase 84 U/L (39-117)
[2024-11-12] MEDS: Ketamine HCl 500 MG in 0.9 % Sodium Chloride 250 ML 31.57 MG IVCONT (06:11)
[2024-11-12] MEDS: Haloperidol Lactate 5 MG/ML VIAL IVPUSH ×3 (08:54→19:39)
--- NOTE | 2024-11-12 09:15 | MHC.CM.PN ---
Patient remains in ICU care w/ ketamine gtt for behaviors. Plan to return to M3 when medically cleared. CM will continue to follow.
[2024-11-12] MEDS: Valproic Acid (as Sodium Salt) 750 MG in Dextrose 5 % 50 ML 55 MG IV (09:54)
[2024-11-12 11:07] LABS: Glucose, Whole Blood 86 mg/dL (60-115)
[2024-11-12] MEDS: dexmedeTOMIDidine HCL/NS 400 MCG/100 ML INFUS..BTL 33.96 MCG IVCONT (11:11)
--- NOTE | 2024-11-12 11:19 | ECG_ITS ---
Test Reason : QTc Monitoring Blood Pressure : / mmHG Vent. Rate : 082 BPM Atrial Rate : 082 BPM P-R Int : 168 ms QRS Dur : 090 ms QT Int : 406 ms P-R-T Axes : 045 048 013 degrees QTc Int : 474 ms Normal sinus rhythm Normal ECG When compared with ECG of 11-NOV-2024 08:23, Early Repolarization changes not present Referred By: Bisi Brown Electronically Signed By:ZA MALDONADO
--- NOTE | 2024-11-12 11:20 | PM.CCPN ---
Subjective Subjective Date of Service: 11/12/24 Critical Care Time (minutes): 60 Physical Exam Vital Signs: Vital Signs: Last Vital Signs Temp 97.8 F 11/12/24 08:00 Pulse 55 11/12/24 11:00 Resp 20 11/12/24 11:00 BP 118/79 11/12/24 11:00 Pulse Ox 99 11/12/24 11:00 O2 Del Method Room Air 11/12/24 11:00 O2 Flow Rate 2 11/09/24 15:00 Oxygen Flow Rate 1 11/08/24 15:18 BMI result Body Mass Index 38.4 Const: Other: sleeping, no acute distress; appreciable spontaneous movements HEENT: Head: Yes normal to inspection, Yes normocephalic and Yes atraumatic Eyes: General: appearance normal, both eyes and all related structures Neck: Neck: Yes normal visual inspection, Yes full ROM, Yes no meningeal signs, Yes trachea midline and Yes supple Chest: Chest palpation & inspection: normal inspection of the chest Resp: Other: no appreciable rales, rhonchi, wheezing Effort & Inspection: normal respiratory effort Cardio: Rate: regular rate Rhythm: regular rhythm GI: Inspection: Yes normal to inspection, No Abdominal wall edema and No distended Palpation (GI): not soft, not firm, nontender, no guarding and not rigid Skin: General skin exam: no rashes or lesions noted Neuro: General: tone normal, moves all extremities, no meningeal signs and no focal motor deficits Extrem: General: Yes normal to inspection, Yes full ROM, Yes capillary refill normal and Yes no clubbing, cyanosis or edema Psych: Other: appreciable intermittent agitation Objective Data Labs 11/12/24 04:56 11/12/24 04:56 Labs: Laboratory Results - last 24 hr 11/12/24 11/12/24 11/12/24 04:56 04:57 10:43 WBC 5.2 RBC 4.45 L Hgb 11.9 L Hct 36.0 L MCV 80.9 MCH 26.7 L MCHC 33.1 RDW 12.6 Plt Count 253 MPV 9.6 Immature Gran % (Auto) 0.4 Neut % (Auto) 67.8 Lymph % (Auto) 18.8 L [place] % (Auto) 11.2 H Eos % (Auto) 1.6 Baso % (Auto) 0.2 Lymph # (Auto) 1.0 L [place] # (Auto) 0.6 Eos # (Auto) 0.1 Baso # (Auto) 0.0 Abs Immat Gran (auto) 0.02 Absolute Neuts (auto) 3.5 Absolute Nucleated RBC 0.000 Nucleated RBC % (auto) 0.0 VBG pH 7.49 H VBG pCO2 30 VBG pO2 76 VBG HCO3 23 VBG O2 Saturation 97.0 VBG Base Excess 1.3 Sodium 143 Potassium 4.1 Chloride 109 H Carbon Dioxide 22 Anion Gap 16 BUN 6 L Creatinine 0.84 Estim Creat Clear Calc 173.4 Estimated GFR > 60 POC Glucose Random Glucose 82 Calcium 8.5 Phosphorus 3.9 Magnesium 2.0 Total Bilirubin 0.4 AST 73 H ALT 156 H Alkaline Phosphatase 84 Total Protein 6.4 L Albumin 3.3 L Valproic Acid 63.0 11/12/24 10:51 WBC RBC Hgb Hct MCV MCH MCHC RDW Plt Count MPV Immature Gran % (Auto) Neut % (Auto) Lymph % (Auto) [place] % (Auto) Eos % (Auto) Baso % (Auto) Lymph # (Auto) [place] # (Auto) Eos # (Auto) Baso # (Auto) Abs Immat Gran (auto) Absolute Neuts (auto) Absolute Nucleated RBC Nucleated RBC % (auto) VBG pH VBG pCO2 VBG pO2 VBG HCO3 VBG O2 Saturation VBG Base Excess Sodium Potassium Chloride Carbon Dioxide Anion Gap BUN Creatinine Estim Creat Clear Calc Estimated GFR POC Glucose 86 Random Glucose Calcium Phosphorus Magnesium Total Bilirubin AST ALT Alkaline Phosphatase Total Protein Albumin Valproic Acid Progress Note: A&P Assessment and plan (1) Schizoaffective disorder, bipolar type: Status: Acute Plan Patient is a 28 Y M w/ schizoaffective disorder, presenting initially to the emergency department on 10/30 w/ decompensated schizoaffective disorder, admitted psychiatry; psychiatry course c/b worsening agitation, prompting ICU admission N: no acute issues CV: no acute issues; to monitor QTc in setting of psychiatric medications R: no acute issues GI: no acute issues, advance diet as tolerated : no acute issues H: no acute issues; chemical DVT prophylaxis w/ enoxaparin ID: no acute issues E: no acute issues; to monitor hypo-/hyper-glycemia P: schizoaffective disorder, decompensated; agitation, dexmedetomidine, ketamine gtt, wean as tolerated; appreciate psych recommendations Quality Stroke Does the patient have a stroke diagnosis?: No VTE Prior VTE?: No VTE Risk Level:: Medical - low VTE Device Contraindication: N/A - Device Ordered VTE Drug Contraindication: N/A - Med Ordered
--- NOTE | 2024-11-12 12:32 | P.CDIM_ITS ---
PROVIDER RESPONSE TEXT: To clarify, the appropriate diagnosis supported by the clinical indicators: Toxic metabolic QUERY TEXT: PHYSICIAN'S DOCUMENTATION REQUEST Date of Query: 11/12/2024 12:17 PM EST Patient Name: Oliver Moser Admit Date: 11/08/2024 Dear Bisi Brown MD, A review of the medical record indicates additional documentation may be needed. Please review below and update the documentation accordingly. Clinical Indicators: Progress note dated - Patient has medication related encephalopathy as he is on a continuous P recedex drip/psych medications. IV Haldol, IV Versed pushes. Confused, agitated,. Restraint note 11/08 -Patient has significant encephalopathy from all the medications that he has rec eived since this morning, will do continuous non behavioral restraints. Based on the above, please further specify, in the Progress Notes, the known or suspected type of the documented encephalopathy: Metabolic Toxic Toxic metabolic Other (explain) Clinically unable to determine (explain) Thank you, Esther Mae, CCS, CDIS Use of terms such as suspected, likely, concern for, or probable (associated with a specific diagnosi s that is being evaluated, monitored, or treated as if it exists) are acceptable and can be coded in the inpatient se tting, when documented at the time of discharge. Please use your independent medical judgment in providing your response. THIS QUERY IS PART OF THE PERMANENT MEDICAL RECORD
[2024-11-12] MEDS: Valproic Acid (as Sodium Salt) 250 MG in Dextrose 5 % 50 ML 55 MG IV (16:41)
[2024-11-12] MEDS: OLANZapine 10 MG VIAL 5 MG IM (17:14)
[2024-11-12] MEDS: Valproic Acid (as Sodium Salt) 1,000 MG in Dextrose 5 % 50 ML 55 MG IV (17:44)
[2024-11-12 18:02] LABS: Glucose, Whole Blood 70 mg/dL (60-115)
[2024-11-12] MEDS: dexmedeTOMIDidine HCL/NS 400 MCG/100 ML INFUS..BTL 30.35 MCG IVCONT ×2 (18:44→22:03)
[2024-11-12] MEDS: Dextrose 10 % 250 ML 750 ML IV (18:50)
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
[2024-11-12] MEDS: FLUPHENAZINE 2.5 MG/5 ML 5 MG PO (21:22)
[2024-11-12] MEDS: carBAMazepine 200 MG/10 ML ORAL.SUSP PO (21:22)
[2024-11-12] MEDS: Enoxaparin Sodium 40 MG/0.4 ML SYRINGE SUBCUT (21:26)
[2024-11-13] VITALS (28 sets, daily range): BP systolic 101–141; BP diastolic 46–90; PULSE 80–163; RESP 11–25; TEMP 36.7–37.4; O2SAT 92–100; BMI 37.6
[2024-11-13] MEDS: Valproic Acid (as Sodium Salt) 1,000 MG in Dextrose 5 % 50 ML 55 MG IV ×2 (00:23→09:12)
[2024-11-13] MEDS: dexmedeTOMIDidine HCL/NS 400 MCG/100 ML INFUS..BTL 30.35 MCG IVCONT ×2 (01:09→03:50)
[2024-11-13 02:52] LABS: Glucose, Whole Blood 80 mg/dL (60-115)
[2024-11-13] MEDS: Haloperidol Lactate 5 MG/ML VIAL IVPUSH ×5 (03:14→19:47)
[2024-11-13 05:50] LABS: MANUAL DIFF FLAG NO
[2024-11-13 05:54] LABS: Basophils Percent Auto 0.2 % (0-2); Eosinophils Absolute Auto 0.1 X10*3/uL (0.0-0.4); Eosinophils Percent Auto 0.8 % (0-4); Hematocrit 37.9 % (42.0-52.0); Hemoglobin 12.6 g/dl (14.0-18.0); Imm Gran Abs Auto 0.02 X10*3/uL (0.00-0.03); Imm Gran Pct Auto 0.3 % (0.0-0.4); Lymphocytes Absolute Auto 1.2 X10*3/uL (1.2-4.9); Lymphocytes Percent Auto 19.4 % (20-40); Mean Corpuscular HGB Conc 33.2 g/dl (31.0-36.0); Mean Corpuscular Hemoglobin 26.5 pg (27.0-33.0); Mean Corpuscular Volume 79.8 fL (80.0-98.0); Mean Platelet Volume 9.6 fL (9.4-12.4); Monocytes Percent Auto 15.7 % (2-11); Neutrophils Percent Auto 63.6 % (45-73); Platelet Count 249 X10*3/uL (160-400); Red Blood Count 4.75 X10*6/uL (4.60-5.80); Red Cell Distribution Width 12.8 % (11.0-16.0); White Blood Count 6.2 X10*3/uL (4.8-10.8)
[2024-11-13 06:09] LABS: Anion Gap 17 (12-20); Blood Urea Nitrogen 10 mg/dL (9-16); Calcium 8.9 mg/dL (8.4-10.2); Carbon Dioxide 24 mmol/L (22-29); Chloride 102 mmol/L (96-108); Creatinine Clr Calc Pharmacy 137.9; Estimated Glomerular Filt Rate > 60; Glucose Random 80 mg/dL (60-115); Magnesium 1.9 mg/dL (1.6-2.6); Phosphorus 3.7 mg/dL (2.7-4.5); Potassium 3.7 mmol/L (3.3-5.1); Sodium 139 mmol/L (135-145)
[2024-11-13] MEDS: dexmedeTOMIDidine HCL/NS 400 MCG/100 ML INFUS..BTL 36.42 MCG IVCONT (06:19)
[2024-11-13] MEDS: 0.9 % Sodium Chloride Flush 3 ML SYRINGE IVFLUSH ×2 (07:31→16:10)
--- NOTE | 2024-11-13 08:35 | PM.CCPN ---
Subjective Subjective Date of Service: 11/13/24 Interval History: no significant overnight events; interval improvement of mentation, tolerating PO Critical Care Time (minutes): 0 Physical Exam Vital Signs: Vital Signs: Last Vital Signs Temp 98.1 F 11/13/24 08:00 Pulse 85 11/13/24 08:00 Resp 18 11/13/24 08:00 BP 128/76 11/13/24 08:00 Pulse Ox 95 11/13/24 08:00 O2 Del Method Room Air 11/13/24 08:00 O2 Flow Rate 2 11/09/24 15:00 Oxygen Flow Rate 1 11/08/24 15:18 BMI result Body Mass Index 37.6 Const: Other: intermittently cooperative General: no acute distress, well developed, alert, awake and Physically active Orientation/consciousness: oriented to person and oriented to place HEENT: Head: Yes normal to inspection, Yes normocephalic and Yes atraumatic Eyes: General: appearance normal, both eyes and all related structures Neck: Neck: Yes normal visual inspection, Yes full ROM, Yes no meningeal signs, Yes trachea midline and Yes supple Chest: Chest palpation & inspection: normal inspection of the chest Resp: Other: no appreciable rales, rhonchi, wheezing Effort & Inspection: normal respiratory effort Cardio: Rate: regular rate Rhythm: regular rhythm GI: Inspection: Yes normal to inspection, No Abdominal wall edema and No distended Palpation (GI): Soft to palpation, not firm, nontender, no guarding and not rigid Skin: General skin exam: no rashes or lesions noted Neuro: General: oriented to person, oriented to place, tone normal, moves all extremities, no meningeal signs and no focal motor deficits Extrem: General: Yes normal to inspection, Yes full ROM, Yes capillary refill normal and Yes no clubbing, cyanosis or edema Psych: Other: intermittently attempts to get out of bed, sometimes verbally re-directable Objective Data Labs 11/13/24 05:42 11/13/24 05:42 Labs: Laboratory Results - last 24 hr 11/12/24 11/12/24 11/12/24 10:43 10:51 17:58 WBC RBC Hgb Hct MCV MCH MCHC RDW Plt Count MPV Immature Gran % (Auto) Neut % (Auto) Lymph % (Auto) [place] % (Auto) Eos % (Auto) Baso % (Auto) Lymph # (Auto) [place] # (Auto) Eos # (Auto) Baso # (Auto) Abs Immat Gran (auto) Absolute Neuts (auto) Absolute Nucleated RBC Nucleated RBC % (auto) Sodium Potassium Chloride Carbon Dioxide Anion Gap BUN Creatinine Estim Creat Clear Calc Estimated GFR POC Glucose 86 70 Random Glucose Calcium Phosphorus Magnesium Valproic Acid 63.0 11/13/24 11/13/24 00:28 05:42 WBC 6.2 RBC 4.75 Hgb 12.6 L Hct 37.9 L MCV 79.8 L MCH 26.5 L MCHC 33.2 RDW 12.8 Plt Count 249 MPV 9.6 Immature Gran % (Auto) 0.3 Neut % (Auto) 63.6 Lymph % (Auto) 19.4 L [place] % (Auto) 15.7 H Eos % (Auto) 0.8 Baso % (Auto) 0.2 Lymph # (Auto) 1.2 [place] # (Auto) 1.0 Eos # (Auto) 0.1 Baso # (Auto) 0.0 Abs Immat Gran (auto) 0.02 Absolute Neuts (auto) 4.0 Absolute Nucleated RBC 0.000 Nucleated RBC % (auto) 0.0 Sodium 139 Potassium 3.7 Chloride 102 Carbon Dioxide 24 Anion Gap 17 BUN 10 Creatinine 1.03 Estim Creat Clear Calc 137.9 Estimated GFR > 60 POC Glucose 80 Random Glucose 80 Calcium 8.9 Phosphorus 3.7 Magnesium 1.9 Valproic Acid Progress Note: A&P Assessment and plan (1) Schizoaffective disorder, bipolar type: Status: Acute (2) Delirium: Status: Acute Plan Patient is a 28 Y M w/ schizoaffective disorder, presenting initially to the emergency department on 10/30 w/ decompensated schizoaffective disorder, admitted psychiatry; psychiatry course c/b worsening agitation, prompting ICU admission N: no acute issues CV: no acute issues; to monitor QTc in setting of psychiatric medications R: no acute issues GI: no acute issues, advance diet as tolerated : no acute issues H: no acute issues; chemical DVT prophylaxis w/ enoxaparin ID: no acute issues E: no acute issues; to monitor hypo-/hyper-glycemia P: schizoaffective disorder, decompensated; agitation, valproic acid, carbamazepine, fluphenazine, haloperidol, dexmedetomidine gtt, wean as tolerated; appreciate psych recommendations Quality Stroke Does the patient have a stroke diagnosis?: No VTE Prior VTE?: No VTE Risk Level:: Medical - low VTE Device Contraindication: N/A - Device Ordered VTE Drug Contraindication: N/A - Med Ordered
[2024-11-13] MEDS: carBAMazepine 200 MG/10 ML ORAL.SUSP PO (09:12)
[2024-11-13] MEDS: FLUPHENAZINE 2.5 MG/5 ML 5 MG PO (09:12)
--- NOTE | 2024-11-13 09:45 | MHC.CM.PN ---
Pt continues in ICU for medical management of delirium r/t psych condition: Precedex gtt paused this am: attempting to start pt on po meds: pt aggitated and yelling out: attempting to exit bed if not restrained: Pt from M3 - will need psych reconsult once medically stable for determination of d/c needs.
[2024-11-13] MEDS: cloNIDine HCL 0.1 MG TABLET 0.3 MG PO ×3 (10:50→20:18)
[2024-11-13 11:15] LABS: Glucose, Whole Blood 96 mg/dL (60-115)
--- NOTE | 2024-11-13 11:19 | ECG_ITS ---
Test Reason : check qtc Blood Pressure : / mmHG Vent. Rate : 079 BPM Atrial Rate : 079 BPM P-R Int : 190 ms QRS Dur : 092 ms QT Int : 414 ms P-R-T Axes : 052 067 031 degrees QTc Int : 474 ms Normal sinus rhythm with sinus arrhythmia Normal ECG When compared with ECG of 12-NOV-2024 14:07, No significant change was found Referred By: Bisi Brown Electronically Signed By:ZA MALDONADO
[2024-11-13] MEDS: Magnesium Sulfate/D5W 1 GM/100 ML PIGGYBACK IV (11:59)
[2024-11-13] MEDS: LORazepam 1 MG TABLET PO ×2 (11:59→20:17)
[2024-11-13] MEDS: VALPROIC ACID IV (12:58)
[2024-11-13] MEDS: DEXTROSE 5% IV (12:58)
--- NOTE | 2024-11-13 14:53 | HO.WOUND ---
Wound Consult: Initial 28yr old male? admitted to [facility] on 11/08/24 - See progress notes and H&P for detailed history.? Wound consult placed for Right heel. Right Heel Etiology: ??Abrasion with Fissure Wound Bed: appears to be resurfacing - healing dry fissure Drainage / Odor: no drainage noted Edges: ? linear Lis[place] wound: ?intact No Induration, Fluctuance or Warmth noted Pain: denies Goals of Treatment: ? Off Load Pressure from surface of bed and skin prep to protect from friction Recommendations: 1. Turn and Reposition every 2 hours and as needed for patient comfort.? Use pillows or wedges to support off loading positions. 2. Off Load all bony prominences with use of pillows and heel boots if needed.? Apply Preventative foams where needed. ? 3. Monitor for incontinence and moisture control, use barrier creams when needed for prevention and treatment. 4. Provide adequate and supplemental nutrition.? 5. Order low air loss mattress. 6. When applicable maintain blood glucose levels per Providers order. 7.Right Heel - Apply Skin prep allow to dry. Off Load pressure on heels from surface of bed. Re-consult wound care Nurse for wound deterioration or wound changes.
[2024-11-13] MEDS: Propranolol HCL 10 MG TABLET 5 MG PO ×2 (16:09→20:22)
[2024-11-13] MEDS: carBAMazepine 100 MG TAB.CHEW 200 MG PO ×2 (16:33→20:17)
[2024-11-13 17:31] LABS: Glucose, Whole Blood 100 mg/dL (60-115)
[2024-11-13] MEDS: fluPHENAZine HCl 5 MG TABLET 10 MG PO (20:17)
[2024-11-13] MEDS: Divalproex Sodium Sprinkles 125 MG CAP.DR.SPR 1250 MG PO (20:17)
[2024-11-13] MEDS: Enoxaparin Sodium 40 MG/0.4 ML SYRINGE SUBCUT (22:05)
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
[2024-11-13] MEDS: Valproic Acid Liquid 250 MG/5 ML SOLUTION 625 MG PO (22:56)
[2024-11-14] VITALS (14 sets, daily range): BP systolic 108–138; BP diastolic 53–77; PULSE 101–129; RESP 15–20; TEMP 37.4; O2SAT 95–98
[2024-11-14] MEDS: 0.9 % Sodium Chloride Flush 3 ML SYRINGE IVFLUSH ×3 (00:06→14:48)
[2024-11-14] MEDS: Haloperidol Lactate 5 MG/ML VIAL IVPUSH ×4 (00:06→12:52)
[2024-11-14 00:08] LABS: Glucose, Whole Blood 109 mg/dL (60-115)
[2024-11-14] MEDS: Calcium Carbonate 750 MG TAB.CHEW PO (05:08)
[2024-11-14] MEDS: cloNIDine HCL 0.1 MG TABLET 0.3 MG PO ×2 (05:12→12:44)
[2024-11-14 05:40] LABS: MANUAL DIFF FLAG NO
[2024-11-14 05:43] LABS: Basophils Percent Auto 0.4 % (0-2); Eosinophils Absolute Auto 0.1 X10*3/uL (0.0-0.4); Eosinophils Percent Auto 1.3 % (0-4); Hematocrit 35.4 % (42.0-52.0); Hemoglobin 11.9 g/dl (14.0-18.0); Imm Gran Abs Auto 0.01 X10*3/uL (0.00-0.03); Imm Gran Pct Auto 0.2 % (0.0-0.4); Lymphocytes Absolute Auto 1.4 X10*3/uL (1.2-4.9); Lymphocytes Percent Auto 29.8 % (20-40); Mean Corpuscular HGB Conc 33.6 g/dl (31.0-36.0); Mean Corpuscular Hemoglobin 26.3 pg (27.0-33.0); Mean Corpuscular Volume 78.3 fL (80.0-98.0); Monocytes Absolute Auto 0.9 X10*3/uL (0.1-1.2); Monocytes Percent Auto 18.8 % (2-11); Neutrophils Absolute Auto 2.4 x10*3/uL (2.0-8.3); Neutrophils Percent Auto 49.5 % (45-73); Platelet Count 239 X10*3/uL (160-400); Red Blood Count 4.52 X10*6/uL (4.60-5.80); Red Cell Distribution Width 12.8 % (11.0-16.0); White Blood Count 4.8 X10*3/uL (4.8-10.8)
[2024-11-14 06:01] LABS: Alanine Aminotransferase 137 U/L (0-40); Albumin Level 3.7 g/dL (3.5-5.0); Alkaline Phosphatase 86 U/L (39-117); Anion Gap 13 (12-20); Aspartate Amino Transferase 96 U/L (5-37); Bilirubin Direct 0.2 mg/dL (0.0-0.5); Bilirubin Total 0.4 mg/dL (0.0-1.0); Blood Urea Nitrogen 7 mg/dL (9-16); Calcium 8.5 mg/dL (8.4-10.2); Carbon Dioxide 24 mmol/L (22-29); Chloride 100 mmol/L (96-108); Creatinine Clr Calc Pharmacy 161.4; Estimated Glomerular Filt Rate > 60; Glucose Random 128 mg/dL (60-115); Magnesium 1.9 mg/dL (1.6-2.6); Phosphorus 3.8 mg/dL (2.7-4.5); Potassium 3.3 mmol/L (3.3-5.1); Sodium 134 mmol/L (135-145); Total Protein 7.1 g/dL (6.5-8.0)
--- NOTE | 2024-11-14 08:11 | P.PNCC_ITS ---
Subjective Subjective Date of Service: 11/14/24 Interval History: no significant overnight events; off dexmedetomidine gtt for over 24 hours, off restraints, sitting, eating, cooperative Critical Care Time (minutes): 0 Physical Exam 2 Vital Signs: Vital Signs: Last Vital Signs Temp 99.4 F 11/14/24 04:43 Pulse 114 H 11/14/24 08:00 Resp 15 11/14/24 08:00 BP 123/70 11/14/24 07:00 Pulse Ox 98 11/14/24 07:00 O2 Del Method Room Air 11/14/24 07:00 O2 Flow Rate 2 11/09/24 15:00 Oxygen Flow Rate 1 11/08/24 15:18 BMI result Body Mass Index 37.6 Const: General: cooperative, healthy appearing, comfortable, no acute distress, well developed, alert, awake and Physically active O rientation/consciousness: patient oriented x3 HEENT: Head: Yes normal to inspection, Yes normocephalic and Yes atraumatic Eyes: General: appearance normal, both eyes and all related structures Neck: Neck: Yes normal visual inspection, Yes full ROM, Yes no meningeal signs, Yes trachea midline and Yes supple Chest: Chest palpation & inspection: normal inspection of the chest Resp: Other: no appreciable rales, rhonchi, wheezing Effort & Inspection: normal respiratory effort Cardio: Rate: regular rate Rhythm: regular rhythm GI: Inspection: Yes normal to inspection, No Abdominal wall edema and No distended Palpation (GI): Soft to palpation, not firm, nontender, no guarding and not rigid Skin: General skin exam: no rashes or lesions noted Neuro: General: patient oriented x3, tone normal, moves all extremities, no meningeal signs and no focal motor deficits Extrem: General: Yes normal to inspection, Yes full ROM, Yes capillary refill normal and Yes no clubbing, cyanosis or edema Psych: Other: interval improvement of agitation, now cooperative Objective Data Labs 11/14/24 05:33 11/14/24 05:33 Labs: Laboratory Results - last 24 hr 11/13/24 11/13/24 11/14/24 11:11 17:27 00:03 WBC RBC Hgb Hct MCV MCH MCHC RDW Plt Count MPV Immature Gran % (Auto) Neut % (Auto) Lymph % (Auto) [place] % (Auto) Eos % (Auto) Baso % (Auto) Lymph # (Auto) [place] # (Auto) Eos # (Auto) Baso # (Auto) Abs Immat Gran (auto) Absolute Neuts (auto) Absolute Nucleated RBC Nucleated RBC % (auto) Sodium Potassium Chloride Carbon Dioxide Anion Gap BUN Creatinine Estim Creat Clear Calc Estimated GFR POC Glucose 96 100 109 Random Glucose Calcium Phosphorus Magnesium Total Bilirubin Direct Bilirubin AST ALT Alkaline Phosphatase Total Protein Albumin Valproic Acid 11/14/24 05:33 WBC 4.8 RBC 4.52 L Hgb 11.9 L Hct 35.4 L MCV 78.3 L MCH 26.3 L MCHC 33.6 RDW 12.8 Plt Count 239 MPV 9.0 L Immature Gran % (Auto) 0.2 Neut % (Auto) 49.5 Lymph % (Auto) 29.8 Giles % (Auto) 18.8 H Eos % (Auto) 1.3 Baso % (Auto) 0.4 Lymph # (Auto) 1.4 [place]iles # (Auto) 0.9 Eos # (Auto) 0.1 Baso # (Auto) 0.0 Abs Immat Gran (auto) 0.01 Absolute Neuts (auto) 2.4 Absolute Nucleated RBC 0.000 Nucleated RBC % (auto) 0.0 Sodium 134 L Potassium 3.3 Chloride 100 Carbon Dioxide 24 Anion Gap 13 BUN 7 L Creatinine 0.88 Estim Creat Clear Calc 161.4 Estimated GFR > 60 POC Glucose Random Glucose 128 H Calcium 8.5 Phosphorus 3.8 Magnesium 1.9 Total Bilirubin 0.4 Direct Bilirubin 0.2 AST 96 H ALT 137 H Alkaline Phosphatase 86 Total Protein 7.1 Albumin 3.7 Valproic Acid 73.0 Progress Note: A&P Assessment and plan (1) Schizoaffective disorder, bipolar type: Status: Acute Plan Patient is a 28 Y M w/ schizoaffective disorder, presenting initially to the emergency department on 10/30 w/ decompensated schizoaffective disorder, admitted psychiatry; psychiatry course c/b worsening agitation, prompting ICU admission N: no acute issues CV: intermittent tachycardia, on propranolol at home, though decreased dose d/t additional clonidine, metoprolol IV PRN; to monitor QTc in setting of psychiatric medications R: no acute issues GI: no acute issues, regular diet : no acute issues H: no acute issues; chemical DVT prophylaxis w/ enoxaparin, OOB as tolerated ID: no acute issues E: no acute issues; to monitor hypo-/hyper-glycemia P: schizoaffective disorder, decompensated, improving; agitation, valproic acid, carbamazepine, fluphenazine, haloperidol; to discharge to psychiatry today Quality Stroke Does the patient have a stroke diagnosis?: No VTE Prior VTE?: No VTE Risk Level:: Medical - low VTE Device Contraindication: N/A - Device Ordered VTE Drug Contraindication: N/A - Med Ordered
--- NOTE | 2024-11-14 08:17 | PM.DS ---
DS: Providers Provider Date of Service: 11/14/24 Date of admission: 11/08/24 15:18 Date of discharge: 11/14/24 Primary care physician: None Physician Admitting clinician: Antoni Mcfadden Consults: 11/09/24 09:39 Consult to Psychiatry Routine Consulting Provider[place] [facility] [place] Reason for consultation: psychosis Has provider been notified: Yes 11/12/24 16:38 Consult for Sitter Routine Reason for consultation: Agitation, Delirium Attending physician on discharge: Bisi Brown DS: Transfer Hospital Acceptance Reason for Transfer[place] [facility] [place] DS: Diagnosis Discharge Diagnosis (1) Schizoaffective disorder, bipolar type: Status: Acute DS: Summary Hospital Course Hospital Course: Mr. Moser is a 28 year-old male w/ schizoaffective disorder, c/b prior inpatient admissions, previously on valproic acid, though weaned d/t transaminitis, presenting initially to the emergency department on 10/30 w/ decompensated schizoaffective disorder, admitted [place] [facility] [place]; psychiatry course c/b worsening agitation, prompting ICU admission; ICU course c/b hyperactive delirium; valproic acid, as well as other mood-stabilizing and psychotropic medications re-initiated, w/ interval improvement agitation, as well as hyperactive delirium; of note, patient w/ intermittent tachycardia, though otherwise asymptomatic, in no acute distress, for which home propranolol re-initiated, though at lower dose in setting of concomitant clonidine use Status at Discharge Functional status at discharge: independent ambulation Overall status at discharge: patient is progressing back to baseline Time Attestation Discharge Coordination Time (in mins): 30 Quality: Safe Use of Opioids Does Pt have an Active Cancer Diagnosis on the Problem List?: No Quality: Stroke Does the patient have a stroke diagnosis?: No Physical Exam Vital Signs: Vital Signs: Last Vital Signs Temp 99.4 F 11/14/24 04:43 Pulse 114 H 11/14/24 08:00 Resp 15 11/14/24 08:00 BP 123/70 11/14/24 07:00 Pulse Ox 98 11/14/24 07:00 O2 Del Method Room Air 11/14/24 07:00 O2 Flow Rate 2 11/09/24 15:00 Oxygen Flow Rate 1 11/08/24 15:18 BMI result Body Mass Index 37.6 Const: General: cooperative, healthy appearing, comfortable, no acute distress, well developed, alert, awake and Physically active Orientation/consciousness: patient oriented x3 HEENT: Head: Yes normal to inspection, Yes normocephalic and Yes atraumatic Eyes: General: appearance normal, both eyes and all related structures Neck: Neck: Yes normal visual inspection, Yes full ROM, Yes no lymphadenopathy, Yes no meningeal signs, Yes trachea midline and Yes supple Chest: Chest palpation & inspection: normal inspection of the chest Resp: Other: no appreciable rales, rhonchi, wheezing Effort & Inspection: normal respiratory effort Cardio: Rate: tachycardic Rhythm: regular rhythm GI: Inspection: Yes normal to inspection, No Abdominal wall edema and No distended Palpation (GI): Soft to palpation, not firm, nontender, no guarding and not rigid Skin: General skin exam: no rashes or lesions noted Neuro: General: patient oriented x3, tone normal, moves all extremities, no meningeal signs and no focal motor deficits Extrem: General: Yes normal to inspection, Yes full ROM, Yes capillary refill normal and Yes no clubbing, cyanosis or edema Psych: Appearance: grossly normal DS: Data Data Completed and Pending Labs on day of discharge: Laboratory Results - last 24 hr 11/13/24 11/13/24 11/14/24 11:11 17:27 00:03 WBC RBC Hgb Hct MCV MCH MCHC RDW Plt Count MPV Immature Gran % (Auto) Neut % (Auto) Lymph % (Auto) [place] % (Auto) Eos % (Auto) Baso % (Auto) Lymph # (Auto) [place] # (Auto) Eos # (Auto) Baso # (Auto) Abs Immat Gran (auto) Absolute Neuts (auto) Absolute Nucleated RBC Nucleated RBC % (auto) Sodium Potassium Chloride Carbon Dioxide Anion Gap BUN Creatinine Estim Creat Clear Calc Estimated GFR POC Glucose 96 100 109 Random Glucose Calcium Phosphorus Magnesium Total Bilirubin Direct Bilirubin AST ALT Alkaline Phosphatase Total Protein Albumin Valproic Acid 11/14/24 05:33 WBC 4.8 RBC 4.52 L Hgb 11.9 L Hct 35.4 L MCV 78.3 L MCH 26.3 L MCHC 33.6 RDW 12.8 Plt Count 239 MPV 9.0 L Immature Gran % (Auto) 0.2 Neut % (Auto) 49.5 Lymph % (Auto) 29.8 [place] % (Auto) 18.8 H Eos % (Auto) 1.3 Baso % (Auto) 0.4 Lymph # (Auto) 1.4 [place] # (Auto) 0.9 Eos # (Auto) 0.1 Baso # (Auto) 0.0 Abs Immat Gran (auto) 0.01 Absolute Neuts (auto) 2.4 Absolute Nucleated RBC 0.000 Nucleated RBC % (auto) 0.0 Sodium 134 L Potassium 3.3 Chloride 100 Carbon Dioxide 24 Anion Gap 13 BUN 7 L Creatinine 0.88 Estim Creat Clear Calc 161.4 Estimated GFR > 60 POC Glucose Random Glucose 128 H Calcium 8.5 Phosphorus 3.8 Magnesium 1.9 Total Bilirubin 0.4 Direct Bilirubin 0.2 AST 96 H ALT 137 H Alkaline Phosphatase 86 Total Protein 7.1 Albumin 3.7 Valproic Acid 73.0 Discharge Plan Discharge Patient Disposition: Xfer Psychiatric Hosp Referrals: Physician,None [Primary Care Provider] - 1 Week Discharge Medications: Continued polyethylene glycol 3350 17 gram Powder In Packet 17 g PO BID PRN (Reason: constipation) Qty: 0 0RF propranolol 10 mg tablet 10 mg PO BID pantoprazole 40 mg tablet,delayed release (DR/EC) 40 mg PO DAILY@0630 Invega Sustenna 156 mg/mL syringe 156 mg IM Q4W Patient Comments: Per [facility] last Invega injection was 10/26 albuterol sulfate [Ventolin HFA] 90 mcg/actuation Hfa Aerosol Inhaler 2 puff inhalation Q4H PRN (Reason: Shortness Of Breath/Wheezing) Qty: 0 0RF acetaminophen 325 mg Tablet 650 mg PO Q6H PRN (Reason: Headache/Pain Mild Scale (1-3)) Qty: 0 0RF divalproex 500 mg tablet extended release 24 hr 500 mg PO BEDTIME omega 8-[id number]-fish oil 1,000 (120-180) mg capsule 1 cap PO TID lorazepam 1 mg tablet 1 mg PO DAILY lorazepam 1 mg tablet 1 mg PO DAILY@1200 lorazepam 1 mg tablet 1 mg PO BEDTIME PRN (Reason: Anxiety) fluticasone propionate 50 mcg/actuation spray,suspension 1 spray intranasal DAILY Discharge Orders: Discharge Order (Routine); Ordered 11/14/24 Ordered By: Bisi Brown Activity on Discharge: As tolerated Stand Alone Forms: Patient Portal Discharge page Print Language: Micronesian
--- NOTE | 2024-11-14 08:33 | MHC.CM.PN ---
Pt will d/c back to [facility] psych today.
[2024-11-14] MEDS: LORazepam 1 MG TABLET PO (10:38)
[2024-11-14] MEDS: carBAMazepine 100 MG TAB.CHEW 200 MG PO ×2 (10:38→14:48)
[2024-11-14] MEDS: Propranolol HCL 10 MG TABLET 5 MG PO (10:38)
[2024-11-14] MEDS: fluPHENAZine HCl 5 MG TABLET 10 MG PO ×2 (10:39→14:48)
[2024-11-14] MEDS: Divalproex Sodium Sprinkles 125 MG CAP.DR.SPR 1250 MG PO ×2 (10:39→14:47)
[2024-11-14 12:10] LABS: Glucose, Whole Blood 124 mg/dL (60-115)
--- NOTE | 2024-11-14 13:59 | MHC.CM.PN ---
Pt will transfer to [facility] psych for continued MH needs/care.
== END 2024-11-14 15:34 | DRG 93 ==
PROVIDERS: Internal Medicine Critical Care Medicine; Physician Assistant Medical; Admitting Provider Internal Medicine Pulmonary Disease; Visit Provider Internal Medicine Pulmonary Disease
DX: G92.8 Other toxic encephalopathy (principal); T50.915A Adverse effect of multiple unspecified drugs, medicaments and biological substances, initial encounter; D64.9 Anemia, unspecified; F43.12 Post-traumatic stress disorder, chronic; J45.20 Mild intermittent asthma, uncomplicated; F25.0 Schizoaffective disorder, bipolar type; Z79.899 Other long term (current) drug therapy
CPT/HCPCS: 36415; 76705; 80048; 80053; 80076; 80164; 82140; 82803; 82947; 83690; 83735; 84100; 85025; 86704; 86706; 86709; 86803; 87340; 93005; C1758; J1630; J1650; J2250; J2251; J2359; J3230; J3475; J7120

== ENCOUNTER 2024-11-08 15:18 | Outpatient (BNV) | payer MEDICARE, MEDICAID, SELFPAY | END 2024-11-13 11:19 | PROVIDERS: Admitting Provider Internal Medicine Pulmonary Disease; Visit Provider Internal Medicine | DX: I45.81 Long QT syndrome (principal) | CPT/HCPCS: 93010 ==

== ENCOUNTER → 2024-11-08 15:18 | Outpatient (BNV) | payer MEDICARE, MEDICAID, SELFPAY | PROVIDERS: Admitting Provider Internal Medicine Pulmonary Disease; Visit Provider Internal Medicine Critical Care Medicine | DX: F25.0 Schizoaffective disorder, bipolar type (principal) | CPT/HCPCS: 99232; 99233; 99291; 99497; 99499 ==

== ENCOUNTER → 2024-11-08 15:18 | Outpatient (BNV) | payer MEDICARE, MEDICAID, SELFPAY | PROVIDERS: Admitting Provider Internal Medicine Pulmonary Disease; Visit Provider Psychiatry & Neurology Psychiatry | DX: F25.0 Schizoaffective disorder, bipolar type (principal) | CPT/HCPCS: 99223; 99232; 99233 ==

== ENCOUNTER 2024-11-14 15:37 | Inpatient (IN) | payer OTHER, MEDICAID, SELFPAY ==
[2024-11-14 16:43] VITALS: BMI 36.7
[2024-11-14 16:51] VITALS: BP 126/76; PULSE 88; RESP 16; TEMP 36.5; O2SAT 96
--- NOTE | 2024-11-14 17:57 | PC.NURSE ---
Oliver was admitted to M3 at 1530 from [facility] ICU on section 8 for treatment of mood disorder. He was on M3 prior, transferred to ICU for treatment with IV precedex, depakote and ketamine and is transferred back now for psychiatric care. VPA level is 73 today. He is in good behavioral control on arrival to the unit. He has not voiced any paranoid delusional thought content. He denies all auditory, visual, tactile and other hallucinations. He does not appear paranoid or suspicious. He is oriented to day, date, time and place.? Mood is somewhat labile with agitation noted when talking to mom on the phone and when told he had no belongings here. Mom has subsequently delivered clothing. Thought Process? is organized. He raised concerns about his tremor and drooling to Dr Mendes who agrees to address his concerns. Pt denies ideation, plan or intent to harm self or others. Appetite is good. Weight is stable. Sleep is reportedly good. Pt denies substance issues of any kind. Pt states his goal of admission is to get his medications adjusted to reduce his tremor and drooling. He is on Close Observation for recent history of aggression and obs status will be reassessed by team tomorrow.
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
[2024-11-14 20:52] VITALS: BP 122/88; PULSE 100; RESP 16; TEMP 37; O2SAT 95
[2024-11-14] MEDS: carBAMazepine ER 200 MG TAB.ER.12H 400 MG PO (21:04)
[2024-11-14] MEDS: fluPHENAZine HCl 5 MG TABLET 15 MG PO (21:04)
[2024-11-14] MEDS: Divalproex Sodium ER 250 MG TAB.ER.24H 1250 MG PO (21:07)
[2024-11-15] MEDS: hydrOXYzine HCL 25 MG TABLET PO (01:24)
[2024-11-15] MEDS: Magnesium Hydrox/Alum Hydrox 30 ML ORAL.SUSP PO ×2 (04:31→14:46)
[2024-11-15 07:00] VITALS: BMI 37.0
[2024-11-15 07:10] VITALS: BP 129/77; PULSE 100; RESP 14; TEMP 36.4; O2SAT 95
--- NOTE | 2024-11-15 09:17 | PC.NURSE ---
Pt reports blurred vision, eye movements, and diarrhea from medication side effects. This RN texted Dr. Mendes to ask if she should continue to dispense medication. Dr. Mendes stated to dispense medications to patient.
[2024-11-15] MEDS: fluPHENAZine HCL 2.5 MG/ML 10 ML VIAL 10 MG IM ×2 (09:37→21:29)
[2024-11-15] MEDS: Valproic Acid Liquid 250 MG/5 ML SOLUTION 1000 MG PO (10:51)
[2024-11-15] MEDS: carBAMazepine 200 MG/10 ML ORAL.SUSP 400 MG PO (12:01)
--- NOTE | 2024-11-15 15:24 | HO.PSYCHPN ---
Subjective Subjective Date of Service: 11/15/24 Reason For Visit: Yessi/Psychosis Interim History: met with pt, pt's mother, pt's aunt mili, pt's [facility] worker kaity, and [facility] this morning. pt remains much improved from previous admission and although initially resistant to taking medication, ultimately changed his mind with explanation of plan. Tx plan reviewed with all parties. pt interested in liquid formulations. per staff, VPA level was 73 at transfer. pt c/o left hand tremor as well as sialorrhea. slept only about 1 hour overnight. naked x2 overnight. refused PO meds this morning, then took liquid formulations after family mtg. Mental Status Exam Mental Status Exam Narrative: adequately dressed and groomed. cooperative. no PMA/PMR. left hand tremor. speech incr rate, nml amount, decr latency nml loudness. thoughts more organized than on prior days. affect full range, normo-intense, non-labile. mood euthymic. no SI/HI/AVH expressed. Diagnostics Vital Signs (24Hr): Vital Signs - 24 hr 11/14/24 16:51 11/14/24 20:52 11/15/24 07:10 Temperature 97.7 F 98.6 F 97.6 F Pulse Rate 88 100 100 Respiratory Rate 16 16 14 Blood Pressure 126/76 122/88 129/77 Pulse Oximetry 96 95 95 Oxygen Delivery Method Room Air Room Air Room Air BMI result Body Mass Index 37.0 Medications Medications Current Medications Acetaminophen (Acetaminophen 325 Mg Tablet) 650 mg PO Q6H PRN PRN Reason: Headache/Pain Mild Scale (1-3) Al Hydroxide/Mg Hydroxide (Magnesium Hydrox/Alum Hydrox 30 Ml Oral.Susp) 30 ml PO Q6H PRN PRN Reason: Heartburn/Nausea Last Admin: 11/15/24 14:46 Dose: 30 ml Carbamazepine (Carbamazepine 200 Mg/10 Ml Oral.Susp) 400 mg PO BID [facility] Last Admin: 11/15/24 12:01 Dose: 400 mg Diazepam (Diazepam 10 Mg/2 Ml Cartridge) 10 mg IM BID PRN PRN Reason: refusal of tegretol Fluphenazine HCl (Fluphenazine Hcl 2.5 Mg/Ml 10 Ml Vial) 10 mg IM BID PRN PRN Reason: refusal of PO prolixin Last Admin: 11/15/24 09:37 Dose: 10 mg Fluphenazine HCl (Fluphenazine Hcl Oral Liquid 2.5 Mg/5 Ml Elixir) 15 mg PO BID [facility] Last Admin: 11/15/24 10:50 Dose: Not Given Glycopyrrolate (Glycopyrrolate 1 Mg Tablet) 1 mg PO BID [facility] Hydroxyzine HCl (Hydroxyzine Hcl 25 Mg Tablet) 25 mg PO Q6H PRN PRN Reason: Anxiety Last Admin: 11/15/24 01:24 Dose: 25 mg Magnesium Hydroxide (Milk Of Magnesia 30 Ml Oral.Susp) 30 ml PO DAILY PRN PRN Reason: Constipation Trazodone HCl (Trazodone Hcl 50 Mg Tablet) 50 mg PO BEDTIME MRX1 PRN PRN Reason: Insomnia Valproic Acid (Valproic Acid Liquid 250 Mg/5 Ml Solution) 1,000 mg PO BID [facility] Last Admin: 11/15/24 10:51 Dose: 1,000 mg Allergies Allergies Allergy/AdvReac Type Severity Reaction Status Date / Time trazodone [TRAZODONE] Allergy Severe OVER Verified 06/08/22 14:15 SEDATION lithium Allergy Hives Verified 11/02/24 18:44 Assessment & Plan Assessment & Plan (1) Schizoaffective disorder, bipolar type: Status: Acute Code(s): F25.0 - Schizoaffective disorder, bipolar type Plan 11/14: tegretol per sara with valium IM back-up. prolixin per sara with prolixin IM back-up. 11/15: appears willing to take liquid formulations of tegretol and prolixin at the moment. continue current plan. taper VPA. give prolixin dec once it is established he is tolerating PO well. Reason for continued inpatient stay Substantial Risk for: harm to self, harm to others, inability to function and rapid decompensation Time Spent With Patient Time: Total time managing care of this patient today __45__ minutes.
[2024-11-15] MEDS: Sodium Chloride 0.65 % Nasal 44 ML SPRBTL 1 SPRAY NOSTRIL-B (17:37)
[2024-11-15] MEDS: Glycopyrrolate 1 MG TABLET PO (17:41)
[2024-11-15 20:00] VITALS: BP 179/88; PULSE 110; RESP 16; TEMP 36.8; O2SAT 97
[2024-11-15 20:36] VITALS: BP 138/80
[2024-11-15] MEDS: diazePAM 10 MG/2 ML CARTRIDGE IM (21:24)
[2024-11-16] MEDS: Acetaminophen 325 MG TABLET 650 MG PO (02:46)
[2024-11-16] MEDS: Sodium Chloride 0.65 % Nasal 44 ML SPRBTL 1 SPRAY NOSTRIL-B ×2 (05:52→18:10)
[2024-11-16 07:34] VITALS: BP 143/87; PULSE 116; RESP 16; TEMP 36.6; O2SAT 96
[2024-11-16] MEDS: carBAMazepine 200 MG/10 ML ORAL.SUSP 400 MG PO (08:39)
[2024-11-16] MEDS: Glycopyrrolate 1 MG TABLET PO ×2 (08:44→11:26)
[2024-11-16] MEDS: fluPHENAZine HCL 2.5 MG/ML 10 ML VIAL 10 MG IM (08:59)
[2024-11-16] MEDS: Ibuprofen Oral Susp 200 MG/10 ML ORAL.SUSP 800 MG PO ×3 (13:44→21:09)
--- NOTE | 2024-11-16 15:08 | P.PNPSI_ITS ---
Subjective Subjective Date of Service: 11/16/24 Reason For Visit: Yessi/Psychosis Interim History: c/o arm pain, tremor, dry eyes, sialorrhea. refusing VPA bcse he believes it is causing him blurry vision. agreeable to tegretol and prolixin. unable to tolerate prolixin liquid, switched to pills today. agreed to take tegretol if VPA DCed. agreed to tegretol dosing increase with VPA D/C. c/o sialorrhea, agrees to glycopyrrolate dosing increase from 1 BID to 2 BID. per staff, IMs yesterday morning. slept about 2 hours overnight. c/o dry eyes. Mental Status Exam Mental Status Exam Narrative: adequately dressed and groomed. cooperative. no PMA/PMR. left hand tremor. speech incr rate, nml amount, decr latency nml loudness. thoughts more organized than on prior days. affect full range, normo-intense, non-labile. mood euthymic. no SI/HI/AVH expressed. Diagnostics Vital Signs (24Hr): Vital Signs - 24 hr 11/15/24 20:00 11/15/24 20:36 11/16/24 07:34 Temperature 98.3 F 97.9 F Pulse Rate 110 H 116 H Respiratory Rate 16 16 Blood Pressure 179/88 H 138/80 143/87 H Pulse Oximetry 97 96 Oxygen Delivery Method Room Air Room Air BMI result Body Mass Index 37.0 Medications Medications Current Medications Acetaminophen (Acetaminophen 325 Mg Tablet) 650 mg PO Q6H PRN PRN Reason: Headache/Pain Mild Scale (1-3) Last Admin: 11/16/24 02:46 Dose: 650 mg Al Hydroxide/Mg Hydroxide (Magnesium Hydrox/Alum Hydrox 30 Ml Oral.Susp) 30 ml PO Q6H PRN PRN Reason: Heartburn/Nausea Last Admin: 11/15/24 14:46 Dose: 30 ml Artificial Tears (Artificial Tears 15 Ml Drops) 2 drop EYE-BOTH Q1H PRN PRN Reason: Dry Eyes Carbamazepine (Carbamazepine 200 Mg/10 Ml Oral.Susp) 600 mg PO BID [facility] Diazepam (Diazepam 10 Mg/2 Ml Cartridge) 10 mg IM BID PRN PRN Reason: refusal of tegretol or VPA Fluphenazine HCl (Fluphenazine Hcl 2.5 Mg/Ml 10 Ml Vial) 10 mg IM BID PRN PRN Reason: refusal of PO prolixin Last Admin: 11/16/24 08:59 Dose: 10 mg Fluphenazine HCl (Fluphenazine Hcl 5 Mg Tablet) 15 mg PO BID [facility] Glycopyrrolate (Glycopyrrolate 1 Mg Tablet) 2 mg PO BID [facility] Hydroxyzine HCl (Hydroxyzine Hcl 25 Mg Tablet) 25 mg PO Q6H PRN PRN Reason: Anxiety Last Admin: 11/15/24 01:24 Dose: 25 mg Ibuprofen (Ibuprofen Oral Susp 200 Mg/10 Ml Oral.Susp) 800 mg PO QID [facility] Last Admin: 11/16/24 13:44 Dose: 800 mg Magnesium Hydroxide (Milk Of Magnesia 30 Ml Oral.Susp) 30 ml PO DAILY PRN PRN Reason: Constipation Sodium Chloride (Sodium Chloride 0.65 % Nasal 44 Ml Sprbtl) 1 spray NOSTRIL-B Q1H PRN PRN Reason: Dry Nasal Passages Last Admin: 11/16/24 05:52 Dose: 1 spray Trazodone HCl (Trazodone Hcl 50 Mg Tablet) 50 mg PO BEDTIME MRX1 PRN PRN Reason: Insomnia Allergies Allergies Allergy/AdvReac Type Severity Reaction Status Date / Time trazodone [TRAZODONE] Allergy Severe OVER Verified 06/08/22 14:15 SEDATION lithium Allergy Hives Verified 11/02/24 18:44 Assessment & Plan Assessment & Plan (1) Schizoaffective disorder, bipolar type: Status: Acute Code(s): F25.0 - Schizoaffective disorder, bipolar type Plan 11/14: tegretol per sara with valium IM back-up. prolixin per sara with prolixin IM back-up. 11/15: appears willing to take liquid formulations of tegretol and prolixin at the moment. continue current plan. taper VPA. give prolixin dec once it is established he is tolerating PO well. 11/16: not tolerating liquid prolixin, switch to pills. increase glycopyrrol ate for sialorrhea (1 BID --> 2 BID). DC VPA, increase tegretol 400 BID--> 600 BID. eye drops for dry eyes. schedule ibuprofen for arm pain. not sleeping. hoping to achieve adequate mood stabilization with tegretol before pt decompensates into disorganized and violent state again. Reason for continued inpatient stay Substantial Risk for: harm to self, harm to others, inability to function and rapid decompensation Time Spent With Patient Time: Total time managing care of this patient today __35__ minutes.
[2024-11-16] MEDS: Magnesium Hydrox/Alum Hydrox 30 ML ORAL.SUSP PO (17:30)
[2024-11-16 19:20] VITALS: BP 150/95; PULSE 106; RESP 18; TEMP 36.8; O2SAT 96
[2024-11-16] MEDS: fluPHENAZine HCl 5 MG TABLET 15 MG PO (21:08)
[2024-11-16] MEDS: Glycopyrrolate 1 MG TABLET 2 MG PO (21:09)
[2024-11-16] MEDS: carBAMazepine 200 MG/10 ML ORAL.SUSP 600 MG PO (21:09)
[2024-11-16] MEDS: Famotidine 20 MG TABLET PO (21:56)
[2024-11-16] MEDS: hydrOXYzine HCL 25 MG TABLET PO (23:04)
[2024-11-16] MEDS: traZODone HCL 50 MG TABLET PO (23:04)
[2024-11-17] MEDS: Milk of Magnesia 30 ML ORAL.SUSP PO (04:56)
[2024-11-17] MEDS: Sodium Chloride 0.65 % Nasal 44 ML SPRBTL 1 SPRAY NOSTRIL-B (05:10)
[2024-11-17] MEDS: Artificial Tears 15 ML DROPS 2 DROP EYE-BOTH ×2 (06:35→19:50)
[2024-11-17 07:20] VITALS: BP 155/101; PULSE 110; RESP 14; TEMP 36.5; O2SAT 95
--- NOTE | 2024-11-17 07:41 | P.PNPSI_ITS ---
Subjective Subjective Date of Service: 11/17/24 Reason For Visit: Ysesi/Psychosis Subjective Notes: Section 8 Interim History: Pt slept only 2 hrs. He appears calmer and with some improved insight into mental illness. He reports he is not hearing voices as much. He also reports he now understands and agrees that he needs psychiatric treatment. He does have severe parkinsonism with high potency antipsychotic, from decrease blinking, mask-like facial expression, to resting tremors, more pronounced on left arm. He does continue to laugh at times inappropriately. He was also pacing and making drastic arm movement and told this food writer: I just don't get tired, I have too much energy. He is taking medications as prescribed, including carbamazepine. Diagnostics Vital Signs (24Hr): Vital Signs - 24 hr 11/16/24 19:20 Temperature 98.2 F Pulse Rate 106 H Respiratory Rate 18 Blood Pressure 150/95 H Pulse Oximetry 96 Oxygen Delivery Method Room Air BMI result Body Mass Index 37.0 Labs 11/17/24 10:26 Medications Medications Current Medications Acetaminophen (Acetaminophen 325 Mg Tablet) 650 mg PO Q6H PRN PRN Reason: Headache/Pain Mild Scale (1-3) Last Admin: 11/16/24 02:46 Dose: 650 mg Al Hydroxide/Mg Hydroxide (Magnesium Hydrox/Alum Hydrox 30 Ml Oral.Susp) 30 ml PO Q6H PRN PRN Reason: Heartburn/Nausea Last Admin: 11/16/24 17:30 Dose: 30 ml Artificial Tears (Artificial Tears 15 Ml Drops) 2 drop EYE-BOTH Q1H PRN PRN Reason: Dry Eyes Last Admin: 11/17/24 06:35 Dose: 2 drop Carbamazepine (Carbamazepine 200 Mg/10 Ml Oral.Susp) 600 mg PO BID [facility] Last Admin: 11/16/24 21:09 Dose: 600 mg Diazepam (Diazepam 10 Mg/2 Ml Cartridge) 10 mg IM BID PRN PRN Reason: refusal of tegretol or VPA Fluphenazine HCl (Fluphenazine Hcl 2.5 Mg/Ml 10 Ml Vial) 10 mg IM BID PRN PRN Reason: refusal of PO prolixin Last Admin: 11/16/24 08:59 Dose: 10 mg Fluphenazine HCl (Fluphenazine Hcl 5 Mg Tablet) 15 mg PO BID [facility] Last Admin: 11/16/24 21:08 Dose: 15 mg Glycopyrrolate (Glycopyrrolate 1 Mg Tablet) 2 mg PO BID [facility] Last Admin: 11/16/24 21:09 Dose: 2 mg Hydroxyzine HCl (Hydroxyzine Hcl 25 Mg Tablet) 25 mg PO Q6H PRN PRN Reason: Anxiety Last Admin: 11/16/24 23:04 Dose: 25 mg Ibuprofen (Ibuprofen Oral Susp 200 Mg/10 Ml Oral.Susp) 800 mg PO QID [facility] Last Admin: 11/16/24 21:09 Dose: 800 mg Magnesium Hydroxide (Milk Of Magnesia 30 Ml Oral.Susp) 30 ml PO DAILY PRN PRN Reason: Constipation Last Admin: 11/17/24 04:56 Dose: 30 ml Sodium Chloride (Sodium Chloride 0.65 % Nasal 44 Ml Sprbtl) 1 spray NOSTRIL-B Q1H PRN PRN Reason: Dry Nasal Passages Last Admin: 11/17/24 05:10 Dose: 1 spray Trazodone HCl (Trazodone Hcl 50 Mg Tablet) 50 mg PO BEDTIME MRX1 PRN PRN Reason: Insomnia Last Admin: 11/16/24 23:04 Dose: 50 mg Allergies Allergies Allergy/AdvReac Type Severity Reaction Status Date / Time trazodone [TRAZODONE] Allergy Severe OVER Verified 06/08/22 14:15 SEDATION lithium Allergy Hives Verified 11/02/24 18:44 Assessment & Plan Assessment & Plan (1) Schizoaffective disorder, bipolar type: Status: Acute Code(s): F25.0 - Schizoaffective disorder, bipolar type Plan 11/14: tegretol per sara with valium IM back-up. prolixin per sara with prolixin IM back-up. 11/15: appears willing to take liquid formulations of tegretol and prolixin at the moment. continue current plan. taper VPA. give prolixin dec once it is established he is tolerating PO well. 11/16: not tolerating liquid prolixin, switch to pills. increase glycopyrrolate for sialorrhea (1 BID --> 2 BID). DC VPA, increase tegretol 400 BID--> 600 BID. eye drops for dry eyes. schedule ibuprofen for arm pain. not sleeping. hoping to achieve adequate mood stabilization with tegretol before pt decompensates into disorganized and violent state again. 11/17- will lower prolixin to 10mg po BID due to parkinsonism. given one time cogentin and ativan. Reason for continued inpatient stay Substantial Risk for: inability to function Time Spent With Patient Time: Total time managing care of this patient today ____ minutes.
[2024-11-17] MEDS: carBAMazepine 200 MG/10 ML ORAL.SUSP 600 MG PO (08:32)
[2024-11-17] MEDS: fluPHENAZine HCl 5 MG TABLET 15 MG PO (08:34)
[2024-11-17] MEDS: Glycopyrrolate 1 MG TABLET 2 MG PO ×2 (08:34→23:29)
[2024-11-17 09:09] VITALS: BP 147/84
[2024-11-17] MEDS: LORazepam 1 MG TABLET PO (10:05)
[2024-11-17] MEDS: Benztropine Mesylate 1 MG TABLET 2 MG PO (10:05)
[2024-11-17 10:49] LABS: Alanine Aminotransferase 142 U/L (0-40); Albumin Level 4.6 g/dL (3.5-5.0); Alkaline Phosphatase 99 U/L (39-117); Anion Gap 15 (12-20); Aspartate Amino Transferase 86 U/L (5-37); Bilirubin Total 0.4 mg/dL (0.0-1.0); Blood Urea Nitrogen 6 mg/dL (9-16); Calcium 9.5 mg/dL (8.4-10.2); Carbon Dioxide 25 mmol/L (22-29); Chloride 102 mmol/L (96-108); Creatinine Clr Calc Pharmacy 146.6; Estimated Glomerular Filt Rate > 60; Glucose Random 103 mg/dL (60-115); Potassium 4.2 mmol/L (3.3-5.1); Sodium 138 mmol/L (135-145); Total Protein 8.8 g/dL (6.5-8.0)
[2024-11-17] MEDS: Acetaminophen 325 MG TABLET 650 MG PO (16:28)
[2024-11-17] MEDS: Calcium Carbonate 750 MG TAB.CHEW PO (17:44)
[2024-11-17 19:30] VITALS: BP 175/84; PULSE 80; RESP 16; TEMP 37.2; O2SAT 95
[2024-11-17] MEDS: Ibuprofen 800 MG TABLET PO (23:30)
[2024-11-17] MEDS: fluPHENAZine HCl 5 MG TABLET 10 MG PO (23:30)
[2024-11-17] MEDS: carBAMazepine 200 MG TABLET 600 MG PO (23:30)
[2024-11-18] MEDS: Artificial Tears 15 ML DROPS 2 DROP EYE-BOTH (00:56)
[2024-11-18] MEDS: hydrOXYzine HCL 25 MG TABLET PO (01:25)
[2024-11-18] MEDS: Calcium Carbonate 750 MG TAB.CHEW PO ×2 (02:29→13:44)
[2024-11-18 08:00] VITALS: BP 141/72; PULSE 102; RESP 18; TEMP 36.9; O2SAT 97
[2024-11-18] MEDS: diazePAM 10 MG/2 ML CARTRIDGE IM (08:51)
[2024-11-18] MEDS: fluPHENAZine HCL 2.5 MG/ML 10 ML VIAL 10 MG IM (08:51)
--- NOTE | 2024-11-18 10:06 | P.PNPSI_ITS ---
Subjective Subjective Date of Service: 11/18/24 Reason For Visit: Yessi/Psychosis Subjective Notes: Section 8 Interim History: Pt again slept only 2 hrs at the most. He tells this proposal lead writer he slept for 12hrs and that sleep is not an issue. He reports he declined oral medications and asked for IM bacause he is the devil and made of stone. He also reports he was told by cook ship that he should go to [facility] because they don't let you use drugs there, I should go there, I am not using drugs anymore. He denies SI/HI. inapropriate laughing, internally preoccupied, no aggression, pacing up and down the [place]. Mental Status Exam Mental Status Exam Narrative: adequately dressed and groomed. cooperative. no PMA/PMR. left hand tremor. speech incr rate, nml amount, decr latency nml loudness. thoughts more organized than on prior days. affect full range, normo-intense, non-labile. mood euthymic. no SI/HI/AVH expressed. Diagnostics Vital Signs (24Hr): Vital Signs - 24 hr 11/17/24 19:30 11/18/24 08:00 Temperature 98.9 F 98.5 F Pulse Rate 80 102 H Respiratory Rate 16 18 Blood Pressure 175/84 H 141/72 H Pulse Oximetry 95 97 Oxygen Delivery Method Room Air Room Air BMI result Body Mass Index 37.0 Labs 11/17/24 10:26 Labs: Laboratory Results - last 48 hr 11/17/24 10:26 Sodium 138 Potassium 4.2 D Chloride 102 Carbon Dioxide 25 Anion Gap 15 BUN 6 L Creatinine 0.99 Estim Creat Clear Calc 146.6 Estimated GFR > 60 Random Glucose 103 Calcium 9.5 D Total Bilirubin 0.4 AST 86 H ALT 142 H Alkaline Phosphatase 99 Total Protein 8.8 H Albumin 4.6 Medications Medications Current Medications Acetaminophen (Acetaminophen 325 Mg Tablet) 650 mg PO Q6H PRN PRN Reason: Headache/Pain Mild Scale (1-3) Last Admin: 11/17/24 16:28 Dose: 650 mg Al Hydroxide/Mg Hydroxide (Magnesium Hydrox/Alum Hydrox 30 Ml Oral.Susp) 30 ml PO Q6H PRN PRN Reason: Heartburn/Nausea Last Admin: 11/16/24 17:30 Dose: 30 ml Artificial Tears (Artificial Tears 15 Ml Drops) 2 drop EYE-BOTH Q1H PRN PRN Reason: Dry Eyes Last Admin: 11/18/24 00:56 Dose: 2 drop Calcium Carbonate (Calcium Carbonate 750 Mg Tab.Chew) 750 mg PO Q6H PRN PRN Reason: Heartburn Last Admin: 11/18/24 02:29 Dose: 750 mg Carbamazepine (Carbamazepine 200 Mg Tablet) 600 mg PO BID [facility] Last Admin: 11/18/24 08:53 Dose: Not Given Diazepam (Diazepam 10 Mg/2 Ml Cartridge) 10 mg IM BID PRN PRN Reason: refusal of tegretol or VPA Last Admin: 11/18/24 08:51 Dose: 10 mg Fluphenazine HCl (Fluphenazine Hcl 2.5 Mg/Ml 10 Ml Vial) 10 mg IM BID PRN PRN Reason: refusal of PO prolixin Last Admin: 11/18/24 08:51 Dose: 10 mg Fluphenazine HCl (Fluphenazine Hcl 5 Mg Tablet) 15 mg PO BID [facility] Glycopyrrolate (Glycopyrrolate 1 Mg Tablet) 2 mg PO BID [facility] Last Admin: 11/18/24 08:54 Dose: Not Given Hydroxyzine HCl (Hydroxyzine Hcl 25 Mg Tablet) 25 mg PO Q6H PRN PRN Reason: Anxiety Last Admin: 11/18/24 01:25 Dose: 25 mg Ibuprofen (Ibuprofen 800 Mg Tablet) 800 mg PO QID [facility] Last Admin: 11/18/24 08:54 Dose: Not Given Lorazepam (Lorazepam 1 Mg Tablet) 2 mg PO BEDTIME [facility] Magnesium Hydroxide (Milk Of Magnesia 30 Ml Oral.Susp) 30 ml PO DAILY PRN PRN Reason: Constipation Last Admin: 11/17/24 04:56 Dose: 30 ml Sodium Chloride (Sodium Chloride 0.65 % Nasal 44 Ml Sprbtl) 1 spray NOSTRIL-B Q1H PRN PRN Reason: Dry Nasal Passages Last Admin: 11/17/24 05:10 Dose: 1 spray Trazodone HCl (Trazodone Hcl 50 Mg Tablet) 50 mg PO BEDTIME MRX1 PRN PRN Reason: Insomnia Last Admin: 11/16/24 23:04 Dose: 50 mg Allergies Allergies Allergy/AdvReac Type Severity Reaction Status Date / Time trazodone [TRAZODONE] Allergy Severe OVER Verified 06/08/22 14:15 SEDATION lithium Allergy Hives Verified 11/02/24 18:44 Assessment & Plan Assessment & Plan (1) Schizoaffective disorder, bipolar type: Status: Acute Code(s): F25.0 - Schizoaffective disorder, bipolar type Plan 11/14: tegretol per ruiz with valium IM back-up. prolixin per ruiz with prolixin IM back-up. 11/15: appears willing to take liquid formulations of tegretol and prolixin at the moment. continue current plan. taper VPA. give prolixin dec once it is established he is tolerating PO well. 11/16: not tolerating liquid prolixin, switch to pills. increase glycopyrrolate for sialorrhea (1 BID --> 2 BID). DC VPA, increase tegretol 400 BID--> 600 BID. eye drops for dry eyes. schedule ibuprofen for arm pain. not sleeping. hoping to achieve adequate mood stabilization with tegretol before pt decompensates into disorganized and violent state again. 11/17- will lower prolixin to 10mg po BID due to parkinsonism. given one time cogentin and ativan. 11/18 increase back to prolixin 15mg po BID, continue all other medications. added ativan 2mg po qhs for sleep. Reason for continued inpatient stay Substantial Risk for: inability to function Time Spent With Patient Time: Total time managing care of this patient today ____ minutes.
[2024-11-18] MEDS: fluPHENAZine HCL 2.5 MG/ML 10 ML VIAL 5 MG IM (11:19)
[2024-11-18] MEDS: Ibuprofen 800 MG TABLET PO ×2 (13:42→20:07)
[2024-11-18] MEDS: Glycopyrrolate 1 MG TABLET 2 MG PO ×2 (14:52→20:06)
[2024-11-18 20:00] VITALS: BP 135/75; PULSE 120; RESP 16; TEMP 36.4; O2SAT 96
[2024-11-18] MEDS: LORazepam 1 MG TABLET 2 MG PO (20:02)
[2024-11-18] MEDS: fluPHENAZine HCl 5 MG TABLET 15 MG PO (20:02)
[2024-11-18] MEDS: carBAMazepine 200 MG TABLET 600 MG PO (20:03)
[2024-11-19] MEDS: Calcium Carbonate 750 MG TAB.CHEW PO (06:08)
[2024-11-19 08:00] VITALS: BP 134/71; PULSE 113; RESP 15; TEMP 36.3; O2SAT 96
[2024-11-19] MEDS: Ibuprofen 800 MG TABLET PO ×4 (08:41→20:16)
[2024-11-19] MEDS: Glycopyrrolate 1 MG TABLET 2 MG PO ×2 (08:42→20:15)
[2024-11-19] MEDS: fluPHENAZine HCL 2.5 MG/ML 10 ML VIAL 10 MG IM (09:02)
[2024-11-19] MEDS: diazePAM 10 MG/2 ML CARTRIDGE IM (09:03)
[2024-11-19] MEDS: Sodium Chloride 0.65 % Nasal 44 ML SPRBTL 1 SPRAY NOSTRIL-B (09:07)
--- NOTE | 2024-11-19 10:11 | HO.PSYCHPN ---
Subjective Subjective Date of Service: 11/19/24 Reason For Visit: Yessi/Psychosis Subjective Notes: Section 8 Interim History: pt has been taking prolixin bid valium bid in im has been refusing po psych medication.Was not overly aggressive ,but continues quite psychotic labile Mental Status Exam Mental Status Exam Narrative: pt casually d , speech nl rate mood apprehensive labile thoughts he is hulk illogical concerns regarding po medication no si no hi PI labile was not threatening when seem Diagnostics Vital Signs (24Hr): Vital Signs - 24 hr 11/18/24 20:00 11/19/24 08:00 Temperature 97.5 F 97.4 F Pulse Rate 120 H 113 H Respiratory Rate 16 15 Blood Pressure 135/75 134/71 Pulse Oximetry 96 96 Oxygen Delivery Method Room Air Room Air BMI result Body Mass Index 37.0 Labs 11/17/24 10:26 Labs: Laboratory Results - last 48 hr 11/17/24 10:26 Sodium 138 Potassium 4.2 D Chloride 102 Carbon Dioxide 25 Anion Gap 15 BUN 6 L Creatinine 0.99 Estim Creat Clear Calc 146.6 Estimated GFR > 60 Random Glucose 103 Calcium 9.5 D Total Bilirubin 0.4 AST 86 H ALT 142 H Alkaline Phosphatase 99 Total Protein 8.8 H Albumin 4.6 Medications Medications Current Medications Acetaminophen (Acetaminophen 325 Mg Tablet) 650 mg PO Q6H PRN PRN Reason: Headache/Pain Mild Scale (1-3) Last Admin: 11/17/24 16:28 Dose: 650 mg Al Hydroxide/Mg Hydroxide (Magnesium Hydrox/Alum Hydrox 30 Ml Oral.Susp) 30 ml PO Q6H PRN PRN Reason: Heartburn/Nausea Last Admin: 11/16/24 17:30 Dose: 30 ml Artificial Tears (Artificial Tears 15 Ml Drops) 2 drop EYE-BOTH Q1H PRN PRN Reason: Dry Eyes Last Admin: 11/18/24 00:56 Dose: 2 drop Calcium Carbonate (Calcium Carbonate 750 Mg Tab.Chew) 750 mg PO Q6H PRN PRN Reason: Heartburn Last Admin: 11/19/24 06:08 Dose: 750 mg Carbamazepine (Carbamazepine 200 Mg Tablet) 600 mg PO BID [facility] Last Admin: 11/19/24 09:20 Dose: Not Given Diazepam (Diazepam 10 Mg/2 Ml Cartridge) 10 mg IM BID PRN PRN Reason: refusal of tegretol or VPA Last Admin: 11/19/24 09:03 Dose: 10 mg Fluphenazine HCl (Fluphenazine Hcl 2.5 Mg/Ml 10 Ml Vial) 10 mg IM BID PRN PRN Reason: refusal of PO prolixin Last Admin: 11/19/24 09:02 Dose: 10 mg Fluphenazine HCl (Fluphenazine Hcl 5 Mg Tablet) 15 mg PO BID [facility] Last Admin: 11/19/24 09:20 Dose: Not Given Glycopyrrolate (Glycopyrrolate 1 Mg Tablet) 2 mg PO BID [facility] Last Admin: 11/19/24 08:42 Dose: 2 mg Hydroxyzine HCl (Hydroxyzine Hcl 25 Mg Tablet) 25 mg PO Q6H PRN PRN Reason: Anxiety Last Admin: 11/18/24 01:25 Dose: 25 mg Ibuprofen (Ibuprofen 800 Mg Tablet) 800 mg PO QID [facility] Last Admin: 11/19/24 08:41 Dose: 800 mg Lorazepam (Lorazepam 1 Mg Tablet) 2 mg PO BEDTIME [facility] Last Admin: 11/18/24 20:02 Dose: 2 mg Magnesium Hydroxide (Milk Of Magnesia 30 Ml Oral.Susp) 30 ml PO DAILY PRN PRN Reason: Constipation Last Admin: 11/17/24 04:56 Dose: 30 ml Sodium Chloride (Sodium Chloride 0.65 % Nasal 44 Ml Sprbtl) 1 spray NOSTRIL-B Q1H PRN PRN Reason: Dry Nasal Passages Last Admin: 11/19/24 09:07 Dose: 1 spray Trazodone HCl (Trazodone Hcl 50 Mg Tablet) 50 mg PO BEDTIME MRX1 PRN PRN Reason: Insomnia Last Admin: 11/16/24 23:04 Dose: 50 mg Allergies Allergies Allergy/AdvReac Type Severity Reaction Status Date / Time trazodone [TRAZODONE] Allergy Severe OVER Verified 06/08/22 14:15 SEDATION lithium Allergy Hives Verified 11/02/24 18:44 Assessment & Plan Assessment & Plan (1) Schizoaffective disorder, bipolar type: Status: Acute Code(s): F25.0 - Schizoaffective disorder, bipolar type Plan 11/14: tegretol per sara with valium IM back-up. prolixin per sara with prolixin IM back-up. 11/15: appears willing to take liquid formulations of tegretol and prolixin at the moment. continue current plan. taper VPA. give prolixin dec once it is established he is tolerating PO well. 11/16: not tolerating liquid prolixin, switch to pills. increase glycopyrrolate for sialorrhea (1 BID --> 2 BID). DC VPA, increase tegretol 400 BID--> 600 BID. eye drops for dry eyes. schedule ibuprofen for arm pain. not sleeping. hoping to achieve adequate mood stabilization with tegretol before pt decompensates into disorganized and violent state again. 11/17- will lower prolixin to 10mg po BID due to parkinsonism. given one time cogentin and ativan. 11/18 increase back to prolixin 15mg po BID, continue all other medications. added ativan 2mg po qhs for sleep. 11/19/24 Pt less manic hostile encourage po tegretol po prolixin needs much reassurance Reason for continued inpatient stay Substantial Risk for: harm to others, inability to function and rapid decompensation Time Spent With Patient Time: Total time managing care of this patient today ____ minutes.
[2024-11-19 20:00] VITALS: BP 135/77; PULSE 110; RESP 16; TEMP 36.6; O2SAT 97
[2024-11-19] MEDS: carBAMazepine 200 MG TABLET 600 MG PO (20:15)
[2024-11-19] MEDS: fluPHENAZine HCl 5 MG TABLET 15 MG PO (20:15)
[2024-11-19] MEDS: LORazepam 1 MG TABLET 2 MG PO (20:16)
--- NOTE | 2024-11-19 20:20 | PC.NURSE ---
IM'S ordered on previous shift not given. patient accepted all HS medications by mouth at this time.
[2024-11-19] MEDS: Acetaminophen 325 MG TABLET 650 MG PO (23:47)
[2024-11-19] MEDS: hydrOXYzine HCL 25 MG TABLET PO (23:47)
[2024-11-20] MEDS: Sodium Chloride 0.65 % Nasal 44 ML SPRBTL 1 SPRAY NOSTRIL-B ×2 (00:49→05:06)
[2024-11-20] MEDS: Artificial Tears 15 ML DROPS 2 DROP EYE-BOTH ×2 (00:49→05:06)
[2024-11-20] MEDS: Magnesium Hydrox/Alum Hydrox 30 ML ORAL.SUSP PO (05:06)
[2024-11-20] MEDS: Calcium Carbonate 750 MG TAB.CHEW PO (05:06)
[2024-11-20 07:39] VITALS: BP 139/88; PULSE 111; RESP 18; TEMP 36.8; O2SAT 95
--- NOTE | 2024-11-20 09:03 | HO.PSYCHPN ---
Subjective Subjective Date of Service: 11/20/24 Reason For Visit: Yessi/Psychosis Interim History: Met with patient; discussed with team; reviewed chart last night, pt ramping up, intrusive, angry, posturing...refused PO meds and pt was eventually redirectable today refused court ordered meds; policy writer sales tried to discuss with other staff but pt refused, said he knows staff is illumin[employer], that crisis told he does not need to and he's going to [place] [facility]..pt then baricaded himself into room; security called... However patient was redirectable and took court-ordered medications without issue. He later came up to policy writer sales and explained that he was scared of staff because he knows that we are the illuminati... Could not accept otherwise. Patient however was briefly able to have a goal-directed conversation about medication. He said that Depakote had caused him to have diarrhea and blurry vision and so did not want to be on it; and that Invega cause tremor,. However policy writer sales explained and patient seemed able to accept that for now, to help him stabilize he will need to go back on these medications and once stable can talk about alternatives. Otherwise throughout the day Patient remained with intermittent disorganized hyperactivity, nearly ending up in restraint several times. [employer] reviewed chart and when patient was in the ICU, he was getting both Tegretol and Depakote, even Depakote 1000 mg t.i.d. from 11/10 to 11/13; LFTs were monitored during this time and policy writer sales correlated LFTs which actually improved and trended towards normal, while getting Depakote. [employer] discussed treatment plan with pharmacist who agreed with IV Depakote IR 1000 mg, infused over 60 minutes b.i.d. (q.12 hours negotiable since the more time in between doses, the further peak concentrations are from 1 another and likely more therapeutic); infusion rate of 60 minutes is to mitigate risk of side effects which include altered mental status and hypertension if infused more quickly. [employer] also discussed case with outpatient psychiatric provider Dr. Mendez: Dr. Mendez reports that patient was relatively stable from 05/2024 after a psychiatric hospitalization discontinued Clozaril and Zyprexa and had patient on only Invega Sustenna 156 mg and Depakote ER [address] Mendez denies that patient had any significant symptoms from either of these medications, including drooling, blurry vision or diarrhea (some tremor and weight gain from Depakote; drooling only present when patient was on Clozaril). Dr. Mendez reports that patient and his mother both had a goal to have patient off all medications and over the past few months, patient himself lowered Depakote only 500 mg daily and then started skipping doses which resulted in decompensation and this admission. Mental Status Exam Mental Status Exam Narrative: Pt is alert and oriented; behavior is manic, goes in-between silly and menacing; patient is not in distress; dressed in casual attire with adequate hygiene; mood is described as scared and affect expansive and labile; eye contact appropriate; Speech is pressured and loud; intermittent severe psychomotor agitation present; thought process can be goal oriented but quickly disorganized; Thought content is on paranoid delusional ideas and grandiose ideations; denies any SI/HI. Internally preoccupied. Patients insight and judgment impaired Diagnostics Vital Signs (24Hr): Vital Signs - 24 hr 11/19/24 20:00 11/20/24 07:39 Temperature 97.8 F 98.2 F Pulse Rate 110 H 111 H Respiratory Rate 16 18 Blood Pressure 135/77 139/88 Pulse Oximetry 97 95 Oxygen Delivery Method Room Air Room Air BMI result Body Mass Index 37.0 Labs 11/17/24 10:26 Medications Medications Current Medications Acetaminophen (Acetaminophen 325 Mg Tablet) 650 mg PO Q6H PRN PRN Reason: Headache/Pain Mild Scale (1-3) Last Admin: 11/19/24 23:47 Dose: 650 mg Al Hydroxide/Mg Hydroxide (Magnesium Hydrox/Alum Hydrox 30 Ml Oral.Susp) 30 ml PO Q6H PRN PRN Reason: Heartburn/Nausea Last Admin: 11/20/24 05:06 Dose: 30 ml Artificial Tears (Artificial Tears 15 Ml Drops) 2 drop EYE-BOTH Q1H PRN PRN Reason: Dry Eyes Last Admin: 11/20/24 05:06 Dose: 2 drop Calcium Carbonate (Calcium Carbonate 750 Mg Tab.Chew) 750 mg PO Q6H PRN PRN Reason: Heartburn Last Admin: 11/20/24 05:06 Dose: 750 mg Carbamazepine (Carbamazepine 200 Mg Tablet) 600 mg PO BID [facility] Last Admin: 11/19/24 20:15 Dose: 600 mg Diazepam (Diazepam 10 Mg/2 Ml Cartridge) 10 mg IM BID PRN PRN Reason: refusal of tegretol or VPA Last Admin: 11/19/24 09:03 Dose: 10 mg Fluphenazine HCl (Fluphenazine Hcl 2.5 Mg/Ml 10 Ml Vial) 10 mg IM BID PRN PRN Reason: refusal of PO prolixin Last Admin: 11/19/24 09:02 Dose: 10 mg Fluphenazine HCl (Fluphenazine Hcl 5 Mg Tablet) 15 mg PO BID [facility] Last Admin: 11/19/24 20:15 Dose: 15 mg Glycopyrrolate (Glycopyrrolate 1 Mg Tablet) 2 mg PO BID [facility] Last Admin: 11/19/24 20:15 Dose: 2 mg Hydroxyzine HCl (Hydroxyzine Hcl 25 Mg Tablet) 25 mg PO Q6H PRN PRN Reason: Anxiety Last Admin: 11/19/24 23:47 Dose: 25 mg Ibuprofen (Ibuprofen 800 Mg Tablet) 800 mg PO QID [facility] Last Admin: 11/19/24 20:16 Dose: 800 mg Lorazepam (Lorazepam 1 Mg Tablet) 2 mg PO BEDTIME [facility] Last Admin: 11/19/24 20:16 Dose: 2 mg Magnesium Hydroxide (Milk Of Magnesia 30 Ml Oral.Susp) 30 ml PO DAILY PRN PRN Reason: Constipation Last Admin: 11/17/24 04:56 Dose: 30 ml Sodium Chloride (Sodium Chloride 0.65 % Nasal 44 Ml Sprbtl) 1 spray NOSTRIL-B Q1H PRN PRN Reason: Dry Nasal Passages Last Admin: 11/20/24 05:06 Dose: 1 spray Trazodone HCl (Trazodone Hcl 50 Mg Tablet) 50 mg PO BEDTIME MRX1 PRN PRN Reason: Insomnia Last Admin: 11/16/24 23:04 Dose: 50 mg Allergies Allergies Allergy/AdvReac Type Severity Reaction Status Date / Time trazodone [TRAZODONE] Allergy Severe OVER Verified 06/08/22 14:15 SEDATION lithium Allergy Hives Verified 11/02/24 18:44 Assessment & Plan Assessment & Plan (1) Schizoaffective disorder, bipolar type: Status: Acute Code(s): F25.0 - Schizoaffective disorder, bipolar type Plan HOSPITAL COURSE: 11/14: tegretol per sara with valium IM back-up. prolixin per sara with prolixin IM back-up. 11/15: appears willing to take liquid formulations of tegretol and prolixin at the moment. continue current plan. taper VPA. give prolixin dec once it is established he is tolerating PO well. 11/16: not tolerating liquid prolixin, switch to pills. increase glycopyrrolate for sialorrhea (1 BID --> 2 BID). DC VPA, increase tegretol 400 BID--> 600 BID. eye drops for dry eyes. schedule ibuprofen for arm pain. not sleeping. hoping to achieve adequate mood stabilization with tegretol before pt decompensates into disorganized and violent state again. 11/17- will lower prolixin to 10mg po BID due to parkinsonism. given one time cogentin and ativan. 11/18 increase back to prolixin 15mg po BID, continue all other medications. added ativan 2mg po qhs for sleep. 11/19/24 Pt less manic hostile encourage po tegretol po prolixin needs much reassurance 11/20 given presentation and collateral will change treatment plan: last night, pt ramping up, intrusive, angry, posturing...refused PO meds and pt was eventually redirectable today refused court ordered meds; policy writer sales tried to discuss with other staff but pt refused, said he knows staff is illumin[employer], that crisis told he does not need to and he's going to [place] [facility]..pt then baricaded himself into room; security called... However patient was redirectable and took court-ordered medications without issue. He later came up to policy writer sales and explained that he was scared of staff because he knows that we are the illuminati... Could not accept otherwise. Patient however was briefly able to have a goal-directed conversation about medication. He said that Depakote had caused him to have diarrhea and blurry vision and so did not want to be on it; and that Invega cause tremor,. However policy writer sales explained and patient seemed able to accept that for now, to help him stabilize he will need to go back on these medications and once stable can talk about alternatives. Otherwise throughout the day Patient remained with intermittent disorganized hyperactivity, nearly ending up in restraint several times. Case discussed with both Dr. Mendse and Dr. Nguyen who agree with changes [employer] reviewed chart and when patient was in the ICU, he was getting both Tegretol and Depakote, even Depakote 1000 mg t.i.d. from 11/10 to 11/13; LFTs were monitored during this time and policy writer sales correlated LFTs which actually improved and trended towards normal, while getting Depakote. [employer] discussed treatment plan with pharmacist who agreed with IV Depakote IR 1000 mg, infused over 60 minutes b.i.d. (q.12 hours negotiable since the more time in between doses, the further peak concentrations are from 1 another and likely more therapeutic); infusion rate of 60 minutes is to mitigate risk of side effects which include altered mental status and hypertension if infused more quickly. [employer] also discussed case with outpatient psychiatric provider Dr. Mendez: Dr. Mendez reports that patient was relatively stable from 05/2024 after a psychiatric hospitalization discontinued Clozaril and Zyprexa and had patient on only Invega Sustenna 156 mg and Depakote ER [address] Mendez denies that patient had any significant symptoms from either of these medications, including drooling, blurry vision or diarrhea (some tremor and weight gain from Depakote; drooling only present when patient was on Clozaril). Dr. Mendez reports that patient and his mother both had a goal to have patient off all medications and over the past few months, patient himself lowered Depakote only 500 mg daily and then started skipping doses which resulted in decompensation and this admission. Impression: Patient did a little better after getting Depakote in the ICU however is again decompensating, disorganized, agitated, [id number], menacing. Patient refusing Tegretol and has taken very few doses; Prolixin does not seem to help at all. Per outpatient provider, Patient has done well on Invega and Depakote in the past with minimal side effects. Will switch and restart Depakote and Invega and discontinue Prolixin and Tegretol Plan: 1:1 Section 8/involuntary commitment court order medication 1 TIME dose Invega Sustenna IM 234 mg; will follow-up with 156 mg (on court order) START paliperidone 3 mg b.i.d.; court-ordered, Prolixin IM if refuses START Depakote Sprinkles 1000 mg b.i.d. (patient will only take it of edible); court ordered, IV Depakote if refuses p.o. DISCONTINUE Prolixin; does not seem to be helping anyway; has a history of doing well on Invega (and Depakote) DISCONTINUE Tegretol; has hardly been taking anyway and patient has a history of doing well on Depakote Will monitor LFTs/ammonia however patient was getting both Depakote and Tegretol in the ICU and LFTs improved; per outpatient provider no known hepatotoxicity from this medication regimen -p.r.n. Prolixin IM if refuses p.o. paliperidone -p.r.n. Valproic acid IV 1000 mg (with dextrose) transfused over 1 hour if refuses p.o. Depakote Sprinkles; restraint as needed Start miconazole for tenia curis which patient reported; examined by policy writer sales with accompanying nurse Patient educated on: diagnosis, medication risk/benefits and medical condition Informed Consent: understands, does not understand and further education needed Reason for continued inpatient stay Substantial Risk for: inability to function Time Spent With Patient Time: Total time managing care of this patient today ____ minutes.
[2024-11-20] MEDS: diazePAM 10 MG/2 ML CARTRIDGE IM (09:15)
[2024-11-20] MEDS: fluPHENAZine HCL 2.5 MG/ML 10 ML VIAL 10 MG IM (09:34)
--- NOTE | 2024-11-20 10:46 | PC.NURSE ---
Pt barricaded himself in his bedroom with a mattress and a chair. Security was called and IM's from [facility] order list given to patient without restraints needed.
[2024-11-20] MEDS: Divalproex Sodium Sprinkles 125 MG CAP.DR.SPR 1000 MG PO ×2 (11:48→20:00)
[2024-11-20] MEDS: Miconazole Nitrate 2% Oint 57 GM OINT...G. 1 APPL TOPICAL (13:48)
[2024-11-20] MEDS: Paliperidone Palmitate 234 MG/1.5 ML SYRINGE IM (14:45)
[2024-11-20 20:00] VITALS: BP 140/78; PULSE 100; RESP 16; TEMP 36.6; O2SAT 96
[2024-11-20] MEDS: LORazepam 1 MG TABLET 2 MG PO (20:01)
[2024-11-20] MEDS: Ibuprofen 800 MG TABLET PO (20:01)
[2024-11-20] MEDS: Glycopyrrolate 1 MG TABLET 2 MG PO (20:02)
[2024-11-20] MEDS: Paliperidone ER 3 MG TAB.ER.24 PO (20:02)
[2024-11-21 07:05] VITALS: BP 124/63; PULSE 104; RESP 16; TEMP 36.3; O2SAT 96
[2024-11-21] MEDS: Paliperidone ER 3 MG TAB.ER.24 PO (09:10)
[2024-11-21] MEDS: Glycopyrrolate 1 MG TABLET 2 MG PO (09:10)
[2024-11-21] MEDS: Divalproex Sodium Sprinkles 125 MG CAP.DR.SPR 1000 MG PO ×2 (09:10→23:53)
[2024-11-21] MEDS: Ibuprofen 800 MG TABLET PO ×2 (09:10→18:17)
--- NOTE | 2024-11-21 10:40 | P.PNPSI_ITS ---
Subjective Subjective Date of Service: 11/21/24 Reason For Visit: Yessi/Psychosis Subjective Notes: Section 8 Interim History: Patient was seen and discussed in rounds today. Records and plans were reviewed. He has been irritable with varied affect. He received his IM injection per his Carlos's order and he is unhappy about it and states that he has a blurred vision and tremors which was visible in his left hand. I ordered Cogentin 1 mg b.i.d.. He continues to be delusional. No behavioral problems or issues. No other changes were made. Eating and sleeping adequately. Review of Systems Review of Systems Blurred vision and left hand tremor Yes all other systems are reviewed and are negative Mental Status Exam Mental Status Exam Narrative: In today's visit he is alert, oriented and pleasant. Speech is pressured. No acute observed signs of psychosis but chronic parameters persisting. He was lying in bed so I could not assess his gait but appears to be able to move all limbs. Denies AVH. Some paranoia present. No SI. Cognitively has slowed thought processes and disorganized. Judgment is marginal. Diagnostics Vital Signs (24Hr): Vital Signs - 24 hr 11/20/24 20:00 11/21/24 07:05 Temperature 97.8 F 97.4 F Pulse Rate 100 104 H Respiratory Rate 16 16 Blood Pressure 140/78 H 124/63 Pulse Oximetry 96 96 Oxygen Delivery Method Room Air Room Air BMI result Body Mass Index 37.0 Labs 11/17/24 10:26 Medications Medications Current Medications Acetaminophen (Acetaminophen 325 Mg Tablet) 650 mg PO Q6H PRN PRN Reason: Headache/Pain Mild Scale (1-3) Last Admin: 11/19/24 23:47 Dose: 650 mg Al Hydroxide/Mg Hydroxide (Magnesium Hydrox/Alum Hydrox 30 Ml Oral.Susp) 30 ml PO Q6H PRN PRN Reason: Heartburn/Nausea Last Admin: 11/20/24 05:06 Dose: 30 ml Artificial Tears (Artificial Tears 15 Ml Drops) 2 drop EYE-BOTH Q1H PRN PRN Reason: Dry Eyes Last Admin: 11/20/24 05:06 Dose: 2 drop Calcium Carbonate (Calcium Carbonate 750 Mg Tab.Chew) 750 mg PO Q6H PRN PRN Reason: Heartburn Last Admin: 11/20/24 05:06 Dose: 750 mg Diazepam (Diazepam 5 Mg Tablet) 10 mg PO BID PRN PRN Reason: for anxiety/mod agitation Divalproex Sodium (Divalproex Sodium Sprinkles 125 Mg ) 1,000 mg PO BID [facility] Last Admin: 11/21/24 09:10 Dose: 1,000 mg Fluphenazine HCl (Fluphenazine Hcl 2.5 Mg/Ml 10 Ml Vial) 15 mg IM BID PRN PRN Reason: refusal of PO Invega Glycopyrrolate (Glycopyrrolate 1 Mg Tablet) 2 mg PO BID [facility] Last Admin: 11/21/24 09:10 Dose: 2 mg Hydroxyzine HCl (Hydroxyzine Hcl 25 Mg Tablet) 25 mg PO Q6H PRN PRN Reason: Anxiety Last Admin: 11/19/24 23:47 Dose: 25 mg Valproic Acid 1,000 mg/ (Dextrose) 60 mls @ 60 mls/hr IV BID PRN PRN Reason: if refuses PO Valproic Acid Ibuprofen (Ibuprofen 800 Mg Tablet) 800 mg PO QID [facility] Last Admin: 11/21/24 09:10 Dose: 800 mg Lorazepam (Lorazepam 1 Mg Tablet) 2 mg PO BEDTIME [facility] Last Admin: 11/20/24 20:01 Dose: 2 mg Magnesium Hydroxide (Milk Of Magnesia 30 Ml Oral.Susp) 30 ml PO DAILY PRN PRN Reason: Constipation Last Admin: 11/17/24 04:56 Dose: 30 ml Miconazole Nitrate (Miconazole Nitrate 2% Oint 57 Gm Oint...G.) 1 appl TOPICAL BID [facility]; Protocol Last Admin: 11/20/24 23:02 Dose: Not Given Paliperidone (Paliperidone Er 3 Mg Tab.Er.24) 3 mg PO BID [facility] Last Admin: 11/21/24 09:10 Dose: 3 mg Sodium Chloride (Sodium Chloride 0.65 % Nasal 44 Ml Sprbtl) 1 spray NOSTRIL-B Q1H PRN PRN Reason: Dry Nasal Passages Last Admin: 11/20/24 05:06 Dose: 1 spray Trazodone HCl (Trazodone Hcl 50 Mg Tablet) 50 mg PO BEDTIME MRX1 PRN PRN Reason: Insomnia Last Admin: 11/16/24 23:04 Dose: 50 mg Allergies Allergies Allergy/AdvReac Type Severity Reaction Status Date / Time trazodone [TRAZODONE] Allergy Severe OVER Verified 06/08/22 14:15 SEDATION lithium Allergy Hives Verified 11/02/24 18:44 Assessment & Plan Assessment & Plan (1) Schizoaffective disorder, bipolar type: Status: Acute Code(s): F25.0 - Schizoaffective disorder, bipolar type Plan HOSPITAL COURSE: 11/14: tegretol per ruiz with valium IM back-up. prolixin per ruiz with prolixin IM back-up. 11/15: appears willing to take liquid formulations of tegretol and prolixin at the moment. continue current plan. taper VPA. give prolixin dec once it is established he is tolerating PO well. 11/16: not tolerating liquid prolixin, switch to pills. increase glycopyrrolate for sialorrhea (1 BID --> 2 BID). DC VPA, increase tegretol 400 BID--> 600 BID. eye drops for dry eyes. schedule ibuprofen for arm pain. not sleeping. hoping to achieve adequate mood stabilization with tegretol before pt decompensates into disorganized and violent state again. 11/17- will lower prolixin to 10mg po BID due to parkinsonism. given one time cogentin and ativan. 11/18 increase back to prolixin 15mg po BID, continue all other medications. added ativan 2mg po qhs for sleep. 11/19/24 Pt less manic hostile encourage po tegretol po prolixin needs much reassurance 11/20 given presentation and collateral will change treatment plan: last night, pt ramping up, intrusive, angry, posturing...refused PO meds and pt was eventually redirectable today refused court ordered meds; insurance underwriter sales tried to discuss with other staff but pt refused, said he knows staff is illuminati, that crisis told he does not need to and he's going to [facility]..pt then baricaded himself into room; security called... However patient was redirectable and took court-ordered medications without issue. He later came up to insurance underwriter sales and explained that he was scared of staff because he knows that we are the illuminati... Could not accept otherwise. Patient however was briefly able to have a goal-directed conversation about medication. He said that Depakote had caused him to have diarrhea and blurry vision and so did not want to be on it; and that Invega cause tremor,. However insurance underwriter sales explained and patient seemed able to accept that for now, to help him stabilize he will need to go back on these medications and once stable can talk about alternatives. Otherwise throughout the day Patient remained with intermittent disorganized hyperactivity, nearly ending up in restraint several times. Case discussed with both Dr. Mendes and Dr. Nguyen who agree with changes Steam Room Attendant reviewed chart and when patient was in the ICU, he was getting both Tegretol and Depakote, even Depakote 1000 mg t.i.d. from 11/10 to 11/13; LFTs were monitored during this time and insurance underwriter sales correlated LFTs which actually improved and trended towards normal, while getting Depakote. Steam Room Attendant discussed treatment plan with pharmacist who agreed with IV Depakote IR 1000 mg, infused over 60 minutes b.i.d. (q.12 hours negotiable since the more time in between doses, the further peak concentrations are from 1 another and likely more therapeutic); infusion rate of 60 minutes is to mitigate risk of side effects which include altered mental status and hypertension if infused more quickly. Steam Room Attendant also discussed case with outpatient psychiatric provider Dr. Mendez: Dr. Mendez reports that patient was relatively stable from 05/2024 after a psychiatric hospitalization discontinued Clozaril and Zyprexa and had patient on only Invega Sustenna 156 mg and Depakote ER [address] Mendez denies that patient had any significant symptoms from either of these medications, including drooling, blurry vision or diarrhea (some tremor and weight gain from Depakote; drooling only present when patient was on Clozaril). Dr. Mendez reports that patient and his mother both had a goal to have patient off all medications and over the past few months, patient himself lowered Depakote only 500 mg daily and then started skipping doses which resulted in decompensation and this admission. Impression: Patient did a little better after getting Depakote in the ICU however is again decompensating, disorganized, agitated, [id number], menacing. Patient refusing Tegretol and has taken very few doses; Prolixin does not seem to help at all. Per outpatient provider, Patient has done well on Invega and Depakote in the past with minimal side effects. Will switch and restart Depakote and Invega and discontinue Prolixin and Tegretol Plan: 1:1 Section 8/involuntary commitment court order medication 1 TIME dose Invega Sustenna IM 234 mg; will follow-up with 156 mg (on court order) START paliperidone 3 mg b.i.d.; court-ordered, Prolixin IM if refuses START Depakote Sprinkles 1000 mg b.i.d. (patient will only take it of edible); court ordered, IV Depakote if refuses p.o. DISCONTINUE Prolixin; does not seem to be helping anyway; has a history of doing well on Invega (and Depakote) DISCONTINUE Tegretol; has hardly been taking anyway and patient has a history of doing well on Depakote Will monitor LFTs/ammonia however patient was getting both Depakote and Tegretol in the ICU and LFTs improved; per outpatient provider no known hepatotoxicity from this medication regimen -p.r.n. Prolixin IM if refuses p.o. paliperidone -p.r.n. Valproic acid IV 1000 mg (with dextrose) transfused over 1 hour if refuses p.o. Depakote Sprinkles; restraint as needed Start miconazole for tenia curis which patient reported; examined by insurance underwriter sales with accompanying nurse 11/21: Continue current regimen and plans. Added Cogentin 1 mg b.i.d. Patient educated on: medication risk/benefits Reason for continued inpatient stay Substantial Risk for: med/psych decompensation Time Spent With Patient Time: Total time managing care of this patient today ____ minutes.
[2024-11-21] MEDS: Miconazole Nitrate 2% Oint 57 GM OINT...G. 1 APPL TOPICAL (11:32)
[2024-11-21 20:20] VITALS: BP 133/71; PULSE 114; TEMP 36.8; O2SAT 98
[2024-11-21 23:35] VITALS: RESP 22
[2024-11-21] MEDS: fluPHENAZine HCL 2.5 MG/ML 10 ML VIAL 15 MG IM (23:44)
[2024-11-21 23:50] VITALS: RESP 22
--- NOTE | 2024-11-21 23:50 | HO.EVEPSY_ITS ---
Documented by User: Brianne [email or web address] 11/22/24 01:14 Event Note Date of Service: 11/22/24 Psych Restraint Event Note: TW is esl instructional assistant and received text notification from Nicole Rod RN at 2329 that pt was agitated and refusing his medications. He is reportedly slamming do ors and experiencing delusional content. Security is present and they are about to used the chair to stabilize pt at 2330. Notified via text at 2340 that pt is in the restraint chair and Nicole is about to give pt his pre-ordered IM Prolixin which is court ordered as well. Notified via text at 2349 that pt had changed his mind as court ordered IV Depakote was being prepared, pt wanting to take PO Depakote Sprinkles as originally ordered. As a result of this request, team will attempt PO Depakote sprinkles and place IV Depakote on hold at this time. 1207: pt accepted Depakote Sprinkles 1229: Team will attempt to remove restraints 1242: Pt is out of restraint and has gone to bed Time Spent With Patient Time: Total time managing care of this patient today ____ minutes. Documented by User: Bear Nguyen MD 11/26/24 14:12 Event Note Date of Service: 11/26/24
[2024-11-22] VITALS (9 sets, daily range): BP systolic 120–141; BP diastolic 59–83; PULSE 96–117; RESP 16–22; TEMP 36.3–36.8; O2SAT 95–100; BMI 36.9
[2024-11-22] MEDS: Ibuprofen 800 MG TABLET PO ×2 (00:39→16:18)
[2024-11-22] MEDS: Calcium Carbonate 750 MG TAB.CHEW PO (06:57)
[2024-11-22] MEDS: Sodium Chloride 0.65 % Nasal 44 ML SPRBTL 1 SPRAY NOSTRIL-B (06:59)
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
[2024-11-22] MEDS: Divalproex Sodium Sprinkles 125 MG CAP.DR.SPR 1000 MG PO (09:29)
[2024-11-22] MEDS: fluPHENAZine HCL 2.5 MG/ML 10 ML VIAL 15 MG IM ×2 (09:54→22:52)
[2024-11-22] MEDS: Artificial Tears 15 ML DROPS 2 DROP EYE-BOTH (10:51)
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
[2024-11-22] MEDS: Valproic Acid (as Sodium Salt) 1,000 MG in Dextrose 5 % 50 ML 60 MG IV (23:24)
--- NOTE | 2024-11-22 23:28 | HO.EVEPSY_ITS ---
Event Note Date of Service: 11/22/24 Psych Restraint Event Note: The patient has a Mistry order for IV Depakote in case of patient refuse PO. He refused the pO and he needed to be on restrain chair for the IV infusion of Depakote. As per nursing report, no injuries on patient or staff, VS stable. Nursing staff reported that the restraiining started on 22:50, alteration workroom supervisor RN needed to put an iv access for the depakote infusion Time Spent With Patient Time: Total time managing care of this patient today __20__ minutes.
[2024-11-23 00:05] VITALS: BP 135/68; PULSE 118; RESP 20; TEMP 37.2; O2SAT 100
[2024-11-23 00:20] VITALS: BP 137/65; PULSE 116; RESP 20; TEMP 37.1; O2SAT 98
--- NOTE | 2024-11-23 07:40 | PC.NURSE ---
Entry for 11/22 HS: Pt refused all scheduled HS meds after being approached multiple times, stating that they were ?poison?. Pt requested to take the IM prolixin instead of invega and IV depakote instead of the depakote sprinkles; he stated that he would cooperate and be compliant with going into the restraint chair, having the IV started and receive the medication, saying that he would not ?thrash? around while in the chair. Provider donor floor technician, Dr. gNuyen, contacted and requested to enter restraint order. RN blood bank supervisor, Starr Stauffer, contacted and requested to start IV. Security called and requested to be on unit in case needed. Restraint chair initiated at 2250, IM prolixin administered at 2252 and IV depakote began at 2324. Hospitalist, Dr. Cruz, notified of restraint and need for consult; he was present on the unit at 2350. Pt was released from the chair at 0030, Dr. Nguyen notified. Vitals obtained and documented. Pt maintained behavioral control and appeared to rest comfortably in bed.?
[2024-11-23 08:00] VITALS: RESP 16
[2024-11-23] MEDS: Valproic Acid Liquid 250 MG/5 ML SOLUTION 1250 MG PO ×2 (10:42→20:25)
[2024-11-23] MEDS: FLUPHENAZINE 2.5 MG/5 ML 15 MG PO ×2 (11:08→20:26)
--- NOTE | 2024-11-23 12:02 | PM.EVENT ---
Documented by User: Brianne Medrano APRN 11/23/24 17:39 Event Note Date of Service: 11/23/24 Event Note: [facility] Restraint Order of 11/21/24 needed to be amended to add physical hold to use of restraint chair. This had to be done by writing a new order, with senior clinical solutions development analyst Lisa Ramon's guidance. A new order is in the system currently. Time Spent With Patient Time: Total time managing care of this patient today ____ minutes. Documented by User: Bear Nguyen MD 11/25/24 20:33 Event Note Date of Service: 11/25/24
--- NOTE | 2024-11-23 12:37 | P.PNPSI_ITS ---
Subjective Subjective Date of Service: 11/23/24 Reason For Visit: Yessi/Psychosis Interim History: refusing various medications and formulations for various reasons, saying medications are poison, talking about selling body parts, etc. delusional, paranoid, disorganized. agreeable to liquid VPA and prolixin, ultimately. per staff, took only VPA sprinkles yesterday morning. had prolixin IM. flooded bathroom. got prolixin IM and VPA IV yesterday evening. slept 4 hours overnight. labile, delusional. Mental Status Exam Mental Status Exam Narrative: adequately dressed and groomed. cooperative. mild PMR. left hand tremor. speech incr rate, nml amount, decr latency, nml loudness. affect constricted, non-labile. mood euthymic. no SI/HI/AVH expressed. Diagnostics Vital Signs (24Hr): Vital Signs - 24 hr 11/22/24 20:10 11/22/24 23:05 11/22/24 23:20 Temperature 97.3 F 98.1 F Pulse Rate 117 H 108 H 111 H Respiratory Rate 16 20 22 H Blood Pressure 141/74 H 122/83 Pulse Oximetry 97 100 Oxygen Delivery Method Room Air Room Air 11/22/24 23:35 11/22/24 23:50 11/23/24 00:05 Temperature 98.2 F 98.2 F 98.9 F Pulse Rate 112 H 112 H 118 H Respiratory Rate 20 22 H 20 Blood Pressure 124/60 122/59 L 135/68 Pulse Oximetry 99 100 100 Oxygen Delivery Method Room Air Room Air Room Air 11/23/24 00:20 Temperature 98.7 F Pulse Rate 116 H Respiratory Rate 20 Blood Pressure 137/65 Pulse Oximetry 98 Oxygen Delivery Method Room Air BMI result Body Mass Index 36.9 Labs 11/17/24 10:26 Medications Medications Current Medications Acetaminophen (Acetaminophen 325 Mg Tablet) 650 mg PO Q6H PRN PRN Reason: Headache/Pain Mild Scale (1-3) Last Admin: 11/19/24 23:47 Dose: 650 mg Al Hydroxide/Mg Hydroxide (Magnesium Hydrox/Alum Hydrox 30 Ml Oral.Susp) 30 ml PO Q6H PRN PRN Reason: Heartburn/Nausea Last Admin: 11/20/24 05:06 Dose: 30 ml Artificial Tears (Artificial Tears 15 Ml Drops) 2 drop EYE-BOTH Q1H PRN PRN Reason: Dry Eyes Last Admin: 11/22/24 10:51 Dose: 2 drop Benztropine Mesylate (Benztropine Mesylate 1 Mg Tablet) 1 mg PO BID [facility] Last Admin: 11/23/24 10:28 Dose: Not Given Calcium Carbonate (Calcium Carbonate 750 Mg Tab.Chew) 750 mg PO Q6H PRN PRN Reason: Heartburn Last Admin: 11/22/24 06:57 Dose: 750 mg Diazepam (Diazepam 5 Mg Tablet) 10 mg PO BID PRN PRN Reason: for anxiety/mod agitation Divalproex Sodium (Divalproex Sodium Sprinkles 125 Mg Jagdish.) 1,250 mg PO BID [facility] Last Admin: 11/23/24 10:30 Dose: Not Given Fluphenazine HCl (Fluphenazine Hcl Oral Liquid 2.5 Mg/5 Ml Elixir) 15 mg PO BID [facility] Fluphenazine HCl (Fluphenazine Hcl 2.5 Mg/Ml 10 Ml Vial) 15 mg IM BID PRN PRN Reason: refusal of PO Prolixin Glycopyrrolate (Glycopyrrolate 1 Mg Tablet) 2 mg PO BID [facility] Last Admin: 11/23/24 10:28 Dose: Not Given Hydroxyzine HCl (Hydroxyzine Hcl 25 Mg Tablet) 25 mg PO Q6H PRN PRN Reason: Anxiety Last Admin: 11/19/24 23:47 Dose: 25 mg Valproic Acid 1,000 mg/ (Dextrose) 60 mls @ 60 mls/hr IV BID [facility] Last Infusion: 11/23/24 00:28 Dose: Infused Ibuprofen (Ibuprofen 800 Mg Tablet) 800 mg PO QID [facility] Last Admin: 11/23/24 10:28 Dose: Not Given Lorazepam (Lorazepam 1 Mg Tablet) 2 mg PO BEDTIME [facility] Last Admin: 11/22/24 22:22 Dose: Not Given Magnesium Hydroxide (Milk Of Magnesia 30 Ml Oral.Susp) 30 ml PO DAILY PRN PRN Reason: Constipation Last Admin: 11/17/24 04:56 Dose: 30 ml Miconazole Nitrate (Miconazole Nitrate 2% Oint 57 Gm Oint...G.) 1 appl TOPICAL BID [facility]; Protocol Last Admin: 11/23/24 10:29 Dose: Not Given Ondansetron HCl (Ondansetron Odt 8 Mg Tab.Rapdis) 8 mg TRANSLINGU Q8H PRN PRN Reason: Nausea and Vomiting Sodium Chloride (Sodium Chloride 0.65 % Nasal 44 Ml Sprbtl) 1 spray NOSTRIL-B Q1H PRN PRN Reason: Dry Nasal Passages Last Admin: 11/22/24 06:59 Dose: 1 spray Trazodone HCl (Trazodone Hcl 50 Mg Tablet) 50 mg PO BEDTIME MRX1 PRN PRN Reason: Insomnia Last Admin: 11/16/24 23:04 Dose: 50 mg Valproic Acid (Valproic Acid Liquid 250 Mg/5 Ml Solution) 1,250 mg PO BID [facility] Last Admin: 11/23/24 10:42 Dose: 1,250 mg Allergies Allergies Allergy/AdvReac Type Severity Reaction Status Date / Time trazodone [TRAZODONE] Allergy Severe OVER Verified 06/08/22 14:15 SEDATION lithium Allergy Hives Verified 11/02/24 18:44 Assessment & Plan Assessment & Plan (1) Schizoaffective disorder, bipolar type: Status: Acute Code(s): F25.0 - Schizoaffective disorder, bipolar type Plan HOSPITAL COURSE: 11/14: tegretol per sara with valium IM back-up. prolixin per sara with prolixin IM back-up. 11/15: appears willing to take liquid formulations of tegretol and prolixin at the moment. continue current plan. taper VPA. give prolixin dec once it is established he is tolerating PO well. 11/16: not tolerating liquid prolixin, switch to pills. increase glycopyrrolate for sialorrhea (1 BID --> 2 BID). DC VPA, increase tegretol 400 BID--> 600 BID. eye drops for dry eyes. schedule ibuprofen for arm pain. not sleeping. hoping to achieve adequate mood stabilization with tegretol before pt decompensates into disorganized and violent state again. 11/17- will lower prolixin to 10mg po BID due to parkinsonism. given one time cogentin and ativan. 11/18 increase back to prolixin 15mg po BID, continue all other medications. added ativan 2mg po qhs for sleep. 11/19/24 Pt less manic hostile encourage po tegretol po prolixin needs much reassurance 11/20 given presentation and collateral will change treatment plan: last night, pt ramping up, intrusive, angry, posturing...refused PO meds and pt was eventually redirectable today refused court ordered meds; check writer tried to discuss with other staff but pt refused, said he knows staff is illuminati, that crisis told he does not need to and he's going to [facility]..pt then baricaded himself into room; security called... However patient was redirectable and took court-ordered medications without issue. He later came up to check writer and explained that he was scared of staff because he knows that we are the illuminati... Could not accept otherwise. Patient however was briefly able to have a goal-directed conversation about medication. He said that Depakote had caused him to have diarrhea and blurry vision and so did not want to be on it; and that Invega cause tremor,. However check writer explained and patient seemed able to accept that for now, to help him stabilize he will need to go back on these medications and once stable can talk about alternatives. Otherwise throughout the day Patient remained with intermittent disorganized hyperactivity, nearly ending up in restraint several times. Case discussed with both Dr. Mendes and Dr. Nguyen who agree with changes Metal Mockup Maker reviewed chart and when patient was in the ICU, he was getting both Tegretol and Depakote, even Depakote 1000 mg t.i.d. from 11/10 to 11/13; LFTs were monitored during this time and check writer correlated LFTs which actually improved and trended towards normal, while getting Depakote. Metal Mockup Maker discussed treatment plan with pharmacist who agreed with IV Depakote IR 1000 mg, infused over 60 minutes b.i.d. (q.12 hours negotiable since the more time in between doses, the further peak concentrations are from 1 another and likely more therapeutic); infusion rate of 60 minutes is to mitigate risk of side effects which include altered mental status and hypertension if infused more quickly. Metal Mockup Maker also discussed case with outpatient psychiatric provider Dr. Mendez: Dr. Mendez reports that patient was relatively stable from 05/2024 after a psychiatric hospitalization discontinued Clozaril and Zyprexa and had patient on only Invega Sustenna 156 mg and Depakote ER [address] Mendez denies that patient had any significant symptoms from either of these medications, including drooling, blurry vision or diarrhea (some tremor and weight gain from Depakote; drooling only present when patient was on Clozaril). Dr. Mendez reports that patient and his mother both had a goal to have patient off all medications and over the past few months, patient himself lowered Depakote only 500 mg daily and then started skipping doses which resulted in decompensation and this admission. Impression: Patient did a little better after getting Depakote in the ICU however is again decompensating, disorganized, agitated, [id number], menacing. Patient refusing Tegretol and has taken very few doses; Prolixin does not seem to help at all. Per outpatient provider, Patient has done well on Invega and Depakote in the past with minimal side effects. Will switch and restart Depakote and Invega and discontinue Prolixin and Tegretol Plan: 1:1 Section 8/involuntary commitment court order medication 1 TIME dose Invega Sustenna IM 234 mg; will follow-up with 156 mg (on court order) START paliperidone 3 mg b.i.d.; court-ordered, Prolixin IM if refuses START Depakote Sprinkles 1000 mg b.i.d. (patient will only take it of edible); court ordered, IV Depakote if refuses p.o. DISCONTINUE Prolixin; does not seem to be helping anyway; has a history of doing well on Invega (and Depakote) DISCONTINUE Tegretol; has hardly been taking anyway and patient has a history of doing well on Depakote Will monitor LFTs/ammonia however patient was getting both Depakote and Tegretol in the ICU and LFTs improved; per outpatient provider no known hepatotoxicity from this medication regimen -p.r.n. Prolixin IM if refuses p.o. paliperidone -p.r.n. Valproic acid IV 1000 mg (with dextrose) transfused over 1 hour if refuses p.o. Depakote Sprinkles; restraint as needed Start miconazole for tenia curis which patient reported; examined by check writer with accompanying nurse 11/21: Continue current regimen and plans. Added Cogentin 1 mg b.i.d. 11/22: continue current mgmt. 11/23: got IMs yesterday for most meds, took PO liquids this morning. grossly disorganized, paranoid delusions with recent 234 mg IM of invega, adequate invega in pt's body, will DC PO invega. offer prolixin PO with IM back-up. VPA liquid, IV VPA if refuses PO. Reason for continued inpatient stay Substantial Risk for: harm to self, harm to others, inability to function and rapid decompensation Time Spent With Patient Time: Total time managing care of this patient today _35___ minutes.
[2024-11-23] MEDS: Ondansetron ODT 8 MG TAB.RAPDIS TRANSLINGU (16:56)
[2024-11-23] MEDS: Calcium Carbonate 750 MG TAB.CHEW PO (16:58)
[2024-11-23 20:00] VITALS: BP 120/65; PULSE 100; RESP 16; TEMP 36.2; O2SAT 97
[2024-11-23] MEDS: LORazepam 1 MG TABLET 2 MG PO (20:23)
[2024-11-23] MEDS: Ibuprofen 800 MG TABLET PO (20:23)
[2024-11-23] MEDS: Glycopyrrolate 1 MG TABLET 2 MG PO (20:24)
[2024-11-23] MEDS: Miconazole Nitrate 2% Oint 57 GM OINT...G. 1 APPL TOPICAL (20:37)
[2024-11-24] MEDS: Acetaminophen 325 MG TABLET 650 MG PO (01:59)
--- NOTE | 2024-11-24 07:27 | P.EN_ITS ---
Event Note Date of Service: 11/24/24 Event Note: Late entry 11/22/24 1295. mechanical restraint were placed due to agitation and spitting at security and refused his bard's order medication. I evaluated him in person within an hour. he was alert, disoriented, cooperative. followed chemical restraint orders. no adverse effect. On 11/23/24 at 2250 he was restraint again. refused his oral med, per his brad's order. he was restrained in chair to receive this as per his treatment team and plan by psychiatric team. restraint chair was initiated at 2250, IV was placed and he was started the depakote when i saw him within an hour. I evaluated him in person within an hour. he was alert, disoriented, coopera tive. followed chemical restraint orders. no adverse effect. Time Spent With Patient Time: Total time managing care of this patient today ____ minutes.
[2024-11-24] MEDS: Valproic Acid Liquid 250 MG/5 ML SOLUTION 1250 MG PO ×2 (08:36→20:26)
[2024-11-24] MEDS: fluPHENAZine HCL 2.5 MG/ML 10 ML VIAL 15 MG IM (09:17)
--- NOTE | 2024-11-24 10:02 | HO.HSGERICON ---
History of Present Illness Data of Consult Service Date: 11/24/24 Requesting physician: Mark Mendes Primary Care Provider: Unknown Physician HPI Reason for consult: sialadenitis/parotitis? I was asked to consult on this patient with the hospitalist team This is a 28-year-old male history of mild intermittent asthma, PTSD and schizoaffective disorder a consult was put in for concerns of possible sialadenitis parotitis. I went to evaluate the patient, he appears to be acutely manic and a poor historian. When I asked him if he is having pain anywhere he tells me no. He says yesterday he had pain when they gave him medicine and when they ?injected the poison . When I asked him if he has any pain around his ears, jaw, mandible he tells me no. He reports he feels slightly shaky . Patient denies facial swelling difficulty opening mouth, trouble swallowing, fevers, chills, dry mouth, neck pain Review of Systems Review of Systems: Yes all other systems are reviewed and are negative [facility] Medical History Mild intermittent asthma Schizoaffective disorder, bipolar type Chronic post-traumatic stress disorder (PTSD) Functional capacity: independent ambulation Social History Household Members: Unknown / Unable to assess Housing: Unknown / Unable to assess Do you presently have visiting nurse or other home services: Yes Comment: non skid yellow socks offered. refuses to wear. Patient Tobacco Use Status: Never used Tobacco Smoked in Last 30 Days: No Patient Interested in Nicotine Replacement: No Patient Given Instructions on How to Stop Smoking: No Second Hand Smoke Exposure: No Use of substances other than those prescribed or required for medical reasons: No Substance Use Type: Marijuana Currently Displaying Signs/Symptoms of Drug Intoxication Withdrawal: No Any prior treatment program specific to substance use: No Have you been hit, kicked, punched, or otherwise hurt by someone within the past year? If so, by whom?: No Do you feel safe in your current relationship?: No Current Relationship Is there a partner from a previous relationship who is making you feel unsafe now?: No Are you made to feel afraid or neglected: No Advance Directives: No Advance Directives Information Provided: No Do you have thoughts of harming others: None Do you have a plan to hurt others: No Plan Recently lost weight without trying: No Eating poorly because of decreased appetite: No Nutrition Risks: No Nutritional Risk Poor oral hygiene: No service: No Sexual orientation: Straight/Heterosexual Meds Allergies Allergy/AdvReac Type Severity Reaction Status Date / Time trazodone [TRAZODONE] Allergy Severe OVER Verified 06/08/22 14:15 SEDATION lithium Allergy Hives Verified 11/02/24 18:44 Active Medications: Current Medications Acetaminophen (Acetaminophen 325 Mg Tablet) 650 mg PO Q6H PRN PRN Reason: Headache/Pain Mild Scale (1-3) Last Admin: 11/24/24 01:59 Dose: 650 mg Al Hydroxide/Mg Hydroxide (Magnesium Hydrox/Alum Hydrox 30 Ml Oral.Susp) 30 ml PO Q6H PRN PRN Reason: Heartburn/Nausea Last Admin: 11/20/24 05:06 Dose: 30 ml Artificial Tears (Artificial Tears 15 Ml Drops) 2 drop EYE-BOTH Q1H PRN PRN Reason: Dry Eyes Last Admin: 11/22/24 10:51 Dose: 2 drop Benztropine Mesylate (Benztropine Mesylate 1 Mg Tablet) 1 mg PO BID [facility] Last Admin: 11/24/24 09:03 Dose: Not Given Calcium Carbonate (Calcium Carbonate 750 Mg Tab.Chew) 750 mg PO Q6H PRN PRN Reason: Heartburn Last Admin: 11/23/24 16:58 Dose: 750 mg Diazepam (Diazepam 5 Mg Tablet) 10 mg PO BID PRN PRN Reason: for anxiety/mod agitation Divalproex Sodium (Divalproex Sodium Sprinkles 125 Mg ) 1,250 mg PO BID [facility] Last Admin: 11/23/24 10:30 Dose: Not Given Fluphenazine HCl (Fluphenazine Hcl Oral Liquid 2.5 Mg/5 Ml Elixir) 15 mg PO BID [facility] Last Admin: 11/24/24 09:27 Dose: Not Given Fluphenazine HCl (Fluphenazine Hcl 2.5 Mg/Ml 10 Ml Vial) 15 mg IM BID PRN PRN Reason: refusal of PO Prolixin Last Admin: 11/24/24 09:17 Dose: 15 mg Glycopyrrolate (Glycopyrrolate 1 Mg Tablet) 2 mg PO BID [facility] Last Admin: 11/24/24 09:03 Dose: Not Given Hydroxyzine HCl (Hydroxyzine Hcl 25 Mg Tablet) 25 mg PO Q6H PRN PRN Reason: Anxiety Last Admin: 11/19/24 23:47 Dose: 25 mg Valproic Acid 1,000 mg/ (Dextrose) 60 mls @ 60 mls/hr IV BID [facility] Last Admin: 11/24/24 09:13 Dose: Not Given Ibuprofen (Ibuprofen 800 Mg Tablet) 800 mg PO QID [facility] Last Admin: 11/24/24 09:03 Dose: Not Given Lorazepam (Lorazepam 1 Mg Tablet) 2 mg PO BEDTIME [facility] Last Admin: 11/23/24 20:23 Dose: 2 mg Magnesium Hydroxide (Milk Of Magnesia 30 Ml Oral.Susp) 30 ml PO DAILY PRN PRN Reason: Constipation Last Admin: 11/17/24 04:56 Dose: 30 ml Miconazole Nitrate (Miconazole Nitrate 2% Oint 57 Gm Oint...G.) 1 appl TOPICAL BID [facility]; Protocol Last Admin: 11/24/24 09:13 Dose: Not Given Ondansetron HCl (Ondansetron Odt 8 Mg Tab.Rapdis) 8 mg TRANSLINGU Q8H PRN PRN Reason: Nausea and Vomiting Last Admin: 11/23/24 16:56 Dose: 8 mg Sodium Chloride (Sodium Chloride 0.65 % Nasal 44 Ml Sprbtl) 1 spray NOSTRIL-B Q1H PRN PRN Reason: Dry Nasal Passages Last Admin: 11/22/24 06:59 Dose: 1 spray Trazodone HCl (Trazodone Hcl 50 Mg Tablet) 50 mg PO BEDTIME MRX1 PRN PRN Reason: Insomnia Last Admin: 11/16/24 23:04 Dose: 50 mg Valproic Acid (Valproic Acid Liquid 250 Mg/5 Ml Solution) 1,250 mg PO BID [facility] Last Admin: 11/24/24 08:36 Dose: 1,250 mg Home Medications ?Medication ?Instructions ?Recorded ?Confirmed ?Last Taken ?Type propranolol 10 mg tablet 5 mg PO BID 10/30/24 11/14/24 11/14/24 11:00 History lorazepam 1 mg tablet 1 mg PO BID PRN Anxiety 11/08/24 11/14/24 11/14/24 11:00 History carbamazepine 200 mg tablet 200 mg PO TID 11/14/24 11/14/2411/14/24 15:00 History (Tegretol) clonidine HCl 0.3 mg tablet 0.3 mg PO TID 11/14/24 11/14/24 11/14/24 13:00 History divalproex 125 mg capsule,delayed 1,250 mg PO TID 11/14/24 11/14/24 11/14/24 15:00 History release sprinkle (Depakote Sprinkles) fluphenazine HCl 10 mg tablet 10 mg PO TID 11/14/24 11/14/24 11/14/24 15:00 History Results Labs 11/17/24 10:26 Assessment and Plan (1) Schizoaffective disorder, bipolar type: Status: Acute Plan I was asked to consult on this 28-year-old male to give input on whether or not patient may have sialadenitis/parotitis. Based off with my examination this is unlikely. Patient is not having trismus, pain with palpation of parotid glands, no mandibular pain no pain in his mouth, no pain in his tongue or abnormalities with tongue worse elevation status. He is feeling well and offers no complaints. He states his throat her yesterday after receiving medication which he described as ?poison?. No signs of infection at this time. On physical exam there is no abnormalities no facial swelling. Making sialadenitis/parotitis very unlikely. If at some point patient has facial swelling, pain over parotid gland can trial lozenges/sour candies and hospitalist team can be reconsulted. However at this time history and physical exam not consistent with this. And most importantly no signs of acute process such as Fabien's. I do not suspect acute infection either. Physical Exam Vital Signs: Last Vital Signs Temp 97.2 F 11/23/24 20:00 Pulse 100 11/23/24 20:00 Resp 16 11/23/24 20:00 BP 120/65 11/23/24 20:00 Pulse Ox 97 11/23/24 20:00 O2 Del Method Room Air 11/23/24 20:00 BMI result Body Mass Index 36.9 Appearance: Alert.? Oriented X3.? No acute cardiopulmonary distress distress.? Patient appears acutely manic Head: Normocephalic, atraumatic, no step-offs or deformities. No appreciated facial swelling. No erythema, or edema to face. ENT: Pharynx normal.??No preauricular discomfort no pain with palpation over parotids bilaterally. No mandibular pain. No trismus. Normal tongue. Neck: Normal inspection.? Neck supple.? CVS: Pulses normal.? Respiratory: No respiratory distress.? Skin: ? Normal skin color. Extremities: 5/5 strength to bilateral upper and lower extremities Neuro: Oriented X 3.? No motor deficit.? No sensory deficit. Neuro Cranial nerves: Yes CN's II-XII intact bilaterally
--- NOTE | 2024-11-24 10:35 | HO.PSYCHPN ---
Subjective Subjective Date of Service: 11/24/24 Reason For Visit: Yessi/Psychosis Interim History: Patient seen and discussed. Last night required IV Depakote but took his other medications. He has not been overtly aggressive last 24 hours. Continues to report medications are poison. Remains delusional, paranoid, very disorganized. Inappropriate with female 1:1. Disorganized thought process with tenriism, sexual and superhero content. Poor sleep. Observed to be responding to IS. Review of Systems Review of Systems Blurred vision and left hand tremor Yes all other systems are reviewed and are negative Mental Status Exam Mental Status Exam Narrative: adequately dressed and groomed. cooperative. mild PMR. left hand tremor. speech incr rate, nml amount, decr latency, nml loudness. affect constricted, non-labile. mood euthymic. no SI/HI/AVH expressed. Diagnostics Vital Signs (24Hr): Vital Signs - 24 hr 11/23/24 20:00 Temperature 97.2 F Pulse Rate 100 Respiratory Rate 16 Blood Pressure 120/65 Pulse Oximetry 97 Oxygen Delivery Method Room Air BMI result Body Mass Index 36.9 Labs 11/17/24 10:26 Medications Medications Current Medications Acetaminophen (Acetaminophen 325 Mg Tablet) 650 mg PO Q6H PRN PRN Reason: Headache/Pain Mild Scale (1-3) Last Admin: 11/24/24 01:59 Dose: 650 mg Al Hydroxide/Mg Hydroxide (Magnesium Hydrox/Alum Hydrox 30 Ml Oral.Susp) 30 ml PO Q6H PRN PRN Reason: Heartburn/Nausea Last Admin: 11/20/24 05:06 Dose: 30 ml Artificial Tears (Artificial Tears 15 Ml Drops) 2 drop EYE-BOTH Q1H PRN PRN Reason: Dry Eyes Last Admin: 11/22/24 10:51 Dose: 2 drop Benztropine Mesylate (Benztropine Mesylate 1 Mg Tablet) 1 mg PO BID [facility] Last Admin: 11/24/24 09:03 Dose: Not Given Calcium Carbonate (Calcium Carbonate 750 Mg Tab.Chew) 750 mg PO Q6H PRN PRN Reason: Heartburn Last Admin: 11/23/24 16:58 Dose: 750 mg Diazepam (Diazepam 5 Mg Tablet) 10 mg PO BID PRN PRN Reason: for anxiety/mod agitation Divalproex Sodium (Divalproex Sodium Sprinkles 125 Mg Cap.Dr.Spr) 1,250 mg PO BID [facility] Last Admin: 11/23/24 10:30 Dose: Not Given Fluphenazine HCl (Fluphenazine Hcl Oral Liquid 2.5 Mg/5 Ml Elixir) 15 mg PO BID [facility] Last Admin: 11/24/24 09:27 Dose: Not Given Fluphenazine HCl (Fluphenazine Hcl 2.5 Mg/Ml 10 Ml Vial) 15 mg IM BID PRN PRN Reason: refusal of PO Prolixin Last Admin: 11/24/24 09:17 Dose: 15 mg Glycopyrrolate (Glycopyrrolate 1 Mg Tablet) 2 mg PO BID [facility] Last Admin: 11/24/24 09:03 Dose: Not Given Hydroxyzine HCl (Hydroxyzine Hcl 25 Mg Tablet) 25 mg PO Q6H PRN PRN Reason: Anxiety Last Admin: 11/19/24 23:47 Dose: 25 mg Valproic Acid 1,000 mg/ (Dextrose) 60 mls @ 60 mls/hr IV BID [facility] Last Admin: 11/24/24 09:13 Dose: Not Given Ibuprofen (Ibuprofen 800 Mg Tablet) 800 mg PO QID [facility] Last Admin: 11/24/24 09:03 Dose: Not Given Lorazepam (Lorazepam 1 Mg Tablet) 2 mg PO BEDTIME [facility] Last Admin: 11/23/24 20:23 Dose: 2 mg Magnesium Hydroxide (Milk Of Magnesia 30 Ml Oral.Susp) 30 ml PO DAILY PRN PRN Reason: Constipation Last Admin: 11/17/24 04:56 Dose: 30 ml Miconazole Nitrate (Miconazole Nitrate 2% Oint 57 Gm Oint...G.) 1 appl TOPICAL BID [facility]; Protocol Last Admin: 11/24/24 09:13 Dose: Not Given Ondansetron HCl (Ondansetron Odt 8 Mg Tab.Rapdis) 8 mg TRANSLINGU Q8H PRN PRN Reason: Nausea and Vomiting Last Admin: 11/23/24 16:56 Dose: 8 mg Sodium Chloride (Sodium Chloride 0.65 % Nasal 44 Ml Sprbtl) 1 spray NOSTRIL-B Q1H PRN PRN Reason: Dry Nasal Passages Last Admin: 11/22/24 06:59 Dose: 1 spray Trazodone HCl (Trazodone Hcl 50 Mg Tablet) 50 mg PO BEDTIME MRX1 PRN PRN Reason: Insomnia Last Admin: 11/16/24 23:04 Dose: 50 mg Valproic Acid (Valproic Acid Liquid 250 Mg/5 Ml Solution) 1,250 mg PO BID [facility] Last Admin: 11/24/24 08:36 Dose: 1,250 mg Allergies Allergies Allergy/AdvReac Type Severity Reaction Status Date / Time trazodone [TRAZODONE] Allergy Severe OVER Verified 06/08/22 14:15 SEDATION lithium Allergy Hives Verified 11/02/24 18:44 Assessment & Plan Assessment & Plan (1) Schizoaffective disorder, bipolar type: Status: Acute Code(s): F25.0 - Schizoaffective disorder, bipolar type Assessment and Plan: (1) Schizoaffective disorder, bipolar type: Status: Acute Code(s): F25.0 - Schizoaffective disorder, bipolar type Plan HOSPITAL COURSE: 11/14: tegretol per ruiz with valium IM back-up. prolixin per ruiz with prolixin IM back-up. 11/15: appears willing to take liquid formulations of tegretol and prolixin at the moment. continue current plan. taper VPA. give prolixin dec once it is established he is tolerating PO well. 11/16: not tolerating liquid prolixin, switch to pills. increase glycopyrrolate for sialorrhea (1 BID --> 2 BID). DC VPA, increase tegretol 400 BID--> 600 BID. eye drops for dry eyes. schedule ibuprofen for arm pain. not sleeping. hoping to achieve adequate mood stabilization with tegretol before pt decompensates into disorganized and violent state again. 11/17- will lower prolixin to 10mg po BID due to parkinsonism. given one time cogentin and ativan. 11/18 increase back to prolixin 15mg po BID, continue all other medications. added ativan 2mg po qhs for sleep. 11/19/24 Pt less manic hostile encourage po tegretol po prolixin needs much reassurance 11/20 given presentation and collateral will change treatment plan: last night, pt ramping up, intrusive, angry, posturing...refused PO meds and pt was eventually redirectable today refused court ordered meds; travel writer tried to discuss with other staff but pt refused, said he knows staff is illuminati, that crisis told he does not need to and he's going to [place] [facility]..pt then baricaded himself into room; security called... However patient was redirectable and took court-ordered medications without issue. He later came up to travel writer and explained that he was scared of staff because he knows that we are the illuminati... Could not accept otherwise. Patient however was briefly able to have a goal-directed conversation about medication. He said that Depakote had caused him to have diarrhea and blurry vision and so did not want to be on it; and that Invega cause tremor,. However travel writer explained and patient seemed able to accept that for now, to help him stabilize he will need to go back on these medications and once stable can talk about alternatives. Otherwise throughout the day Patient remained with intermittent disorganized hyperactivity, nearly ending up in restraint several times. Case discussed with both Dr. Mendes and Dr. Nguyen who agree with changes Medical Records Library Professor reviewed chart and when patient was in the ICU, he was getting both Tegretol and Depakote, even Depakote 1000 mg t.i.d. from 11/10 to 11/13; LFTs were monitored during this time and travel writer correlated LFTs which actually improved and trended towards normal, while getting Depakote. Medical Records Library Professor discussed treatment plan with pharmacist who agreed with IV Depakote IR 1000 mg, infused over 60 minutes b.i.d. (q.12 hours negotiable since the more time in between doses, the further peak concentrations are from 1 another and likely more therapeutic); infusion rate of 60 minutes is to mitigate risk of side effects which include altered mental status and hypertension if infused more quickly. Medical Records Library Professor also discussed case with outpatient psychiatric provider Dr. Mendez: Dr. Mendez reports that patient was relatively stable from 05/2024 after a psychiatric hospitalization discontinued Clozaril and Zyprexa and had patient on only Invega Sustenna 156 mg and Depakote ER [address] Mendez denies that patient had any significant symptoms from either of these medications, including drooling, blurry vision or diarrhea (some tremor and weight gain from Depakote; drooling only present when patient was on Clozaril). Dr. Mendez reports that patient and his mother both had a goal to have patient off all medications and over the past few months, patient himself lowered Depakote only 500 mg daily and then started skipping doses which resulted in decompensation and this admission. Impression: Patient did a little better after getting Depakote in the ICU however is again decompensating, disorganized, agitated, [id number], menacing. Patient refusing Tegretol and has taken very few doses; Prolixin does not seem to help at all. Per outpatient provider, Patient has done well on Invega and Depakote in the past with minimal side effects. Will switch and restart Depakote and Invega and discontinue Prolixin and Tegretol Plan: 1:1 Section 8/involuntary commitment court order medication 1 TIME dose Invega Sustenna IM 234 mg; will follow-up with 156 mg (on court order) START paliperidone 3 mg b.i.d.; court-ordered, Prolixin IM if refuses START Depakote Sprinkles 1000 mg b.i.d. (patient will only take it of edible); court ordered, IV Depakote if refuses p.o. DISCONTINUE Prolixin; does not seem to be helping anyway; has a history of doing well on Invega (and Depakote) DISCONTINUE Tegretol; has hardly been taking anyway and patient has a history of doing well on Depakote Will monitor LFTs/ammonia however patient was getting both Depakote and Tegretol in the ICU and LFTs improved; per outpatient provider no known hepatotoxicity from this medication regimen -p.r.n. Prolixin IM if refuses p.o. paliperidone -p.r.n. Valproic acid IV 1000 mg (with dextrose) transfused over 1 hour if refuses p.o. Depakote Sprinkles; restraint as needed Start miconazole for tenia curis which patient reported; examined by travel writer with accompanying nurse 11/21: Continue current regimen and plans. Added Cogentin 1 mg b.i.d. 11/22: continue current mgmt. 11/23: got IMs yesterday for most meds, took PO liquids this morning. grossly disorganized, paranoid delusions with recent 234 mg IM of invega, adequate invega in pt's body, will DC PO invega. offer prolixin PO with IM back-up. VPA liquid, IV VPA if refuses PO. 11/24: Continue current management and treatment plan. Reason for continued inpatient stay Substantial Risk for: harm to self, harm to others, inability to function and rapid decompensation Time Spent With Patient Time: Total time managing care of this patient today ____ minutes.
[2024-11-24 13:55] VITALS: BP 145/75; PULSE 107; RESP 18
[2024-11-24] MEDS: Nicotine Polacrilex 2 MG GUM 4 MG BUCCAL (18:46)
[2024-11-24 20:00] VITALS: BP 137/84; PULSE 114; RESP 16; TEMP 36.8; O2SAT 99
[2024-11-24] MEDS: FLUPHENAZINE 2.5 MG/5 ML 15 MG PO (20:27)
[2024-11-24] MEDS: LORazepam 1 MG TABLET 2 MG PO (20:34)
[2024-11-24] MEDS: Glycopyrrolate 1 MG TABLET 2 MG PO (20:34)
[2024-11-25] MEDS: Nicotine Polacrilex 2 MG GUM 4 MG BUCCAL ×4 (04:22→23:15)
[2024-11-25 08:00] VITALS: BP 173/71; PULSE 123; RESP 14; TEMP 36.8; O2SAT 97
[2024-11-25] MEDS: Valproic Acid Liquid 250 MG/5 ML SOLUTION 1250 MG PO ×2 (08:35→19:57)
[2024-11-25] MEDS: fluPHENAZine HCL 2.5 MG/ML 10 ML VIAL 15 MG IM (08:39)
--- NOTE | 2024-11-25 09:57 | HO.PSYCHPN ---
Subjective Subjective Date of Service: 11/25/24 Reason For Visit: Yessi/Psychosis Interim History: Patient seen and discussed. Continues to refuse Cogentin. Having EPS symptoms (stiff, drooling). Took PO Depakote. Took Prolixin IM after refusing it PO. He has not been overtly aggressive last 48 hours. Continues to report medications are poison. Remains delusional, paranoid, very disorganized. I've had AIDS for years. It's killing me... Inappropriate with female 1:1. Disorganized thought process with lutheran, sexual and superhero content. Met with patient and discussed taking Cogentin. Patient refusing to take it PO saying it's poison. He was willing to take it as an IM (He takes Prolixin IM). Will order as a one time IM. Review of Systems Review of Systems Blurred vision and left hand tremor Yes all other systems are reviewed and are negative Mental Status Exam Mental Status Exam Narrative: adequately dressed and groomed. cooperative. mild PMR. left hand tremor. speech incr rate, nml amount, decr latency, nml loudness. affect constricted, non-labile. mood euthymic. no SI/HI/AVH expressed. Diagnostics Vital Signs (24Hr): Vital Signs - 24 hr 11/24/24 13:55 11/24/24 20:00 11/25/24 08:00 Temperature 98.2 F 98.2 F Pulse Rate 107 H 114 H 123 H Respiratory Rate 18 16 14 Blood Pressure 145/75 H 137/84 173/71 H Pulse Oximetry 99 97 Oxygen Delivery Method Room Air Room Air BMI result Body Mass Index 36.9 Labs 11/17/24 10:26 Medications Medications Current Medications Acetaminophen (Acetaminophen 325 Mg Tablet) 650 mg PO Q6H PRN PRN Reason: Headache/Pain Mild Scale (1-3) Last Admin: 11/24/24 01:59 Dose: 650 mg Al Hydroxide/Mg Hydroxide (Magnesium Hydrox/Alum Hydrox 30 Ml Oral.Susp) 30 ml PO Q6H PRN PRN Reason: Heartburn/Nausea Last Admin: 11/20/24 05:06 Dose: 30 ml Artificial Tears (Artificial Tears 15 Ml Drops) 2 drop EYE-BOTH Q1H PRN PRN Reason: Dry Eyes Last Admin: 11/22/24 10:51 Dose: 2 drop Benztropine Mesylate (Benztropine Mesylate 1 Mg Tablet) 1 mg PO BID [facility] Last Admin: 11/25/24 08:40 Dose: Not Given Calcium Carbonate (Calcium Carbonate 750 Mg Tab.Chew) 750 mg PO Q6H PRN PRN Reason: Heartburn Last Admin: 11/23/24 16:58 Dose: 750 mg Diazepam (Diazepam 5 Mg Tablet) 10 mg PO BID PRN PRN Reason: for anxiety/mod agitation Divalproex Sodium (Divalproex Sodium Sprinkles 125 Mg ) 1,250 mg PO BID [facility] Last Admin: 11/23/24 10:30 Dose: Not Given Fluphenazine HCl (Fluphenazine Hcl Oral Liquid 2.5 Mg/5 Ml Elixir) 15 mg PO BID [facility] Last Admin: 11/25/24 08:40 Dose: Not Given Fluphenazine HCl (Fluphenazine Hcl 2.5 Mg/Ml 10 Ml Vial) 15 mg IM BID PRN PRN Reason: refusal of PO Prolixin Last Admin: 11/25/24 08:39 Dose: 15 mg Glycopyrrolate (Glycopyrrolate 1 Mg Tablet) 2 mg PO BID [facility] Last Admin: 11/25/24 08:40 Dose: Not Given Hydroxyzine HCl (Hydroxyzine Hcl 25 Mg Tablet) 25 mg PO Q6H PRN PRN Reason: Anxiety Last Admin: 11/19/24 23:47 Dose: 25 mg Valproic Acid 1,000 mg/ (Dextrose) 60 mls @ 60 mls/hr IV BID [facility] Last Admin: 11/25/24 08:41 Dose: Not Given Ibuprofen (Ibuprofen 800 Mg Tablet) 800 mg PO QID PRN PRN Reason: Pain, Moderate(Pain Scale 4-6) Lorazepam (Lorazepam 1 Mg Tablet) 2 mg PO BEDTIME [facility] Last Admin: 11/24/24 20:34 Dose: 2 mg Magnesium Hydroxide (Milk Of Magnesia 30 Ml Oral.Susp) 30 ml PO DAILY PRN PRN Reason: Constipation Last Admin: 11/17/24 04:56 Dose: 30 ml Miconazole Nitrate (Miconazole Nitrate 2% Oint 57 Gm Oint...G.) 1 appl TOPICAL BID [facility]; Protocol Last Admin: 11/25/24 08:40 Dose: Not Given Nicotine Polacrilex (Nicotine Polacrilex 2 Mg Gum) 4 mg BUCCAL Q2H PRN PRN Reason: Nicotine Cravings Last Admin: 11/25/24 04:22 Dose: 2 mg Ondansetron HCl (Ondansetron Odt 8 Mg Tab.Rapdis) 8 mg TRANSLINGU Q8H PRN PRN Reason: Nausea and Vomiting Last Admin: 11/23/24 16:56 Dose: 8 mg Sodium Chloride (Sodium Chloride 0.65 % Nasal 44 Ml Sprbtl) 1 spray NOSTRIL-B Q1H PRN PRN Reason: Dry Nasal Passages Last Admin: 11/22/24 06:59 Dose: 1 spray Trazodone HCl (Trazodone Hcl 50 Mg Tablet) 50 mg PO BEDTIME MRX1 PRN PRN Reason: Insomnia Last Admin: 11/16/24 23:04 Dose: 50 mg Valproic Acid (Valproic Acid Liquid 250 Mg/5 Ml Solution) 1,250 mg PO BID [facility] Last Admin: 11/25/24 08:35 Dose: 1,250 mg Allergies Allergies Allergy/AdvReac Type Severity Reaction Status Date / Time trazodone [TRAZODONE] Allergy Severe OVER Verified 06/08/22 14:15 SEDATION lithium Allergy Hives Verified 11/02/24 18:44 Assessment & Plan Assessment & Plan (1) Schizoaffective disorder, bipolar type: Status: Acute Code(s): F25.0 - Schizoaffective disorder, bipolar type Assessment and Plan: (1) Schizoaffective disorder, bipolar type: Status: Acute Code(s): F25.0 - Schizoaffective disorder, bipolar type Plan HOSPITAL COURSE: 11/14: tegretol per sara with valium IM back-up. prolixin per sara with prolixin IM back-up. 11/15: appears willing to take liquid formulations of tegretol and prolixin at the moment. continue current plan. taper VPA. give prolixin dec once it is established he is tolerating PO well. 11/16: not tolerating liquid prolixin, switch to pills. increase glycopyrrolate for sialorrhea (1 BID --> 2 BID). DC VPA, increase tegretol 400 BID--> 600 BID. eye drops for dry eyes. schedule ibuprofen for arm pain. not sleeping. hoping to achieve adequate mood stabilization with tegretol before pt decompensates into disorganized and violent state again. 11/17- will lower prolixin to 10mg po BID due to parkinsonism. given one time cogentin and ativan. 11/18 increase back to prolixin 15mg po BID, continue all other medications. added ativan 2mg po qhs for sleep. 11/19/24 Pt less manic hostile encourage po tegretol po prolixin needs much reassurance 11/20 given presentation and collateral will change treatment plan: last night, pt ramping up, intrusive, angry, posturing...refused PO meds and pt was eventually redirectable today refused court ordered meds; marine underwriter tried to discuss with other staff but pt refused, said he knows staff is illuminati, that crisis told he does not need to and he's going to [place] [facility]..pt then baricaded himself into room; security called... However patient was redirectable and took court-ordered medications without issue. He later came up to marine underwriter and explained that he was scared of staff because he knows that we are the illuminati... Could not accept otherwise. Patient however was briefly able to have a goal-directed conversation about medication. He said that Depakote had caused him to have diarrhea and blurry vision and so did not want to be on it; and that Invega cause tremor,. However marine underwriter explained and patient seemed able to accept that for now, to help him stabilize he will need to go back on these medications and once stable can talk about alternatives. Otherwise throughout the day Patient remained with intermittent disorganized hyperactivity, nearly ending up in restraint several times. Case discussed with both Dr. Mendes and Dr. Nguyen who agree with changes Sales Closer reviewed chart and when patient was in the ICU, he was getting both Tegretol and Depakote, even Depakote 1000 mg t.i.d. from 11/10 to 11/13; LFTs were monitored during this time and marine underwriter correlated LFTs which actually improved and trended towards normal, while getting Depakote. Sales Closer discussed treatment plan with pharmacist who agreed with IV Depakote IR 1000 mg, infused over 60 minutes b.i.d. (q.12 hours negotiable since the more time in between doses, the further peak concentrations are from 1 another and likely more therapeutic); infusion rate of 60 minutes is to mitigate risk of side effects which include altered mental status and hypertension if infused more quickly. Sales Closer also discussed case with outpatient psychiatric provider Dr. Mendez: Dr. Mendez reports that patient was relatively stable from 05/2024 after a psychiatric hospitalization discontinued Clozaril and Zyprexa and had patient on only Invega Sustenna 156 mg and Depakote ER [address] Mendez denies that patient had any significant symptoms from either of these medications, including drooling, blurry vision or diarrhea (some tremor and weight gain from Depakote; drooling only present when patient was on Clozaril). Dr. Mendez reports that patient and his mother both had a goal to have patient off all medications and over the past few months, patient himself lowered Depakote only 500 mg daily and then started skipping doses which resulted in decompensation and this admission. Impression: Patient did a little better after getting Depakote in the ICU however is again decompensating, disorganized, agitated, [id number], menacing. Patient refusing Tegretol and has taken very few doses; Prolixin does not seem to help at all. Per outpatient provider, Patient has done well on Invega and Depakote in the past with minimal side effects. Will switch and restart Depakote and Invega and discontinue Prolixin and Tegretol Plan: 1:1 Section 8/involuntary commitment court order medication 1 TIME dose Invega Sustenna IM 234 mg; will follow-up with 156 mg (on court order) START paliperidone 3 mg b.i.d.; court-ordered, Prolixin IM if refuses START Depakote Sprinkles 1000 mg b.i.d. (patient will only take it of edible); court ordered, IV Depakote if refuses p.o. DISCONTINUE Prolixin; does not seem to be helping anyway; has a history of doing well on Invega (and Depakote) DISCONTINUE Tegretol; has hardly been taking anyway and patient has a history of doing well on Depakote Will monitor LFTs/ammonia however patient was getting both Depakote and Tegretol in the ICU and LFTs improved; per outpatient provider no known hepatotoxicity from this medication regimen -p.r.n. Prolixin IM if refuses p.o. paliperidone -p.r.n. Valproic acid IV 1000 mg (with dextrose) transfused over 1 hour if refuses p.o. Depakote Sprinkles; restraint as needed Start miconazole for tenia curis which patient reported; examined by marine underwriter with accompanying nurse 11/21: Continue current regimen and plans. Added Cogentin 1 mg b.i.d. 11/22: continue current mgmt. 11/23: got IMs yesterday for most meds, took PO liquids this morning. grossly disorganized, paranoid delusions with recent 234 mg IM of invega, adequate invega in pt's body, will DC PO invega. offer prolixin PO with IM back-up. VPA liquid, IV VPA if refuses PO. 11/24: Continue current management and treatment plan. 11/25: Cogentin IM 1mg. Consider scheduled IM if continues to refuse PO. Continue current management and treatment plan. Reason for continued inpatient stay Substantial Risk for: harm to others, inability to function and rapid decompensation Time Spent With Patient Time: Total time managing care of this patient today ____ minutes.
[2024-11-25] MEDS: Benztropine Mesylate 2 MG/2 ML VIAL 1 MG IM (11:35)
[2024-11-25] MEDS: FLUPHENAZINE 2.5 MG/5 ML 15 MG PO (19:56)
[2024-11-25 20:00] VITALS: BP 136/79; PULSE 110; RESP 16; TEMP 37; O2SAT 96
[2024-11-25] MEDS: LORazepam 1 MG TABLET 2 MG PO (22:10)
[2024-11-25] MEDS: Glycopyrrolate 1 MG TABLET 2 MG PO (22:11)
[2024-11-25] MEDS: Miconazole Nitrate 2% Oint 57 GM OINT...G. 1 APPL TOPICAL (22:51)
[2024-11-25] MEDS: traZODone HCL 50 MG TABLET PO (23:14)
[2024-11-26] MEDS: Glycopyrrolate 1 MG TABLET 2 MG PO ×2 (05:12→21:37)
--- NOTE | 2024-11-26 05:20 | PC.NURSE ---
robinul administered at this time per patient request due to drooling.
[2024-11-26] MEDS: Nicotine Polacrilex 2 MG GUM 4 MG BUCCAL ×2 (05:50→21:49)
[2024-11-26] MEDS: Valproic Acid Liquid 250 MG/5 ML SOLUTION 1250 MG PO ×2 (08:51→21:39)
[2024-11-26] MEDS: fluPHENAZine HCL 2.5 MG/ML 10 ML VIAL 15 MG IM (08:58)
[2024-11-26 09:00] VITALS: BP 131/71; PULSE 96; RESP 16; TEMP 36.3; O2SAT 98
--- NOTE | 2024-11-26 14:20 | HO.PSYCHPN ---
Subjective Subjective Date of Service: 11/26/24 Reason For Visit: Yessi/Psychosis Subjective Notes: Section 8 Interim History: Pt has not required restraint restless with periods of lethargy speech unclear periods of agitation Mental Status Exam Mental Status Exam Narrative: pt intermittantly labile disorganized illogical pressures at times no si hi del concerns limited impulse control Diagnostics Vital Signs (24Hr): Vital Signs - 24 hr 11/25/24 20:00 11/26/24 09:00 Temperature 98.6 F 97.4 F Pulse Rate 110 H 96 Respiratory Rate 16 16 Blood Pressure 136/79 131/71 Pulse Oximetry 96 98 Oxygen Delivery Method Room Air Room Air BMI result Body Mass Index 36.9 Labs 11/17/24 10:26 Medications Medications Current Medications Acetaminophen (Acetaminophen 325 Mg Tablet) 650 mg PO Q6H PRN PRN Reason: Headache/Pain Mild Scale (1-3) Last Admin: 11/24/24 01:59 Dose: 650 mg Al Hydroxide/Mg Hydroxide (Magnesium Hydrox/Alum Hydrox 30 Ml Oral.Susp) 30 ml PO Q6H PRN PRN Reason: Heartburn/Nausea Last Admin: 11/20/24 05:06 Dose: 30 ml Artificial Tears (Artificial Tears 15 Ml Drops) 2 drop EYE-BOTH Q1H PRN PRN Reason: Dry Eyes Last Admin: 11/22/24 10:51 Dose: 2 drop Benztropine Mesylate (Benztropine Mesylate 1 Mg Tablet) 1 mg PO BID [facility] Last Admin: 11/26/24 08:56 Dose: Not Given Calcium Carbonate (Calcium Carbonate 750 Mg Tab.Chew) 750 mg PO Q6H PRN PRN Reason: Heartburn Last Admin: 11/23/24 16:58 Dose: 750 mg Diazepam (Diazepam 5 Mg Tablet) 10 mg PO BID PRN PRN Reason: for anxiety/mod agitation Divalproex Sodium (Divalproex Sodium Sprinkles 125 Mg ) 1,250 mg PO BID [facility] Last Admin: 11/23/24 10:30 Dose: Not Given Fluphenazine HCl (Fluphenazine Hcl Oral Liquid 2.5 Mg/5 Ml Elixir) 15 mg PO BID [facility] Last Admin: 11/26/24 08:56 Dose: Not Given Fluphenazine HCl (Fluphenazine Hcl 2.5 Mg/Ml 10 Ml Vial) 15 mg IM BID PRN PRN Reason: refusal of PO Prolixin Last Admin: 11/26/24 08:58 Dose: 15 mg Glycopyrrolate (Glycopyrrolate 1 Mg Tablet) 2 mg PO BID [facility] Last Admin: 11/26/24 05:12 Dose: 2 mg Hydroxyzine HCl (Hydroxyzine Hcl 25 Mg Tablet) 25 mg PO Q6H PRN PRN Reason: Anxiety Last Admin: 11/19/24 23:47 Dose: 25 mg Valproic Acid 1,000 mg/ (Dextrose) 60 mls @ 60 mls/hr IV BID [facility] Last Admin: 11/26/24 08:57 Dose: Not Given Ibuprofen (Ibuprofen 800 Mg Tablet) 800 mg PO QID PRN PRN Reason: Pain, Moderate(Pain Scale 4-6) Lorazepam (Lorazepam 1 Mg Tablet) 2 mg PO BEDTIME [facility] Last Admin: 11/25/24 22:10 Dose: 2 mg Magnesium Hydroxide (Milk Of Magnesia 30 Ml Oral.Susp) 30 ml PO DAILY PRN PRN Reason: Constipation Last Admin: 11/17/24 04:56 Dose: 30 ml Miconazole Nitrate (Miconazole Nitrate 2% Oint 57 Gm Oint...G.) 1 appl TOPICAL BID [facility]; Protocol Last Admin: 11/26/24 08:57 Dose: Not Given Nicotine Polacrilex (Nicotine Polacrilex 2 Mg Gum) 4 mg BUCCAL Q2H PRN PRN Reason: Nicotine Cravings Last Admin: 11/26/24 05:50 Dose: 4 mg Ondansetron HCl (Ondansetron Odt 8 Mg Tab.Rapdis) 8 mg TRANSLINGU Q8H PRN PRN Reason: Nausea and Vomiting Last Admin: 11/23/24 16:56 Dose: 8 mg Sodium Chloride (Sodium Chloride 0.65 % Nasal 44 Ml Sprbtl) 1 spray NOSTRIL-B Q1H PRN PRN Reason: Dry Nasal Passages Last Admin: 11/22/24 06:59 Dose: 1 spray Trazodone HCl (Trazodone Hcl 50 Mg Tablet) 50 mg PO BEDTIME MRX1 PRN PRN Reason: Insomnia Last Admin: 11/25/24 23:14 Dose: 50 mg Valproic Acid (Valproic Acid Liquid 250 Mg/5 Ml Solution) 1,250 mg PO BID [facility] Last Admin: 11/26/24 08:51 Dose: 1,250 mg Allergies Allergies Allergy/AdvReac Type Severity Reaction Status Date / Time trazodone [TRAZODONE] Allergy Severe OVER Verified 06/08/22 14:15 SEDATION lithium Allergy Hives Verified 11/02/24 18:44 Assessment & Plan Assessment & Plan (1) Schizoaffective disorder, bipolar type: Status: Acute Code(s): F25.0 - Schizoaffective disorder, bipolar type Assessment and Plan: (1) Schizoaffective disorder, bipolar type: Status: Acute Code(s): F25.0 - Schizoaffective disorder, bipolar type Plan HOSPITAL COURSE: 11/14: tegretol per ruiz with valium IM back-up. prolixin per ruiz with prolixin IM back-up. 11/15: appears willing to take liquid formulations of tegretol and prolixin at the moment. continue current plan. taper VPA. give prolixin dec once it is established he is tolerating PO well. 11/16: not tolerating liquid prolixin, switch to pills. increase glycopyrrolate for sialorrhea (1 BID --> 2 BID). DC VPA, increase tegretol 400 BID--> 600 BID. eye drops for dry eyes. schedule ibuprofen for arm pain. not sleeping. hoping to achieve adequate mood stabilization with tegretol before pt decompensates into disorganized and violent state again. 11/17- will lower prolixin to 10mg po BID due to parkinsonism. given one time cogentin and ativan. 11/18 increase back to prolixin 15mg po BID, continue all other medications. added ativan 2mg po qhs for sleep. 11/19/24 Pt less manic hostile encourage po tegretol po prolixin needs much reassurance 11/20 given presentation and collateral will change treatment plan: last night, pt ramping up, intrusive, angry, posturing...refused PO meds and pt was eventually redirectable today refused court ordered meds; conventional underwriter tried to discuss with other staff but pt refused, said he knows staff is illumin[employer], that crisis told he does not need to and he's going to [facility]..pt then baricaded himself into room; security called... However patient was redirectable and took court-ordered medications without issue. He later came up to conventional underwriter and explained that he was scared of staff because he knows that we are the illuminati... Could not accept otherwise. Patient however was briefly able to have a goal-directed conversation about medication. He said that Depakote had caused him to have diarrhea and blurry vision and so did not want to be on it; and that Invega cause tremor,. However conventional underwriter explained and patient seemed able to accept that for now, to help him stabilize he will need to go back on these medications and once stable can talk about alternatives. Otherwise throughout the day Patient remained with intermittent disorganized hyperactivity, nearly ending up in restraint several times. Case discussed with both Dr. Mendes and Dr. Nguyen who agree with changes Carding Machine Operator reviewed chart and when patient was in the ICU, he was getting both Tegretol and Depakote, even Depakote 1000 mg t.i.d. from 11/10 to 11/13; LFTs were monitored during this time and conventional underwriter correlated LFTs which actually improved and trended towards normal, while getting Depakote. Carding Machine Operator discussed treatment plan with pharmacist who agreed with IV Depakote IR 1000 mg, infused over 60 minutes b.i.d. (q.12 hours negotiable since the more time in between doses, the further peak concentrations are from 1 another and likely more therapeutic); infusion rate of 60 minutes is to mitigate risk of side effects which include altered mental status and hypertension if infused more quickly. Carding Machine Operator also discussed case with outpatient psychiatric provider Dr. Mendez: Dr. Mendez reports that patient was relatively stable from 05/2024 after a psychiatric hospitalization discontinued Clozaril and Zyprexa and had patient on only Invega Sustenna 156 mg and Depakote ER [address] Mendez denies that patient had any significant symptoms from either of these medications, including drooling, blurry vision or diarrhea (some tremor and weight gain from Depakote; drooling only present when patient was on Clozaril). Dr. Mendez reports that patient and his mother both had a goal to have patient off all medications and over the past few months, patient himself lowered Depakote only 500 mg daily and then started skipping doses which resulted in decompensation and this admission. Impression: Patient did a little better after getting Depakote in the ICU however is again decompensating, disorganized, agitated, [id number], menacing. Patient refusing Tegretol and has taken very few doses; Prolixin does not seem to help at all. Per outpatient provider, Patient has done well on Invega and Depakote in the past with minimal side effects. Will switch and restart Depakote and Invega and discontinue Prolixin and Tegretol Plan: 1:1 Section 8/involuntary commitment court order medication 1 TIME dose Invega Sustenna IM 234 mg; will follow-up with 156 mg (on court order) START paliperidone 3 mg b.i.d.; court-ordered, Prolixin IM if refuses START Depakote Sprinkles 1000 mg b.i.d. (patient will only take it of edible); court ordered, IV Depakote if refuses p.o. DISCONTINUE Prolixin; does not seem to be helping anyway; has a history of doing well on Invega (and Depakote) DISCONTINUE Tegretol; has hardly been taking anyway and patient has a history of doing well on Depakote Will monitor LFTs/ammonia however patient was getting both Depakote and Tegretol in the ICU and LFTs improved; per outpatient provider no known hepatotoxicity from this medication regimen -p.r.n. Prolixin IM if refuses p.o. paliperidone -p.r.n. Valproic acid IV 1000 mg (with dextrose) transfused over 1 hour if refuses p.o. Depakote Sprinkles; restraint as needed Start miconazole for tenia curis which patient reported; examined by conventional underwriter with accompanying nurse 11/21: Continue current regimen and plans. Added Cogentin 1 mg b.i.d. 11/22: continue current mgmt. 11/23: got IMs yesterday for most meds, took PO liquids this morning. grossly disorganized, paranoid delusions with recent 234 mg IM of invega, adequate invega in pt's body, will DC PO invega. offer prolixin PO with IM back-up. VPA liquid, IV VPA if refuses PO. 11/24: Continue current management and treatment plan. 11/25: Cogentin IM 1mg. Consider scheduled IM if continues to refuse PO. Continue current management and treatment plan. 11/26 ck dep level lft invega 156 am would dec prolixin Informed Consent: does not understand Reason for continued inpatient stay Substantial Risk for: harm to others and rapid decompensation Time Spent With Patient Time: Total time managing care of this patient today ____ minutes.
[2024-11-26 20:00] VITALS: BP 143/63; PULSE 100; RESP 16; TEMP 36.3; O2SAT 98
[2024-11-26] MEDS: FLUPHENAZINE 2.5 MG/5 ML 15 MG PO (21:33)
[2024-11-26] MEDS: LORazepam 1 MG TABLET 2 MG PO (21:37)
[2024-11-26] MEDS: Benztropine Mesylate 1 MG TABLET PO (21:37)
[2024-11-26] MEDS: traZODone HCL 50 MG TABLET PO (23:29)
[2024-11-26] MEDS: hydrOXYzine HCL 25 MG TABLET PO (23:29)
[2024-11-27] MEDS: Nicotine Polacrilex 2 MG GUM 4 MG BUCCAL ×2 (02:05→08:05)
[2024-11-27] MEDS: Glycopyrrolate 1 MG TABLET 2 MG PO ×2 (08:04→22:37)
[2024-11-27] MEDS: Benztropine Mesylate 1 MG TABLET PO (08:04)
[2024-11-27 09:26] LABS: Valproate 90.6 mcg/mL (50.0-100.0)
[2024-11-27 09:35] LABS: Alanine Aminotransferase 76 U/L (0-40); Albumin Level 4.1 g/dL (3.5-5.0); Alkaline Phosphatase 82 U/L (39-117); Anion Gap 13 (12-20); Aspartate Amino Transferase 50 U/L (5-37); Bilirubin Total 0.3 mg/dL (0.0-1.0); Blood Urea Nitrogen 9 mg/dL (9-16); Calcium 8.8 mg/dL (8.4-10.2); Carbon Dioxide 23 mmol/L (22-29); Chloride 107 mmol/L (96-108); Creatinine Clr Calc Pharmacy 170.4; Estimated Glomerular Filt Rate > 60; Glucose Fasting 115 mg/dL (60-99); Potassium 3.9 mmol/L (3.3-5.1); Sodium 139 mmol/L (135-145); Total Protein 7.3 g/dL (6.5-8.0)
[2024-11-27] MEDS: Valproic Acid Liquid 250 MG/5 ML SOLUTION 1250 MG PO ×2 (10:45→21:22)
[2024-11-27] MEDS: FLUPHENAZINE 2.5 MG/5 ML 15 MG PO ×2 (10:46→21:25)
[2024-11-27] MEDS: Nicotine Polacrilex Lozenge 4 MG LOZENGE BUCCAL (11:30)
--- NOTE | 2024-11-27 12:10 | HO.PSYCHPN ---
Subjective Subjective Date of Service: 11/27/24 Reason For Visit: Yessi/Psychosis Interim History: calm, cooperative. disorganized and delusional, but also able to organize for brief periods of focused conversation. c/o n/v from meds, asking for IM prolixin and sprinkles VPA rather than liquids. ultimately able to take liquids over 3.5 hours off RN effort to give pt medications, per RN Fitc. per staff, +RIS. took VPA and prolixin yesterday. variable affect eves. labile. slept 5 hours. barricaded self today. Mental Status Exam Mental Status Exam Narrative: adequately dressed and groomed. cooperative. mild PMR. left hand tremor. speech incr rate, nml amount, decr latency, nml loudness. paranoid delusions. affect constricted, non-labile. mood euthymic. no SI/HI/AVH expressed. Diagnostics Vital Signs (24Hr): Vital Signs - 24 hr 11/26/24 20:00 Temperature 97.4 F Pulse Rate 100 Respiratory Rate 16 Blood Pressure 143/63 H Pulse Oximetry 98 Oxygen Delivery Method Room Air BMI result Body Mass Index 36.9 Labs 11/27/24 08:30 Labs: Laboratory Results - last 48 hr 11/27/24 08:30 Sodium 139 Potassium 3.9 Chloride 107 Carbon Dioxide 23 Anion Gap 13 BUN 9 Creatinine 0.85 Estim Creat Clear Calc 170.4 Estimated GFR > 60 Fasting Glucose 115 H Calcium 8.8 D Total Bilirubin 0.3 AST 50 H ALT 76 H Alkaline Phosphatase 82 Total Protein 7.3 Albumin 4.1 Valproic Acid 90.6 Medications Medications Current Medications Acetaminophen (Acetaminophen 325 Mg Tablet) 650 mg PO Q6H PRN PRN Reason: Headache/Pain Mild Scale (1-3) Last Admin: 11/24/24 01:59 Dose: 650 mg Al Hydroxide/Mg Hydroxide (Magnesium Hydrox/Alum Hydrox 30 Ml Oral.Susp) 30 ml PO Q6H PRN PRN Reason: Heartburn/Nausea Last Admin: 11/20/24 05:06 Dose: 30 ml Artificial Tears (Artificial Tears 15 Ml Drops) 2 drop EYE-BOTH Q1H PRN PRN Reason: Dry Eyes Last Admin: 11/22/24 10:51 Dose: 2 drop Benztropine Mesylate (Benztropine Mesylate 1 Mg Tablet) 1 mg PO BID [facility] Last Admin: 11/27/24 08:04 Dose: 1 mg Calcium Carbonate (Calcium Carbonate 750 Mg Tab.Chew) 750 mg PO Q6H PRN PRN Reason: Heartburn Last Admin: 11/23/24 16:58 Dose: 750 mg Diazepam (Diazepam 5 Mg Tablet) 10 mg PO BID PRN PRN Reason: for anxiety/mod agitation Divalproex Sodium (Divalproex Sodium Sprinkles 125 Mg Jagdish.) 1,250 mg PO BID PRN PRN Reason: alternative to liquid VPA Fluphenazine HCl (Fluphenazine Hcl Oral Liquid 2.5 Mg/5 Ml Elixir) 15 mg PO BID [facility] Last Admin: 11/27/24 10:46 Dose: 15 mg Fluphenazine HCl (Fluphenazine Hcl 2.5 Mg/Ml 10 Ml Vial) 15 mg IM BID PRN PRN Reason: refusal of PO Prolixin Last Admin: 11/26/24 08:58 Dose: 15 mg Glycopyrrolate (Glycopyrrolate 1 Mg Tablet) 2 mg PO BID [facility] Last Admin: 11/27/24 08:04 Dose: 2 mg Hydroxyzine HCl (Hydroxyzine Hcl 25 Mg Tablet) 25 mg PO Q6H PRN PRN Reason: Anxiety Last Admin: 11/26/24 23:29 Dose: 25 mg Valproic Acid 1,000 mg/ (Dextrose) 60 mls @ 60 mls/hr IV BID [facility] Last Admin: 11/27/24 10:50 Dose: Not Given Ibuprofen (Ibuprofen 800 Mg Tablet) 800 mg PO QID PRN PRN Reason: Pain, Moderate(Pain Scale 4-6) Lorazepam (Lorazepam 1 Mg Tablet) 2 mg PO BEDTIME [facility] Last Admin: 11/26/24 21:37 Dose: 2 mg Magnesium Hydroxide (Milk Of Magnesia 30 Ml Oral.Susp) 30 ml PO DAILY PRN PRN Reason: Constipation Last Admin: 11/17/24 04:56 Dose: 30 ml Miconazole Nitrate (Miconazole Nitrate 2% Oint 57 Gm Oint...G.) 1 appl TOPICAL BID [facility]; Protocol Last Admin: 11/27/24 08:42 Dose: Not Given Nicotine Polacrilex (Nicotine Polacrilex Lozenge 4 Mg Lozenge) 4 mg BUCCAL Q1H PRN PRN Reason: Nicotine Cravings Last Admin: 11/27/24 11:30 Dose: 4 mg Ondansetron HCl (Ondansetron Odt 8 Mg Tab.Rapdis) 8 mg TRANSLINGU Q8H PRN PRN Reason: Nausea and Vomiting Last Admin: 11/23/24 16:56 Dose: 8 mg Sodium Chloride (Sodium Chloride 0.65 % Nasal 44 Ml Sprbtl) 1 spray NOSTRIL-B Q1H PRN PRN Reason: Dry Nasal Passages Last Admin: 11/22/24 06:59 Dose: 1 spray Trazodone HCl (Trazodone Hcl 50 Mg Tablet) 50 mg PO BEDTIME MRX1 PRN PRN Reason: Insomnia Last Admin: 11/26/24 23:29 Dose: 50 mg Valproic Acid (Valproic Acid Liquid 250 Mg/5 Ml Solution) 1,250 mg PO BID [facility] Last Admin: 11/27/24 10:45 Dose: 1,250 mg Allergies Allergies Allergy/AdvReac Type Severity Reaction Status Date / Time trazodone [TRAZODONE] Allergy Severe OVER Verified 06/08/22 14:15 SEDATION lithium Allergy Hives Verified 11/02/24 18:44 Assessment & Plan Assessment & Plan (1) Schizoaffective disorder, bipolar type: Status: Acute Code(s): F25.0 - Schizoaffective disorder, bipolar type Assessment and Plan: (1) Schizoaffective disorder, bipolar type: Status: Acute Code(s): F25.0 - Schizoaffective disorder, bipolar type Plan HOSPITAL COURSE: 11/14: tegretol per sara with valium IM back-up. prolixin per sara with prolixin IM back-up. 11/15: appears willing to take liquid formulations of tegretol and prolixin at the moment. continue current plan. taper VPA. give prolixin dec once it is established he is tolerating PO well. 11/16: not tolerating liquid prolixin, switch to pills. increase glycopyrrolate for sialorrhea (1 BID --> 2 BID). DC VPA, increase tegretol 400 BID--> 600 BID. eye drops for dry eyes. schedule ibuprofen for arm pain. not sleeping. hoping to achieve adequate mood stabilization with tegretol before pt decompensates into disorganized and violent state again. 11/17- will lower prolixin to 10mg po BID due to parkinsonism. given one time lou and ativan. 11/18 increase back to prolixin 15mg po BID, continue all other medications. added ativan 2mg po qhs for sleep. 11/19/24 Pt less manic hostile encourage po tegretol po prolixin needs much reassurance 11/20 given presentation and collateral will change treatment plan: last night, pt ramping up, intrusive, angry, posturing...refused PO meds and pt was eventually redirectable today refused court ordered meds; display card writer tried to discuss with other staff but pt refused, said he knows staff is [employer], that crisis told he does not need to and he's going to [facility]..pt then baricaded himself into room; security called... However patient was redirectable and took court-ordered medications without issue. He later came up to display card writer and explained that he was scared of staff because he knows that we are the illuminati... Could not accept otherwise. Patient however was briefly able to have a goal-directed conversation about medication. He said that Depakote had caused him to have diarrhea and blurry vision and so did not want to be on it; and that Invega cause tremor,. However display card writer explained and patient seemed able to accept that for now, to help him stabilize he will need to go back on these medications and once stable can talk about alternatives. Otherwise throughout the day Patient remained with intermittent disorganized hyperactivity, nearly ending up in restraint several times. Case discussed with both Dr. Mendes and Dr. Nguyen who agree with changes Director Of Workforce Development reviewed chart and when patient was in the ICU, he was getting both Tegretol and Depakote, even Depakote 1000 mg t.i.d. from 11/10 to 11/13; LFTs were monitored during this time and display card writer correlated LFTs which actually improved and trended towards normal, while getting Depakote. Director Of Workforce Development discussed treatment plan with pharmacist who agreed with IV Depakote IR 1000 mg, infused over 60 minutes b.i.d. (q.12 hours negotiable since the more time in between doses, the further peak concentrations are from 1 another and likely more therapeutic); infusion rate of 60 minutes is to mitigate risk of side effects which include altered mental status and hypertension if infused more quickly. Director Of Workforce Development also discussed case with outpatient psychiatric provider Dr. Mendez: Dr. Mendez reports that patient was relatively stable from 05/2024 after a psychiatric hospitalization discontinued Clozaril and Zyprexa and had patient on only Invega Sustenna 156 mg and Depakote ER [address] Mendez denies that patient had any significant symptoms from either of these medications, including drooling, blurry vision or diarrhea (some tremor and weight gain from Depakote; drooling only present when patient was on Clozaril). Dr. Mendez reports that patient and his mother both had a goal to have patient off all medications and over the past few months, patient himself lowered Depakote only 500 mg daily and then started skipping doses which resulted in decompensation and this admission. Impression: Patient did a little better after getting Depakote in the ICU however is again decompensating, disorganized, agitated, [id number], menacing. Patient refusing Tegretol and has taken very few doses; Prolixin does not seem to help at all. Per outpatient provider, Patient has done well on Invega and Depakote in the past with minimal side effects. Will switch and restart Depakote and Invega and discontinue Prolixin and Tegretol Plan: 1:1 Section 8/involuntary commitment court order medication 1 TIME dose Invega Sustenna IM 234 mg; will follow-up with 156 mg (on court order) START paliperidone 3 mg b.i.d.; court-ordered, Prolixin IM if refuses START Depakote Sprinkles 1000 mg b.i.d. (patient will only take it of edible); court ordered, IV Depakote if refuses p.o. DISCONTINUE Prolixin; does not seem to be helping anyway; has a history of doing well on Invega (and Depakote) DISCONTINUE Tegretol; has hardly been taking anyway and patient has a history of doing well on Depakote Will monitor LFTs/ammonia however patient was getting both Depakote and Tegretol in the ICU and LFTs improved; per outpatient provider no known hepatotoxicity from this medication regimen -p.r.n. Prolixin IM if refuses p.o. paliperidone -p.r.n. Valproic acid IV 1000 mg (with dextrose) transfused over 1 hour if refuses p.o. Depakote Sprinkles; restraint as needed Start miconazole for tenia curis which patient reported; examined by display card writer with accompanying nurse 11/21: Continue current regimen and plans. Added Cogentin 1 mg b.i.d. 11/22: continue current mgmt. 11/23: got IMs yesterday for most meds, took PO liquids this morning. grossly disorganized, paranoid delusions with recent 234 mg IM of invega, adequate invega in pt's body, will DC PO invega. offer prolixin PO with IM back-up. VPA liquid, IV VPA if refuses PO. 11/24: Continue current management and treatment plan. 11/25: Cogentin IM 1mg. Consider scheduled IM if continues to refuse PO. Continue current management and treatment plan. 11/26: ck dep level lft invega 156 am would dec prolixin. 11/27: LFTs remain mildly elevated, improved from recent levels. as pt now has therapeutic invega dosing on board, decrease prolixin dosing. VPA level 90. Reason for continued inpatient stay Substantial Risk for: harm to others, inability to function and rapid decompensation Time Spent With Patient Time: Total time managing care of this patient today __45__ minutes.
[2024-11-27 20:00] VITALS: BP 125/71; PULSE 106; RESP 18; TEMP 36.8; O2SAT 95
[2024-11-27] MEDS: Miconazole Nitrate 2% Oint 57 GM OINT...G. 1 APPL TOPICAL (22:26)
[2024-11-27] MEDS: LORazepam 1 MG TABLET 2 MG PO (22:26)
[2024-11-27] MEDS: traZODone HCL 50 MG TABLET PO (22:26)
[2024-11-27] MEDS: Trolamine Salicylate 10 % Cream 85 GM TUBE 1 APPL TOPICAL (22:37)
[2024-11-27] MEDS: Artificial Tears 15 ML DROPS 2 DROP EYE-BOTH (22:46)
[2024-11-28] MEDS: Nicotine Polacrilex Lozenge 4 MG LOZENGE BUCCAL ×2 (04:27→15:25)
[2024-11-28 07:15] VITALS: BP 115/79; PULSE 108; RESP 14; TEMP 36.4; O2SAT 97
[2024-11-28] MEDS: fluPHENAZine HCL 2.5 MG/ML 10 ML VIAL 15 MG IM (10:29)
[2024-11-28] MEDS: Valproic Acid Liquid 250 MG/5 ML SOLUTION 1250 MG PO ×2 (10:30→19:59)
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
[2024-11-28] MEDS: LORazepam 1 MG TABLET 2 MG PO (19:46)
[2024-11-28] MEDS: Glycopyrrolate 1 MG TABLET 2 MG PO (19:47)
[2024-11-28] MEDS: Benztropine Mesylate 1 MG TABLET PO (19:47)
[2024-11-28 20:00] VITALS: BP 131/70; PULSE 102; RESP 16; TEMP 37.1; O2SAT 97
[2024-11-28] MEDS: FLUPHENAZINE 2.5 MG/5 ML 15 MG PO (20:03)
[2024-11-29] MEDS: Ibuprofen 800 MG TABLET PO (02:35)
[2024-11-29 07:15] VITALS: BP 139/74; PULSE 104; RESP 18; TEMP 36.6; O2SAT 97
[2024-11-29] MEDS: Valproic Acid Liquid 250 MG/5 ML SOLUTION 1250 MG PO ×2 (08:36→19:44)
[2024-11-29] MEDS: fluPHENAZine HCL 2.5 MG/ML 10 ML VIAL 15 MG IM (08:48)
[2024-11-29 10:00] VITALS: BMI 31.4
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
[2024-11-29] MEDS: FLUPHENAZINE 2.5 MG/5 ML 15 MG PO (19:44)
[2024-11-29] MEDS: Nicotine Polacrilex Lozenge 4 MG LOZENGE BUCCAL (20:38)
[2024-11-30] MEDS: Nicotine Polacrilex Lozenge 4 MG LOZENGE BUCCAL ×2 (02:07→18:24)
[2024-11-30 08:00] VITALS: BP 139/89; PULSE 112; RESP 16; TEMP 36.6; O2SAT 96
[2024-11-30] MEDS: Valproic Acid Liquid 250 MG/5 ML SOLUTION 1250 MG PO ×2 (08:24→20:13)
[2024-11-30] MEDS: fluPHENAZine HCL 2.5 MG/ML 10 ML VIAL 15 MG IM (08:47)
[2024-11-30] MEDS: Ondansetron ODT 8 MG TAB.RAPDIS TRANSLINGU (09:01)
[2024-11-30 15:25] VITALS: BP 139/87; PULSE 101
[2024-11-30] MEDS: Nicotine Polacrilex 2 MG GUM 4 MG BUCCAL ×2 (15:25→20:30)
[2024-11-30] MEDS: Propranolol HCL 20 MG TABLET PO (15:25)
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
--- NOTE | 2024-11-30 16:45 | PC.NURSE ---
This underwriter noticed that pt has BL edema in LE. Right with +1 and left is non-pitting. This underwriter reported information to Melvi Lamar NP via [employer]. Response pending.
[2024-11-30 20:11] VITALS: BP 146/106; PULSE 96; RESP 18; TEMP 36.7; O2SAT 97
[2024-11-30] MEDS: fluPHENAZine HCL 2.5 MG/ML 10 ML VIAL 10 MG IM (21:05)
[2024-11-30] MEDS: Sodium Chloride 0.65 % Nasal 44 ML SPRBTL 1 SPRAY NOSTRIL-B (21:35)
[2024-11-30] MEDS: Artificial Tears 15 ML DROPS 2 DROP EYE-BOTH (21:35)
[2024-12-01] MEDS: Nicotine Polacrilex Lozenge 4 MG LOZENGE BUCCAL ×4 (07:35→22:06)
[2024-12-01 07:47] VITALS: BP 130/79; PULSE 109; RESP 16; TEMP 36.5; O2SAT 96
[2024-12-01] MEDS: Nicotine Polacrilex 2 MG GUM 4 MG BUCCAL ×2 (07:59→09:50)
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
[2024-12-01] MEDS: FLUPHENAZINE 2.5 MG/5 ML 10 MG PO (09:49)
[2024-12-01] MEDS: Valproic Acid Liquid 250 MG/5 ML SOLUTION 1250 MG PO ×2 (09:50→22:03)
[2024-12-01 18:17] VITALS: BP 131/62; PULSE 138; RESP 20; TEMP 36.8; O2SAT 100
[2024-12-01 18:30] VITALS: BP 122/71; PULSE 121; RESP 18; TEMP 36.7; O2SAT 100
[2024-12-01] MEDS: diphenhydrAMINE HCL 50 MG/ML VIAL IM (18:35)
[2024-12-01] MEDS: LORazepam 2 MG/ML VIAL IM (18:35)
[2024-12-01] MEDS: fluPHENAZine HCL 2.5 MG/ML 10 ML VIAL 10 MG IM (18:35)
[2024-12-01 18:45] VITALS: BP 129/71; PULSE 115; RESP 18; TEMP 36.7; O2SAT 97
[2024-12-01 19:00] VITALS: RESP 18
[2024-12-01 19:15] VITALS: RESP 18
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
[2024-12-01] MEDS: fluPHENAZine HCL 2.5 MG/ML 10 ML VIAL 15 MG IM (22:04)
[2024-12-02] VITALS (22 sets, daily range): BP systolic 113–145; BP diastolic 60–93; PULSE 104–148; RESP 16–20; TEMP 36.4–37.4; O2SAT 96
[2024-12-02] MEDS: Nicotine Polacrilex Lozenge 4 MG LOZENGE BUCCAL ×2 (03:58→20:29)
--- NOTE | 2024-12-02 04:25 | PC.NURSE ---
Pt very disorganized, sitting in kitchen area at 0400 taking 3 cups of tea to drink, then taking his fruit cup and dumping into his tea. Consequently dumping his applesauce into his tea as well. All this time self dialoguing. Pt then insisted on calling his mother to ask her to bring his unopened fish oil to him. He then told his mother, Bring my tv, my [employer] prime and everything because I am the God . Pt then hung up the phone.
[2024-12-02] MEDS: LORazepam 2 MG/ML VIAL IM (09:28)
[2024-12-02] MEDS: diphenhydrAMINE HCL 50 MG/ML VIAL IM ×3 (09:28→17:42)
[2024-12-02] MEDS: fluPHENAZine HCL 2.5 MG/ML 10 ML VIAL 15 MG IM ×2 (09:28→17:42)
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
--- NOTE | 2024-12-02 10:02 | HO.PSYEVENT ---
Event Note Date of Service: 12/02/24 Psych Restraint Event Note: 9:15 physical hold, 9:20 mechanical hold/chair 9:28 given im ativan 2, benadryl 50mg, prolixin 15mg IM Pt seen by me at 10:15am Time Spent With Patient Time: Total time managing care of this patient today ____ minutes.
[2024-12-02] MEDS: VALPROIC ACID IV ×2 (11:03→17:56)
[2024-12-02] MEDS: DEXTROSE 5% IV ×2 (11:03→17:56)
--- NOTE | 2024-12-02 12:04 | HO.PSYEVENT ---
Event Note Date of Service: 12/02/24 Psych Restraint Event Note: 11:03 got depakote 1250mg IV, 12:20 continued agitation demanding fish oil and threatening staff given another chemical restraint prn of 50mg benadryl and prolixin 10mg reviewed last vitals he allowed at 11:15 with nursing 12:34 patient released seen by provider again resting on side sleeping in bed- Time Spent With Patient Time: Total time managing care of this patient today ____ minutes.
[2024-12-02] MEDS: fluPHENAZine HCL 2.5 MG/ML 10 ML VIAL 10 MG IM (12:20)
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
--- NOTE | 2024-12-02 18:06 | PM.EVENT ---
Event Note Date of Service: 12/02/24 Event Note: Patient seen examined after restraints Easily arousable in no acute distress Respirations normal Heart regular Good circulation both upper and lower extremities Wiggling toes. Patient physically 4 point restraint/ chemically restrained received IM Benadryl 50 mg and IM Prolixin 15 mg, receiving Depakote 1250 mg now Time Spent With Patient Time: Total time managing care of this patient today ____ minutes.
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
[2024-12-02] MEDS: Propranolol HCL 20 MG TABLET PO (21:48)
[2024-12-02] MEDS: LORazepam 1 MG TABLET 2 MG PO (21:49)
[2024-12-02] MEDS: FLUPHENAZINE 2.5 MG/5 ML 15 MG PO (21:56)
[2024-12-02] MEDS: Miconazole Nitrate 2% Oint 57 GM OINT...G. 1 APPL TOPICAL (22:03)
[2024-12-03] MEDS: Nicotine Polacrilex Lozenge 4 MG LOZENGE BUCCAL ×2 (00:59→10:41)
[2024-12-03] MEDS: Miconazole Nitrate 2% Oint 57 GM OINT...G. 1 APPL TOPICAL (09:49)
[2024-12-03 10:23] VITALS: BP 146/79; PULSE 131; RESP 22; TEMP 37.7
[2024-12-03] MEDS: chlorproMAZINE HCl 25 MG/ML AMPUL 200 MG IM (10:33)
[2024-12-03] MEDS: diazePAM 10 MG/2 ML CARTRIDGE IM (10:34)
[2024-12-03 10:38] VITALS: BP 124/66; PULSE 125; RESP 18; TEMP 36.9
[2024-12-03 10:53] VITALS: BP 112/57; PULSE 123; RESP 18; TEMP 37.2
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
[2024-12-03] MEDS: Valproic Acid Liquid 250 MG/5 ML SOLUTION 1250 MG PO ×2 (11:02→20:19)
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
[2024-12-03 11:08] VITALS: BP 116/66; PULSE 112; RESP 18; TEMP 36.8
[2024-12-03 11:13] LABS: MANUAL DIFF FLAG NO
[2024-12-03 11:15] LABS: Basophils Percent Auto 0.3 % (0-2); Eosinophils Absolute Auto 0.1 X10*3/uL (0.0-0.4); Eosinophils Percent Auto 1.5 % (0-4); Hematocrit 34.7 % (42.0-52.0); Hemoglobin 11.4 g/dl (14.0-18.0); Imm Gran Abs Auto 0.02 X10*3/uL (0.00-0.03); Imm Gran Pct Auto 0.3 % (0.0-0.4); Lymphocytes Absolute Auto 1.4 X10*3/uL (1.2-4.9); Lymphocytes Percent Auto 19.3 % (20-40); Mean Corpuscular HGB Conc 32.9 g/dl (31.0-36.0); Mean Platelet Volume 9.3 fL (9.4-12.4); Monocytes Absolute Auto 0.9 X10*3/uL (0.1-1.2); Monocytes Percent Auto 11.6 % (2-11); Neutrophils Absolute Auto 4.9 x10*3/uL (2.0-8.3); Platelet Count 219 X10*3/uL (160-400); Red Blood Count 4.23 X10*6/uL (4.60-5.80); Red Cell Distribution Width 14.4 % (11.0-16.0); White Blood Count 7.3 X10*3/uL (4.8-10.8)
[2024-12-03 11:25] LABS: Ammonia 60 umol/L (13-55)
[2024-12-03 12:09] LABS: Alanine Aminotransferase 48 U/L (0-40); Alkaline Phosphatase 76 U/L (39-117); Anion Gap 11 (12-20); Aspartate Amino Transferase 70 U/L (5-37); Bilirubin Direct 0.1 mg/dL (0.0-0.5); Blood Urea Nitrogen 10 mg/dL (9-16); Calcium 8.9 mg/dL (8.4-10.2); Carbon Dioxide 23 mmol/L (22-29); Chloride 107 mmol/L (96-108); Creatinine Clr Calc Pharmacy 139.3; Estimated Glomerular Filt Rate > 60; Glucose Random 139 mg/dL (60-115); Potassium 4.2 mmol/L (3.3-5.1); Sodium 137 mmol/L (135-145); Total Protein 6.7 g/dL (6.5-8.0)
[2024-12-03 12:59] LABS: Bilirubin Total 0.3 mg/dL (0.0-1.0)
--- NOTE | 2024-12-03 13:31 | HO.PSYEVENT ---
Event Note Date of Service: 12/01/24 Psych Restraint Event Note: Called at 9:15 re patient agitation aggression as per my note 12/01/24 - yelling and gesturing and threatening - Time Spent With Patient Time: Total time managing care of this patient today ____ minutes.
--- NOTE | 2024-12-03 13:40 | PC.NURSE ---
RN attempted to offer pt his scheduled PO medication. Pt stated I'm not taking anymore medication, I'm allergic to it. It has a lot of side effects. RN explained to pt that if he refuses PO he would need to receive an IV, pt refused and said I don't want a fucking IV. Pt got up from the table and went to his room where he closed the door and attempted to barricade himself. Security was called. Dr. Mendes was notified. While attempting to place pt in the restraint chair for scheduled IV Depakote, pt became aggressive and agitated and refused to sit in the chair. Pt was throwing toilet water at staff. When staff placed a physical hold on pt, pt became agitated and hit his head on the toilet in the process and pt's lip was bleeding but he refused an ice pack. Pt was placed in chair at 1015. When pt was in the chair, pt began spitting at security, a spit cervantes was applied. Pt continued to thrash, yell and swear while in the chair. Pt received IM Chlorpromazine 200mg at 1033 and IM Diazepam 10mg at 1034. There were two separate attempts to obtain IV access for IV Depakote, both attempts were unsuccessful. Pt agreed to take Depakote by mouth. PO Depakote was administered. Pt attained behavioral control at 1112 and was released from the chair.
[2024-12-03] MEDS: Nicotine Polacrilex 2 MG GUM 4 MG BUCCAL (15:26)
[2024-12-03 20:00] VITALS: BP 138/79; PULSE 100; RESP 16; TEMP 36.6; O2SAT 95
[2024-12-03] MEDS: Propranolol HCL 20 MG TABLET PO (20:12)
[2024-12-03] MEDS: FLUPHENAZINE 2.5 MG/5 ML 15 MG PO (20:14)
[2024-12-03] MEDS: traZODone HCL 50 MG TABLET PO (22:05)
[2024-12-03] MEDS: LORazepam 1 MG TABLET 2 MG PO (22:07)
[2024-12-04] MEDS: Miconazole Nitrate 2% Oint 57 GM OINT...G. 1 APPL TOPICAL (06:52)
[2024-12-04] MEDS: FLUPHENAZINE 2.5 MG/5 ML 15 MG PO (09:18)
[2024-12-04] MEDS: Valproic Acid Liquid 250 MG/5 ML SOLUTION 1250 MG PO ×2 (10:04→21:20)
[2024-12-04] MEDS: OLANZapine ODT 10 MG TAB.RAPDIS TRANSLINGU ×2 (11:34→20:33)
[2024-12-04] MEDS: Lithium Carbonate ER 300 MG TABLET.ER 600 MG PO ×2 (11:34→20:33)
[2024-12-04] MEDS: Acetaminophen 325 MG TABLET 975 MG PO (11:34)
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
[2024-12-04] MEDS: OMEGA FISH OIL 1 EACH PO (14:18)
[2024-12-04 14:30] VITALS: BP 129/71; PULSE 113
[2024-12-04] MEDS: Propranolol HCL 20 MG TABLET PO ×2 (14:30→20:38)
[2024-12-04] MEDS: Nicotine Polacrilex 2 MG GUM 4 MG BUCCAL ×2 (14:32→18:19)
[2024-12-04] MEDS: Nicotine Polacrilex Lozenge 4 MG LOZENGE BUCCAL ×2 (14:32→20:41)
[2024-12-04] MEDS: levOCARNitine Oral Sol 1,000 MG/10 ML UD Cup 330 MG PO (15:38)
[2024-12-04 20:00] VITALS: RESP 18
[2024-12-04] MEDS: traZODone HCL 50 MG TABLET PO (21:27)
[2024-12-05] MEDS: Nicotine Polacrilex 2 MG GUM 4 MG BUCCAL ×2 (05:33→22:59)
[2024-12-05 08:00] VITALS: BP 138/85; PULSE 119; RESP 16; TEMP 36.4; O2SAT 95
[2024-12-05] MEDS: Lithium Carbonate ER 300 MG TABLET.ER 600 MG PO ×2 (09:58→20:39)
[2024-12-05] MEDS: OLANZapine ODT 10 MG TAB.RAPDIS TRANSLINGU ×2 (10:03→20:42)
[2024-12-05] MEDS: Glycopyrrolate 1 MG TABLET 2 MG PO ×2 (10:04→20:41)
[2024-12-05] MEDS: Propranolol HCL 20 MG TABLET PO ×2 (10:05→20:40)
[2024-12-05] MEDS: Benztropine Mesylate 1 MG TABLET PO ×2 (10:06→20:42)
[2024-12-05] MEDS: levOCARNitine Oral Sol 1,000 MG/10 ML UD Cup 330 MG PO (10:13)
[2024-12-05] MEDS: Divalproex Sodium Sprinkles 125 MG CAP.DR.SPR 1250 MG PO (10:15)
[2024-12-05] MEDS: OMEGA FISH OIL 1 EACH PO ×2 (10:26→15:09)
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
[2024-12-05 20:00] VITALS: PULSE 92; RESP 18
[2024-12-05] MEDS: Divalproex Sodium ER 250 MG TAB.ER.24H 1250 MG PO (20:38)
[2024-12-05 20:40] VITALS: PULSE 92
[2024-12-05] MEDS: Nicotine Polacrilex Lozenge 4 MG LOZENGE BUCCAL (20:46)
[2024-12-06] MEDS: OMEGA FISH OIL 1 EACH PO ×4 (00:49→21:03)
[2024-12-06] MEDS: Calcium Carbonate 750 MG TAB.CHEW PO (05:35)
[2024-12-06] MEDS: Magnesium Hydrox/Alum Hydrox 30 ML ORAL.SUSP PO (05:43)
[2024-12-06] MEDS: Nicotine Polacrilex Lozenge 4 MG LOZENGE BUCCAL (05:45)
[2024-12-06] MEDS: fluPHENAZine HCL 2.5 MG/ML 10 ML VIAL 15 MG IM (07:52)
[2024-12-06 08:10] VITALS: BP 116/67; PULSE 130; RESP 20; TEMP 36.7; O2SAT 97
[2024-12-06] MEDS: Lithium Carbonate ER 300 MG TABLET.ER 600 MG PO (08:10)
[2024-12-06] MEDS: diazePAM 10 MG/2 ML CARTRIDGE IM ×2 (08:10→18:34)
[2024-12-06] MEDS: Divalproex Sodium Sprinkles 125 MG CAP.DR.SPR 1250 MG PO (08:30)
[2024-12-06] MEDS: Glycopyrrolate 1 MG TABLET 2 MG PO (08:30)
[2024-12-06] MEDS: Benztropine Mesylate 1 MG TABLET PO (08:30)
[2024-12-06] MEDS: levOCARNitine Oral Sol 1,000 MG/10 ML UD Cup 330 MG PO (08:33)
--- NOTE | 2024-12-06 08:33 | HO.BHRESTREX ---
Behavioral Restraint Exam Behavioral Health Restraint Exam Type of Restraint: Mechanical Reason for Restraint: Substantial Risk of Harm to Others Medical Concerns for Restraint: No medical concerns, pt w/o acute inj / no noted resp/VS abnormalities Behavioral Assessment / Plan: No further behavioral concerns, continue current plan. Comment: The patient was seen 12/06/24 at 8:30 . resting comfortable in the restrain chair.
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
[2024-12-06] MEDS: Acetaminophen 325 MG TABLET 975 MG PO (10:19)
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
[2024-12-06 15:00] VITALS: BMI 36.7
[2024-12-06 15:03] VITALS: BP 143/63; PULSE 122
[2024-12-06] MEDS: Propranolol HCL 20 MG TABLET PO ×2 (15:03→20:41)
[2024-12-06] MEDS: Nicotine Polacrilex 2 MG GUM 4 MG BUCCAL (15:08)
[2024-12-06] MEDS: chlorproMAZINE HCl 25 MG/ML AMPUL 200 MG IM (18:39)
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
--- NOTE | 2024-12-06 19:10 | PM.EVENT ---
Event Note Date of Service: 12/06/24 Event Note: 12/06/231814. mechanical restraint were placed due to agitation and spitting at security and refused his medications. I evaluated him in person within an hour. he was alert, disoriented, cooperative. followed chemical restraint orders. no adverse effect. Time Spent With Patient Time: Total time managing care of this patient today ____ minutes.
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
[2024-12-06 20:00] VITALS: RESP 20
[2024-12-06] MEDS: FLUPHENAZINE 2.5 MG/5 ML 15 MG PO (20:40)
[2024-12-06] MEDS: Divalproex Sodium ER 250 MG TAB.ER.24H 1250 MG PO (20:40)
[2024-12-07] MEDS: Nicotine Polacrilex Lozenge 4 MG LOZENGE BUCCAL (03:23)
[2024-12-07] MEDS: Nicotine Polacrilex 2 MG GUM 4 MG BUCCAL ×2 (05:43→08:38)
[2024-12-07] MEDS: OMEGA FISH OIL 1 EACH PO (08:06)
[2024-12-07 08:08] VITALS: BP 126/74; PULSE 130; RESP 16; TEMP 37.4; O2SAT 97
[2024-12-07] MEDS: Propranolol HCL 20 MG TABLET PO (08:08)
[2024-12-07] MEDS: Divalproex Sodium ER 250 MG TAB.ER.24H 1250 MG PO (08:13)
[2024-12-07] MEDS: fluPHENAZine HCL 2.5 MG/ML 10 ML VIAL 15 MG IM (08:28)
[2024-12-07] MEDS: diazePAM 10 MG/2 ML CARTRIDGE 15 MG IM (10:15)
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
== END 2024-12-07 12:05 | disposition short-term general hospital (02) | DRG 885 ==
PROVIDERS: Psychiatry & Neurology Psychiatry; Social Worker; Admitting Provider Psychiatry & Neurology Psychiatry; Visit Provider Psychiatry & Neurology Psychiatry
DX: F25.0 Schizoaffective disorder, bipolar type (principal); F43.12 Post-traumatic stress disorder, chronic; Z78.1 Physical restraint status; J45.20 Mild intermittent asthma, uncomplicated; Z91.148 Patient's other noncompliance with medication regimen for other reason; Z79.899 Other long term (current) drug therapy
CPT/HCPCS: 36415; 80048; 80053; 80076; 80164; 82140; 85025; J0515; J1200; J2060; J2426; J2679; J3230; J3360

== ENCOUNTER → 2024-11-14 15:37 | Outpatient (BNV) | payer MEDICARE, MEDICAID, SELFPAY | PROVIDERS: Admitting Provider Psychiatry & Neurology Psychiatry; Visit Provider Psychiatry & Neurology Psychiatry | DX: F25.0 Schizoaffective disorder, bipolar type (principal) | CPT/HCPCS: 90792; 99231; 99232; 99499 ==

== ENCOUNTER → 2024-11-14 15:37 | Outpatient (BNV) | payer OTHER, MEDICAID, SELFPAY | PROVIDERS: Admitting Provider Psychiatry & Neurology Psychiatry; Visit Provider Psychiatry & Neurology Psychiatry | DX: F25.0 Schizoaffective disorder, bipolar type (principal) | CPT/HCPCS: 99231 ==

== ENCOUNTER → 2024-11-14 15:37 | Outpatient (BNV) | payer MEDICARE, MEDICAID, SELFPAY | PROVIDERS: Admitting Provider Psychiatry & Neurology Psychiatry; Visit Provider Student in an Organized Health Care Education/Training Program | DX: F25.0 Schizoaffective disorder, bipolar type (principal) | CPT/HCPCS: 99499 ==

== ENCOUNTER 2024-12-07 13:30 | Outpatient (BNV) | payer MEDICARE, MEDICAID, SELFPAY | END 2024-12-13 09:43 | PROVIDERS: Admitting Provider Internal Medicine Critical Care Medicine; Visit Provider Internal Medicine Cardiovascular Disease | DX: I45.81 Long QT syndrome (principal) | CPT/HCPCS: 93010 ==

== ENCOUNTER 2024-12-07 13:30 | Outpatient (BNV) | payer MEDICARE, MEDICAID, SELFPAY | END 2024-12-09 16:18 | PROVIDERS: Admitting Provider Internal Medicine Critical Care Medicine; Visit Provider Internal Medicine Cardiovascular Disease | DX: I45.81 Long QT syndrome (principal) | CPT/HCPCS: 93010 ==

== ENCOUNTER 2024-12-07 13:30 | Outpatient (BNV) | payer MEDICARE, MEDICAID, SELFPAY | END 2024-12-07 16:46 | PROVIDERS: Admitting Provider Internal Medicine Critical Care Medicine; Visit Provider Internal Medicine | DX: I45.81 Long QT syndrome (principal) | CPT/HCPCS: 93010 ==

== ENCOUNTER 2024-12-07 13:30 | Outpatient (BNV) | payer MEDICARE, MEDICAID, SELFPAY | END 2024-12-10 09:43 | PROVIDERS: Admitting Provider Internal Medicine Critical Care Medicine; Visit Provider Internal Medicine Cardiovascular Disease | DX: I45.81 Long QT syndrome (principal) | CPT/HCPCS: 93010 ==

== ENCOUNTER 2024-12-07 13:30 | Inpatient (IN) | payer MEDICARE, MEDICAID, SELFPAY ==
[2024-12-07] VITALS (12 sets, daily range): BP systolic 72–96; BP diastolic 37–66; PULSE 60–87; RESP 14–21; TEMP 36.5–36.7; O2SAT 96–99; BMI 36.3
[2024-12-07] MEDS: dexmedeTOMIDidine HCL/NS 400 MCG/100 ML INFUS..BTL 29.5 MCG IVCONT (12:15)
--- NOTE | 2024-12-07 13:41 | PHA.MEDREC ---
Addendum entered by Kaley Cid RPh 12/07/24 13:57: Reviewed by [facility] Original Note: Pharmacy Consult ? Medication Reconciliation Pharmacy has completed the medication reconciliation. Patient was just discharged from today. Utilized discharge packet to confirm med list.
--- NOTE | 2024-12-07 14:05 | PC.NURSE ---
Patient arrived at the ICU from the psych unit approximately?@ 12:15pm. Restrains applied. 20G IV placed, Precedex?gtt started per JAN. , ICU/ Psych directors and security?at?bed.?
[2024-12-07] MEDS: Enoxaparin Sodium 40 MG/0.4 ML SYRINGE SUBCUT (15:12)
[2024-12-07] MEDS: Pantoprazole Sodium 40 MG/10 ML VIAL IVPUSH (15:12)
[2024-12-07] MEDS: Valproic Acid (as Sodium Salt) 750 MG in Dextrose 5 % 50 ML 57.5 MG IV (15:58)
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
[2024-12-07] MEDS: dexmedeTOMIDidine HCL/NS 400 MCG/100 ML INFUS..BTL 11.8 MCG IVCONT (16:20)
--- NOTE | 2024-12-07 16:46 | ECG_ITS ---
Test Reason : QT Blood Pressure : */* mmHG Vent. Rate : 81 BPM Atrial Rate : 81 BPM P-R Int : 144 ms QRS Dur : 84 ms QT Int : 354 ms P-R-T Axes : 40 63 37 degrees QTcB Int : 411 ms Normal sinus rhythm Normal ECG When compared with ECG of 13-Nov-2024 07:23, QT has shortened Referred By: Antoni Mcfadden Electronically Signed By: ZA MALDONADO
[2024-12-07] MEDS: Haloperidol Lactate 5 MG/ML VIAL IM ×2 (16:50→22:39)
[2024-12-07] MEDS: Lactated Ringers 1,000 ML 100 ML IVCONT (17:15)
[2024-12-07 18:00] LABS: Basophils Percent Auto 0.3 % (0-2); Eosinophils Absolute Auto 0.2 X10*3/uL (0.0-0.4); Eosinophils Percent Auto 2.1 % (0-4); Hematocrit 31.4 % (42.0-52.0); Hemoglobin 10.1 g/dl (14.0-18.0); Imm Gran Abs Auto 0.03 X10*3/uL (0.00-0.03); Imm Gran Pct Auto 0.3 % (0.0-0.4); Lymphocytes Absolute Auto 2.1 X10*3/uL (1.2-4.9); MANUAL DIFF FLAG SCAN; Mean Corpuscular HGB Conc 32.2 g/dl (31.0-36.0); Mean Corpuscular Hemoglobin 26.7 pg (27.0-33.0); Mean Corpuscular Volume 83.1 fL (80.0-98.0); Mean Platelet Volume 9.6 fL (9.4-12.4); Monocytes Absolute Auto 1.9 X10*3/uL (0.1-1.2); Monocytes Percent Auto 19.9 % (2-11); Neutrophils Absolute Auto 5.5 x10*3/uL (2.0-8.3); Neutrophils Percent Auto 56.4 % (45-73); Platelet Count 250 X10*3/uL (160-400); Red Blood Count 3.78 X10*6/uL (4.60-5.80); Red Cell Distribution Width 14.2 % (11.0-16.0); SCAN SMEAR FLAG 1; White Blood Count 9.7 X10*3/uL (4.8-10.8)
[2024-12-07 18:15] LABS: Alanine Aminotransferase 54 U/L (0-40); Albumin Level 3.5 g/dL (3.5-5.0); Alkaline Phosphatase 66 U/L (39-117); Anion Gap 12 (12-20); Aspartate Amino Transferase 150 U/L (5-37); Bilirubin Total 0.5 mg/dL (0.0-1.0); Blood Urea Nitrogen 8 mg/dL (9-16); Calcium 8.4 mg/dL (8.4-10.2); Carbon Dioxide 29 mmol/L (22-29); Chloride 104 mmol/L (96-108); Creatinine Clr Calc Pharmacy 151.2; Estimated Glomerular Filt Rate > 60; Glucose Random 66 mg/dL (60-115); Magnesium 2.2 mg/dL (1.6-2.6); Phosphorus 4.9 mg/dL (2.7-4.5); Potassium 4.4 mmol/L (3.3-5.1); Sodium 141 mmol/L (135-145); Total Protein 6.5 g/dL (6.5-8.0)
[2024-12-07 18:27] LABS: SLIDE REVIEW VERIFIED
[2024-12-07] MEDS: dexmedeTOMIDidine HCL/NS 400 MCG/100 ML INFUS..BTL 23.6 MCG IVCONT (21:07)
[2024-12-07] MEDS: LORazepam 2 MG/ML VIAL IVPUSH (22:57)
[2024-12-08] VITALS (22 sets, daily range): BP systolic 87–104; BP diastolic 31–64; PULSE 70–83; RESP 13–23; TEMP 36.4–37.5; O2SAT 96–100; BMI 37.1
[2024-12-08] MEDS: Valproic Acid (as Sodium Salt) 1,000 MG in Dextrose 5 % 50 ML 57.5 MG IV ×3 (00:03→16:12)
[2024-12-08] MEDS: dexmedeTOMIDidine HCL/NS 400 MCG/100 ML INFUS..BTL 20.65 MCG IVCONT ×4 (01:40→19:20)
[2024-12-08 02:19] LABS: HIV AB/AG Nonreactive (Nonreactive); HIV Num 1 0.05 S/CO (0.00-0.99)
[2024-12-08] MEDS: Lactated Ringers 1,000 ML 100 ML IVCONT ×3 (02:44→22:32)
[2024-12-08] MEDS: Haloperidol Lactate 5 MG/ML VIAL IM ×3 (04:29→16:11)
[2024-12-08 05:36] LABS: Basophils Percent Auto 0.3 % (0-2); Eosinophils Absolute Auto 0.2 X10*3/uL (0.0-0.4); Eosinophils Percent Auto 1.5 % (0-4); Hematocrit 33.5 % (42.0-52.0); Hemoglobin 10.5 g/dl (14.0-18.0); Imm Gran Abs Auto 0.05 X10*3/uL (0.00-0.03); Imm Gran Pct Auto 0.5 % (0.0-0.4); Lymphocytes Absolute Auto 1.4 X10*3/uL (1.2-4.9); Lymphocytes Percent Auto 13.6 % (20-40); MANUAL DIFF FLAG SCAN; Mean Corpuscular HGB Conc 31.3 g/dl (31.0-36.0); Mean Corpuscular Hemoglobin 26.1 pg (27.0-33.0); Mean Corpuscular Volume 83.3 fL (80.0-98.0); Mean Platelet Volume 9.3 fL (9.4-12.4); Monocytes Absolute Auto 2.1 X10*3/uL (0.1-1.2); Monocytes Percent Auto 20.5 % (2-11); Neutrophils Absolute Auto 6.6 x10*3/uL (2.0-8.3); Neutrophils Percent Auto 63.6 % (45-73); Platelet Count 248 X10*3/uL (160-400); Red Blood Count 4.02 X10*6/uL (4.60-5.80); Red Cell Distribution Width 13.9 % (11.0-16.0); SCAN SMEAR FLAG 1; White Blood Count 10.4 X10*3/uL (4.8-10.8)
[2024-12-08 05:54] LABS: Albumin Level 3.2 g/dL (3.5-5.0); Anion Gap 10 (12-20); Blood Urea Nitrogen 9 mg/dL (9-16); Calcium 8.5 mg/dL (8.4-10.2); Carbon Dioxide 29 mmol/L (22-29); Chloride 104 mmol/L (96-108); Creatinine Clr Calc Pharmacy 165.1; Estimated Glomerular Filt Rate > 60; Glucose Random 96 mg/dL (60-115); Magnesium 2.1 mg/dL (1.6-2.6); Phosphorus 3.9 mg/dL (2.7-4.5); Potassium 4.2 mmol/L (3.3-5.1); Sodium 139 mmol/L (135-145)
[2024-12-08 06:02] LABS: SLIDE REVIEW VERIFIED
[2024-12-08] MEDS: Pantoprazole Sodium 40 MG/10 ML VIAL IVPUSH (06:09)
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
--- NOTE | 2024-12-08 14:17 | MHC.CM.PN ---
Pt aggitated and not cooperative at this time. Will reapproach when more calm to review d/c needs: it is expected pt will return to INPT Psych once medically stable.
[2024-12-08] MEDS: Enoxaparin Sodium 40 MG/0.4 ML SYRINGE SUBCUT (15:02)
[2024-12-08] MEDS: dexmedeTOMIDidine HCL/NS 400 MCG/100 ML INFUS..BTL 26.55 MCG IVCONT (15:05)
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
[2024-12-08] MEDS: LORazepam 2 MG/ML VIAL IVPUSH (19:48)
[2024-12-09] VITALS (25 sets, daily range): BP systolic 88–120; BP diastolic 42–78; PULSE 68–88; RESP 15–24; TEMP 36.4–37; O2SAT 95–99; BMI 37.6
[2024-12-09] MEDS: Valproic Acid (as Sodium Salt) 1,000 MG in Dextrose 5 % 50 ML 57.5 MG IV ×4 (00:02→23:08)
[2024-12-09] MEDS: dexmedeTOMIDidine HCL/NS 400 MCG/100 ML INFUS..BTL 20.65 MCG IVCONT ×3 (00:02→09:23)
[2024-12-09] MEDS: LORazepam 2 MG/ML VIAL IVPUSH ×3 (00:49→20:15)
[2024-12-09] MEDS: chlorproMAZINE HCl 25 MG/ML AMPUL 100 MG IM ×2 (04:52→16:46)
[2024-12-09 05:22] LABS: Basophils Percent Auto 0.1 % (0-2); Eosinophils Absolute Auto 0.2 X10*3/uL (0.0-0.4); Eosinophils Percent Auto 1.8 % (0-4); Hematocrit 34.7 % (42.0-52.0); Hemoglobin 11.2 g/dl (14.0-18.0); Imm Gran Abs Auto 0.05 X10*3/uL (0.00-0.03); Imm Gran Pct Auto 0.5 % (0.0-0.4); Lymphocytes Absolute Auto 1.4 X10*3/uL (1.2-4.9); Lymphocytes Percent Auto 13.8 % (20-40); Mean Corpuscular HGB Conc 32.3 g/dl (31.0-36.0); Mean Corpuscular Hemoglobin 26.7 pg (27.0-33.0); Mean Corpuscular Volume 82.8 fL (80.0-98.0); Mean Platelet Volume 9.3 fL (9.4-12.4); Monocytes Percent Auto 19.7 % (2-11); Neutrophils Absolute Auto 6.5 x10*3/uL (2.0-8.3); Neutrophils Percent Auto 64.1 % (45-73); Platelet Count 257 X10*3/uL (160-400); Red Blood Count 4.19 X10*6/uL (4.60-5.80); Red Cell Distribution Width 13.8 % (11.0-16.0); SCAN SMEAR FLAG 1; White Blood Count 10.1 X10*3/uL (4.8-10.8)
[2024-12-09 05:24] LABS: MANUAL DIFF FLAG SCAN
[2024-12-09] MEDS: Pantoprazole Sodium 40 MG/10 ML VIAL IVPUSH (05:36)
[2024-12-09 05:40] LABS: Anion Gap 12 (12-20); Blood Urea Nitrogen 8 mg/dL (9-16); Calcium 8.6 mg/dL (8.4-10.2); Carbon Dioxide 28 mmol/L (22-29); Chloride 104 mmol/L (96-108); Estimated Glomerular Filt Rate > 60; Glucose Random 98 mg/dL (60-115); Phosphorus 3.7 mg/dL (2.7-4.5); Potassium 4.3 mmol/L (3.3-5.1); Sodium 140 mmol/L (135-145)
[2024-12-09 05:47] LABS: SLIDE REVIEW VERIFIED
[2024-12-09] MEDS: Lactated Ringers 1,000 ML 100 ML IVCONT ×2 (09:00→19:19)
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
[2024-12-09] MEDS: dexmedeTOMIDidine HCL/NS 400 MCG/100 ML INFUS..BTL 26.55 MCG IVCONT ×2 (14:31→18:25)
[2024-12-09] MEDS: Enoxaparin Sodium 40 MG/0.4 ML SYRINGE SUBCUT (14:32)
--- NOTE | 2024-12-09 16:18 | ECG_ITS ---
Test Reason : QTC Blood Pressure : */* mmHG Vent. Rate : 73 BPM Atrial Rate : 73 BPM P-R Int : 152 ms QRS Dur : 92 ms QT Int : 380 ms P-R-T Axes : 43 51 31 degrees QTcB Int : 418 ms Normal sinus rhythm Normal ECG When compared with ECG of 07-Dec-2024 16:50, No significant change was found Referred By: Antoni Mcfadden Electronically Signed By: Colton Hayward
[2024-12-09] MEDS: dexmedeTOMIDidine HCL/NS 400 MCG/100 ML INFUS..BTL 32.45 MCG IVCONT (21:38)
[2024-12-10] VITALS (24 sets, daily range): BP systolic 94–116; BP diastolic 51–74; PULSE 69–91; RESP 15–24; TEMP 36.3–37.2; O2SAT 93–97
[2024-12-10] MEDS: dexmedeTOMIDidine HCL/NS 400 MCG/100 ML INFUS..BTL 38.35 MCG IVCONT ×4 (00:05→11:48)
[2024-12-10] MEDS: Lactated Ringers 1,000 ML 100 ML IVCONT (04:52)
[2024-12-10] MEDS: LORazepam 2 MG/ML VIAL IVPUSH ×3 (05:30→18:40)
[2024-12-10] MEDS: Pantoprazole Sodium 40 MG/10 ML VIAL IVPUSH (05:47)
[2024-12-10 05:58] LABS: Basophils Percent Auto 0.2 % (0-2); Eosinophils Absolute Auto 0.2 X10*3/uL (0.0-0.4); Eosinophils Percent Auto 1.3 % (0-4); Hemoglobin 11.6 g/dl (14.0-18.0); Imm Gran Abs Auto 0.06 X10*3/uL (0.00-0.03); Imm Gran Pct Auto 0.5 % (0.0-0.4); Lymphocytes Absolute Auto 1.4 X10*3/uL (1.2-4.9); Lymphocytes Percent Auto 11.7 % (20-40); MANUAL DIFF FLAG SCAN; Mean Corpuscular HGB Conc 32.2 g/dl (31.0-36.0); Mean Corpuscular Hemoglobin 26.2 pg (27.0-33.0); Mean Corpuscular Volume 81.4 fL (80.0-98.0); Mean Platelet Volume 9.3 fL (9.4-12.4); Monocytes Absolute Auto 2.3 X10*3/uL (0.1-1.2); Monocytes Percent Auto 18.5 % (2-11); Neutrophils Absolute Auto 8.4 x10*3/uL (2.0-8.3); Neutrophils Percent Auto 67.8 % (45-73); Platelet Count 265 X10*3/uL (160-400); Red Blood Count 4.42 X10*6/uL (4.60-5.80); Red Cell Distribution Width 13.5 % (11.0-16.0); SCAN SMEAR FLAG 1; White Blood Count 12.3 X10*3/uL (4.8-10.8)
[2024-12-10 06:02] LABS: Ammonia 33 umol/L (13-55)
[2024-12-10 06:12] LABS: Alanine Aminotransferase 29 U/L (0-40); Alkaline Phosphatase 81 U/L (39-117); Anion Gap 11 (12-20); Aspartate Amino Transferase 51 U/L (5-37); Bilirubin Total 0.4 mg/dL (0.0-1.0); Blood Urea Nitrogen 9 mg/dL (9-16); Calcium 8.4 mg/dL (8.4-10.2); Carbon Dioxide 28 mmol/L (22-29); Chloride 103 mmol/L (96-108); Creatinine Clr Calc Pharmacy 172.2; Estimated Glomerular Filt Rate > 60; Glucose Random 98 mg/dL (60-115); Magnesium 1.6 mg/dL (1.6-2.6); Phosphorus 3.9 mg/dL (2.7-4.5); Potassium 4.2 mmol/L (3.3-5.1); Sodium 138 mmol/L (135-145); Total Protein 6.2 g/dL (6.5-8.0)
[2024-12-10] MEDS: dexmedeTOMIDidine HCL/NS 400 MCG/100 ML INFUS..BTL 44.25 MCG IVCONT ×4 (07:14→22:15)
[2024-12-10] MEDS: Valproic Acid (as Sodium Salt) 1,000 MG in Dextrose 5 % 50 ML 57.5 MG IV ×2 (07:15→16:07)
[2024-12-10 08:08] LABS: SLIDE REVIEW VERIFIED
--- NOTE | 2024-12-10 09:35 | PM.CCPN ---
Subjective Subjective Date of Service: 12/10/24 Critical Care Time (minutes): 0 Physical Exam Vital Signs: Vital Signs: Last Vital Signs Temp 97.7 F 12/10/24 09:00 Pulse 70 12/10/24 09:00 Resp 18 12/10/24 09:00 BP 104/67 12/10/24 09:00 Pulse Ox 97 12/10/24 09:00 O2 Del Method Room Air 12/10/24 09:00 BMI result Body Mass Index 37.6 Const: Other: somnolent on dexmedetomidine gtt General: comfortable, no acute distress and well developed HEENT: Head: Yes normal to inspection, Yes normocephalic and Yes atraumatic Eyes: General: appearance normal, both eyes and all related structures Neck: Neck: Yes normal visual inspection, Yes full ROM, Yes no lymphadenopathy, Yes no meningeal signs, Yes trachea midline and Yes supple Chest: Chest palpation & inspection: normal inspection of the chest Resp: Other: no appreciable rales, rhonchi, wheezing Effort & Inspection: normal respiratory effort Cardio: Rate: regular rate Rhythm: regular rhythm GI: Inspection: Yes normal to inspection, No Abdominal wall edema and No distended Palpation (GI): Soft to palpation, not firm, nontender, no guarding and not rigid : Male General Exam: Yes normal external exam Skin: General skin exam: no rashes or lesions noted Neuro: General: tone normal, moves all extremities, no meningeal signs and no focal motor deficits Extrem: Other: appreciable trace pitting edema to bilateral leahy General: Yes normal to inspection, Yes full ROM and Yes capillary refill normal Psych: Other: somnolent, to reassess Objective Data Labs 12/10/24 05:38 12/10/24 05:38 Labs: Laboratory Results - last 24 hr 12/10/24 05:38 WBC 12.3 H RBC 4.42 L Hgb 11.6 L Hct 36.0 L MCV 81.4 MCH 26.2 L MCHC 32.2 RDW 13.5 Plt Count 265 MPV 9.3 L Immature Gran % (Auto) 0.5 H Neut % (Auto) 67.8 Lymph % (Auto) 11.7 L [place] % (Auto) 18.5 H Eos % (Auto) 1.3 Baso % (Auto) 0.2 Lymph # (Auto) 1.4 [place] # (Auto) 2.3 H Eos # (Auto) 0.2 Baso # (Auto) 0.0 Abs Immat Gran (auto) 0.06 H Absolute Neuts (auto) 8.4 H Absolute Nucleated RBC 0.000 Nucleated RBC % (auto) 0.0 Smear Tech's Comments VERIFIED Sodium 138 Potassium 4.2 Chloride 103 Carbon Dioxide 28 Anion Gap 11 L BUN 9 Creatinine 0.85 Estim Creat Clear Calc 172.2 Estimated GFR > 60 Random Glucose 98 Calcium 8.4 Phosphorus 3.9 Magnesium 1.6 Total Bilirubin 0.4 AST 51 H ALT 29 Alkaline Phosphatase 81 Ammonia 33 Total Protein 6.2 L Albumin 3.0 L Progress Note: A&P Assessment and plan (1) Schizoaffective disorder, bipolar type: Status: Acute Plan Patient is a 28 Y M w/ schizoaffective disorder, presenting initially to the emergency department on 10/30 w/ decompensated schizoaffective disorder, admitted psychiatry; psychiatry course c/b worsening agitation, prompting ICU admission 11/08, downgraded to psychiatry 11/14, re-admitted ICU 12/07 d/t worsening agitation N: agitation, on dexmedetomidine gtt, wean as tolerated CV: no acute issues; to monitor QTc in setting of psychiatric medications R: no acute issues GI: no acute issues; regular diet as tolerated : no acute issues H: no acute issues; chemical DVT prophylaxis w/ enoxaparin ID: no acute issues E: no acute issues; to monitor hypo-/hyper-glycemia P: schizoaffective disorder, decompensated; appreciate psychiatry recommendations Quality Stroke Does the patient have a stroke diagnosis?: No VTE Prior VTE?: No VTE Risk Level:: Medical - moderate - high VTE Device Contraindication: N/A - Device Ordered VTE Drug Contraindication: N/A - Med Ordered
--- NOTE | 2024-12-10 09:43 | ECG_ITS ---
Test Reason : QTC monitoring Blood Pressure : */* mmHG Vent. Rate : 68 BPM Atrial Rate : 68 BPM P-R Int : 156 ms QRS Dur : 94 ms QT Int : 412 ms P-R-T Axes : 42 50 27 degrees QTcB Int : 438 ms Normal sinus rhythm Normal ECG When compared with ECG of 09-Dec-2024 16:28, No significant change was found Referred By: Bisi Brown Electronically Signed By: Colton Hayward
--- NOTE | 2024-12-10 10:01 | P.CDIM_ITS ---
PROVIDER RESPONSE TEXT: To clarify, the appropriate diagnosis supported by the clinical indicators: Toxic metabolic QUERY TEXT: PHYSICIAN'S DOCUMENTATION REQUEST Date of Query: 12/10/2024 09:50 AM EST Patient Name: Oliver Moser Admit Date: 12/07/2024 Dear Bisi Brown MD, A review of the medical record indicates additional documentation may be needed. Please review below and update the documentation accordingly. Clinical Indicators: ICU progress notes within the written Plan: Acute encephalopathy Secondary to medications he received to control his agitation and aggressive behavior. Patient has a decompensated schizoaffective disorder with tendency to harm himself and others. Continue p.r.n. Ativan pushes for breakthrough agitation episodes. Based on the above, please further specify, in the Progress Notes, the known or suspected type of the documented acute encephalopathy: Metabolic Toxic Toxic metabolic Other (explain) Clinically unable to determine (explain) Thank you, Esther Mae, CCS, CDIS Use of terms such as suspected, likely, concern for, or probable (associated with a specific diagnosi s that is being evaluated, monitored, or treated as if it exists) are acceptable and can be coded in the inpatient se tting, when documented at the time of discharge. Please use your independent medical judgment in providing your response. THIS QUERY IS PART OF THE PERMANENT MEDICAL RECORD
[2024-12-10] MEDS: Magnesium Sulfate/D5W 1 GM/100 ML PIGGYBACK IV (10:14)
[2024-12-10] MEDS: Albumin Human 25 % 50 ML 100 ML IV (10:17)
[2024-12-10] MEDS: chlorproMAZINE HCl 25 MG in 0.9 % Sodium Chloride 50 ML 51 MG IV (10:41)
[2024-12-10 12:21] LABS: Glucose, Whole Blood 94 mg/dL (60-115)
[2024-12-10] MEDS: Enoxaparin Sodium 40 MG/0.4 ML SYRINGE SUBCUT (14:06)
[2024-12-10] MEDS: Haloperidol Lactate 5 MG/ML VIAL IVPUSH ×2 (14:11→20:06)
--- NOTE | 2024-12-10 14:38 | MHC.CM.PN ---
CM ATTEMPTED TO MEET W/PT HOWEVER UNABLE TO PARTICIPATE D/T SEDATION FROM MEDS, PT OPENS EYES FOR A BRIEF MOMENT ONLY, CM WILL REVISIT.
[2024-12-10 14:45] LABS: Valproate 88.2 mcg/mL (50.0-100.0)
[2024-12-10] MEDS: dexmedeTOMIDidine HCL/NS 400 MCG/100 ML INFUS..BTL 14.75 MCG IVCONT (16:06)
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
[2024-12-10 18:23] LABS: Glucose, Whole Blood 96 mg/dL (60-115)
[2024-12-10] MEDS: OLANZapine ODT 10 MG TAB.RAPDIS TRANSLINGU (21:20)
[2024-12-11] VITALS (26 sets, daily range): BP systolic 94–151; BP diastolic 50–101; PULSE 61–159; RESP 14–23; TEMP 36–38.2; O2SAT 95–100; BMI 37.6
[2024-12-11] MEDS: Valproic Acid (as Sodium Salt) 1,000 MG in Dextrose 5 % 50 ML 57.5 MG IV ×3 (00:23→16:17)
[2024-12-11 00:26] LABS: Glucose, Whole Blood 102 mg/dL (60-115)
[2024-12-11] MEDS: dexmedeTOMIDidine HCL/NS 400 MCG/100 ML INFUS..BTL 44.25 MCG IVCONT ×3 (00:31→04:54)
[2024-12-11] MEDS: LORazepam 2 MG/ML VIAL IVPUSH ×3 (00:51→19:17)
[2024-12-11] MEDS: Haloperidol Lactate 5 MG/ML VIAL IVPUSH ×4 (02:14→19:58)
[2024-12-11] MEDS: Pantoprazole Sodium 40 MG/10 ML VIAL IVPUSH (05:44)
[2024-12-11 05:56] LABS: Basophils Percent Auto 0.2 % (0-2); Eosinophils Absolute Auto 0.1 X10*3/uL (0.0-0.4); Eosinophils Percent Auto 1.3 % (0-4); Hematocrit 34.1 % (42.0-52.0); Hemoglobin 11.2 g/dl (14.0-18.0); Imm Gran Abs Auto 0.05 X10*3/uL (0.00-0.03); Imm Gran Pct Auto 0.5 % (0.0-0.4); Lymphocytes Absolute Auto 1.6 X10*3/uL (1.2-4.9); Lymphocytes Percent Auto 15.6 % (20-40); MANUAL DIFF FLAG SCAN; Mean Corpuscular HGB Conc 32.8 g/dl (31.0-36.0); Mean Corpuscular Hemoglobin 26.1 pg (27.0-33.0); Mean Corpuscular Volume 79.5 fL (80.0-98.0); Mean Platelet Volume 9.3 fL (9.4-12.4); Monocytes Absolute Auto 1.9 X10*3/uL (0.1-1.2); Monocytes Percent Auto 19.1 % (2-11); Neutrophils Absolute Auto 6.4 x10*3/uL (2.0-8.3); Neutrophils Percent Auto 63.3 % (45-73); Platelet Count 275 X10*3/uL (160-400); Red Blood Count 4.29 X10*6/uL (4.60-5.80); Red Cell Distribution Width 13.7 % (11.0-16.0); SCAN SMEAR FLAG 1; White Blood Count 10.1 X10*3/uL (4.8-10.8)
[2024-12-11 06:12] LABS: Valproate 87.9 mcg/mL (50.0-100.0)
[2024-12-11 06:15] LABS: SLIDE REVIEW VERIFIED
[2024-12-11 06:17] LABS: Anion Gap 13 (12-20); Blood Urea Nitrogen 9 mg/dL (9-16); Calcium 8.5 mg/dL (8.4-10.2); Carbon Dioxide 25 mmol/L (22-29); Chloride 103 mmol/L (96-108); Creatinine Clr Calc Pharmacy 185.2; Estimated Glomerular Filt Rate > 60; Glucose Random 100 mg/dL (60-115); Magnesium 1.9 mg/dL (1.6-2.6); Potassium 4.1 mmol/L (3.3-5.1); Sodium 137 mmol/L (135-145)
[2024-12-11] MEDS: dexmedeTOMIDidine HCL/NS 400 MCG/100 ML INFUS..BTL 32.45 MCG IVCONT (07:30)
[2024-12-11] MEDS: OLANZapine ODT 10 MG TAB.RAPDIS TRANSLINGU ×2 (07:30→16:17)
--- NOTE | 2024-12-11 08:44 | PM.CCPN ---
Subjective Subjective Date of Service: 12/11/24 Interval History: some appreciable agitation overnight Critical Care Time (minutes): 60 Physical Exam Vital Signs: Vital Signs: Last Vital Signs Temp 97.2 F 12/11/24 08:00 Pulse 62 12/11/24 08:00 Resp 18 12/11/24 08:00 BP 101/57 L 12/11/24 08:00 Pulse Ox 97 12/11/24 08:00 O2 Del Method Room Air 12/11/24 08:00 BMI result Body Mass Index 37.6 Const: Other: sleeping, though spontaneously wakes General: comfortable, no acute distress and well developed Orientation/consciousness: oriented to person Eyes: General: appearance normal, both eyes and all related structures Neck: Neck: Yes normal visual inspection, Yes full ROM, Yes no meningeal signs, Yes trachea midline and Yes supple Chest: Chest palpation & inspection: normal inspection of the chest Resp: Other: no rales, rhonchi, wheezing Effort & Inspection: normal respiratory effort Cardio: Rate: regular rate Rhythm: regular rhythm GI: Inspection: Yes normal to inspection, No Abdominal wall edema and No distended Palpation (GI): Soft to palpation, not firm, nontender, no guarding and not rigid Skin: General skin exam: no rashes or lesions noted Neuro: General: oriented to person, tone normal, moves all extremities, no meningeal signs and no focal motor deficits Extrem: General: Yes normal to inspection, Yes full ROM, Yes capillary refill normal and Yes no clubbing, cyanosis or edema Psych: Other: intermittent outbursts, at times verbally redirectable Objective Data Labs 12/11/24 05:24 12/11/24 05:24 Labs: Laboratory Results - last 24 hr 12/10/24 12/10/24 12/10/24 12:18 14:25 18:19 WBC RBC Hgb Hct MCV MCH MCHC RDW Plt Count MPV Immature Gran % (Auto) Neut % (Auto) Lymph % (Auto) [place] % (Auto) Eos % (Auto) Baso % (Auto) Lymph # (Auto) [place] # (Auto) Eos # (Auto) Baso # (Auto) Abs Immat Gran (auto) Absolute Neuts (auto) Absolute Nucleated RBC Nucleated RBC % (auto) Smear Tech's Comments Sodium Potassium Chloride Carbon Dioxide Anion Gap BUN Creatinine Estim Creat Clear Calc Estimated GFR POC Glucose 94 96 Random Glucose Calcium Phosphorus Magnesium Valproic Acid 88.2 12/11/24 12/11/24 00:22 05:24 WBC 10.1 RBC 4.29 L Hgb 11.2 L Hct 34.1 L MCV 79.5 L MCH 26.1 L MCHC 32.8 RDW 13.7 Plt Count 275 MPV 9.3 L Immature Gran % (Auto) 0.5 H Neut % (Auto) 63.3 Lymph % (Auto) 15.6 L [place] % (Auto) 19.1 H Eos % (Auto) 1.3 Baso % (Auto) 0.2 Lymph # (Auto) 1.6 [place] # (Auto) 1.9 H Eos # (Auto) 0.1 Baso # (Auto) 0.0 Abs Immat Gran (auto) 0.05 H Absolute Neuts (auto) 6.4 Absolute Nucleated RBC 0.000 Nucleated RBC % (auto) 0.0 Smear Tech's Comments VERIFIED Sodium 137 Potassium 4.1 Chloride 103 Carbon Dioxide 25 Anion Gap 13 BUN 9 Creatinine 0.79 Estim Creat Clear Calc 185.2 Estimated GFR > 60 POC Glucose 102 Random Glucose 100 Calcium 8.5 Phosphorus 4.0 Magnesium 1.9 Valproic Acid 87.9 Progress Note: A&P Assessment and plan (1) Schizoaffective disorder, bipolar type: Status: Acute Plan Patient is a 28 Y M w/ schizoaffective disorder, presenting initially to the emergency department on 10/30 w/ decompensated schizoaffective disorder, admitted psychiatry; psychiatry course c/b worsening agitation, prompting ICU admission 11/08, downgraded to psychiatry 11/14, re-admitted ICU 12/07 d/t worsening agitation N: agitation, on dexmedetomidine gtt, wean as tolerated CV: no acute issues; to monitor QTc in setting of psychiatric medications R: no acute issues GI: no acute issues; regular diet as tolerated : no acute issues H: no acute issues; chemical DVT prophylaxis w/ enoxaparin ID: no acute issues E: no acute issues; to monitor hypo-/hyper-glycemia P: schizoaffective disorder, decompensated; valproic acid, haloperidol, olanzapine; appreciable psychiatry recommendations Quality Stroke Does the patient have a stroke diagnosis?: No VTE Prior VTE?: No VTE Risk Level:: Medical - moderate - high VTE Device Contraindication: N/A - Device Ordered VTE Drug Contraindication: N/A - Med Ordered
[2024-12-11] MEDS: Magnesium Sulfate/D5W 1 GM/100 ML PIGGYBACK IV (09:01)
--- NOTE | 2024-12-11 09:43 | ECG_ITS ---
Test Reason : QTc Monitoring Blood Pressure : */* mmHG Vent. Rate : 98 BPM Atrial Rate : 98 BPM P-R Int : 140 ms QRS Dur : 90 ms QT Int : 354 ms P-R-T Axes : 45 61 18 degrees QTcB Int : 451 ms Normal sinus rhythm Normal ECG When compared with ECG of 10-Dec-2024 14:18, No significant change was found Referred By: Bisi Brown Electronically Signed By: Colton Hayward
--- NOTE | 2024-12-11 14:10 | MHC.CM.PN ---
Pt continues on Precedex gtt in ICU for increased agitation - not responding to other medications. Pt transferred to ICU from INPT psych d/t behaviors. Unknown final disposition but likely a return to psych. CM to follow
[2024-12-11] MEDS: Enoxaparin Sodium 40 MG/0.4 ML SYRINGE SUBCUT (14:33)
[2024-12-11] MEDS: Calcium Carbonate 750 MG TAB.CHEW PO (17:39)
[2024-12-11] MEDS: Milk of Magnesia 30 ML ORAL.SUSP PO (17:39)
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
[2024-12-11] MEDS: Labetalol HCL 100 MG/20 ML VIAL IVPUSH (20:11)
[2024-12-11] MEDS: OLANZapine 10 MG VIAL IM (20:13)
[2024-12-12] VITALS (22 sets, daily range): BP systolic 110–134; BP diastolic 57–76; PULSE 93–163; RESP 13–24; TEMP 36.9; O2SAT 95–98; BMI 37.1
[2024-12-12] MEDS: chlorproMAZINE HCl 25 MG/ML AMPUL 100 MG IM (00:05)
[2024-12-12] MEDS: LORazepam 2 MG/ML VIAL IVPUSH (00:05)
[2024-12-12] MEDS: Valproic Acid (as Sodium Salt) 1,000 MG in Dextrose 5 % 50 ML 57.5 MG IV ×2 (00:06→07:54)
[2024-12-12] MEDS: Labetalol HCL 100 MG/20 ML VIAL IVPUSH (02:11)
[2024-12-12] MEDS: Haloperidol Lactate 5 MG/ML VIAL IVPUSH ×4 (02:12→20:27)
[2024-12-12 05:49] LABS: Basophils Percent Auto 0.1 % (0-2); Eosinophils Absolute Auto 0.1 X10*3/uL (0.0-0.4); Hematocrit 31.3 % (42.0-52.0); Hemoglobin 10.6 g/dl (14.0-18.0); Imm Gran Abs Auto 0.04 X10*3/uL (0.00-0.03); Imm Gran Pct Auto 0.5 % (0.0-0.4); Lymphocytes Absolute Auto 1.8 X10*3/uL (1.2-4.9); Lymphocytes Percent Auto 20.9 % (20-40); MANUAL DIFF FLAG SCAN; Mean Corpuscular HGB Conc 33.9 g/dl (31.0-36.0); Mean Corpuscular Hemoglobin 26.5 pg (27.0-33.0); Mean Corpuscular Volume 78.3 fL (80.0-98.0); Mean Platelet Volume 9.3 fL (9.4-12.4); Monocytes Absolute Auto 1.9 X10*3/uL (0.1-1.2); Monocytes Percent Auto 22.4 % (2-11); Neutrophils Absolute Auto 4.8 x10*3/uL (2.0-8.3); Neutrophils Percent Auto 55.1 % (45-73); Platelet Count 270 X10*3/uL (160-400); SCAN SMEAR FLAG 1; White Blood Count 8.6 X10*3/uL (4.8-10.8)
[2024-12-12 06:08] LABS: Anion Gap 16 (12-20); Blood Urea Nitrogen 7 mg/dL (9-16); Calcium 8.6 mg/dL (8.4-10.2); Carbon Dioxide 22 mmol/L (22-29); Chloride 105 mmol/L (96-108); Creatinine Clr Calc Pharmacy 179.4; Estimated Glomerular Filt Rate > 60; Glucose Random 116 mg/dL (60-115); Phosphorus 3.3 mg/dL (2.7-4.5); Sodium 139 mmol/L (135-145)
[2024-12-12 06:15] LABS: SLIDE REVIEW VERIFIED
[2024-12-12] MEDS: OLANZapine ODT 10 MG TAB.RAPDIS TRANSLINGU ×3 (08:08→20:27)
[2024-12-12] MEDS: Propranolol HCL 20 MG TABLET PO ×3 (08:08→20:27)
[2024-12-12] MEDS: FLUPHENAZINE 2.5 MG/5 ML 15 MG PO ×2 (08:21→21:50)
--- NOTE | 2024-12-12 08:33 | P.PNCC_ITS ---
Subjective Subjective Date of Service: 12/12/24 Interval History: some agitation overnight, though not necessitating dexmedetomidine gtt Critical Care Time (minutes): 0 Physical Exam 2 Vital Signs: Vital Signs: Last Vital Signs Temp 98.4 F 12/12/24 05:00 Pulse 128 H 12/12/24 08:08 Resp 23 H 12/12/24 06:00 BP 128/60 12/12/24 05:00 Pulse Ox 95 12/12/24 07:00 O2 Del Method Room Air 12/12/24 07:00 BMI result Body Mass Index 37.1 Const: Other: appreciable hallucinations and persecutory delusions; intermittent agitation, though at times verbally re-directable General: healthy appearing, no acute distress, well developed, alert, awake and Physically active Orientation/consciousness: patient oriented x3 HEENT: Head: Yes normal to inspection, Yes normocephalic and Yes atraumatic Eyes: General: appearance normal, both eyes and all related structures Neck: Neck: Yes normal visual inspection, Yes full ROM, Yes no meningeal signs, Yes trachea midline and Yes supple Chest: Chest palpation & inspection: normal inspection of the chest Resp: Other: no appreciable rales, rhonchi, wheezing Effort & Inspection: normal respiratory effort Cardio: Rate: regular rate Rhythm: regular rhythm GI: Inspection: Yes normal to inspection, Yes abdominal wall ecchymosis, No Abdominal wall edema and No distended Palpation (GI): Soft to palpation, not firm, nontender, no guarding and not rigid Skin: General skin exam: no rashes or lesions noted Neuro: General: patient oriented x3, tone normal, moves all extremities, no meningeal signs and no focal motor deficits Extrem: General: Yes normal to inspection, Yes full ROM, Yes capillary refill normal and Yes no clubbing, cyanosis or edema Psych: Other: intermittent agitation Objective Data Labs 12/12/24 05:26 12/12/24 05:26 Labs: Laboratory Results - last 24 hr 12/12/24 05:26 WBC 8.6 RBC 4.00 L Hgb 10.6 L Hct 31.3 L MCV 78.3 L MCH 26.5 L MCHC 33.9 RDW 14.0 Plt Count 270 MPV 9.3 L Immature Gran % (Auto) 0.5 H Neut % (Auto) 55.1 Lymph % (Auto) 20.9 [place] % (Auto) 22.4 H Eos % (Auto) 1.0 Baso % (Auto) 0.1 Lymph # (Auto) 1.8 [place] # (Auto) 1.9 H Eos # (Auto) 0.1 Baso # (Auto) 0.0 Abs Immat Gran (auto) 0.04 H Absolute Neuts (auto) 4.8 Absolute Nucleated RBC 0.000 Nucleated RBC % (auto) 0.0 Smear Tech's Comments VERIFIED Sodium 139 Potassium 4.0 Chloride 105 Carbon Dioxide 22 Anion Gap 16 BUN 7 L Creatinine 0.81 Estim Creat Clear Calc 179.4 Estimated GFR > 60 Random Glucose 116 H Calcium 8.6 Phosphorus 3.3 Magnesium 2.0 Progress Note: A&P Assessment and plan (1) Schizoaffective disorder, bipolar type: Status: Acute Plan Patient is a 28 Y M w/ schizoaffective disorder, presenting initially to the emergency department on 10/30 w/ decompensated schizoaffective disorder, admitted psychiatry; psychiatry course c/b worsening agitation, prompting ICU admission 11/08, downgraded to psychiatry 11/14, re-admitted ICU 12/07 d/t worsening agitation N: agitation, improving, s/p dexmedetomidine gtt CV: no acute issues; to monitor QTc in setting of psychiatric medications R: no acute issues GI: no acute issues; regular diet : no acute issues H: no acute issues; chemical DVT prophylaxis w/ enoxaparin ID: no acute issues E: no acute issues; to monitor hypo-/hyper-glycemia P: schizoaffective disorder, decompensated, improving; valproic acid, haloperidol vs fluphenazine, olanzapine; appreciate psychiatry recommendations Quality Stroke Does the patient have a stroke diagnosis?: No VTE Prior VTE?: No VTE Risk Level:: Medical - moderate - high VTE Device Contraindication: N/A - Device Ordered VTE Drug Contraindication: N/A - Med Ordered
--- NOTE | 2024-12-12 09:43 | ECG_ITS ---
Test Reason : qtc check Blood Pressure : */* mmHG Vent. Rate : 99 BPM Atrial Rate : 99 BPM P-R Int : 138 ms QRS Dur : 84 ms QT Int : 348 ms P-R-T Axes : 42 60 25 degrees QTcB Int : 446 ms Normal sinus rhythm Normal ECG When compared with ECG of 11-Dec-2024 14:50, No significant change was found Referred By: Bisi Brown Electronically Signed By: Colton Hayward
--- NOTE | 2024-12-12 13:59 | MHC.CM.PN ---
Pt continues in ICU for chemical behavior management: catrachito present: being followed by psych for medication adjustments. Will return to INPT psych when deemed stable
--- NOTE | 2024-12-12 14:44 | P.CDIM_ITS ---
PROVIDER RESPONSE TEXT: To clarify, the appropriate diagnosis supported by the clinical indicators: Obesity Due to other cause: psychotropic medications QUERY TEXT: PHYSICIAN'S DOCUMENTATION REQUEST Date of Query: 12/12/2024 09:09 AM EST Patient Name: Oliver Moser Admit Date: 12/07/2024 Dear Bisi Brown MD, A review of the medical record indicates additional documentation may be needed. Please review below and update the documentation accordingly. Clinical Indicators: Height: 5ft 11in Weight: 122.3kg BMI: 37.6 Other Clinical Notes Supporting Significance of the BMI: Nursing notes Height and Weight: Obese Class II If possible, please provide an associated diagnosis related to the patient's BMI, such as: Obesity Due to excess calories Obesity Drug induced Obesity Due to other cause Specify the other cause Other (explain) Clinically unable to determine (explain) Thank you, Esther Mae, CCS, CDIS Use of terms such as suspected, likely, concern for, or probable (associated with a specific diagnosi s that is being evaluated, monitored, or treated as if it exists) are acceptable and can be coded in the inpatient se tting, when documented at the time of discharge. Please use your independent medical judgment in providing your response. THIS QUERY IS PART OF THE PERMANENT MEDICAL RECORD
[2024-12-12] MEDS: Lithium Carbonate ER 300 MG TABLET.ER PO ×2 (15:59→20:27)
[2024-12-12] MEDS: DEXTROSE 5% IV (17:27)
[2024-12-12] MEDS: VALPROIC ACID IV (17:27)
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
[2024-12-13] VITALS (28 sets, daily range): BP systolic 88–138; BP diastolic 48–75; PULSE 84–108; RESP 13–22; TEMP 36.2–37.1; O2SAT 92–99; BMI 36.9
[2024-12-13] MEDS: Haloperidol Lactate 5 MG/ML VIAL IVPUSH ×4 (01:25→19:46)
[2024-12-13 04:36] LABS: Basophils Percent Auto 0.4 % (0-2); Eosinophils Absolute Auto 0.2 X10*3/uL (0.0-0.4); Hematocrit 32.9 % (42.0-52.0); Hemoglobin 10.8 g/dl (14.0-18.0); Imm Gran Abs Auto 0.05 X10*3/uL (0.00-0.03); Imm Gran Pct Auto 0.6 % (0.0-0.4); Lymphocytes Percent Auto 24.8 % (20-40); MANUAL DIFF FLAG SCAN; Mean Corpuscular HGB Conc 32.8 g/dl (31.0-36.0); Mean Corpuscular Hemoglobin 26.7 pg (27.0-33.0); Mean Corpuscular Volume 81.4 fL (80.0-98.0); Mean Platelet Volume 9.3 fL (9.4-12.4); Monocytes Absolute Auto 1.8 X10*3/uL (0.1-1.2); Monocytes Percent Auto 22.3 % (2-11); Neutrophils Percent Auto 49.9 % (45-73); Platelet Count 255 X10*3/uL (160-400); Red Blood Count 4.04 X10*6/uL (4.60-5.80); Red Cell Distribution Width 14.2 % (11.0-16.0); SCAN SMEAR FLAG 1; White Blood Count 7.9 X10*3/uL (4.8-10.8)
[2024-12-13 04:54] LABS: Anion Gap 12 (12-20); Blood Urea Nitrogen 10 mg/dL (9-16); Calcium 8.5 mg/dL (8.4-10.2); Carbon Dioxide 20 mmol/L (22-29); Chloride 111 mmol/L (96-108); Creatinine Clr Calc Pharmacy 196.4; Estimated Glomerular Filt Rate > 60; Glucose Random 100 mg/dL (60-115); Phosphorus 3.6 mg/dL (2.7-4.5); Potassium 4.2 mmol/L (3.3-5.1); Sodium 139 mmol/L (135-145)
[2024-12-13 04:58] LABS: SLIDE REVIEW VERIFIED
--- NOTE | 2024-12-13 08:42 | PM.CCPN ---
Subjective Subjective Date of Service: 12/13/24 Interval History: interval improvement agitation; plan for ECT today Critical Care Time (minutes): 0 Physical Exam Vital Signs: Vital Signs: Last Vital Signs Temp 97.1 F 12/13/24 08:00 Pulse 103 H 12/13/24 08:00 Resp 20 12/13/24 08:00 BP 118/71 12/13/24 08:00 Pulse Ox 96 12/13/24 08:00 O2 Del Method Room Air 12/13/24 08:00 BMI result Body Mass Index 36.9 Const: General: cooperative, healthy appearing, comfortable, no acute distress, well developed, alert, awake and Physically active Orientation/consciousness: patient oriented x3 HEENT: Head: Yes normal to inspection, Yes normocephalic and Yes atraumatic Eyes: General: appearance normal, both eyes and all related structures Neck: Neck: Yes normal visual inspection, Yes full ROM, Yes no meningeal signs, Yes trachea midline and Yes supple Chest: Chest palpation & inspection: normal inspection of the chest Resp: Other: no appreciable rales, rhonchi, wheezing Effort & Inspection: normal respiratory effort Cardio: Rate: regular rate Rhythm: regular rhythm GI: Inspection: Yes normal to inspection, No Abdominal wall edema and No distended Palpation (GI): Soft to palpation, not firm, nontender, no guarding and not rigid Skin: General skin exam: no rashes or lesions noted Neuro: General: patient oriented x3, tone normal, moves all extremities, no meningeal signs and no focal motor deficits Extrem: General: Yes normal to inspection, Yes full ROM, Yes capillary refill normal and Yes no clubbing, cyanosis or edema Psych: Other: cooperative, appropriate Objective Data Labs 12/13/24 03:58 12/13/24 03:58 Labs: Laboratory Results - last 24 hr 12/13/24 03:58 WBC 7.9 RBC 4.04 L Hgb 10.8 L Hct 32.9 L MCV 81.4 MCH 26.7 L MCHC 32.8 RDW 14.2 Plt Count 255 MPV 9.3 L Immature Gran % (Auto) 0.6 H Neut % (Auto) 49.9 Lymph % (Auto) 24.8 [place] % (Auto) 22.3 H Eos % (Auto) 2.0 Baso % (Auto) 0.4 Lymph # (Auto) 2.0 [place] # (Auto) 1.8 H Eos # (Auto) 0.2 Baso # (Auto) 0.0 Abs Immat Gran (auto) 0.05 H Absolute Neuts (auto) 4.0 Absolute Nucleated RBC 0.000 Nucleated RBC % (auto) 0.0 Smear Tech's Comments VERIFIED Sodium 139 Potassium 4.2 Chloride 111 H Carbon Dioxide 20 L Anion Gap 12 BUN 10 Creatinine 0.74 Estim Creat Clear Calc 196.4 Estimated GFR > 60 Random Glucose 100 Calcium 8.5 Phosphorus 3.6 Magnesium 2.0 Progress Note: A&P Assessment and plan (1) Schizoaffective disorder, bipolar type: Status: Acute Plan Patient is a 28 Y M w/ schizoaffective disorder, presenting initially to the emergency department on 10/30 w/ decompensated schizoaffective disorder, admitted psychiatry; psychiatry course c/b worsening agitation, prompting ICU admission 11/08, downgraded to psychiatry 11/14, re-admitted ICU 12/07 d/t worsening agitation N: agitation, improving, s/p dexmedetomidine gtt, last given 12/11 CV: no acute issues; to monitor QTc in setting of psychiatric medications R: no acute issues GI: no acute issues; NPO pending ECT; advane diet as tolerated : no acute issues H: no acute issues; chemical DVT prophylaxis w/ enoxaparin ID: no acute issues E: no acute issues; to monitor hypo-/hyper-glycemia P: schizoaffective disorder, decompensated, improving; valproic acid, haloperidol vs fluphenazine, olanzapine, lithium; appreciate psychiatry recommendations Quality Stroke Does the patient have a stroke diagnosis?: No VTE Prior VTE?: No VTE Risk Level:: Medical - moderate - high VTE Device Contraindication: N/A - Device Ordered VTE Drug Contraindication: N/A - Med Ordered
--- NOTE | 2024-12-13 08:50 | P.CONAN_ITS ---
[facility] Active Problems Active Problems: All Active Problems (Updated 11/16/24 @ 00:01 by Maricruz Bradford) Mild intermittent asthma (Acute) Chronic post-traumatic stress disorder (PTSD) (Acute) Schizoaffective disorder, bipolar type (Acute) Past Medical History Medical History Mild intermittent asthma Schizoaffective disorder, bipolar type Chronic post-traumatic stress disorder (PTSD) Family History Family history of problems with anesthesia: Unobtainable Surgical History History of Problems with Anesthesia: Unobtainable Social History Social History Household Members: Unknown / Unable to assess Housing: Unknown / Unable to assess Do you presently have visiting nurse or other home services: No Comment: 1:1 Sitter Patient Tobacco Use Status: Tobacco use Unknown Use of substances other than those prescribed or required for medical reasons: Unknown Currently Displaying Signs/Symptoms of Drug Intoxication Withdrawal: No Advance Directives: No Do you have a plan to hurt others: No Plan Nutrition Risks: No Nutritional Risk service: No Sexual orientation: Straight/Heterosexual Meds Allergies Allergy/AdvReac Type Severity Reaction Status Date / Time lithium Allergy Hives Verified 11/02/24 18:44 Active Medications: Current Medications Albuterol Sulfate (Albuterol Sulfate 90 Mcg 8 Gm Inhaler) 2 puff INHALE RQ4H PRN PRN Reason: Wheezing Calcium Carbonate (Calcium Carbonate 750 Mg Tab.Chew) 750 mg PO Q4H PRN PRN Reason: Heartburn Last Admin: 12/11/24 17:39 Dose: 750 mg Chlorpromazine HCl (Chlorpromazine Hcl 25 Mg/Ml Ampul) 100 mg IM Q4H PRN PRN Reason: agitation Last Admin: 12/12/24 00:05 Dose: 100 mg Enoxaparin Sodium (Enoxaparin Sodium 40 Mg/0.4 Ml Syringe) 40 mg SUBCUT Q24H [facility] Last Admin: 12/12/24 14:28 Dose: Not Given Fluphenazine HCl (Fluphenazine Hcl Oral Liquid 2.5 Mg/5 Ml Elixir) 15 mg PO BID [facility] Last Admin: 12/13/24 08:22 Dose: Not Given Glucose (Glucose Gel 15 Gm Gel..Gram.) 15 gm PO Q15M PRN; Protocol PRN Reason: per Hypoglycemia Standing Ord. Haloperidol Lactate (Haloperidol Lactate 5 Mg/Ml Vial) 5 mg IVPUSH Q6H [facility] Last Admin: 12/13/24 08:22 Dose: Not Given Dextrose (D10) 250 mls @ 750 mls/hr IV Q15M PRN; Protocol PRN Reason: per Hypoglycemia Standing Ord. Valproic Acid 1,250 mg/ (Dextrose) 62.5 mls @ 57.5 mls/hr IV Q8H [facility] Last Infusion: 12/13/24 01:16 Dose: Infused [place] Carbonate ([place] Carbonate Er 300 Mg Tablet.Er) 300 mg PO TID [facility] Last Admin: 12/12/24 20:27 Dose: 300 mg Magnesium Hydroxide (Milk Of Magnesia 30 Ml Oral.Susp) 30 ml PO DAILY PRN PRN Reason: Constipation Last Admin: 12/11/24 17:39 Dose: 30 ml Nicotine Polacrilex (Nicotine Polacrilex Lozenge 2 Mg Lozenge) 2 mg BUCCAL Q2H PRN PRN Reason: Nicotine Cravings Olanzapine (Olanzapine Odt 10 Mg Tab.Rapdis) 10 mg TRANSLINGU TID [facility] Last Admin: 12/13/24 08:22 Dose: Not Given Propranolol HCl (Propranolol Hcl 20 Mg Tablet) 20 mg PO TID [facility]; Protocol Last Admin: 12/13/24 08:22 Dose: Not Given Home Medications ?Medication ?Instructions ?Recorded ?Confirmed ?Last Taken ?Type levocarnitine 330 mg tablet 330 mg PO TID 12/07/24 12/07/24 Unknown History Exam Height,Weight and Vital Signs: Height 5 ft 11 in Weight 120 kg Last Vital Signs Temp 97.1 F 12/13/24 08:00 Pulse 103 H 12/13/24 08:00 Resp 20 12/13/24 08:00 BP 118/71 12/13/24 08:00 Pulse Ox 96 12/13/24 08:00 O2 Del Method Room Air 12/13/24 08:00 Pertinent Lab Results Pertinent Lab Results: Laboratory Tests 12/07/24 12/08/24 12/08/24 14:22 00:05 04:56 WBC 9.7 10.4 RBC 3.78 L 4.02 L Hgb 10.1 L 10.5 L Hct 31.4 L 33.5 L MCV 83.1 83.3 MCH 26.7 L 26.1 L MCHC 32.2 31.3 RDW 14.2 13.9 Plt Count 250 248 MPV 9.6 9.3 L Immature Gran % (Auto) 0.3 0.5 H Neut % (Auto) 56.4 63.6 Lymph % (Auto) 21.0 13.6 L [place] % (Auto) 19.9 H 20.5 H Eos % (Auto) 2.1 1.5 Baso % (Auto) 0.3 0.3 Lymph # (Auto) 2.1 1.4 [place] # (Auto) 1.9 H 2.1 H Eos # (Auto) 0.2 0.2 Baso # (Auto) 0.0 0.0 Abs Immat Gran (auto) 0.03 0.05 H Absolute Neuts (auto) 5.5 6.6 Absolute Nucleated RBC 0.000 0.000 Nucleated RBC % (auto) 0.0 0.0 Smear Tech's Comments VERIFIED VERIFIED Sodium 141 139 Potassium 4.4 4.2 Chloride 104 104 Carbon Dioxide 29 29 Anion Gap 12 10 L BUN 8 L 9 Creatinine 0.95 0.87 Estim Creat Clear Calc 151.2 165.1 Estimated GFR > 60 > 60 POC Glucose Random Glucose 66 96 Calcium 8.4 8.5 Phosphorus 4.9 H 3.9 Magnesium 2.2 2.1 Total Bilirubin 0.5 AST 150 H ALT 54 H Alkaline Phosphatase 66 Ammonia Total Protein 6.5 Albumin 3.5 3.2 L Valproic Acid HIV 1&2 Ab/P24 Ag 4thGn Nonreactive 12/09/24 12/10/24 12/10/24 04:44 05:38 12:18 WBC 10.1 12.3 H RBC 4.19 L 4.42 L Hgb 11.2 L 11.6 L Hct 34.7 L 36.0 L MCV 82.8 81.4 MCH 26.7 L 26.2 L MCHC 32.3 32.2 RDW 13.8 13.5 Plt Count 257 265 MPV 9.3 L 9.3 L Immature Gran % (Auto) 0.5 H 0.5 H Neut % (Auto) 64.1 67.8 Lymph % (Auto) 13.8 L 11.7 L [place] % (Auto) 19.7 H 18.5 H Eos % (Auto) 1.8 1.3 Baso % (Auto) 0.1 0.2 Lymph # (Auto) 1.4 1.4 [place] # (Auto) 2.0 H 2.3 H Eos # (Auto) 0.2 0.2 Baso # (Auto) 0.0 0.0 Abs Immat Gran (auto) 0.05 H 0.06 H Absolute Neuts (auto) 6.5 8.4 H Absolute Nucleated RBC 0.000 0.000 Nucleated RBC % (auto) 0.0 0.0 Smear Tech's Comments VERIFIED VERIFIED Sodium 140 138 Potassium 4.3 4.2 Chloride 104 103 Carbon Dioxide 28 28 Anion Gap 12 11 L BUN 8 L 9 Creatinine 0.84 0.85 Estim Creat Clear Calc 173.0 172.2 Estimated GFR > 60 > 60 POC Glucose 94 Random Glucose 98 98 Calcium 8.6 8.4 Phosphorus 3.7 3.9 Magnesium 2.0 1.6 Total Bilirubin 0.4 AST 51 H ALT 29 Alkaline Phosphatase 81 Ammonia 33 Total Protein 6.2 L Albumin 3.0 L Valproic Acid HIV 1&2 Ab/P24 Ag 4thGn 12/10/24 12/10/24 12/11/24 14:25 18:19 00:22 WBC RBC Hgb Hct MCV MCH MCHC RDW Plt Count MPV Immature Gran % (Auto) Neut % (Auto) Lymph % (Auto) [place] % (Auto) Eos % (Auto) Baso % (Auto) Lymph # (Auto) [place] # (Auto) Eos # (Auto) Baso # (Auto) Abs Immat Gran (auto) Absolute Neuts (auto) Absolute Nucleated RBC Nucleated RBC % (auto) Smear Tech's Comments Sodium Potassium Chloride Carbon Dioxide Anion Gap BUN Creatinine Estim Creat Clear Calc Estimated GFR POC Glucose 96 102 Random Glucose Calcium Phosphorus Magnesium Total Bilirubin AST ALT Alkaline Phosphatase Ammonia Total Protein Albumin Valproic Acid 88.2 HIV 1&2 Ab/P24 Ag 4thGn 12/11/24 12/12/24 12/13/24 05:24 05:26 03:58 WBC 10.1 8.6 7.9 RBC 4.29 L 4.00 L 4.04 L Hgb 11.2 L 10.6 L 10.8 L Hct 34.1 L 31.3 L 32.9 L MCV 79.5 L 78.3 L 81.4 MCH 26.1 L 26.5 L 26.7 L MCHC 32.8 33.9 32.8 RDW 13.7 14.0 14.2 Plt Count 275 270 255 MPV 9.3 L 9.3 L 9.3 L Immature Gran % (Auto) 0.5 H 0.5 H 0.6 H Neut % (Auto) 63.3 55.1 49.9 Lymph % (Auto) 15.6 L 20.9 24.8 [place] % (Auto) 19.1 H 22.4 H 22.3 H Eos % (Auto) 1.3 1.0 2.0 Baso % (Auto) 0.2 0.1 0.4 Lymph # (Auto) 1.6 1.8 2.0 [place] # (Auto) 1.9 H 1.9 H 1.8 H Eos # (Auto) 0.1 0.1 0.2 Baso # (Auto) 0.0 0.0 0.0 Abs Immat Gran (auto) 0.05 H 0.04 H 0.05 H Absolute Neuts (auto) 6.4 4.8 4.0 Absolute Nucleated RBC 0.000 0.000 0.000 Nucleated RBC % (auto) 0.0 0.0 0.0 Smear Tech's Comments VERIFIED VERIFIED VERIFIED Sodium 137 139 139 Potassium 4.1 4.0 4.2 Chloride 103 105 111 H Carbon Dioxide 25 22 20 L Anion Gap 13 16 12 BUN 9 7 L 10 Creatinine 0.79 0.81 0.74 Estim Creat Clear Calc 185.2 179.4 196.4 Estimated GFR > 60 > 60 > 60 POC Glucose Random Glucose 100 116 H 100 Calcium 8.5 8.6 8.5 Phosphorus 4.0 3.3 3.6 Magnesium 1.9 2.0 2.0 Total Bilirubin AST ALT Alkaline Phosphatase Ammonia Total Protein Albumin Valproic Acid 87.9 HIV 1&2 Ab/P24 Ag 4thGn Airway Mallampati Class: Patient Non-Cooperative TM Dist: >3cm Neck ROM: Full Heart: RRR Lungs: CTA Assessment and Plan Assessment Anesthesia Assessment: Anesthesia Plan Discussed and Chart Reviewed Final Anesthetic Review Family History of Problems with Anesthesia: Unobtainable History of Problems with Anesthesia: Unobtainable NPO: Yes ASA Class: II Final Preanesthetic Review: Meds/Allgs Chart Reviewed and Consent Obtained/Reviewed Patient Risk: Low Procedure Risk: Intermediate Anesthetic Plan Anesthetic Plan: GA Disposition: Standard PACU
--- NOTE | 2024-12-13 09:43 | ECG_ITS ---
Test Reason : check qtc Blood Pressure : */* mmHG Vent. Rate : 96 BPM Atrial Rate : 96 BPM P-R Int : 138 ms QRS Dur : 80 ms QT Int : 362 ms P-R-T Axes : 29 66 23 degrees QTcB Int : 457 ms Normal sinus rhythm Normal ECG When compared with ECG of 12-Dec-2024 19:20, No significant change was found Referred By: Bisi Brown Electronically Signed By: KARY SORIANO MD
[2024-12-13] MEDS: chlorproMAZINE HCl 25 MG/ML AMPUL 100 MG IM ×2 (10:10→10:16)
[2024-12-13] MEDS: dexmedeTOMIDidine HCL/NS 400 MCG/100 ML INFUS..BTL 36 MCG IVCONT (10:20)
--- NOTE | 2024-12-13 12:16 | MHC.SHP ---
Pre-Procedural Eval Section A - 24 Hr Update-Section A only Date of Service: 12/13/24 The patient is an INPATIENT: Yes Changes since office visit: No Cold of Flu in the past 2 weeks, No New Medical Problems, No Changes in Medication and No Patient answered all questions The patient has been examined within 24 hours of the surgical procedure. The History & Physical has been completed within 30 days and I have reviewed it.: Yes Section B - Complete if H&P > 30 days Chief Complaint: Yessi Psychosis Details of Present Illness: On ICU due to explosive behavior, on IV Depakote drip as per court order. On interview, sedated. Relevant Family History (Specify if Yes): No Relevant Social History: None Present Medications: None Allergies: Allergies Allergy/AdvReac Type Severity Reaction Status Date / Time lithium Allergy Hives Verified 11/02/24 18:44 Review of Systems Sugical H&P ROS: Negative: Constitution, Cardiovascular, Respiratory, Neurological, Psychiatric, Hem-Onc, Allergic/Immunologic, Gastrointestinal, Genitourinary, Musculoskeletal, Integumentary, Endocrine and Eyes/Ears/Nose/Throat Exam Surgical H&P Exam: Normal: HEENT, Normal: Heart, Normal: Lungs, Normal: Extremities, Normal: Abdomen, Normal: Skin and Normal: Neurological Plan Diagnosis/Plan: Change I have reviewed the history and physical and performed a pertinent physical examination on my patient. No changes have occurred unless specified. Time Spent With Patient Time: Total time managing care of this patient today __30__ minutes.
--- NOTE | 2024-12-13 12:18 | HO.ECTPROC ---
ECT Procedure Note Diagnosis/Treatment Date of Service: 12/13/24 Diagnosis: Bipolar disorder Current Treatment Number: 1 Treatment: Series Interval Clinical Notes: On ICU, sedated, very restless. Court order ECT done. ECT bitermporal at 0.25 100%, very short seizure 14s motor and EEG. Woke up well, no complications. Time: Total time managing care of this patient today __30__ minutes. ECT Settings Device: THYMATRON DGx Electrode Placement: Bitemporal Program/Pulse Width: 0.25 Energy Percent: 100 Seizure Duration By EEG (in seconds): 14 By Motor Observation (in seconds): 14 Medications Administration General Anesthetic: Etomidate (16) Muscle Relaxant: Succinylcholine (100) Airway Management Airway Management: Bag Mask Ventilation Treatment Recommendations No Changes Recommended: No change Pt Tolerated Procedure w/o Issue: Yes
[2024-12-13] MEDS: Propranolol HCL 20 MG TABLET PO ×2 (15:11→19:47)
[2024-12-13] MEDS: Lithium Carbonate ER 300 MG TABLET.ER PO ×2 (15:12→19:46)
[2024-12-13] MEDS: OLANZapine ODT 10 MG TAB.RAPDIS TRANSLINGU (15:12)
[2024-12-13] MEDS: VALPROIC ACID IV ×3 (15:26→23:15)
[2024-12-13] MEDS: DEXTROSE 5% IV ×3 (15:26→23:15)
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
[2024-12-13] MEDS: FLUPHENAZINE 2.5 MG/5 ML 15 MG PO (19:46)
[2024-12-13 21:17] LABS: Appearance Urine Cloudy; Color Urine Yellow; Glucose Urine UA Negative (Negative); Leukocyte Esterase Urine Large (3+) (Negative); Nitrite Urine Negative (Negative); PH 7.5 (5.0-9.0); UMIC TRIGGER UACC YES; Urine Blood Large (3+) (Negative); Urine Ketones Negative (Negative); Urine Protein 30 (1+) mg/dL (Neg-Trace)
[2024-12-13 21:22] LABS: Bacteria Urine None Seen (None Seen); Hyaline Casts Urine 0-2 /LPF (0-2); RBC Urine >20 /HPF (0-2); Squamous Epithelial Cell Urine 0-2 /HPF (0-2); UACC Culture Trigger YES; WBC Urine >50 /HPF (0-5)
[2024-12-14] VITALS (31 sets, daily range): BP systolic 96–151; BP diastolic 40–79; PULSE 68–116; RESP 12–28; TEMP 36.3–37.7; O2SAT 91–98; BMI 36.9
[2024-12-14] MEDS: Haloperidol Lactate 5 MG/ML VIAL IVPUSH ×4 (02:11→20:08)
[2024-12-14 05:42] LABS: Basophils Percent Auto 0.3 % (0-2); Eosinophils Absolute Auto 0.2 X10*3/uL (0.0-0.4); Hematocrit 38.7 % (42.0-52.0); Hemoglobin 12.5 g/dl (14.0-18.0); Imm Gran Abs Auto 0.08 X10*3/uL (0.00-0.03); Imm Gran Pct Auto 0.8 % (0.0-0.4); Lymphocytes Absolute Auto 2.5 X10*3/uL (1.2-4.9); Lymphocytes Percent Auto 25.2 % (20-40); MANUAL DIFF FLAG SCAN; Mean Corpuscular HGB Conc 32.3 g/dl (31.0-36.0); Mean Corpuscular Hemoglobin 26.4 pg (27.0-33.0); Mean Corpuscular Volume 81.8 fL (80.0-98.0); Mean Platelet Volume 9.1 fL (9.4-12.4); Monocytes Absolute Auto 1.8 X10*3/uL (0.1-1.2); Monocytes Percent Auto 17.7 % (2-11); Neutrophils Absolute Auto 5.4 x10*3/uL (2.0-8.3); Platelet Count 308 X10*3/uL (160-400); Red Blood Count 4.73 X10*6/uL (4.60-5.80); Red Cell Distribution Width 14.2 % (11.0-16.0); SCAN SMEAR FLAG 1
[2024-12-14 06:09] LABS: SLIDE REVIEW VERIFIED
[2024-12-14 06:19] LABS: Valproate 85.6 mcg/mL (50.0-100.0)
[2024-12-14 06:23] LABS: Anion Gap 16 (12-20); Blood Urea Nitrogen 14 mg/dL (9-16); Calcium 9.6 mg/dL (8.4-10.2); Carbon Dioxide 21 mmol/L (22-29); Chloride 106 mmol/L (96-108); Creatinine Clr Calc Pharmacy 170.5; Estimated Glomerular Filt Rate > 60; Glucose Random 100 mg/dL (60-115); Magnesium 1.9 mg/dL (1.6-2.6); Phosphorus 4.1 mg/dL (2.7-4.5); Potassium 4.6 mmol/L (3.3-5.1); Sodium 138 mmol/L (135-145)
--- NOTE | 2024-12-14 08:06 | P.PNCC_ITS ---
Subjective Subjective Date of Service: 12/14/24 Interval History: s/p ECT 12/13 Critical Care Time (minutes): 0 Physical Exam 2 Vital Signs: Vital Signs: Last Vital Signs Temp 98.7 F 12/14/24 05:00 Pulse 112 H 12/14/24 07:00 Resp 18 12/14/24 07:00 BP 122/59 L 12/14/24 05:00 Pulse Ox 96 12/14/24 07:00 O2 Del Method Room Air 12/14/24 07:00 O2 Flow Rate 2 12/13/24 12:23 BMI result Body Mass Index 36.9 Const: General: cooperative, healthy appearing, comfortable, no acute distress, well developed, alert, awake and Physically active O rientation/consciousness: patient oriented x3 HEENT: Head: Yes normal to inspection, Yes normocephalic and Yes atraumatic Eyes: General: appearance normal, both eyes and all related structures Neck: Neck: Yes normal visual inspection, Yes full ROM, Yes no meningeal signs, Yes trachea midline and Yes supple Chest: Chest palpation & inspection: normal inspection of the chest Resp: Other: no appreciable rales, rhonchi, wheezing Effort & Inspection: normal respiratory effort Cardio: Rate: regular rate Rhythm: regular rhythm GI: Inspection: Yes normal to inspection, No Abdominal wall edema and No distended Palpation (GI): Soft to palpation, not firm, nontender, no guarding and not rigid Skin: General skin exam: no rashes or lesions noted Neuro: General: patient oriented x3, tone normal, moves all extremities, no meningeal signs and no focal motor deficits Extrem: General: Yes normal to inspection, Yes full ROM, Yes capillary refill normal and Yes no clubbing, cyanosis or edema Psych: Appearance: grossly normal Objective Data Labs 12/14/24 05:19 12/14/24 05:19 Labs: Laboratory Results - last 24 hr 12/13/24 12/14/24 20:53 05:19 WBC 10.0 RBC 4.73 Hgb 12.5 L Hct 38.7 L MCV 81.8 MCH 26.4 L MCHC 32.3 RDW 14.2 Plt Count 308 MPV 9.1 L Immature Gran % (Auto) 0.8 H Neut % (Auto) 54.0 Lymph % (Auto) 25.2 [place] % (Auto) 17.7 H Eos % (Auto) 2.0 Baso % (Auto) 0.3 Lymph # (Auto) 2.5 [place] # (Auto) 1.8 H Eos # (Auto) 0.2 Baso # (Auto) 0.0 Abs Immat Gran (auto) 0.08 H Absolute Neuts (auto) 5.4 Absolute Nucleated RBC 0.000 Nucleated RBC % (auto) 0.0 Smear Tech's Comments VERIFIED Sodium 138 Potassium 4.6 Chloride 106 Carbon Dioxide 21 L Anion Gap 16 BUN 14 Creatinine 0.85 Estim Creat Clear Calc 170.5 Estimated GFR > 60 Random Glucose 100 Calcium 9.6 D Phosphorus 4.1 Magnesium 1.9 Urine Color Yellow Urine Appearance Cloudy Urine pH 7.5 Ur Specific Shepherd 1.020 Urine Protein 30 (1+) H Urine Glucose (UA) Negative Urine Ketones Negative Urine Blood Large (3+) H Urine Nitrite Negative Ur Leukocyte Esterase Large (3+) H Urine RBC >20 H Urine WBC >50 H Ur Squamous Epith Cells 0-2 Urine Bacteria None Seen Hyaline Casts 0-2 Valproic Acid 85.6 Progress Note: A&P Assessment and plan (1) Schizoaffective disorder, bipolar type: Status: Acute Plan Patient is a 28 Y M w/ schizoaffective disorder, presenting initially to the emergency department on 10/30 w/ decompensated schizoaffective disorder, admitted psychiatry; psychiatry course c/b worsening agitation, prompting ICU admission 11/08, downgraded to psychiatry 11/14, re-admitted ICU 12/07 d/t worsening agitation N: agitation, improving, s/p dexmedetomidine gtt, last given 12/12 CV: no acute issues; to monitor QTc in setting of psychiatric medications R: no acute issues GI: no acute issues; NPO pending ECT; advance diet as tolerated : no acute issues H: no acute issues; chemical DVT prophylaxis w/ enoxaparin ID: no acute issues E: no acute issues; to monitor hypo-/hyper-glycemia P: schizoaffective disorder, decompensated, improving; ECT 12/13, valproic acid, haloperidol vs fluphenazine, olanzapine, lithium; appreciate psychiatry recommendations Quality Stroke Does the patient have a stroke diagnosis?: No VTE Prior VTE?: No VTE Risk Level:: Medical - moderate - high VTE Device Contraindication: N/A - Device Ordered VTE Drug Contraindication: N/A - Med Ordered
[2024-12-14] MEDS: Propranolol HCL 20 MG TABLET PO ×2 (08:16→17:54)
[2024-12-14] MEDS: OLANZapine ODT 10 MG TAB.RAPDIS TRANSLINGU ×2 (08:16→17:55)
[2024-12-14] MEDS: FLUPHENAZINE 2.5 MG/5 ML 15 MG PO (08:16)
--- NOTE | 2024-12-14 11:26 | MHC.CM.PN ---
Pt from INPT psych: brought to ICU for medication behavior management. Had one session of ECT on 12/13 and will have another today. Pt will return to INPT psych once ICU care needs are no longer required. CM to follow
[2024-12-14] MEDS: LORazepam 2 MG/ML VIAL 3 MG IVPUSH (12:46)
[2024-12-14] MEDS: chlorproMAZINE HCl 100 MG TABLET 600 MG PO (12:46)
--- NOTE | 2024-12-14 14:08 | MHC.SHP ---
Pre-Procedural Eval Section A - 24 Hr Update-Section A only Date of Service: 12/14/24 The patient is an INPATIENT: Yes Changes since office visit: No Cold of Flu in the past 2 weeks, No New Medical Problems, No Changes in Medication and No Patient answered all questions The patient has been examined within 24 hours of the surgical procedure. The History & Physical has been completed within 30 days and I have reviewed it.: Yes Section B - Complete if H&P > 30 days Chief Complaint: Yessi Psychosis Allergies: Allergies Allergy/AdvReac Type Severity Reaction Status Date / Time lithium Allergy Hives Verified 11/02/24 18:44 Plan I have reviewed the history and physical and performed a pertinent physical examination on my patient. No changes have occurred unless specified. Time Spent With Patient Time: Total time managing care of this patient today ____ minutes.
--- NOTE | 2024-12-14 14:18 | HO.ECTPROC ---
ECT Procedure Note Diagnosis/Treatment Date of Service: 12/14/24 Diagnosis: Schizoaffective Disorder Previous ECT Date: 12/13/24 Current Treatment Number: 2 Treatment: Series Interval Clinical Notes: The patient was sedated before we came, he received PO Thorazine and Ativan IVP. As per the staff, he was agitated after the first ECT, inmediately after the first procedure. Today he was off restraints. ECT done at 0.5 at 100%. This time we added Flumazenl to revert the previous Ativan. He had a better seizure, no complications. Time: Total time managing care of this patient today _30___ minutes. ECT Settings Device: THYMATRON DGx Electrode Placement: Bitemporal Program/Pulse Width: 0.50 Energy Percent: 100 Seizure Duration By EEG (in seconds): 49 By Motor Observation (in seconds): 24 Medications Administration General Anesthetic: Etomidate (14) Muscle Relaxant: Succinylcholine (120) Ancillary Medications Miscillaneous Medications: Midazolam (2 mg after ECT) Airway Management Airway Management: Bag Mask Ventilation Treatment Recommendations No Changes Recommended: No change Pt Tolerated Procedure w/o Issue: Yes
--- NOTE | 2024-12-14 14:29 | P.CONAN_ITS ---
[facility] Active Problems Active Problems: All Active Problems Mild intermittent asthma (Acute) Chronic post-traumatic stress disorder (PTSD) (Acute) Schizoaffective disorder, bipolar type (Acute) Past Medical History Medical History Mild intermittent asthma Schizoaffective disorder, bipolar type Chronic post-traumatic stress disorder (PTSD) Family History Family history of problems with anesthesia: Unobtainable Surgical History History of Problems with Anesthesia: Unobtainable Social History Social History Household Members: Unknown / Unable to assess Housing: Unknown / Unable to assess Do you presently have visiting nurse or other home services: No Comment: 1:1 sitter bedside Patient Tobacco Use Status: Tobacco use Unknown Use of substances other than those prescribed or required for medical reasons: Unknown Currently Displaying Signs/Symptoms of Drug Intoxication Withdrawal: No Are you DNR?: No Advance Directives: No Do you have a plan to hurt others: No Plan Nutrition Risks: No Nutritional Risk service: No Sexual orientation: Straight/Heterosexual Meds Allergies Allergy/AdvReac Type Severity Reaction Status Date / Time lithium Allergy Hives Verified 11/02/24 18:44 Active Medications: Current Medications Albuterol Sulfate (Albuterol Sulfate 90 Mcg 8 Gm Inhaler) 2 puff INHALE RQ4H PRN PRN Reason: Wheezing Calcium Carbonate (Calcium Carbonate 750 Mg Tab.Chew) 750 mg PO Q4H PRN PRN Reason: Heartburn Last Admin: 12/11/24 17:39 Dose: 750 mg Chlorpromazine HCl (Chlorpromazine Hcl 25 Mg/Ml Ampul) 100 mg IM Q4H PRN PRN Reason: agitation Last Admin: 12/13/24 10:10 Dose: 100 mg Enoxaparin Sodium (Enoxaparin Sodium 40 Mg/0.4 Ml Syringe) 40 mg SUBCUT Q24H [facility] Last Admin: 12/13/24 15:17 Dose: Not Given Fluphenazine HCl (Fluphenazine Hcl Oral Liquid 2.5 Mg/5 Ml Elixir) 15 mg PO BID [facility] Last Admin: 12/14/24 08:16 Dose: 15 mg Glucose (Glucose Gel 15 Gm Gel..Gram.) 15 gm PO Q15M PRN; Protocol PRN Reason: per Hypoglycemia Standing Ord. Haloperidol Lactate (Haloperidol Lactate 5 Mg/Ml Vial) 5 mg IVPUSH Q6H [facility] Last Admin: 12/14/24 08:16 Dose: 5 mg Dextrose (D10) 250 mls @ 750 mls/hr IV Q15M PRN; Protocol PRN Reason: per Hypoglycemia Standing Ord. Valproic Acid 1,250 mg/ (Dextrose) 62.5 mls @ 57.5 mls/hr IV Q8H [facility] Last Infusion: 12/14/24 00:44 Dose: Infused Dexmedetomidine HCl (Precedex) 400 mcg in 100 mls @ 0 mls/hr IVCONT .Q0M [facility]; Protocol Last Titration: 12/14/24 13:34 Dose: Infused [place] Carbonate ([place] Carbonate Er 300 Mg Tablet.Er) 300 mg PO TID [facility] Last Admin: 12/13/24 19:46 Dose: 300 mg Magnesium Hydroxide (Milk Of Magnesia 30 Ml Oral.Susp) 30 ml PO DAILY PRN PRN Reason: Constipation Last Admin: 12/11/24 17:39 Dose: 30 ml Nicotine Polacrilex (Nicotine Polacrilex Lozenge 2 Mg Lozenge) 2 mg BUCCAL Q2H PRN PRN Reason: Nicotine Cravings Olanzapine (Olanzapine Odt 10 Mg Tab.Rapdis) 10 mg TRANSLINGU TID [facility] Last Admin: 12/14/24 08:16 Dose: 10 mg Propranolol HCl (Propranolol Hcl 20 Mg Tablet) 20 mg PO TID [facility]; Protocol Last Admin: 12/14/24 08:16 Dose: 20 mg Home Medications ?Medication ?Instructions ?Recorded ?Confirmed ?Last Taken ?Type levocarnitine 330 mg tablet 330 mg PO TID 12/07/24 12/07/24 Unknown History Exam Height,Weight and Vital Signs: Height 5 ft 11 in Weight 120 kg Last Vital Signs Temp 100 F 12/14/24 14:00 Pulse 114 H 12/14/24 14:00 Resp 21 H 12/14/24 14:00 BP 129/65 12/14/24 14:00 Pulse Ox 94 12/14/24 14:00 O2 Del Method Room Air 12/14/24 14:00 O2 Flow Rate 2 12/13/24 12:23 Pertinent Lab Results Pertinent Lab Results: Laboratory Tests 12/07/24 12/08/24 12/08/24 14:22 00:05 04:56 WBC 9.7 10.4 RBC 3.78 L 4.02 L Hgb 10.1 L 10.5 L Hct 31.4 L 33.5 L MCV 83.1 83.3 MCH 26.7 L 26.1 L MCHC 32.2 31.3 RDW 14.2 13.9 Plt Count 250 248 MPV 9.6 9.3 L Immature Gran % (Auto) 0.3 0.5 H Neut % (Auto) 56.4 63.6 Lymph % (Auto) 21.0 13.6 L [place] % (Auto) 19.9 H 20.5 H Eos % (Auto) 2.1 1.5 Baso % (Auto) 0.3 0.3 Lymph # (Auto) 2.1 1.4 [place] # (Auto) 1.9 H 2.1 H Eos # (Auto) 0.2 0.2 Baso # (Auto) 0.0 0.0 Abs Immat Gran (auto) 0.03 0.05 H Absolute Neuts (auto) 5.5 6.6 Absolute Nucleated RBC 0.000 0.000 Nucleated RBC % (auto) 0.0 0.0 Smear Tech's Comments VERIFIED VERIFIED Sodium 141 139 Potassium 4.4 4.2 Chloride 104 104 Carbon Dioxide 29 29 Anion Gap 12 10 L BUN 8 L 9 Creatinine 0.95 0.87 Estim Creat Clear Calc 151.2 165.1 Estimated GFR > 60 > 60 POC Glucose Random Glucose 66 96 Calcium 8.4 8.5 Phosphorus 4.9 H 3.9 Magnesium 2.2 2.1 Total Bilirubin 0.5 AST 150 H ALT 54 H Alkaline Phosphatase 66 Ammonia Total Protein 6.5 Albumin 3.5 3.2 L Urine Color Urine Appearance Urine pH Ur Specific [place] Urine Protein Urine Glucose (UA) Urine Ketones Urine Blood Urine Nitrite Ur Leukocyte Esterase Urine RBC Urine WBC Ur Squamous Epith Cells Urine Bacteria Hyaline Casts Valproic Acid HIV 1&2 Ab/P24 Ag 4thGn Nonreactive 12/09/24 12/10/24 12/10/24 04:44 05:38 12:18 WBC 10.1 12.3 H RBC 4.19 L 4.42 L Hgb 11.2 L 11.6 L Hct 34.7 L 36.0 L MCV 82.8 81.4 MCH 26.7 L 26.2 L MCHC 32.3 32.2 RDW 13.8 13.5 Plt Count 257 265 MPV 9.3 L 9.3 L Immature Gran % (Auto) 0.5 H 0.5 H Neut % (Auto) 64.1 67.8 Lymph % (Auto) 13.8 L 11.7 L [place] % (Auto) 19.7 H 18.5 H Eos % (Auto) 1.8 1.3 Baso % (Auto) 0.1 0.2 Lymph # (Auto) 1.4 1.4 [place] # (Auto) 2.0 H 2.3 H Eos # (Auto) 0.2 0.2 Baso # (Auto) 0.0 0.0 Abs Immat Gran (auto) 0.05 H 0.06 H Absolute Neuts (auto) 6.5 8.4 H Absolute Nucleated RBC 0.000 0.000 Nucleated RBC % (auto) 0.0 0.0 Smear Tech's Comments VERIFIED VERIFIED Sodium 140 138 Potassium 4.3 4.2 Chloride 104 103 Carbon Dioxide 28 28 Anion Gap 12 11 L BUN 8 L 9 Creatinine 0.84 0.85 Estim Creat Clear Calc 173.0 172.2 Estimated GFR > 60 > 60 POC Glucose 94 Random Glucose 98 98 Calcium 8.6 8.4 Phosphorus 3.7 3.9 Magnesium 2.0 1.6 Total Bilirubin 0.4 AST 51 H ALT 29 Alkaline Phosphatase 81 Ammonia 33 Total Protein 6.2 L Albumin 3.0 L Urine Color Urine Appearance Urine pH Ur Specific [place] Urine Protein Urine Glucose (UA) Urine Ketones Urine Blood Urine Nitrite Ur Leukocyte Esterase Urine RBC Urine WBC Ur Squamous Epith Cells Urine Bacteria Hyaline Casts Valproic Acid HIV 1&2 Ab/P24 Ag 4thGn 12/10/24 12/10/24 12/11/24 14:25 18:19 00:22 WBC RBC Hgb Hct MCV MCH MCHC RDW Plt Count MPV Immature Gran % (Auto) Neut % (Auto) Lymph % (Auto) [place] % (Auto) Eos % (Auto) Baso % (Auto) Lymph # (Auto) [place] # (Auto) Eos # (Auto) Baso # (Auto) Abs Immat Gran (auto) Absolute Neuts (auto) Absolute Nucleated RBC Nucleated RBC % (auto) Smear Tech's Comments Sodium Potassium Chloride Carbon Dioxide Anion Gap BUN Creatinine Estim Creat Clear Calc Estimated GFR POC Glucose 96 102 Random Glucose Calcium Phosphorus Magnesium Total Bilirubin AST ALT Alkaline Phosphatase Ammonia Total Protein Albumin Urine Color Urine Appearance Urine pH Ur Specific [place] Urine Protein Urine Glucose (UA) Urine Ketones Urine Blood Urine Nitrite Ur Leukocyte Esterase Urine RBC Urine WBC Ur Squamous Epith Cells Urine Bacteria Hyaline Casts Valproic Acid 88.2 HIV 1&2 Ab/P24 Ag 4thGn 12/11/24 12/12/24 12/13/24 05:24 05:26 03:58 WBC 10.1 8.6 7.9 RBC 4.29 L 4.00 L 4.04 L Hgb 11.2 L 10.6 L 10.8 L Hct 34.1 L 31.3 L 32.9 L MCV 79.5 L 78.3 L 81.4 MCH 26.1 L 26.5 L 26.7 L MCHC 32.8 33.9 32.8 RDW 13.7 14.0 14.2 Plt Count 275 270 255 MPV 9.3 L 9.3 L 9.3 L Immature Gran % (Auto) 0.5 H 0.5 H 0.6 H Neut % (Auto) 63.3 55.1 49.9 Lymph % (Auto) 15.6 L 20.9 24.8 [place] % (Auto) 19.1 H 22.4 H 22.3 H Eos % (Auto) 1.3 1.0 2.0 Baso % (Auto) 0.2 0.1 0.4 Lymph # (Auto) 1.6 1.8 2.0 [place] # (Auto) 1.9 H 1.9 H 1.8 H Eos # (Auto) 0.1 0.1 0.2 Baso # (Auto) 0.0 0.0 0.0 Abs Immat Gran (auto) 0.05 H 0.04 H 0.05 H Absolute Neuts (auto) 6.4 4.8 4.0 Absolute Nucleated RBC 0.000 0.000 0.000 Nucleated RBC % (auto) 0.0 0.0 0.0 Smear Tech's Comments VERIFIED VERIFIED VERIFIED Sodium 137 139 139 Potassium 4.1 4.0 4.2 Chloride 103 105 111 H Carbon Dioxide 25 22 20 L Anion Gap 13 16 12 BUN 9 7 L 10 Creatinine 0.79 0.81 0.74 Estim Creat Clear Calc 185.2 179.4 196.4 Estimated GFR > 60 > 60 > 60 POC Glucose Random Glucose 100 116 H 100 Calcium 8.5 8.6 8.5 Phosphorus 4.0 3.3 3.6 Magnesium 1.9 2.0 2.0 Total Bilirubin AST ALT Alkaline Phosphatase Ammonia Total Protein Albumin Urine Color Urine Appearance Urine pH Ur Specific [place] Urine Protein Urine Glucose (UA) Urine Ketones Urine Blood Urine Nitrite Ur Leukocyte Esterase Urine RBC Urine WBC Ur Squamous Epith Cells Urine Bacteria Hyaline Casts Valproic Acid 87.9 HIV 1&2 Ab/P24 Ag 4thGn 12/13/24 12/14/24 20:53 05:19 WBC 10.0 RBC 4.73 Hgb 12.5 L Hct 38.7 L MCV 81.8 MCH 26.4 L MCHC 32.3 RDW 14.2 Plt Count 308 MPV 9.1 L Immature Gran % (Auto) 0.8 H Neut % (Auto) 54.0 Lymph % (Auto) 25.2 [place] % (Auto) 17.7 H Eos % (Auto) 2.0 Baso % (Auto) 0.3 Lymph # (Auto) 2.5 [place] # (Auto) 1.8 H Eos # (Auto) 0.2 Baso # (Auto) 0.0 Abs Immat Gran (auto) 0.08 H Absolute Neuts (auto) 5.4 Absolute Nucleated RBC 0.000 Nucleated RBC % (auto) 0.0 Smear Tech's Comments VERIFIED Sodium 138 Potassium 4.6 Chloride 106 Carbon Dioxide 21 L Anion Gap 16 BUN 14 Creatinine 0.85 Estim Creat Clear Calc 170.5 Estimated GFR > 60 POC Glucose Random Glucose 100 Calcium 9.6 D Phosphorus 4.1 Magnesium 1.9 Total Bilirubin AST ALT Alkaline Phosphatase Ammonia Total Protein Albumin Urine Color Yellow Urine Appearance Cloudy Urine pH 7.5 Ur Specific [place] 1.020 Urine Protein 30 (1+) H Urine Glucose (UA) Negative Urine Ketones Negative Urine Blood Large (3+) H Urine Nitrite Negative Ur Leukocyte Esterase Large (3+) H Urine RBC >20 H Urine WBC >50 H Ur Squamous Epith Cells 0-2 Urine Bacteria None Seen Hyaline Casts 0-2 Valproic Acid 85.6 HIV 1&2 Ab/P24 Ag 4thGn Airway Mallampati Class: Patient Non-Cooperative TM Dist: >3cm Neck ROM: Full Heart: RRR Lungs: CTA Assessment and Plan Assessment Anesthesia Assessment: Anesthesia Plan Discussed and Chart Reviewed Final Anesthetic Review Family History of Problems with Anesthesia: Unobtainable History of Problems with Anesthesia: Unobtainable NPO: Yes ASA Class: II Final Preanesthetic Review: Meds/Allgs Chart Reviewed, Consent Obtained/Reviewed and Anes Risks/Benef Reviewed Patient Risk: Low Procedure Risk: Intermediate Anesthetic Plan Anesthetic Plan: GA Disposition: Standard PACU
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
[2024-12-14] MEDS: DEXTROSE 5% IV (19:22)
[2024-12-14] MEDS: VALPROIC ACID IV (19:22)
[2024-12-15] VITALS (25 sets, daily range): BP systolic 93–133; BP diastolic 48–73; PULSE 80–102; RESP 11–22; TEMP 36.4; O2SAT 91–94; BMI 36.2
[2024-12-15] MEDS: FLUPHENAZINE 2.5 MG/5 ML 15 MG PO ×2 (00:04→09:27)
[2024-12-15] MEDS: Propranolol HCL 20 MG TABLET PO ×4 (00:05→20:17)
[2024-12-15] MEDS: Lithium Carbonate ER 300 MG TABLET.ER PO ×4 (00:06→20:17)
[2024-12-15] MEDS: OLANZapine ODT 10 MG TAB.RAPDIS TRANSLINGU ×4 (00:06→20:17)
[2024-12-15] MEDS: Haloperidol Lactate 5 MG/ML VIAL IVPUSH ×4 (02:53→19:11)
--- NOTE | 2024-12-15 03:13 | PM.EVENT ---
Documented by User: Larry Neal NP 12/15/24 03:13 Event Note Date of Service: 12/15/24 Event Note: Hypotension related to sedation, no evidence of infection/ sepsis Time Spent With Patient Time: Total time managing care of this patient today ____ minutes. Documented by User: Bisi Brown MD 12/15/24 08:17 Event Note Date of Service: 12/15/24
[2024-12-15] MEDS: DEXTROSE 5% IV ×3 (04:27→19:11)
[2024-12-15] MEDS: VALPROIC ACID IV ×3 (04:27→19:11)
[2024-12-15 05:46] LABS: Basophils Percent Auto 0.2 % (0-2); Eosinophils Absolute Auto 0.2 X10*3/uL (0.0-0.4); Eosinophils Percent Auto 1.8 % (0-4); Hematocrit 33.4 % (42.0-52.0); Hemoglobin 10.8 g/dl (14.0-18.0); Imm Gran Abs Auto 0.06 X10*3/uL (0.00-0.03); Imm Gran Pct Auto 0.5 % (0.0-0.4); Lymphocytes Absolute Auto 2.5 X10*3/uL (1.2-4.9); Lymphocytes Percent Auto 19.5 % (20-40); MANUAL DIFF FLAG SCAN; Mean Corpuscular HGB Conc 32.3 g/dl (31.0-36.0); Mean Corpuscular Hemoglobin 26.1 pg (27.0-33.0); Mean Corpuscular Volume 80.7 fL (80.0-98.0); Mean Platelet Volume 8.9 fL (9.4-12.4); Monocytes Absolute Auto 2.3 X10*3/uL (0.1-1.2); Monocytes Percent Auto 18.1 % (2-11); Neutrophils Absolute Auto 7.7 x10*3/uL (2.0-8.3); Neutrophils Percent Auto 59.9 % (45-73); Platelet Count 244 X10*3/uL (160-400); Red Blood Count 4.14 X10*6/uL (4.60-5.80); Red Cell Distribution Width 14.2 % (11.0-16.0); SCAN SMEAR FLAG 1; White Blood Count 12.8 X10*3/uL (4.8-10.8)
[2024-12-15 06:03] LABS: Anion Gap 14 (12-20); Blood Urea Nitrogen 20 mg/dL (9-16); Calcium 8.7 mg/dL (8.4-10.2); Carbon Dioxide 24 mmol/L (22-29); Chloride 105 mmol/L (96-108); Creatinine Clr Calc Pharmacy 135.4; Estimated Glomerular Filt Rate > 60; Glucose Random 116 mg/dL (60-115); Magnesium 1.9 mg/dL (1.6-2.6); Phosphorus 4.9 mg/dL (2.7-4.5); Potassium 4.2 mmol/L (3.3-5.1); Sodium 139 mmol/L (135-145)
[2024-12-15 06:08] LABS: SLIDE REVIEW VERIFIED
--- NOTE | 2024-12-15 08:22 | P.PNCC_ITS ---
Subjective Subjective Date of Service: 12/15/24 Interval History: no significant overnight events; no appreciable agitation 12/14 PM and 12/15 AM Critical Care Time (minutes): 0 Physical Exam 2 Vital Signs: Vital Signs: Last Vital Signs Temp 99.5 F 12/14/24 21:31 Pulse 92 12/15/24 07:58 Resp 17 12/15/24 07:58 BP 93/48 L 12/15/24 02:54 Pulse Ox 94 12/15/24 04:00 O2 Del Method Room Air 12/15/24 04:00 O2 Flow Rate 3 12/14/24 14:45 BMI result Body Mass Index 36.2 Const: General: cooperative, healthy appearing, comfortable, no acute distress, well developed, alert, awake and Physically active O rientation/consciousness: patient oriented x3 HEENT: Head: Yes normal to inspection, Yes normocephalic and Yes atraumatic Eyes: General: appearance normal, both eyes and all related structures Neck: Neck: Yes normal visual inspection, Yes full ROM, Yes no meningeal signs, Yes trachea midline and Yes supple Chest: Chest palpation & inspection: normal inspection of the chest Resp: Other: no appreciable rales, rhonchi, wheezing Effort & Inspection: normal respiratory effort Cardio: Rate: regular rate Rhythm: regular rhythm GI: Inspection: Yes normal to inspection, No Abdominal wall edema and No distended Palpation (GI): Soft to palpation, not firm, nontender, no guarding and not rigid Skin: General skin exam: no rashes or lesions noted Neuro: General: patient oriented x3, tone normal, moves all extremities, no meningeal signs and no focal motor deficits Extrem: General: Yes normal to inspection, Yes full ROM, Yes capillary refill normal and Yes no clubbing, cyanosis or edema Psych: Appearance: grossly normal Objective Data Labs 12/15/24 05:39 12/15/24 05:39 Labs: Laboratory Results - last 24 hr 12/15/24 05:39 WBC 12.8 H RBC 4.14 L Hgb 10.8 L Hct 33.4 L MCV 80.7 MCH 26.1 L MCHC 32.3 RDW 14.2 Plt Count 244 MPV 8.9 L Immature Gran % (Auto) 0.5 H Neut % (Auto) 59.9 Lymph % (Auto) 19.5 L [place] % (Auto) 18.1 H Eos % (Auto) 1.8 Baso % (Auto) 0.2 Lymph # (Auto) 2.5 [place] # (Auto) 2.3 H Eos # (Auto) 0.2 Baso # (Auto) 0.0 Abs Immat Gran (auto) 0.06 H Absolute Neuts (auto) 7.7 Absolute Nucleated RBC 0.000 Nucleated RBC % (auto) 0.0 Smear Tech's Comments VERIFIED Sodium 139 Potassium 4.2 Chloride 105 Carbon Dioxide 24 Anion Gap 14 BUN 20 H Creatinine 1.07 Estim Creat Clear Calc 135.4 Estimated GFR > 60 Random Glucose 116 H Calcium 8.7 D Phosphorus 4.9 H Magnesium 1.9 Microbiology Microbiology Results: Microbiology 12/13/24 Unknown Urine clean catch - Clean Catch Midstream Urine Culture - Preliminary No growth to date. Progress Note: A&P Assessment and plan (1) Schizoaffective disorder, bipolar type: Status: Acute Plan Patient is a 28 Y M w/ schizoaffective disorder, presenting initially to the emergency department on 10/30 w/ decompensated schizoaffective disorder, admitted psychiatry; psychiatry course c/b worsening agitation, prompting ICU admission 11/08, downgraded to psychiatry 11/14, re-admitted ICU 12/07 d/t worsening agitation N: agitation, improving, s/p dexmedetomidine gtt, last given 12/13 CV: no acute issues; to monitor QTc in setting of psychiatric medications R: no acute issues GI: no acute issues; regular diet : no acute issues H: no acute issues; chemical DVT prophylaxis w/ enoxaparin, OOB as tolerated ID: no acute issues E: no acute issues; to monitor hypo-/hyper-glycemia P: schizoaffective disorder, decompensated, improving; ECT 12/13 and 12/14, valproic acid, haloperidol vs fluphenazine, olanzapine, lithium; appreciate psychiatry recommendations Quality Stroke Does the patient have a stroke diagnosis?: No VTE Prior VTE?: No VTE Risk Level:: Medical - moderate - high VTE Device Contraindication: N/A - Device Ordered VTE Drug Contraindication: N/A - Med Ordered
--- NOTE | 2024-12-15 10:30 | PC.NURSE ---
Pt requests clothing from M3 floor. 2 pairs shorts (1 blue, 1 myers), 2 shirts (1 blue [place] [employer] jersey and 1 anime black shirt), 2 pairs of underwear, 2 pairs of socks brought from M3 to ICU by tech. Pt up to recliner chair, changed clothes, took all medications cooperatively this morning. Pt is not requiring any continuous IV medications, no restraints.
[2024-12-15] MEDS: fluPHENAZine HCl 5 MG TABLET 15 MG PO (20:17)
[2024-12-16] VITALS (20 sets, daily range): BP systolic 104–126; BP diastolic 42–69; PULSE 85–105; RESP 13–25; TEMP 36.9–37; O2SAT 95–97; BMI 36.0
[2024-12-16] MEDS: Haloperidol Lactate 5 MG/ML VIAL IVPUSH ×4 (01:30→21:04)
[2024-12-16] MEDS: VALPROIC ACID IV ×3 (03:53→21:04)
[2024-12-16] MEDS: DEXTROSE 5% IV ×3 (03:53→21:04)
[2024-12-16] MEDS: fluPHENAZine HCl 5 MG TABLET 15 MG PO ×2 (07:44→20:26)
[2024-12-16] MEDS: Lithium Carbonate ER 300 MG TABLET.ER PO ×3 (07:44→20:28)
[2024-12-16] MEDS: Propranolol HCL 20 MG TABLET PO ×3 (07:44→20:28)
[2024-12-16] MEDS: OLANZapine ODT 10 MG TAB.RAPDIS TRANSLINGU ×3 (07:45→20:28)
--- NOTE | 2024-12-16 08:53 | P.PNCC_ITS ---
Subjective Subjective Date of Service: 12/16/24 Interval History: no significant overnight events Critical Care Time (minutes): 0 Physical Exam 2 Vital Signs: Vital Signs: Last Vital Signs Temp 98.5 F 12/16/24 08:00 Pulse 97 12/16/24 08:00 Resp 20 12/16/24 08:00 BP 116/67 12/16/24 08:00 Pulse Ox 95 12/16/24 08:00 O2 Del Method Room Air 12/16/24 08:00 O2 Flow Rate 3 12/14/24 14:45 BMI result Body Mass Index 36.0 Const: General: cooperative, healthy appearing, comfortable, no acute distress, well developed, alert, awake and Physically active O rientation/consciousness: patient oriented x3 HEENT: Head: Yes normal to inspection, Yes normocephalic and Yes atraumatic Eyes: General: appearance normal, both eyes and all related structures Neck: Neck: Yes normal visual inspection, Yes full ROM, Yes no meningeal signs, Yes trachea midline and Yes supple Chest: Chest palpation & inspection: normal inspection of the chest Resp: Other: no appreciable rales, rhonchi, wheezing Effort & Inspection: normal respiratory effort Cardio: Rate: regular rate Rhythm: regular rhythm GI: Inspection: Yes normal to inspection, No Abdominal wall edema and No distended Palpation (GI): Soft to palpation, not firm, nontender, no guarding and not rigid Skin: General skin exam: no rashes or lesions noted Neuro: General: patient oriented x3, tone normal, moves all extremities, no meningeal signs and no focal motor deficits Extrem: General: Yes normal to inspection, Yes full ROM, Yes capillary refill normal and Yes no clubbing, cyanosis or edema Psych: Other: pleasant, cooperative, at times fixates on ideas, though re-directable Appearance: grossly normal Objective Data Labs 12/15/24 05:39 12/15/24 05:39 Microbiology Microbiology Results: Microbiology 12/13/24 Unknown Urine clean catch - Clean Catch Midstream Urine Culture - Final No growth. Progress Note: A&P Assessment and plan (1) Schizoaffective disorder, bipolar type: Status: Acute Plan Patient is a 28 Y M w/ schizoaffective disorder, presenting initially to the emergency department on 10/30 w/ decompensated schizoaffective disorder, admitted psychiatry; psychiatry course c/b worsening agitation, prompting ICU admission 11/08, downgraded to psychiatry 11/14, re-admitted ICU 12/07 d/t worsening agitation N: agitation, improving, s/p dexmedetomidine gtt, last given 12/13 CV: no acute issues; to monitor QTc in setting of psychiatric medications R: no acute issues GI: no acute issues; regular diet : no acute issues H: no acute issues; chemical DVT prophylaxis w/ enoxaparin, OOB as tolerated ID: no acute issues E: no acute issues; to monitor hypo-/hyper-glycemia P: schizoaffective disorder, decompensated, improving; ECT 12/13 and 12/14, valproic acid, haloperidol vs fluphenazine, olanzapine, lithium; appreciate psychiatry recommendations Quality Stroke Does the patient have a stroke diagnosis?: No VTE Prior VTE?: No VTE Risk Level:: Medical - moderate - high VTE Device Contraindication: N/A - Device Ordered VTE Drug Contraindication: N/A - Med Ordered
[2024-12-16 09:46] LABS: Basophils Percent Auto 0.3 % (0-2); Eosinophils Absolute Auto 0.3 X10*3/uL (0.0-0.4); Eosinophils Percent Auto 2.1 % (0-4); Hematocrit 34.8 % (42.0-52.0); Hemoglobin 11.1 g/dl (14.0-18.0); Imm Gran Abs Auto 0.13 X10*3/uL (0.00-0.03); Imm Gran Pct Auto 1.1 % (0.0-0.4); Lymphocytes Absolute Auto 2.1 X10*3/uL (1.2-4.9); Lymphocytes Percent Auto 18.2 % (20-40); MANUAL DIFF FLAG SCAN; Mean Corpuscular HGB Conc 31.9 g/dl (31.0-36.0); Mean Corpuscular Hemoglobin 26.1 pg (27.0-33.0); Mean Corpuscular Volume 81.9 fL (80.0-98.0); Mean Platelet Volume 9.2 fL (9.4-12.4); Monocytes Absolute Auto 1.8 X10*3/uL (0.1-1.2); Monocytes Percent Auto 15.5 % (2-11); Neutrophils Absolute Auto 7.3 x10*3/uL (2.0-8.3); Neutrophils Percent Auto 62.8 % (45-73); Platelet Count 260 X10*3/uL (160-400); Red Blood Count 4.25 X10*6/uL (4.60-5.80); Red Cell Distribution Width 14.3 % (11.0-16.0); SCAN SMEAR FLAG 1; White Blood Count 11.7 X10*3/uL (4.8-10.8)
[2024-12-16 10:19] LABS: SLIDE REVIEW VERIFIED
[2024-12-16 10:28] LABS: Valproate 93.3 mcg/mL (50.0-100.0)
[2024-12-16 10:31] LABS: Alanine Aminotransferase 55 U/L (0-40); Albumin Level 3.7 g/dL (3.5-5.0); Alkaline Phosphatase 95 U/L (39-117); Aspartate Amino Transferase 55 U/L (5-37); Bilirubin Direct < 0.2 mg/dL (0.0-0.5); Bilirubin Total 0.2 mg/dL (0.0-1.0); Total Protein 7.6 g/dL (6.5-8.0)
[2024-12-16 10:33] LABS: Anion Gap 13 (12-20); Blood Urea Nitrogen 12 mg/dL (9-16); Calcium 8.9 mg/dL (8.4-10.2); Carbon Dioxide 25 mmol/L (22-29); Chloride 106 mmol/L (96-108); Creatinine Clr Calc Pharmacy 172.3; Estimated Glomerular Filt Rate > 60; Glucose Random 97 mg/dL (60-115); Magnesium 2.1 mg/dL (1.6-2.6); Phosphorus 2.7 mg/dL (2.7-4.5); Potassium 4.4 mmol/L (3.3-5.1); Sodium 140 mmol/L (135-145)
[2024-12-16 10:45] LABS: Ammonia 65 umol/L (13-55)
[2024-12-16] MEDS: FISH OIL 1 EACH PO ×3 (11:18→20:28)
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
[2024-12-16] MEDS: Calcium Carbonate 750 MG TAB.CHEW PO (21:49)
[2024-12-17] VITALS (21 sets, daily range): BP systolic 111–166; BP diastolic 57–86; PULSE 84–115; RESP 13–25; TEMP 36.8–37.3; O2SAT 93–100
[2024-12-17] MEDS: Haloperidol Lactate 5 MG/ML VIAL IVPUSH (02:15)
[2024-12-17] MEDS: VALPROIC ACID IV ×2 (03:55→11:39)
[2024-12-17] MEDS: DEXTROSE 5% IV ×2 (03:55→11:39)
[2024-12-17] MEDS: Omeprazole 20 MG CAPSULE.DR PO (04:53)
[2024-12-17 06:08] LABS: Basophils Percent Auto 0.4 % (0-2); Eosinophils Absolute Auto 0.3 X10*3/uL (0.0-0.4); Eosinophils Percent Auto 2.5 % (0-4); Hematocrit 34.3 % (42.0-52.0); Hemoglobin 10.8 g/dl (14.0-18.0); Imm Gran Abs Auto 0.14 X10*3/uL (0.00-0.03); Imm Gran Pct Auto 1.4 % (0.0-0.4); Lymphocytes Absolute Auto 2.6 X10*3/uL (1.2-4.9); Lymphocytes Percent Auto 25.3 % (20-40); MANUAL DIFF FLAG SCAN; Mean Corpuscular HGB Conc 31.5 g/dl (31.0-36.0); Mean Corpuscular Hemoglobin 26.2 pg (27.0-33.0); Mean Corpuscular Volume 83.1 fL (80.0-98.0); Mean Platelet Volume 9.3 fL (9.4-12.4); Monocytes Absolute Auto 1.7 X10*3/uL (0.1-1.2); Monocytes Percent Auto 17.2 % (2-11); Neutrophils Absolute Auto 5.4 x10*3/uL (2.0-8.3); Neutrophils Percent Auto 53.2 % (45-73); Platelet Count 243 X10*3/uL (160-400); Red Blood Count 4.13 X10*6/uL (4.60-5.80); Red Cell Distribution Width 14.1 % (11.0-16.0); SCAN SMEAR FLAG 1; White Blood Count 10.1 X10*3/uL (4.8-10.8)
[2024-12-17 06:24] LABS: Anion Gap 12 (12-20); Blood Urea Nitrogen 13 mg/dL (9-16); Calcium 8.7 mg/dL (8.4-10.2); Carbon Dioxide 24 mmol/L (22-29); Chloride 107 mmol/L (96-108); Creatinine Clr Calc Pharmacy 147.5; Estimated Glomerular Filt Rate > 60; Glucose Random 117 mg/dL (60-115); Magnesium 2.1 mg/dL (1.6-2.6); Phosphorus 2.9 mg/dL (2.7-4.5); Potassium 3.9 mmol/L (3.3-5.1); Sodium 139 mmol/L (135-145)
[2024-12-17 06:34] LABS: SLIDE REVIEW VERIFIED
--- NOTE | 2024-12-17 07:54 | MHC.SHP ---
Pre-Procedural Eval Section A - 24 Hr Update-Section A only Date of Service: 12/17/24 The patient is an INPATIENT: Yes Changes since office visit: No Cold of Flu in the past 2 weeks, No New Medical Problems, No Changes in Medication and No Patient answered all questions The patient has been examined within 24 hours of the surgical procedure. The History & Physical has been completed within 30 days and I have reviewed it.: Yes Section B - Complete if H&P > 30 days Chief Complaint: Yessi Psychosis Allergies: Allergies Allergy/AdvReac Type Severity Reaction Status Date / Time lithium Allergy Hives Verified 11/02/24 18:44 Plan I have reviewed the history and physical and performed a pertinent physical examination on my patient. No changes have occurred unless specified. Time Spent With Patient Time: Total time managing care of this patient today ____ minutes.
--- NOTE | 2024-12-17 08:01 | P.CONAN_ITS ---
HPI - Anesthesia Eval Consult details Narrative: for ECT PMFSH Active Problems Active Problems: All Active Problems Mild intermittent asthma (Acute) Chronic post-traumatic stress disorder (PTSD) (Acute) Schizoaffective disorder, bipolar type (Acute) Past Medical History Medical History Mild intermittent asthma Schizoaffective disorder, bipolar type Chronic post-traumatic stress disorder (PTSD) Family History Family history of problems with anesthesia: No Surgical History History of Problems with Anesthesia: No Social History Social History Household Members: Unknown / Unable to assess Housing: Unknown / Unable to assess Do you presently have visiting nurse or other home services: No Comment: 1:1 sitter Patient Tobacco Use Status: Tobacco use Unknown Use of substances other than those prescribed or required for medical reasons: Unknown Currently Displaying Signs/Symptoms of Drug Intoxication Withdrawal: No Are you DNR?: No Advance Directives: No Do you have a plan to hurt others: No Plan Nutrition Risks: No Nutritional Risk service: No Sexual orientation: Straight/Heterosexual Meds Allergies Allergy/AdvReac Type Severity Reaction Status Date / Time lithium Allergy Hives Verified 11/02/24 18:44 Active Medications: Current Medications Albuterol Sulfate (Albuterol Sulfate 90 Mcg 8 Gm Inhaler) 2 puff INHALE RQ4H PRN PRN Reason: Wheezing Calcium Carbonate (Calcium Carbonate 750 Mg Tab.Chew) 750 mg PO Q4H PRN PRN Reason: Heartburn Last Admin: 12/16/24 21:49 Dose: 750 mg Chlorpromazine HCl (Chlorpromazine Hcl 25 Mg/Ml Ampul) 100 mg IM Q4H PRN PRN Reason: agitation Last Admin: 12/13/24 10:10 Dose: 100 mg Enoxaparin Sodium (Enoxaparin Sodium 40 Mg/0.4 Ml Syringe) 40 mg SUBCUT Q24H BRIGITTE Last Admin: 12/16/24 15:12 Dose: Not Given Fluphenazine HCl (Fluphenazine Hcl 5 Mg Tablet) 15 mg PO BID BRIGITTE Last Admin: 12/16/24 20:26 Dose: 15 mg Glucose (Glucose Gel 15 Gm Gel..Gram.) 15 gm PO Q15M PRN; Protocol PRN Reason: per Hypoglycemia Standing Ord. Dextrose (D10) 250 mls @ 750 mls/hr IV Q15M PRN; Protocol PRN Reason: per Hypoglycemia Standing Ord. Valproic Acid 1,250 mg/ (Dextrose) 62.5 mls @ 57.5 mls/hr IV Q8H [facility] Last Infusion: 12/17/24 05:05 Dose: Infused [place] Carbonate ([place] Carbonate Er 300 Mg Tablet.Er) 300 mg PO TID [facility] Last Admin: 12/16/24 20:28 Dose: 300 mg Magnesium Hydroxide (Milk Of Magnesia 30 Ml Oral.Susp) 30 ml PO DAILY PRN PRN Reason: Constipation Last Admin: 12/11/24 17:39 Dose: 30 ml Nicotine Polacrilex (Nicotine Polacrilex Lozenge 2 Mg Lozenge) 2 mg BUCCAL Q2H PRN PRN Reason: Nicotine Cravings Pt Owned (Fish Oil ([place]-3)) 1 each PO TID [facility] Last Admin: 12/16/24 20:28 Dose: 1 each Olanzapine (Olanzapine Odt 10 Mg Tab.Rapdis) 10 mg TRANSLINGU TID [facility] Last Admin: 12/16/24 20:28 Dose: 10 mg Propranolol HCl (Propranolol Hcl 20 Mg Tablet) 20 mg PO TID [facility]; Protocol Last Admin: 12/16/24 20:28 Dose: 20 mg Home Medications ?Medication ?Instructions ?Recorded ?Confirmed ?Last Taken ?Type levocarnitine 330 mg tablet 330 mg PO TID 12/07/24 12/07/24 Unknown History Exam Height,Weight and Vital Signs: Height 5 ft 11 in Weight 117 kg Last Vital Signs Temp 98.3 F 12/17/24 04:00 Pulse 87 12/17/24 07:38 Resp 16 12/17/24 07:38 BP 112/57 L 12/17/24 07:38 Pulse Ox 98 12/17/24 04:00 O2 Del Method Room Air 12/17/24 07:38 O2 Flow Rate 3 12/14/24 14:45 Pertinent Lab Results Pertinent Lab Results: Laboratory Tests 12/07/24 12/08/24 12/08/24 14:22 00:05 04:56 WBC 9.7 10.4 RBC 3.78 L 4.02 L Hgb 10.1 L 10.5 L Hct 31.4 L 33.5 L MCV 83.1 83.3 MCH 26.7 L 26.1 L MCHC 32.2 31.3 RDW 14.2 13.9 Plt Count 250 248 MPV 9.6 9.3 L Immature Gran % (Auto) 0.3 0.5 H Neut % (Auto) 56.4 63.6 Lymph % (Auto) 21.0 13.6 L [place] % (Auto) 19.9 H 20.5 H Eos % (Auto) 2.1 1.5 Baso % (Auto) 0.3 0.3 Lymph # (Auto) 2.1 1.4 [place] # (Auto) 1.9 H 2.1 H Eos # (Auto) 0.2 0.2 Baso # (Auto) 0.0 0.0 Abs Immat Gran (auto) 0.03 0.05 H Absolute Neuts (auto) 5.5 6.6 Absolute Nucleated RBC 0.000 0.000 Nucleated RBC % (auto) 0.0 0.0 Smear Tech's Comments VERIFIED VERIFIED Sodium 141 139 Potassium 4.4 4.2 Chloride 104 104 Carbon Dioxide 29 29 Anion Gap 12 10 L BUN 8 L 9 Creatinine 0.95 0.87 Estim Creat Clear Calc 151.2 165.1 Estimated GFR > 60 > 60 POC Glucose Random Glucose 66 96 Calcium 8.4 8.5 Phosphorus 4.9 H 3.9 Magnesium 2.2 2.1 Total Bilirubin 0.5 Direct Bilirubin AST 150 H ALT 54 H Alkaline Phosphatase 66 Ammonia Total Protein 6.5 Albumin 3.5 3.2 L Urine Color Urine Appearance Urine pH Ur Specific [place] Urine Protein Urine Glucose (UA) Urine Ketones Urine Blood Urine Nitrite Ur Leukocyte Esterase Urine RBC Urine WBC Ur Squamous Epith Cells Urine Bacteria Hyaline Casts Valproic Acid HIV 1&2 Ab/P24 Ag 4thGn Nonreactive 12/09/24 12/10/24 12/10/24 04:44 05:38 12:18 WBC 10.1 12.3 H RBC 4.19 L 4.42 L Hgb 11.2 L 11.6 L Hct 34.7 L 36.0 L MCV 82.8 81.4 MCH 26.7 L 26.2 L MCHC 32.3 32.2 RDW 13.8 13.5 Plt Count 257 265 MPV 9.3 L 9.3 L Immature Gran % (Auto) 0.5 H 0.5 H Neut % (Auto) 64.1 67.8 Lymph % (Auto) 13.8 L 11.7 L [place] % (Auto) 19.7 H 18.5 H Eos % (Auto) 1.8 1.3 Baso % (Auto) 0.1 0.2 Lymph # (Auto) 1.4 1.4 [place] # (Auto) 2.0 H 2.3 H Eos # (Auto) 0.2 0.2 Baso # (Auto) 0.0 0.0 Abs Immat Gran (auto) 0.05 H 0.06 H Absolute Neuts (auto) 6.5 8.4 H Absolute Nucleated RBC 0.000 0.000 Nucleated RBC % (auto) 0.0 0.0 Smear Tech's Comments VERIFIED VERIFIED Sodium 140 138 Potassium 4.3 4.2 Chloride 104 103 Carbon Dioxide 28 28 Anion Gap 12 11 L BUN 8 L 9 Creatinine 0.84 0.85 Estim Creat Clear Calc 173.0 172.2 Estimated GFR > 60 > 60 POC Glucose 94 Random Glucose 98 98 Calcium 8.6 8.4 Phosphorus 3.7 3.9 Magnesium 2.0 1.6 Total Bilirubin 0.4 Direct Bilirubin AST 51 H ALT 29 Alkaline Phosphatase 81 Ammonia 33 Total Protein 6.2 L Albumin 3.0 L Urine Color Urine Appearance Urine pH Ur Specific [place] Urine Protein Urine Glucose (UA) Urine Ketones Urine Blood Urine Nitrite Ur Leukocyte Esterase Urine RBC Urine WBC Ur Squamous Epith Cells Urine Bacteria Hyaline Casts Valproic Acid HIV 1&2 Ab/P24 Ag 4thGn 12/10/24 12/10/24 12/11/24 14:25 18:19 00:22 WBC RBC Hgb Hct MCV MCH MCHC RDW Plt Count MPV Immature Gran % (Auto) Neut % (Auto) Lymph % (Auto) [place] % (Auto) Eos % (Auto) Baso % (Auto) Lymph # (Auto) [place] # (Auto) Eos # (Auto) Baso # (Auto) Abs Immat Gran (auto) Absolute Neuts (auto) Absolute Nucleated RBC Nucleated RBC % (auto) Smear Tech's Comments Sodium Potassium Chloride Carbon Dioxide Anion Gap BUN Creatinine Estim Creat Clear Calc Estimated GFR POC Glucose 96 102 Random Glucose Calcium Phosphorus Magnesium Total Bilirubin Direct Bilirubin AST ALT Alkaline Phosphatase Ammonia Total Protein Albumin Urine Color Urine Appearance Urine pH Ur Specific [place] Urine Protein Urine Glucose (UA) Urine Ketones Urine Blood Urine Nitrite Ur Leukocyte Esterase Urine RBC Urine WBC Ur Squamous Epith Cells Urine Bacteria Hyaline Casts Valproic Acid 88.2 HIV 1&2 Ab/P24 Ag 4thGn 12/11/24 12/12/24 12/13/24 05:24 05:26 03:58 WBC 10.1 8.6 7.9 RBC 4.29 L 4.00 L 4.04 L Hgb 11.2 L 10.6 L 10.8 L Hct 34.1 L 31.3 L 32.9 L MCV 79.5 L 78.3 L 81.4 MCH 26.1 L 26.5 L 26.7 L MCHC 32.8 33.9 32.8 RDW 13.7 14.0 14.2 Plt Count 275 270 255 MPV 9.3 L 9.3 L 9.3 L Immature Gran % (Auto) 0.5 H 0.5 H 0.6 H Neut % (Auto) 63.3 55.1 49.9 Lymph % (Auto) 15.6 L 20.9 24.8 [place] % (Auto) 19.1 H 22.4 H 22.3 H Eos % (Auto) 1.3 1.0 2.0 Baso % (Auto) 0.2 0.1 0.4 Lymph # (Auto) 1.6 1.8 2.0 [place] # (Auto) 1.9 H 1.9 H 1.8 H Eos # (Auto) 0.1 0.1 0.2 Baso # (Auto) 0.0 0.0 0.0 Abs Immat Gran (auto) 0.05 H 0.04 H 0.05 H Absolute Neuts (auto) 6.4 4.8 4.0 Absolute Nucleated RBC 0.000 0.000 0.000 Nucleated RBC % (auto) 0.0 0.0 0.0 Smear Tech's Comments VERIFIED VERIFIED VERIFIED Sodium 137 139 139 Potassium 4.1 4.0 4.2 Chloride 103 105 111 H Carbon Dioxide 25 22 20 L Anion Gap 13 16 12 BUN 9 7 L 10 Creatinine 0.79 0.81 0.74 Estim Creat Clear Calc 185.2 179.4 196.4 Estimated GFR > 60 > 60 > 60 POC Glucose Random Glucose 100 116 H 100 Calcium 8.5 8.6 8.5 Phosphorus 4.0 3.3 3.6 Magnesium 1.9 2.0 2.0 Total Bilirubin Direct Bilirubin AST ALT Alkaline Phosphatase Ammonia Total Protein Albumin Urine Color Urine Appearance Urine pH Ur Specific [place] Urine Protein Urine Glucose (UA) Urine Ketones Urine Blood Urine Nitrite Ur Leukocyte Esterase Urine RBC Urine WBC Ur Squamous Epith Cells Urine Bacteria Hyaline Casts Valproic Acid 87.9 HIV 1&2 Ab/P24 Ag 4thGn 12/13/24 12/14/24 12/15/24 20:53 05:19 05:39 WBC 10.0 12.8 H RBC 4.73 4.14 L Hgb 12.5 L 10.8 L Hct 38.7 L 33.4 L MCV 81.8 80.7 MCH 26.4 L 26.1 L MCHC 32.3 32.3 RDW 14.2 14.2 Plt Count 308 244 MPV 9.1 L 8.9 L Immature Gran % (Auto) 0.8 H 0.5 H Neut % (Auto) 54.0 59.9 Lymph % (Auto) 25.2 19.5 L [place] % (Auto) 17.7 H 18.1 H Eos % (Auto) 2.0 1.8 Baso % (Auto) 0.3 0.2 Lymph # (Auto) 2.5 2.5 [place] # (Auto) 1.8 H 2.3 H Eos # (Auto) 0.2 0.2 Baso # (Auto) 0.0 0.0 Abs Immat Gran (auto) 0.08 H 0.06 H Absolute Neuts (auto) 5.4 7.7 Absolute Nucleated RBC 0.000 0.000 Nucleated RBC % (auto) 0.0 0.0 Smear Tech's Comments VERIFIED VERIFIED Sodium 138 139 Potassium 4.6 4.2 Chloride 106 105 Carbon Dioxide 21 L 24 Anion Gap 16 14 BUN 14 20 H Creatinine 0.85 1.07 Estim Creat Clear Calc 170.5 135.4 Estimated GFR > 60 > 60 POC Glucose Random Glucose 100 116 H Calcium 9.6 D 8.7 D Phosphorus 4.1 4.9 H Magnesium 1.9 1.9 Total Bilirubin Direct Bilirubin AST ALT Alkaline Phosphatase Ammonia Total Protein Albumin Urine Color Yellow Urine Appearance Cloudy Urine pH 7.5 Ur Specific [place] 1.020 Urine Protein 30 (1+) H Urine Glucose (UA) Negative Urine Ketones Negative Urine Blood Large (3+) H Urine Nitrite Negative Ur Leukocyte Esterase Large (3+) H Urine RBC >20 H Urine WBC >50 H Ur Squamous Epith Cells 0-2 Urine Bacteria None Seen Hyaline Casts 0-2 Valproic Acid 85.6 HIV 1&2 Ab/P24 Ag 4thGn 12/16/24 12/17/24 09:38 05:35 WBC 11.7 H 10.1 RBC 4.25 L 4.13 L Hgb 11.1 L 10.8 L Hct 34.8 L 34.3 L MCV 81.9 83.1 MCH 26.1 L 26.2 L MCHC 31.9 31.5 RDW 14.3 14.1 Plt Count 260 243 MPV 9.2 L 9.3 L Immature Gran % (Auto) 1.1 H 1.4 H Neut % (Auto) 62.8 53.2 Lymph % (Auto) 18.2 L 25.3 [place] % (Auto) 15.5 H 17.2 H Eos % (Auto) 2.1 2.5 Baso % (Auto) 0.3 0.4 Lymph # (Auto) 2.1 2.6 [place] # (Auto) 1.8 H 1.7 H Eos # (Auto) 0.3 0.3 Baso # (Auto) 0.0 0.0 Abs Immat Gran (auto) 0.13 H 0.14 H Absolute Neuts (auto) 7.3 5.4 Absolute Nucleated RBC 0.000 0.000 Nucleated RBC % (auto) 0.0 0.0 Smear Tech's Comments VERIFIED VERIFIED Sodium 140 139 Potassium 4.4 3.9 Chloride 106 107 Carbon Dioxide 25 24 Anion Gap 13 12 BUN 12 13 Creatinine 0.83 0.97 Estim Creat Clear Calc 172.3 147.5 Estimated GFR > 60 > 60 POC Glucose Random Glucose 97 117 H Calcium 8.9 8.7 Phosphorus 2.7 2.9 Magnesium 2.1 2.1 Total Bilirubin 0.2 Direct Bilirubin < 0.2 AST 55 H ALT 55 H Alkaline Phosphatase 95 Ammonia 65 H Total Protein 7.6 Albumin 3.7 Urine Color Urine Appearance Urine pH Ur Specific [place] Urine Protein Urine Glucose (UA) Urine Ketones Urine Blood Urine Nitrite Ur Leukocyte Esterase Urine RBC Urine WBC Ur Squamous Epith Cells Urine Bacteria Hyaline Casts Valproic Acid 93.3 HIV 1&2 Ab/P24 Ag 4thGn Airway Mallampati Class: III TM Dist: <=3cm Neck ROM: Full Loose/Missing/Broken Teeth: No Heart: ok Lungs: ok Assessment and Plan Assessment Anesthesia Assessment: Anesthesia Plan Discussed and Chart Reviewed Final Anesthetic Review Family History of Problems with Anesthesia: No History of Problems with Anesthesia: No NPO: Yes ASA Class: II Final Preanesthetic Review: No Changes in Pt Med Stat, Meds/Allgs Chart Reviewed, Consent Obtained/Reviewed and Anes Risks/Benef Reviewed Patient Risk: Intermediate Procedure Risk: Intermediate Anesthetic Plan Anesthetic Plan: GA and Agree w/ Assess. and Plan Disposition: Standard PACU
--- NOTE | 2024-12-17 08:18 | HO.ECTPROC ---
ECT Procedure Note Diagnosis/Treatment Date of Service: 12/17/24 Diagnosis: Schizoaffective Disorder Previous ECT Date: 12/14/24 Current Treatment Number: 3 Interval Clinical Notes: The staff reported more stable mood, still grossly psychotic with disorganized speech, redirectable, no need of chemical restrain. He denies side effects with previous ECT. ECT done as usual bitemperal, 0.5 at 100% with Flumazenil. Good seizure, resolved by itself, no complications. Time: Total time managing care of this patient today __40__ minutes. ECT Settings Device: THYMATRON DGx Electrode Placement: Bitemporal Program/Pulse Width: 0.50 Energy Percent: 100 Seizure Duration By EEG (in seconds): 45 By Motor Observation (in seconds): 24 Medications Administration General Anesthetic: Etomidate (14) Muscle Relaxant: Succinylcholine (120) Ancillary Medications Miscillaneous Medications: Midazolam (2 mg post ECT) and Flumazenil Airway Management Airway Management: Bag Mask Ventilation Treatment Recommendations No Changes Recommended: No change Pt Tolerated Procedure w/o Issue: Yes
[2024-12-17] MEDS: FISH OIL 1 EACH PO ×2 (09:19→15:05)
[2024-12-17] MEDS: fluPHENAZine HCl 5 MG TABLET 15 MG PO (09:19)
[2024-12-17] MEDS: Lithium Carbonate ER 300 MG TABLET.ER PO ×2 (09:19→15:05)
[2024-12-17] MEDS: OLANZapine ODT 10 MG TAB.RAPDIS TRANSLINGU ×2 (09:20→15:06)
[2024-12-17] MEDS: Propranolol HCL 20 MG TABLET PO ×2 (09:20→14:59)
--- NOTE | 2024-12-17 10:12 | P.PNCC_ITS ---
Subjective Subjective Date of Service: 12/17/24 Interval History: 28-year-old gentleman with underlying schizoaffective disorder initially admitted to psychiatrist so on 10/30/2024 with hospital course complicated by acute agitation requiring transfer to intensive care unit on 11/08/2024, stabilized and downgraded to psychiatry on 11/14/2024, patient with further decompensation in his psychiatric status requiring another transferred to intensive care unit on 12/07/2024 for sedative drips, now status post 3 episodes of ECT with significant improvement in his psychiatric status. No events overnight. Critical Care Time (minutes): 0 Physical Exam 2 Vital Signs: Vital Signs: Last Vital Signs Temp 99.1 F 12/17/24 08:39 Pulse 98 12/17/24 08:39 Resp 20 12/17/24 08:39 BP 111/73 12/17/24 08:39 Pulse Ox 96 12/17/24 08:39 O2 Del Method Room Air 12/17/24 08:39 O2 Flow Rate 2 12/17/24 08:29 BMI result Body Mass Index 36.0 Const: General: no acute distress, alert and awake Eyes: Sclerae: sclerae normal EOM: EOMs intact bilaterally Neck: Neck: Yes no lymphadenopathy, Yes trachea midline and Yes supple Resp: Effort & Inspection: normal respiratory effort and no respiratory distress Auscultation: clear to auscultation bilaterally Cardio: Rate: regular rate Rhythm: regular rhythm Heart sounds: no gallops, no murmurs and no rubs GI: Palpation (GI): Soft to palpation and Other GI palpation findings present ( Nontender) Auscultation: normal bowel sounds Extrem: General: Yes no pedal edema, No clubbing and No cyanosis Objective Data Labs 12/17/24 05:35 12/17/24 05:35 Labs: Laboratory Results - last 24 hr 12/16/24 12/17/24 09:38 05:35 WBC 11.7 H 10.1 RBC 4.25 L 4.13 L Hgb 11.1 L 10.8 L Hct 34.8 L 34.3 L MCV 81.9 83.1 MCH 26.1 L 26.2 L MCHC 31.9 31.5 RDW 14.3 14.1 Plt Count 260 243 MPV 9.2 L 9.3 L Immature Gran % (Auto) 1.1 H 1.4 H Neut % (Auto) 62.8 53.2 Lymph % (Auto) 18.2 L 25.3 [place] % (Auto) 15.5 H 17.2 H Eos % (Auto) 2.1 2.5 Baso % (Auto) 0.3 0.4 Lymph # (Auto) 2.1 2.6 [place] # (Auto) 1.8 H 1.7 H Eos # (Auto) 0.3 0.3 Baso # (Auto) 0.0 0.0 Abs Immat Gran (auto) 0.13 H 0.14 H Absolute Neuts (auto) 7.3 5.4 Absolute Nucleated RBC 0.000 0.000 Nucleated RBC % (auto) 0.0 0.0 Smear Tech's Comments VERIFIED VERIFIED Sodium 140 139 Potassium 4.4 3.9 Chloride 106 107 Carbon Dioxide 25 24 Anion Gap 13 12 BUN 12 13 Creatinine 0.83 0.97 Estim Creat Clear Calc 172.3 147.5 Estimated GFR > 60 > 60 Random Glucose 97 117 H Calcium 8.9 8.7 Phosphorus 2.7 2.9 Magnesium 2.1 2.1 Total Bilirubin 0.2 Direct Bilirubin < 0.2 AST 55 H ALT 55 H Alkaline Phosphatase 95 Ammonia 65 H Total Protein 7.6 Albumin 3.7 Valproic Acid 93.3 Microbiology Microbiology Results: Microbiology 12/13/24 Unknown Urine clean catch - Clean Catch Midstream Urine Culture - Final No growth. Progress Note: A&P Assessment and plan (1) Schizoaffective disorder, bipolar type: Status: Acute Assessment and Plan: Assessment: 28-year-old gentleman with underlying schizoaffective disorder, initially admitted to psychiatry service for acute decompensation, with several further decompensations requiring ICU admission for sedative drips, last on 12/07/2024, now off sedative drips and with significant improvement psychiatric status after 3 episodes obesity. Plan: Neuro: No acute issues. Cardiac: No acute issues. Pulmonary: No acute issues. Renal: No acute issues. Endo: No acute issues. GI: No acute issues. ID: No acute issues Heme/Onc: No acute issues. Psych: Schizoaffective disorder with recent acute decompensation requiring sedative drips. Now status post 3 episodes obesity with significant improvement. Psychiatry service care appreciated. Continue on current regimen of valproate, lithium, fluphenazine, chlorpromazine, olanzapine, and propranolol as per Psychiatry Service recommendation. Miscellaneous: No acute issues. Prophylaxis: Ambulatory Diet: Regular Quality Stroke Does the patient have a stroke diagnosis?: No VTE Prior VTE?: No VTE Risk Level:: Medical - moderate - high VTE Device Contraindication: N/A - Device Ordered VTE Drug Contraindication: N/A - Med Ordered
--- NOTE | 2024-12-17 13:52 | MHC.CM.PN ---
Pt is s/p 3rd ECT treatment: noticeable improvement in behavior, mood/affect: should return to INPT psych for continued medication adjustments/treatments when room available.
--- NOTE | 2024-12-17 15:37 | P.DS_ITS ---
DS: Providers Provider Date of Service: 12/17/24 Date of admission: 12/07/24 13:30 Date of discharge: 12/17/24 Primary care physician: Unknown Physician DS: Transfer Hospital Acceptance Reason for Transfer: Further psychiatric evaluation Name of Facility: [facility] Accepting Provider: Dr. Smith DS: Diagnosis Discharge Diagnosis (1) Schizoaffective disorder, bipolar type: Status: Acute DS: Summary Hospital Course Hospital Course: 28-year-old gentleman with underlying schizoaffective disorder initially admitted to psychiatrist so on 10/30/2024 with hospital course complicated by acute agitation requiring transfer to intensive care unit on 11/08/2024, stabilized and downgraded to psychiatry on 11/14/2024, patient with further decompensation in his psychiatric status requiring another transferred to intensive care unit on 12/07/2024 for sedative drips, now status post 3 episodes of ECT with significant improvement in his psychiatric status. Now being transferred to Psychiatry Service for further follow-up. Time Attestation Discharge Coordination Time (in mins): 35 Quality: Safe Use of Opioids Does Pt have an Active Cancer Diagnosis on the Problem List?: No Quality: Stroke Does the patient have a stroke diagnosis?: No Physical Exam Vital Signs: Vital Signs: Last Vital Signs Temp 99.1 F 12/17/24 08:39 Pulse 94 12/17/24 14:59 Resp 25 H 12/17/24 12:00 BP 122/63 12/17/24 15:00 Pulse Ox 96 12/17/24 08:39 O2 Del Method Room Air 12/17/24 08:39 O2 Flow Rate 2 12/17/24 08:29 BMI result Body Mass Index 36.0 Const: General: no acute distress, alert and awake Eyes: Sclerae: sclerae normal EOM: EOMs intact bilaterally Neck: Neck: Yes no lymphadenopathy, Yes trachea midline and Yes supple Resp: Effort & Inspection: normal respiratory effort and no respiratory distress Auscultation: clear to auscultation bilaterally Cardio: Rate: regular rate Rhythm: regular rhythm Heart sounds: no gallops, no murmurs and no rubs GI: Palpation (GI): Soft to palpation and Other GI palpation findings present ( Nontender) Auscultation: normal bowel sounds Extrem: General: Yes no pedal edema, No clubbing and No cyanosis DS: Data Data Completed and Pending Labs on day of discharge: Laboratory Results - last 24 hr 12/17/24 05:35 WBC 10.1 RBC 4.13 L Hgb 10.8 L Hct 34.3 L MCV 83.1 MCH 26.2 L MCHC 31.5 RDW 14.1 Plt Count 243 MPV 9.3 L Immature Gran % (Auto) 1.4 H Neut % (Auto) 53.2 Lymph % (Auto) 25.3 [place] % (Auto) 17.2 H Eos % (Auto) 2.5 Baso % (Auto) 0.4 Lymph # (Auto) 2.6 [place] # (Auto) 1.7 H Eos # (Auto) 0.3 Baso # (Auto) 0.0 Abs Immat Gran (auto) 0.14 H Absolute Neuts (auto) 5.4 Absolute Nucleated RBC 0.000 Nucleated RBC % (auto) 0.0 Smear Tech's Comments VERIFIED Sodium 139 Potassium 3.9 Chloride 107 Carbon Dioxide 24 Anion Gap 12 BUN 13 Creatinine 0.97 Estim Creat Clear Calc 147.5 Estimated GFR > 60 Random Glucose 117 H Calcium 8.7 Phosphorus 2.9 Magnesium 2.1 Discharge Plan Discharge Patient Disposition: Xfer Psychiatric Hosp Referrals: Physician,Unknown J [Primary Care Provider] - 1 Week Discharge Medications: New chlorpromazine 25 mg/mL Solution 100 mg IM Q4H PRN (Reason: agitation) Qty: 50 0RF lithium carbonate 300 mg Tablet Extended Release 300 mg PO TID 30 Days Qty: 90 0RF olanzapine 10 mg Tablet,Disintegrating 10 mg translingual TID Qty: 90 0RF dextrose [Glutose-15] 40 % Gel 15 g PO Q15M PRN (Reason: Per Hypoglycemia Standing Ord.) Qty: 300 0RF Protocol: Glucose Gel Hypoglycemia Standing Order Protocol Text: For patients able to take PO (patient cooperative and able to swallow). Give Glucose Gel 15 gm PO for Blood Glucose (BG) < 70. Repeat BG every 15 min until BG > 70 x 3, if BG still < 70 and/or patient symptomatic repeat glucose gel or rapid acting carbohydrate. Notify MD if BG does not improve with treatment. Non-Formulary Medication 1 ea PO TID Qty: 30 0RF valproate sodium 500 mg/5 mL (100 mg/mL) solution 1,250 mg IV Q8H Continued albuterol sulfate [Ventolin HFA] 90 mcg/actuation Hfa Aerosol Inhaler 2 puff inhalation Q4H PRN (Reason: Shortness Of Breath/Wheezing) Qty: 0 0RF nicotine (polacrilex) 4 mg Lozenge 4 mg buccal Q2H PRN (Reason: Nicotine Cravings) Qty: 0 0RF propranolol 20 mg Tablet 20 mg PO TID Qty: 0 0RF Protocol: Hold for SBP/HR < HOLD for SBP < : 90 HOLD for HR < : 60 fluphenazine HCl 2.5 mg/5 mL Elixir 15 mg PO BID Qty: 0 0RF trolamine salicylate [Aspercreme] 10 % Cream 1 appl topical QID PRN (Reason: pain (pain scale 0-10)) Qty: 0 0RF Protocol: Apply to: Apply to: affected areas (no mucous membranes) Artificial Tears([id number]) 1-0.2-0.2 % Drops 2 drp ophthalmic (eye) Q1H PRN (Reason: Dry Eyes) Qty: 0 0RF [place] Nasal 0.65 % Aerosol,[place] 1 spray intranasal Q1H PRN (Reason: Dry Nasal Passages) Qty: 0 0RF Antacid Ext Str (calcium carb) 300 mg (750 mg) Tablet,Chewable 2.5 tab PO Q6H PRN (Reason: Heartburn) Qty: 0 0RF Critic-Aid Clear AF(miconazol) 2 % Ointment 1 appl topical BID Qty: 0 0RF Protocol: Apply to: Apply to: groin Discontinued acetaminophen 325 mg Tablet 975 mg PO Q6H PRN (Reason: pain (pain scale 0-10)) Qty: 0 0RF fluphenazine HCl 2.5 mg/mL Solution 15 mg IM BID PRN (Reason: refusal of PO Prolixin) Qty: 0 0RF divalproex 250 mg Tablet Extended Release 24 Hr 1,250 mg PO BID Qty: 0 0RF lithium carbonate 300 mg Tablet Extended Release 600 mg PO BID Qty: 0 0RF olanzapine 10 mg Tablet,Disintegrating 20 mg translingual BID Qty: 0 0RF valproic acid (as sodium salt) 250 mg/5 mL (5 mL) Solution 1,250 mg PO BID PRN (Reason: refusal of VPA tabs) Qty: 0 0RF levocarnitine 330 mg Tablet 330 mg PO TID Rx Instructions: must administer with a meal/food Discharge Orders: Discharge Order (Routine); Ordered 12/17/24 Ordered By: Carmelo Child Activity on Discharge: As tolerated Stand Alone Forms: Patient Portal Discharge page Print Language: [place]
[2024-12-17] MEDS: Hyaluronidase, Human Recomb. 150 UNIT/ML VIAL SUBCUT (16:08)
== END 2024-12-17 16:23 | DRG 885 ==
PROVIDERS: Nurse Practitioner Family; Psychiatry & Neurology Psychiatry; Registered Nurse Community Health; Admitting Provider Internal Medicine Critical Care Medicine; Visit Provider Internal Medicine Critical Care Medicine
PROC: GZB4ZZZ Other Electroconvulsive Therapy (ICD-10-PCS; CPT 90870; principal; 2024-12-13 12:00)
DX: F25.0 Schizoaffective disorder, bipolar type (principal); G92.8 Other toxic encephalopathy; F43.12 Post-traumatic stress disorder, chronic; E66.1 Drug-induced obesity; I95.2 Hypotension due to drugs; T42.75XA Adverse effect of unspecified antiepileptic and sedative-hypnotic drugs, initial encounter; R45.6 Violent behavior; Z78.1 Physical restraint status; J45.20 Mild intermittent asthma, uncomplicated; T43.95XA Adverse effect of unspecified psychotropic drug, initial encounter; Z62.810 Personal history of physical and sexual abuse in childhood; Z68.36 Body mass index [BMI] 36.0-36.9, adult; Z79.899 Other long term (current) drug therapy
CPT/HCPCS: 36415; 80048; 80053; 80076; 80164; 81001; 82040; 82140; 82947; 83735; 84100; 85025; 87086; 90870; 93005; C1758; J0330; J1630; J1650; J1920; J2060; J2250; J2359; J2470; J2704; J3230; J3473; J3475; J7120; P9047

== ENCOUNTER 2024-12-07 13:30 | Outpatient (BNV) | payer MEDICARE, MEDICAID, SELFPAY | END 2024-12-12 09:43 | PROVIDERS: Admitting Provider Internal Medicine Critical Care Medicine; Visit Provider Internal Medicine Cardiovascular Disease | DX: I45.81 Long QT syndrome (principal) | CPT/HCPCS: 93010 ==

== ENCOUNTER 2024-12-07 13:30 | Outpatient (BNV) | payer MEDICARE, MEDICAID, SELFPAY | END 2024-12-11 09:43 | PROVIDERS: Admitting Provider Internal Medicine Critical Care Medicine; Visit Provider Internal Medicine Cardiovascular Disease | DX: I45.81 Long QT syndrome (principal) | CPT/HCPCS: 93010 ==

== ENCOUNTER → 2024-12-07 13:30 | Outpatient (BNV) | payer MEDICARE, MEDICAID, SELFPAY | PROVIDERS: Admitting Provider Internal Medicine Critical Care Medicine; Visit Provider Psychiatry & Neurology Psychiatry | DX: F25.0 Schizoaffective disorder, bipolar type (principal); F43.12 Post-traumatic stress disorder, chronic | CPT/HCPCS: 90870; 99232; 99233; 99499 ==

== ENCOUNTER → 2024-12-07 13:30 | Outpatient (BNV) | payer MEDICARE, MEDICAID, SELFPAY | PROVIDERS: Admitting Provider Internal Medicine Critical Care Medicine; Visit Provider Internal Medicine Critical Care Medicine | DX: F25.0 Schizoaffective disorder, bipolar type (principal) | CPT/HCPCS: 99232; 99291 ==

== ENCOUNTER 2024-12-17 16:33 | Inpatient (IN) | payer MEDICARE, MEDICAID, SELFPAY ==
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
[2024-12-17 20:26] VITALS: BP 133/62; PULSE 88; RESP 16; TEMP 36.8; O2SAT 97
[2024-12-17] MEDS: Divalproex Sodium 250 MG TABLET.DR 1250 MG PO (20:30)
[2024-12-17] MEDS: fluPHENAZine HCl 5 MG TABLET 15 MG PO (20:30)
[2024-12-17] MEDS: Propranolol HCL 20 MG TABLET PO (20:31)
[2024-12-17] MEDS: Lithium Carbonate ER 300 MG TABLET.ER PO (20:31)
[2024-12-17] MEDS: OLANZapine ODT 10 MG TAB.RAPDIS TRANSLINGU (20:31)
[2024-12-17] MEDS: Miconazole Nitrate 2% Oint 57 GM OINT...G. 1 APPL TOPICAL (20:39)
[2024-12-17] MEDS: FISH OIL 1 EACH PO (22:42)
[2024-12-18 08:00] VITALS: BP 103/43; PULSE 104; TEMP 36.9; O2SAT 97
[2024-12-18] MEDS: OLANZapine ODT 10 MG TAB.RAPDIS TRANSLINGU ×3 (09:02→20:09)
[2024-12-18] MEDS: Divalproex Sodium 250 MG TABLET.DR 1250 MG PO ×3 (09:03→20:45)
[2024-12-18] MEDS: fluPHENAZine HCl 5 MG TABLET 15 MG PO ×2 (09:03→20:07)
[2024-12-18] MEDS: Lithium Carbonate ER 300 MG TABLET.ER PO ×3 (09:03→20:08)
[2024-12-18 09:12] VITALS: BP 103/43; PULSE 104
[2024-12-18] MEDS: FISH OIL 1 EACH PO ×2 (10:47→20:07)
[2024-12-18] MEDS: Paliperidone Palmitate 234 MG/1.5 ML SYRINGE IM (11:35)
--- NOTE | 2024-12-18 11:40 | PC.NURSE ---
Patient initially refused Invega Sustenna. States it caused side effects, blurry vision, hair loss, weight gain . Dr. Smith notified, medication to be administered as ordered. Additional security present upon re approach, patient sat in chair accepted IM however continued to express he does not want the medication, gives him side effects and will danielle the hospital if vision gets worse. Making inquiry regarding court process. Provided short responses to questions, [facility] number provided to patient.
[2024-12-18] MEDS: Acetaminophen 325 MG TABLET 650 MG PO (11:51)
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
[2024-12-18 14:50] VITALS: BP 135/71; PULSE 94
[2024-12-18] MEDS: Propranolol HCL 20 MG TABLET PO ×2 (14:50→20:21)
[2024-12-18 20:00] VITALS: BP 115/60; PULSE 93; RESP 16; TEMP 36.9; O2SAT 97
[2024-12-18] MEDS: Miconazole Nitrate 2% Oint 57 GM OINT...G. 1 APPL TOPICAL (20:21)
--- NOTE | 2024-12-18 21:18 | PC.NURSE ---
lithium and depakote given this evening per Dioni Briseno. aware patient will be having ECT in the AM.
[2024-12-19] VITALS (13 sets, daily range): BP systolic 102–156; BP diastolic 58–78; PULSE 78–109; RESP 15–21; TEMP 36.3–36.9; O2SAT 95–99; BMI 38.4
--- NOTE | 2024-12-19 07:11 | MHC.SHP ---
Pre-Procedural Eval Section A - 24 Hr Update-Section A only Date of Service: 12/19/24 The patient is an INPATIENT: Yes Changes since office visit: No Cold of Flu in the past 2 weeks, No New Medical Problems, No Changes in Medication and No Patient answered all questions The patient has been examined within 24 hours of the surgical procedure. The History & Physical has been completed within 30 days and I have reviewed it.: Yes Section B - Complete if H&P > 30 days Chief Complaint: schizoaffective disorder, bipolar type Allergies: Allergies Allergy/AdvReac Type Severity Reaction Status Date / Time lithium Allergy Hives Verified 11/02/24 18:44 Plan I have reviewed the history and physical and performed a pertinent physical examination on my patient. No changes have occurred unless specified. Time Spent With Patient Time: Total time managing care of this patient today ____ minutes.
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
--- NOTE | 2024-12-19 08:14 | HO.ECTPROC ---
ECT Procedure Note Diagnosis/Treatment Date of Service: 12/19/24 Diagnosis: Schizoaffective Disorder Previous ECT Date: 12/17/24 Current Treatment Number: 4 Treatment: Series Interval Clinical Notes: Stable mood but grossly psychotic. He was sleepy and responded sporadicaly with yes/no answers. Denies side effects with prior ECT, only retrograde and anterograde amnesia. ECT done as usual, no complications. We gave him Versed and Propofol after procedure. Time: Total time managing care of this patient today ___30_ minutes. ECT Settings Device: THYMATRON DGx Electrode Placement: Bitemporal Program/Pulse Width: 0.50 Energy Percent: 100 Seizure Duration By EEG (in seconds): 38 By Motor Observation (in seconds): 25 Medications Administration General Anesthetic: Etomidate (14) Muscle Relaxant: Succinylcholine (120) Ancillary Medications Miscillaneous Medications: Propofol and Midazolam Airway Management Airway Management: Bag Mask Ventilation Treatment Recommendations No Changes Recommended: No change Notes: Probably he could use a little more of Succinylcholine 140? Pt Tolerated Procedure w/o Issue: Yes
[2024-12-19] MEDS: Propranolol HCL 20 MG TABLET PO ×2 (09:12→20:52)
[2024-12-19] MEDS: DIVALPROEX SODIUM 1250 MG PO (09:12)
[2024-12-19] MEDS: OLANZapine ODT 10 MG TAB.RAPDIS TRANSLINGU ×3 (09:12→20:53)
[2024-12-19] MEDS: Lithium Carbonate ER 300 MG TABLET.ER PO (09:14)
[2024-12-19] MEDS: fluPHENAZine HCl 5 MG TABLET 15 MG PO ×2 (09:14→20:52)
[2024-12-19] MEDS: FISH OIL 1 EACH PO ×2 (09:19→20:53)
--- NOTE | 2024-12-19 12:36 | HO.PSYCHPN ---
Subjective Subjective Date of Service: 12/19/24 Reason For Visit: schizoaffective disorder, bipolar type Interim History: met with patient; discussed with team; discussed with Dr. Serrano pt had ECT today and seems a little more organized when talking and less references to delusional thinking; asks about groups, discharge. Mental Status Exam Mental Status Exam Patient Appearance: Appropriate Patient Orientation: Person, Place and Situation (to some degree) Level of Consciousness: Awake and Appropriate Patient Behavior: Guarded, Cooperative and Anxious Mood Description: Constricted Affect Description: Constricted Patient Cognition Impaired: Yes Ability to Follow Directions: Poor (improving, but still Requires constant observation) Speech Pattern: Clear Hallucinations: Auditory (seems to be with AH) Delusions: Paranoid Ideation and Ideas of Reference Thought Process: Illogical and Goal Oriented Thought Content: positive for [place], positive for Preoccupation (paranoid delusions) and positive for Disorganized Judgement: Poor Judgement and Insight: impaired Diagnostics Vital Signs (24Hr): Vital Signs - 24 hr 12/18/24 14:50 12/18/24 20:00 12/19/24 06:01 Temperature 98.4 F 97.6 F Pulse Rate 94 93 89 Respiratory Rate 16 18 Blood Pressure 135/71 115/60 123/70 Pulse Oximetry 97 99 Oxygen Delivery Method Room Air Oxygen Flow Rate 12/19/24 06:45 12/19/24 08:00 12/19/24 08:20 Temperature 97.7 F 97.5 F 98 F Pulse Rate 78 84 97 Respiratory Rate 21 H 16 18 Blood Pressure 118/73 132/73 142/78 H Pulse Oximetry 96 99 95 Oxygen Delivery Method Room Air Room Air Nasal Cannula Oxygen Flow Rate 2 12/19/24 08:25 12/19/24 08:30 12/19/24 08:35 Temperature Pulse Rate 96 96 96 Respiratory Rate 20 20 20 Blood Pressure 156/72 H 119/71 127/67 Pulse Oximetry 95 95 95 Oxygen Delivery Method Nasal Cannula Room Air Room Air Oxygen Flow Rate 2 12/19/24 08:50 12/19/24 09:12 12/19/24 09:30 Temperature 98 F 97.5 F Pulse Rate 94 84 84 Respiratory Rate 16 16 Blood Pressure 114/66 132/73 132/73 Pulse Oximetry 95 99 Oxygen Delivery Method Room Air Oxygen Flow Rate BMI result Body Mass Index 38.4 Medications Medications Current Medications Acetaminophen (Acetaminophen 325 Mg Tablet) 650 mg PO Q6H PRN PRN Reason: Headache/Pain Mild Scale (1-3) Last Admin: 12/18/24 11:51 Dose: 650 mg Al Hydroxide/Mg Hydroxide (Magnesium Hydrox/Alum Hydrox 30 Ml Oral.Susp) 30 ml PO Q6H PRN PRN Reason: Heartburn/Nausea Albuterol Sulfate (Albuterol Sulfate 90 Mcg 8 Gm Inhaler) 2 puff INHALE Q4H PRN PRN Reason: Shortness Of Breath/Wheezing Artificial Tears (Artificial Tears 15 Ml Drops) 2 drop EYE-BOTH Q1H PRN PRN Reason: Dry Eyes Calcium Carbonate (Calcium Carbonate 750 Mg Tab.Chew) 750 mg PO Q6H PRN PRN Reason: Heartburn Chlorpromazine HCl (Chlorpromazine Hcl 100 Mg Tablet) 100 mg PO QID PRN PRN Reason: agitation Divalproex Sodium 1,000 mg/ (Divalproex Sodium 250 mg) 1,250 mg PO DAILY [facility] Last Admin: 12/19/24 09:12 Dose: 1,250 mg Divalproex Sodium (Divalproex Sodium Er 500 Mg Tab.Er.24h) 2,500 mg PO BEDTIME [facility]IGITTE Fluphenazine HCl (Fluphenazine Hcl 5 Mg Tablet) 15 mg PO BID [facility] Last Admin: 12/19/24 09:14 Dose: 15 mg Fluphenazine HCl (Fluphenazine Hcl 2.5 Mg/Ml 10 Ml Vial) 15 mg IM BID PRN PRN Reason: give IM if refuses PO Valproic Acid 1,250 mg/ (Dextrose) 62.5 mls @ 52.5 mls/hr IV BID PRN PRN Reason: If refuses PO Levocarnitine (Levocarnitine Oral Gia 1,000 Mg/10 Ml Ud Cup) 330 mg PO TID [facility] Last Admin: 12/19/24 09:18 Dose: Not Given Kenvir Carbonate (Kenvir Carbonate Er 300 Mg Tablet.Er) 300 mg PO DAILY [facility] Last Admin: 12/19/24 09:14 Dose: 300 mg Kenvir Carbonate (Kenvir Carbonate Er 300 Mg Tablet.Er) 600 mg PO BEDTIME [facility] Magnesium Hydroxide (Milk Of Magnesia 30 Ml Oral.Susp) 30 ml PO DAILY PRN PRN Reason: Constipation Miconazole Nitrate (Miconazole Nitrate 2% Oint 57 Gm Oint...G.) 1 appl TOPICAL BID [facility]; Protocol Last Admin: 12/19/24 11:09 Dose: Not Given Nicotine (Nicotine 21 Mg Patch.Td24) 21 mg TRANSDERMA DAILY PRN PRN Reason: smoking cessation Nicotine Polacrilex (Nicotine Polacrilex 2 Mg Gum) 4 mg BUCCAL Q2H PRN PRN Reason: Nicotine Cravings Patient Own Medication (Fish Oil ) 1 each PO BID [facility] Last Admin: 12/19/24 09:19 Dose: 1 each Olanzapine (Olanzapine Odt 10 Mg Tab.Rapdis) 10 mg TRANSLINGU TID [facility] Last Admin: 12/19/24 09:12 Dose: 10 mg Olanzapine (Olanzapine 10 Mg Vial) 10 mg IM TID PRN PRN Reason: if refuses PO Paliperidone Palmitate (Paliperidone Palmitate 234 Mg/1.5 Ml Syringe) 234 mg IM Q30D [facility] Last Admin: 12/18/24 11:35 Dose: 234 mg Propranolol HCl (Propranolol Hcl 20 Mg Tablet) 20 mg PO TID [facility]; Protocol Last Admin: 12/19/24 09:12 Dose: 20 mg Sodium Chloride (Sodium Chloride 0.65 % Nasal 44 Ml Sprbtl) 1 spray NOSTRIL-B Q1H PRN PRN Reason: Dry Nasal Passages Trazodone HCl (Trazodone Hcl 50 Mg Tablet) 50 mg PO BEDTIME MRX1 PRN PRN Reason: Insomnia Allergies Allergies Allergy/AdvReac Type Severity Reaction Status Date / Time lithium Allergy Hives Verified 11/02/24 18:44 Assessment & Plan Assessment & Plan (1) Schizoaffective disorder, bipolar type: Status: Acute Code(s): F25.0 - Schizoaffective disorder, bipolar type (2) Chronic post-traumatic stress disorder (PTSD): Status: Acute Code(s): F43.12 - Post-traumatic stress disorder, chronic (3) Mild intermittent asthma: Status: Acute Code(s): J45.20 - Mild intermittent asthma, uncomplicated Plan Pt is a 28 yo male with hx of Schizoaffective disorder, pt transferred back from ICU today. Pt was 1st admitted to 10/31/24 for decompensation and paranoid delusions having stopped his medications for a week. On the unit patient had increasingly manic behaviors and psychotic symptoms resulting in several staff and peer assaults and requiring transfer to the ICU on 11/08 to 11/14 for medication sedation to help reestablish a medication regimen to help him be in control; patient seemed to stabilize and return to M3 and for about a week remained in mildly improved behavior, however he again decompensated, again became uncontrollably violent and was again transferred to the ICU on 12/07 for medication assisted sedation, unable to be safe. He was initially sedated with precedex and started on IV depakote was was titrated to help re-establish some nadege control. Patient was on scheduled Prolixin and Zyprexa; had also received Invega Sustenna; he was also started on lithium. In the ICU, he remained intermittently aggressive, with florid paranoid delusions, talking about wanting to fight staff and several times required some combination of security, IM/IV medication and physical restraint. Court reconvened and patient was court ordered for ECT if medications could not be effective enough. After numerous discussions with multiple physicians associated with the case, it was decided that patient remained to disorganized, paranoid and [id number] dangerous for medication management only and ECT initiated. Patient received 3 ECT treatments and said he would continue with ECT. On the ICU, patient again became in adequate behavioral control and was able to return to M3. He remains with delusional and disorganized thoughts and does not remember some of his past behaviors; he now wants all his medications to be at put in tablet form. It was explained that he will not be able to constantly switch inbetween medication forms (liquid verse tablet) and that IM backups will be available to ensure medication adherence. See ICU discharge summary and M3 discharge summary for more detailed history. Formulation/clinical reasoning: Patient has been floridly manic, with paranoid delusions in reviewed with trauma history, resulting in patient being wildly out of control, aggressive and assaultive. He is currently on 2 mood stabilizers and 3 antipsychotics; at this time, for patient, milieu and staff safety it is necessary to have patient on these medications as lesser regimens have not been effective and resulted in dangerousness. He is also getting ECT in the hope is that he remains adherent with treatment plan and as he improves, team will be able to taper down and potentially DC some of this medication regimen. For now patient is on a very strict behavioral plan with security and MHA present 20/06. Of note, patient's mother has consistently been bringing patient excessive amounts of clothes and food to the unit, despite staff asking her to refrain, numerous times as patient gets triggered by these items, demanding them every few minutes and becoming angry when demands are not met. Earth Boring Machine Operator discussed this today with patient's mother and explained the need that for the time being, treatment team needs her to refrain from bringing any food or clothing items to the unit due to patient being triggered into uncontrolled violence. Patient's mother hesitantly agreed; telegraphic typewriter operator emphasized with her desire to comfort her son, however explained that due to the severity of patient's symptoms and need to maintain a very structured environment for him to stabilize. Earth Boring Machine Operator explained that for the time being this rule was absolute and if she was unable to adhere to this rule, her visits would have to be temporarily suspended. She understood and agreed. HOSPITAL COURSE: 12/18 So far, patient is in better behavioral control. He remains floridly psychotic, talking about paranoid delusions which he clearly references as his justified reasons for attacking a specific staff person and a peer, saying that Patricio stole my soul... And talking about selling his veins, eyes and testicles. -initially refused Invega Sustenna however allowed after told court ordered and with additional security; he was angry, slammed his bedroom door but otherwise remained in behavioral control. -insists that Invega Sustenna causes him blurry vision; Earth Boring Machine Operator tried to explain that his outpatient provider Dr. Mendez reported that patient did well on Invega Sustenna and had no side effects. -telegraphic typewriter operator discussed ECT and patient says that he is willing to continue getting it, liking the idea that it is treatment without pills -continued left hand tremor; left upper arm fungal infection, miconazole ordered -Patient pushing some boundaries of behavioral plan but remains redirectable. Earth Boring Machine Operator discussed behavioral plan and that his behavioral control will earn him additional privileges. He did get access to TV today. Given that patient does not like pills, telegraphic typewriter operator consolidating some of his medication regimen to make it less cumbersome: -will change Depakote to b.i.d. dosing (instead of t.i.d: it is long-acting and blood levels reach a steady state so it should change its effectiveness) -will change lithium to b.i.d. dosing (instead of t.i.d: it is long-acting and blood levels reach a steady state so it should change its effectiveness) -for now, will leave Zydis/Zyprexa t.i.d. dosing in case afternoon dose has a sedating/calming side effect that is helpful PLAN: Section 8/8b Close bs/2 security/MHA ECT #5 pending for 12/21 Fluphenazine HCl 15 mg PO BID BRIGITTE (court ordered; give IM if refuses) CHANGE to Valproic Acid to b.i.d. dosing (instead of t.i.d.): Depakote ER 1250mg daily Depakote ER 2500mg Qhs (court ordered; give IV if refuses: Valproic Acid 1,250 mg/ (Dextrose) 62.5 mls @ 57.5 mls/hr IV BID prn) CHANGE to Kenvir Carbonate ER to b.i.d. dosing (was 300 mg tid) Kenvir ER 300 mg daily Kenvir ER 600 mg q.h.s. (court ordered but no back up for now) Zydis 10 mg TRANSLINGU TID BRIGITTE (court ordered; give IM if refuses) Propranolol HCl 20 mg PO TID [facility]; Invega Sustenna 234 mg Q 30 days; last dose received 12/18/24 Patient educated on: diagnosis, medication risk/benefits, ECT and therapeutic strategies Informed Consent: understands, does not understand and further education needed Reason for continued inpatient stay Substantial Risk for: inability to function Time Spent With Patient Time: Total time managing care of this patient today ____ minutes.
[2024-12-19] MEDS: Acetaminophen 325 MG TABLET 650 MG PO (13:15)
[2024-12-19] MEDS: Miconazole Nitrate 2% Oint 57 GM OINT...G. 1 APPL TOPICAL ×2 (13:32→20:48)
[2024-12-19] MEDS: Divalproex Sodium ER 500 MG TAB.ER.24H 2500 MG PO (20:48)
[2024-12-19] MEDS: Lithium Carbonate ER 300 MG TABLET.ER 600 MG PO (20:51)
[2024-12-20] MEDS: OLANZapine ODT 10 MG TAB.RAPDIS TRANSLINGU ×3 (08:09→20:38)
[2024-12-20] MEDS: Lithium Carbonate ER 300 MG TABLET.ER PO (08:09)
[2024-12-20] MEDS: DIVALPROEX SODIUM 1250 MG PO (08:09)
[2024-12-20] MEDS: fluPHENAZine HCl 5 MG TABLET 15 MG PO ×2 (08:09→20:38)
[2024-12-20] MEDS: Propranolol HCL 20 MG TABLET PO ×3 (08:09→20:38)
[2024-12-20] MEDS: FISH OIL 1 EACH PO (08:09)
[2024-12-20 08:14] VITALS: BP 128/61; PULSE 89; RESP 16; TEMP 37; O2SAT 98
--- NOTE | 2024-12-20 09:06 | HO.PSYCHPN ---
Subjective Subjective Date of Service: 12/20/24 Reason For Visit: schizoaffective disorder, bipolar type Interim History: Discussed with team Patient is sleeping on approach and typewriter aligner thought it best not to wake. Staff reports that he has remained in good behavioral and impulse control, taking medications. Mental Status Exam Mental Status Exam Patient Appearance: Appropriate Patient Orientation: Person, Place and Situation (to some degree) Level of Consciousness: Drowsy Patient Behavior: Guarded, Cooperative and Anxious Mood Description: Constricted Affect Description: Constricted Patient Cognition Impaired: Yes Ability to Follow Directions: Poor (improving, but still Requires constant observation) Speech Pattern: Clear Hallucinations: Auditory (seems to be with AH) Delusions: Paranoid Ideation and Ideas of Reference Thought Process: Illogical and Goal Oriented Thought Content: positive for [place], positive for Preoccupation (paranoid delusions) and positive for Disorganized Judgement: Poor Judgement and Insight: impaired Diagnostics Vital Signs (24Hr): Vital Signs - 24 hr 12/19/24 09:12 12/19/24 09:30 12/19/24 15:25 Temperature 97.5 F 97.3 F Pulse Rate 84 84 92 Respiratory Rate 16 15 Blood Pressure 132/73 132/73 121/58 L Pulse Oximetry 99 98 Oxygen Delivery Method Room Air 12/19/24 19:45 12/19/24 20:52 12/20/24 08:14 Temperature 98.5 F 98.6 F Pulse Rate 109 H 101 H 89 Respiratory Rate 16 16 Blood Pressure 102/61 135/75 128/61 Pulse Oximetry 98 98 Oxygen Delivery Method Room Air Room Air BMI result Body Mass Index 38.4 Medications Medications Current Medications Acetaminophen (Acetaminophen 325 Mg Tablet) 650 mg PO Q6H PRN PRN Reason: Headache/Pain Mild Scale (1-3) Last Admin: 12/19/24 13:15 Dose: 650 mg Al Hydroxide/Mg Hydroxide (Magnesium Hydrox/Alum Hydrox 30 Ml Oral.Susp) 30 ml PO Q6H PRN PRN Reason: Heartburn/Nausea Albuterol Sulfate (Albuterol Sulfate 90 Mcg 8 Gm Inhaler) 2 puff INHALE Q4H PRN PRN Reason: Shortness Of Breath/Wheezing Artificial Tears (Artificial Tears 15 Ml Drops) 2 drop EYE-BOTH Q1H PRN PRN Reason: Dry Eyes Calcium Carbonate (Calcium Carbonate 750 Mg Tab.Chew) 750 mg PO Q6H PRN PRN Reason: Heartburn Chlorpromazine HCl (Chlorpromazine Hcl 100 Mg Tablet) 100 mg PO QID PRN PRN Reason: agitation Divalproex Sodium 1,000 mg/ (Divalproex Sodium 250 mg) 1,250 mg PO DAILY [facility] Last Admin: 12/20/24 08:09 Dose: 1,250 mg Divalproex Sodium (Divalproex Sodium Er 500 Mg Tab.Er.24h) 2,500 mg PO BEDTIME [facility] Last Admin: 12/19/24 20:48 Dose: 2,500 mg Fluphenazine HCl (Fluphenazine Hcl 5 Mg Tablet) 15 mg PO BID [facility] Last Admin: 12/20/24 08:09 Dose: 15 mg Fluphenazine HCl (Fluphenazine Hcl 2.5 Mg/Ml 10 Ml Vial) 15 mg IM BID PRN PRN Reason: give IM if refuses PO Valproic Acid 1,250 mg/ (Dextrose) 62.5 mls @ 52.5 mls/hr IV BID PRN PRN Reason: If refuses PO [place] Carbonate ([place] Carbonate Er 300 Mg Tablet.Er) 300 mg PO DAILY [facility] Last Admin: 12/20/24 08:09 Dose: 300 mg [place] Carbonate ([place] Carbonate Er 300 Mg Tablet.Er) 600 mg PO BEDTIME [facility] Last Admin: 12/19/24 20:51 Dose: 600 mg Magnesium Hydroxide (Milk Of Magnesia 30 Ml Oral.Susp) 30 ml PO DAILY PRN PRN Reason: Constipation Miconazole Nitrate (Miconazole Nitrate 2% Oint 57 Gm Oint...G.) 1 appl TOPICAL BID [facility]; Protocol Last Admin: 12/20/24 08:32 Dose: Not Given Nicotine (Nicotine 21 Mg Patch.Td24) 21 mg TRANSDERMA DAILY PRN PRN Reason: smoking cessation Nicotine Polacrilex (Nicotine Polacrilex 2 Mg Gum) 4 mg BUCCAL Q2H PRN PRN Reason: Nicotine Cravings Patient Own Medication (Fish Oil ) 1 each PO BID [facility] Last Admin: 12/20/24 08:09 Dose: 1 each Olanzapine (Olanzapine Odt 10 Mg Tab.Rapdis) 10 mg TRANSLINGU TID [facility] Last Admin: 12/20/24 08:09 Dose: 10 mg Olanzapine (Olanzapine 10 Mg Vial) 10 mg IM TID PRN PRN Reason: if refuses PO Paliperidone Palmitate (Paliperidone Palmitate 234 Mg/1.5 Ml Syringe) 234 mg IM Q30D [facility] Last Admin: 12/18/24 11:35 Dose: 234 mg Propranolol HCl (Propranolol Hcl 20 Mg Tablet) 20 mg PO TID [facility]; Protocol Last Admin: 12/20/24 08:09 Dose: 20 mg Sodium Chloride (Sodium Chloride 0.65 % Nasal 44 Ml Sprbtl) 1 spray NOSTRIL-B Q1H PRN PRN Reason: Dry Nasal Passages Trazodone HCl (Trazodone Hcl 50 Mg Tablet) 50 mg PO BEDTIME MRX1 PRN PRN Reason: Insomnia Allergies Allergies Allergy/AdvReac Type Severity Reaction Status Date / Time lithium Allergy Hives Verified 11/02/24 18:44 Assessment & Plan Assessment & Plan (1) Schizoaffective disorder, bipolar type: Status: Acute Code(s): F25.0 - Schizoaffective disorder, bipolar type (2) Chronic post-traumatic stress disorder (PTSD): Status: Acute Code(s): F43.12 - Post-traumatic stress disorder, chronic (3) Mild intermittent asthma: Status: Acute Code(s): J45.20 - Mild intermittent asthma, uncomplicated Plan Pt is a 28 yo male with hx of Schizoaffective disorder, pt transferred back from ICU today. Pt was 1st admitted to [facility] 10/31/24 for decompensation and paranoid delusions having stopped his medications for a week. On the unit patient had increasingly manic behaviors and psychotic symptoms resulting in several staff and peer assaults and requiring transfer to the ICU on 11/08 to 11/14 for medication sedation to help reestablish a medication regimen to help him be in control; patient seemed to stabilize and return to [facility] and for about a week remained in mildly improved behavior, however he again decompensated, again became uncontrollably violent and was again transferred to the ICU on 12/07 for medication assisted sedation, unable to be safe. He was initially sedated with precedex and started on IV depakote was was titrated to help re-establish some nadege control. Patient was on scheduled Prolixin and Zyprexa; had also received Invega Sustenna; he was also started on lithium. In the ICU, he remained intermittently aggressive, with florid paranoid delusions, talking about wanting to fight staff and several times required some combination of security, IM/IV medication and physical restraint. Court reconvened and patient was court ordered for ECT if medications could not be effective enough. After numerous discussions with multiple physicians associated with the case, it was decided that patient remained to disorganized, paranoid and [id number] dangerous for medication management only and ECT initiated. Patient received 3 ECT treatments and said he would continue with ECT. On the ICU, patient again became in adequate behavioral control and was able to return to [facility]. He remains with delusional and disorganized thoughts and does not remember some of his past behaviors; he now wants all his medications to be at put in tablet form. It was explained that he will not be able to constantly switch inbetween medication forms (liquid verse tablet) and that IM backups will be available to ensure medication adherence. See ICU discharge summary and [facility] discharge summary for more detailed history. Formulation/clinical reasoning: Patient has been floridly manic, with paranoid delusions in reviewed with trauma history, resulting in patient being wildly out of control, aggressive and assaultive. He is currently on 2 mood stabilizers and 3 antipsychotics; at this time, for patient, milieu and staff safety it is necessary to have patient on these medications as lesser regimens have not been effective and resulted in dangerousness. He is also getting ECT in the hope is that he remains adherent with treatment plan and as he improves, team will be able to taper down and potentially DC some of this medication regimen. For now patient is on a very strict behavioral plan with security and MHA present 20/06. Of note, patient's mother has consistently been bringing patient excessive amounts of clothes and food to the unit, despite staff asking her to refrain, numerous times as patient gets triggered by these items, demanding them every few minutes and becoming angry when demands are not met. Game Developer discussed treatment plan, including this portion of it, with patient's mother. Game Developer explained that part of patient's treatment plan includes the need that for the time being, she needs her to refrain from bringing any food or clothing items to the unit due to patient being triggered into uncontrolled violence. Patient's mother hesitantly agreed; typewriter aligner empathized with her desire to comfort her son, however explained that due to the severity of patient's symptoms patient needs to maintain a very structured environment for him to stabilize and to keep people safe. Game Developer explained that for the time being this rule was absolute and if she was unable to adhere to this rule, her visits would have to be temporarily suspended. She understood and agreed (of note, patient's entire treatment plan, including this specific portion, was thoroughly discussed and agreed upon with treatment team and administration, including WASTE DISPOSAL ATTENDANT, SURGICAL TECH, CNO, clinical nurse leader on [facility], patient's social insurance analyst and charge nurse). HOSPITAL COURSE: 12/18 So far, patient is in better behavioral control. He remains floridly psychotic, talking about paranoid delusions which he clearly references as his justified reasons for attacking a specific staff person and a peer, saying that Patricio stole my soul... And talking about selling his veins, eyes and testicles. -initially refused Invega Sustenna however allowed after told court ordered and with additional security; he was angry, slammed his bedroom door but otherwise remained in behavioral control. -insists that Invega Sustenna causes him blurry vision; Game Developer tried to explain that his outpatient provider Dr. Mendez reported that patient did well on Invega Sustenna and had no side effects. -typewriter aligner discussed ECT and patient says that he is willing to continue getting it, liking the idea that it is treatment without pills -continued left hand tremor; left upper arm fungal infection, miconazole ordered -Patient pushing some boundaries of behavioral plan but remains redirectable. Game Developer discussed behavioral plan and that his behavioral control will earn him additional privileges. He did get access to TV today. Given that patient does not like pills, typewriter aligner consolidating some of his medication regimen to make it less cumbersome: -will change Depakote to b.i.d. dosing (instead of t.i.d: it is long-acting and blood levels reach a steady state so it should change its effectiveness) -will change lithium to b.i.d. dosing (instead of t.i.d: it is long-acting and blood levels reach a steady state so it should change its effectiveness) -for now, will leave Zydis/Zyprexa t.i.d. dosing in case afternoon dose has a sedating/calming side effect that is helpful 12/20 continue treatment plan; ECT tomorrow -further discussed behavioral plan with team ways to modified so that patient can be more participative in earning back privileges PLAN: Section 8/8b Close bs/2 security/MHA ECT #5 pending for 12/21 Fluphenazine HCl 15 mg PO BID [place]IG[place]TE (court ordered; give IM if refuses) CHANGE to Valproic Acid to b.i.d. dosing (instead of t.i.d.): Depakote ER 1250mg daily Depakote ER 2500mg Qhs (court ordered; give IV if refuses: Valproic Acid 1,250 mg/ (Dextrose) 62.5 mls @ 57.5 mls/hr IV BID prn) CHANGE to [place] Carbonate ER to b.i.d. dosing (was 300 mg tid) [place] ER 300 mg daily [place] ER 600 mg q.h.s. (court ordered but no back up for now) Zydis 10 mg TRANSLINGU TID [place]TE (court ordered; give IM if refuses) Propranolol HCl 20 mg PO TID BRIGITTE; Invega Sustenna 234 mg Q 30 days; last dose received 12/18/24 Reason for continued inpatient stay Substantial Risk for: inability to function Time Spent With Patient Time: Total time managing care of this patient today ____ minutes.
[2024-12-20 14:08] VITALS: BP 124/57; PULSE 104
[2024-12-20 19:23] VITALS: BP 137/59; PULSE 90; RESP 16; TEMP 36.4; O2SAT 96
[2024-12-20 20:38] VITALS: BP 114/76; PULSE 97
[2024-12-20] MEDS: Lithium Carbonate ER 300 MG TABLET.ER 600 MG PO (20:38)
[2024-12-20] MEDS: Divalproex Sodium ER 500 MG TAB.ER.24H 2500 MG PO (20:38)
[2024-12-21] VITALS (11 sets, daily range): BP systolic 107–147; BP diastolic 57–81; PULSE 82–109; RESP 15–20; TEMP 36.4–37.3; O2SAT 92–96
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
[2024-12-21] MEDS: Lactated Ringers 1,000 ML 50 ML IVCONT (06:53)
--- NOTE | 2024-12-21 07:26 | MHC.SHP ---
Pre-Procedural Eval Section A - 24 Hr Update-Section A only Date of Service: 12/21/24 The patient is an INPATIENT: Yes Changes since office visit: No Cold of Flu in the past 2 weeks, No New Medical Problems, No Changes in Medication and No Patient answered all questions The patient has been examined within 24 hours of the surgical procedure. The History & Physical has been completed within 30 days and I have reviewed it.: Yes Section B - Complete if H&P > 30 days Chief Complaint: schizoaffective disorder, bipolar type Details of Present Illness: improving behavioral control Allergies: Allergies Allergy/AdvReac Type Severity Reaction Status Date / Time lithium Allergy Hives Verified 11/02/24 18:44 Review of Systems Sugical H&P ROS: Negative: Constitution Plan Diagnosis/Plan: Unchanged I have reviewed the history and physical and performed a pertinent physical examination on my patient. No changes have occurred unless specified. Time Spent With Patient Time: Total time managing care of this patient today ____ minutes.
--- NOTE | 2024-12-21 07:27 | HO.ECTPROC ---
ECT Procedure Note Diagnosis/Treatment Date of Service: 12/21/24 Diagnosis: Schizoaffective Disorder Previous ECT Date: 12/19/24 Current Treatment Number: 5 Treatment: Series Interval Clinical Notes: pt with improved behavioral control Time: Total time managing care of this patient today ____ minutes. ECT Settings Device: THYMATRON DGx Electrode Placement: Bitemporal Program/Pulse Width: 0.50 Energy Percent: 100 Seizure Duration By EEG (in seconds): 25 By Motor Observation (in seconds): 14 Medications Administration General Anesthetic: Etomidate (14) Muscle Relaxant: Succinylcholine (140 (increased from 120)) and Other (flumazenil 0.5) Ancillary Medications Miscillaneous Medications: Propofol (20) and Midazolam (2mg) Airway Management Airway Management: LMA Treatment Recommendations No Changes Recommended: No change (May lower Depakote night prior to ECT) Electrode Placement: Bitemporal Program/Pulse Width: 0.50 Energy Percent: 100 Notes: pt has remained in improved behavioral control since starting ECT shorter seizure today (25 sec); consider lowering/holding bedtime Depakote dose prior to ECT Pt received Flumazenil .5mg; will discuss whether to continue since he's not on Benzo's (pt has been receiving this previous ECT) Succ increased to 140mg (up from 120mg) Received Propofol 20mg and Midazolam 2mg post ECT Pt Tolerated Procedure w/o Issue: Yes
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
[2024-12-21] MEDS: Propranolol HCL 20 MG TABLET PO ×3 (08:52→20:06)
[2024-12-21] MEDS: fluPHENAZine HCl 5 MG TABLET 15 MG PO ×2 (08:52→20:05)
[2024-12-21] MEDS: Lithium Carbonate ER 300 MG TABLET.ER PO (08:53)
[2024-12-21] MEDS: OLANZapine ODT 10 MG TAB.RAPDIS TRANSLINGU ×3 (08:53→20:08)
[2024-12-21] MEDS: DIVALPROEX SODIUM 1250 MG PO (08:53)
[2024-12-21] MEDS: FISH OIL 1 EACH PO ×2 (08:57→20:04)
[2024-12-21] MEDS: Miconazole Nitrate 2% Oint 57 GM OINT...G. 1 APPL TOPICAL (20:04)
[2024-12-21] MEDS: Divalproex Sodium ER 500 MG TAB.ER.24H 2500 MG PO (20:05)
[2024-12-21] MEDS: Acetaminophen 325 MG TABLET 650 MG PO (20:07)
[2024-12-21] MEDS: Lithium Carbonate ER 300 MG TABLET.ER 600 MG PO (20:07)
[2024-12-22 10:19] VITALS: BP 120/64; PULSE 107; RESP 17; TEMP 36.4; O2SAT 95
[2024-12-22] MEDS: Lithium Carbonate ER 300 MG TABLET.ER PO (10:26)
[2024-12-22] MEDS: Propranolol HCL 20 MG TABLET PO ×3 (10:26→20:29)
[2024-12-22] MEDS: fluPHENAZine HCl 5 MG TABLET 15 MG PO ×2 (10:26→20:26)
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
[2024-12-22] MEDS: FISH OIL 1 EACH PO ×2 (10:27→20:25)
[2024-12-22] MEDS: OLANZapine ODT 10 MG TAB.RAPDIS TRANSLINGU ×3 (10:28→20:26)
[2024-12-22] MEDS: DIVALPROEX SODIUM 1250 MG PO (10:29)
[2024-12-22 14:32] VITALS: BP 126/72; PULSE 91
[2024-12-22] MEDS: Acetaminophen 325 MG TABLET 650 MG PO (17:22)
[2024-12-22 20:00] VITALS: BP 110/61; PULSE 55; RESP 16; TEMP 36.9; O2SAT 96
[2024-12-22] MEDS: Miconazole Nitrate 2% Oint 57 GM OINT...G. 1 APPL TOPICAL (20:25)
[2024-12-22] MEDS: Divalproex Sodium ER 500 MG TAB.ER.24H 2500 MG PO (20:26)
[2024-12-22] MEDS: Lithium Carbonate ER 300 MG TABLET.ER 600 MG PO (20:26)
[2024-12-22] MEDS: Capsaicin 0.025% Cream 60 GM TUBE 1 APPL TOPICAL (20:29)
[2024-12-23 09:14] VITALS: BP 116/81; PULSE 112; RESP 16; TEMP 36.9; O2SAT 94
[2024-12-23] MEDS: fluPHENAZine HCl 5 MG TABLET 15 MG PO ×2 (09:14→20:25)
[2024-12-23] MEDS: OLANZapine ODT 10 MG TAB.RAPDIS TRANSLINGU ×3 (09:15→20:27)
[2024-12-23] MEDS: DIVALPROEX SODIUM 1250 MG PO (09:15)
[2024-12-23] MEDS: Propranolol HCL 20 MG TABLET PO ×3 (09:15→20:27)
[2024-12-23] MEDS: Lithium Carbonate ER 300 MG TABLET.ER PO (09:16)
[2024-12-23] MEDS: FISH OIL 1 EACH PO ×2 (09:16→20:32)
[2024-12-23] MEDS: Capsaicin 0.025% Cream 60 GM TUBE 1 APPL TOPICAL (09:17)
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
[2024-12-23 14:24] VITALS: BP 102/76; PULSE 104
[2024-12-23 20:00] VITALS: BP 111/65; PULSE 83; RESP 18; TEMP 36.7; O2SAT 97
[2024-12-23] MEDS: Divalproex Sodium ER 500 MG TAB.ER.24H 2500 MG PO (20:26)
[2024-12-23] MEDS: Lithium Carbonate ER 300 MG TABLET.ER 600 MG PO (20:27)
[2024-12-23] MEDS: Miconazole Nitrate 2% Oint 57 GM OINT...G. 1 APPL TOPICAL (20:32)
[2024-12-24] VITALS (12 sets, daily range): BP systolic 100–142; BP diastolic 50–76; PULSE 73–97; RESP 16–20; TEMP 36.1–37.8; O2SAT 95–99; BMI 38.4
--- NOTE | 2024-12-24 07:04 | MHC.SHP ---
Pre-Procedural Eval Section A - 24 Hr Update-Section A only Date of Service: 12/24/24 The patient is an INPATIENT: Yes The patient has been examined within 24 hours of the surgical procedure. The History & Physical has been completed within 30 days and I have reviewed it.: Yes Section B - Complete if H&P > 30 days Chief Complaint: schizoaffective disorder, bipolar type Allergies: Allergies Allergy/AdvReac Type Severity Reaction Status Date / Time lithium Allergy Hives Verified 11/02/24 18:44 Plan I have reviewed the history and physical and performed a pertinent physical examination on my patient. No changes have occurred unless specified. Time Spent With Patient Time: Total time managing care of this patient today ____ minutes.
--- NOTE | 2024-12-24 07:53 | HO.ECTPROC ---
ECT Procedure Note Diagnosis/Treatment Date of Service: 12/24/24 Diagnosis: Schizoaffective Disorder Previous ECT Date: 12/19/24 Current Treatment Number: 6 Treatment: Series Interval Clinical Notes: The patient's mood is better, less aggressive. He denies side effects with previous ECT. ECT done as usual, no complications, woke up well. Time: Total time managing care of this patient today __30__ minutes. ECT Settings Device: THYMATRON DGx Electrode Placement: Bitemporal Program/Pulse Width: 0.50 Energy Percent: 100 Seizure Duration By EEG (in seconds): 45 By Motor Observation (in seconds): 17 Medications Administration General Anesthetic: Etomidate (14) Muscle Relaxant: Succinylcholine (140) Ancillary Medications Miscillaneous Medications: Propofol and Midazolam Airway Management Airway Management: Bag Mask Ventilation Treatment Recommendations No Changes Recommended: No change Pt Tolerated Procedure w/o Issue: Yes
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
[2024-12-24] MEDS: DIVALPROEX SODIUM 1250 MG PO (08:57)
[2024-12-24] MEDS: OLANZapine ODT 10 MG TAB.RAPDIS TRANSLINGU ×3 (08:58→20:35)
[2024-12-24] MEDS: Lithium Carbonate ER 300 MG TABLET.ER PO (08:58)
[2024-12-24] MEDS: fluPHENAZine HCl 5 MG TABLET 15 MG PO ×2 (08:58→20:34)
[2024-12-24] MEDS: Propranolol HCL 20 MG TABLET PO ×3 (08:59→20:34)
[2024-12-24] MEDS: FISH OIL 1 EACH PO ×2 (08:59→20:33)
[2024-12-24] MEDS: Miconazole Nitrate 2% Oint 57 GM OINT...G. 1 APPL TOPICAL ×2 (09:00→20:34)
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
[2024-12-24] MEDS: Acetaminophen 325 MG TABLET 650 MG PO (13:24)
[2024-12-24] MEDS: Divalproex Sodium ER 500 MG TAB.ER.24H 2500 MG PO (20:34)
[2024-12-24] MEDS: Lithium Carbonate ER 300 MG TABLET.ER 600 MG PO (20:34)
[2024-12-25 10:00] VITALS: BP 133/57; PULSE 95; RESP 16; TEMP 36.8; O2SAT 96
[2024-12-25] MEDS: OLANZapine ODT 10 MG TAB.RAPDIS TRANSLINGU ×3 (10:01→20:28)
[2024-12-25] MEDS: DIVALPROEX SODIUM 1250 MG PO (10:01)
[2024-12-25] MEDS: Lithium Carbonate ER 300 MG TABLET.ER PO (10:01)
[2024-12-25 10:02] VITALS: BP 133/57; PULSE 98
[2024-12-25] MEDS: Propranolol HCL 20 MG TABLET PO ×3 (10:02→20:29)
[2024-12-25] MEDS: fluPHENAZine HCl 5 MG TABLET 15 MG PO ×2 (10:02→20:28)
[2024-12-25] MEDS: FISH OIL 1 EACH PO ×2 (10:03→20:38)
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
[2024-12-25 15:55] VITALS: PULSE 80
[2024-12-25 20:00] VITALS: BP 131/73; PULSE 79; RESP 16; TEMP 37.4; O2SAT 99
[2024-12-25] MEDS: Divalproex Sodium ER 500 MG TAB.ER.24H 2500 MG PO (20:27)
[2024-12-25] MEDS: Lithium Carbonate ER 300 MG TABLET.ER 600 MG PO (20:27)
[2024-12-25] MEDS: Miconazole Nitrate 2% Oint 57 GM OINT...G. 1 APPL TOPICAL (20:38)
[2024-12-25] MEDS: Capsaicin 0.025% Cream 60 GM TUBE 1 APPL TOPICAL (21:02)
[2024-12-25 21:37] VITALS: TEMP 37.7
[2024-12-25] MEDS: Acetaminophen 325 MG TABLET 650 MG PO (21:40)
[2024-12-25 23:40] VITALS: TEMP 37.3
[2024-12-26] VITALS (14 sets, daily range): BP systolic 112–127; BP diastolic 59–85; PULSE 74–98; RESP 15–20; TEMP 36.4–37.1; O2SAT 95–99; BMI 38.3
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
--- NOTE | 2024-12-26 07:24 | MHC.SHP ---
Pre-Procedural Eval Section A - 24 Hr Update-Section A only Date of Service: 12/26/24 The patient is an INPATIENT: Yes Changes since office visit: Yes Changes in Medication; No Cold of Flu in the past 2 weeks, No New Medical Problems and No Patient answered all questions The patient has been examined within 24 hours of the surgical procedure. The History & Physical has been completed within 30 days and I have reviewed it.: Yes Section B - Complete if H&P > 30 days Chief Complaint: schizoaffective disorder, bipolar type Allergies: Allergies Allergy/AdvReac Type Severity Reaction Status Date / Time lithium Allergy Hives Verified 11/02/24 18:44 Plan I have reviewed the history and physical and performed a pertinent physical examination on my patient. No changes have occurred unless specified. Time Spent With Patient Time: Total time managing care of this patient today ____ minutes.
--- NOTE | 2024-12-26 07:25 | HO.ECTPROC ---
ECT Procedure Note Diagnosis/Treatment Date of Service: 12/26/24 Diagnosis: Schizoaffective Disorder Previous ECT Date: 12/24/24 Current Treatment Number: 7 Treatment: Series Interval Clinical Notes: The patient's mood is better, less aggressive. He denies side effects with previous ECT. No recent restraint did seem somewhat sedated in the morning pre ECT. He was given flumazenil patient has continued on lithium during ECT originally as per Dr. Smith and Dr. Nguyen and appears to be tolerating this monitor for any confusional states Seizure duration was somewhat short at 19 s consider increase of pulse width . Time: Total time managing care of this patient today ____ minutes. ECT Settings Device: THYMATRON DGx Electrode Placement: Bitemporal Program/Pulse Width: 0.50 Energy Percent: 100 Seizure Duration By EEG (in seconds): 19 Medications Administration General Anesthetic: Etomidate (16) Muscle Relaxant: Succinylcholine (140) Ancillary Medications Miscillaneous Medications: Propofol and Midazolam Airway Management Airway Management: Bag Mask Ventilation Treatment Recommendations Notes: Consider increase in pw monitor response to treatment Pt Tolerated Procedure w/o Issue: Yes
[2024-12-26] MEDS: OLANZapine ODT 10 MG TAB.RAPDIS TRANSLINGU ×3 (09:15→20:19)
[2024-12-26] MEDS: fluPHENAZine HCl 5 MG TABLET 15 MG PO ×2 (09:15→20:19)
[2024-12-26] MEDS: Lithium Carbonate ER 300 MG TABLET.ER PO (09:15)
[2024-12-26] MEDS: FISH OIL 1 EACH PO ×2 (09:15→20:19)
[2024-12-26] MEDS: DIVALPROEX SODIUM 1250 MG PO (09:15)
[2024-12-26] MEDS: Propranolol HCL 20 MG TABLET PO ×3 (09:15→20:19)
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
[2024-12-26] MEDS: Acetaminophen 325 MG TABLET 650 MG PO (16:02)
[2024-12-26] MEDS: Capsaicin 0.025% Cream 60 GM TUBE 1 APPL TOPICAL (16:05)
[2024-12-26] MEDS: Lithium Carbonate ER 300 MG TABLET.ER 600 MG PO (20:18)
[2024-12-26] MEDS: Miconazole Nitrate 2% Oint 57 GM OINT...G. 1 APPL TOPICAL (20:18)
[2024-12-26] MEDS: Divalproex Sodium ER 500 MG TAB.ER.24H 2500 MG PO (20:18)
[2024-12-26] MEDS: Albuterol Sulfate 90 MCG 8 GM INHALER 2 PUFF INHALE (21:28)
[2024-12-27] MEDS: Lithium Carbonate ER 300 MG TABLET.ER PO (07:59)
[2024-12-27 08:00] VITALS: BP 125/64; PULSE 88; RESP 16; TEMP 37.1; O2SAT 99
[2024-12-27] MEDS: fluPHENAZine HCl 5 MG TABLET 15 MG PO ×2 (08:00→20:21)
[2024-12-27] MEDS: OLANZapine ODT 10 MG TAB.RAPDIS TRANSLINGU ×3 (08:01→20:21)
[2024-12-27] MEDS: DIVALPROEX SODIUM 1250 MG PO (08:01)
[2024-12-27 08:04] VITALS: BP 125/64; PULSE 88
[2024-12-27] MEDS: Propranolol HCL 20 MG TABLET PO ×3 (08:04→20:21)
[2024-12-27] MEDS: FISH OIL 1 EACH PO ×2 (09:59→20:26)
[2024-12-27] MEDS: Miconazole Nitrate 2% Oint 57 GM OINT...G. 1 APPL TOPICAL ×2 (10:00→20:29)
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
[2024-12-27 14:40] VITALS: BP 147/76; PULSE 113
[2024-12-27 15:41] LABS: Appearance Urine Clear; Color Urine Yellow; Glucose Urine UA Negative (Negative); Leukocyte Esterase Urine Negative (Negative); Nitrite Urine Negative (Negative); Urine Blood Negative (Negative); Urine Ketones Negative (Negative); Urine Protein Negative (Neg-Trace)
[2024-12-27 20:00] VITALS: BP 116/72; PULSE 89; RESP 18; TEMP 37.3; O2SAT 95
[2024-12-27] MEDS: Lithium Carbonate ER 300 MG TABLET.ER 600 MG PO (20:21)
[2024-12-27] MEDS: Divalproex Sodium ER 500 MG TAB.ER.24H 2500 MG PO (20:21)
[2024-12-27 20:28] LABS: MANUAL DIFF FLAG NO
[2024-12-27 20:29] LABS: Basophils Percent Auto 0.4 % (0-2); Eosinophils Absolute Auto 0.3 X10*3/uL (0.0-0.4); Eosinophils Percent Auto 2.8 % (0-4); Hematocrit 34.8 % (42.0-52.0); Hemoglobin 11.2 g/dl (14.0-18.0); Imm Gran Abs Auto 0.05 X10*3/uL (0.00-0.03); Imm Gran Pct Auto 0.5 % (0.0-0.4); Lymphocytes Absolute Auto 2.9 X10*3/uL (1.2-4.9); Mean Corpuscular HGB Conc 32.2 g/dl (31.0-36.0); Mean Corpuscular Hemoglobin 26.5 pg (27.0-33.0); Mean Corpuscular Volume 82.5 fL (80.0-98.0); Mean Platelet Volume 10.2 fL (9.4-12.4); Monocytes Absolute Auto 1.1 X10*3/uL (0.1-1.2); Monocytes Percent Auto 10.3 % (2-11); Platelet Count 249 X10*3/uL (160-400); Red Blood Count 4.22 X10*6/uL (4.60-5.80); Red Cell Distribution Width 15.2 % (11.0-16.0); White Blood Count 10.4 X10*3/uL (4.8-10.8)
[2024-12-27 20:34] LABS: Ammonia 39 umol/L (13-55)
[2024-12-27 20:36] LABS: Lithium 0.53 mmol/L (0.60-1.20)
[2024-12-27 20:41] LABS: Valproate 93.7 mcg/mL (50.0-100.0)
[2024-12-27 20:43] LABS: Alanine Aminotransferase 28 U/L (0-40); Albumin Level 4.1 g/dL (3.5-5.0); Alkaline Phosphatase 85 U/L (39-117); Anion Gap 14 (12-20); Aspartate Amino Transferase 14 U/L (5-37); Bilirubin Direct < 0.2 mg/dL (0.0-0.5); Bilirubin Total 0.2 mg/dL (0.0-1.0); Blood Urea Nitrogen 12 mg/dL (9-16); Carbon Dioxide 29 mmol/L (22-29); Chloride 104 mmol/L (96-108); Creatinine Clr Calc Pharmacy 154.5; Estimated Glomerular Filt Rate > 60; Glucose Random 97 mg/dL (60-115); Potassium 4.3 mmol/L (3.3-5.1); Sodium 143 mmol/L (135-145)
[2024-12-27] MEDS: Acetaminophen 325 MG TABLET 650 MG PO (21:06)
[2024-12-28] VITALS (12 sets, daily range): BP systolic 100–141; BP diastolic 55–90; PULSE 71–95; RESP 16–22; TEMP 36.4–37.7; O2SAT 95–98
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
--- NOTE | 2024-12-28 07:42 | MHC.SHP ---
Pre-Procedural Eval Section A - 24 Hr Update-Section A only Date of Service: 12/28/24 The patient is an INPATIENT: Yes Changes since office visit: Yes Changes in Medication and Yes Patient answered all questions; No Cold of Flu in the past 2 weeks and No New Medical Problems The patient has been examined within 24 hours of the surgical procedure. The History & Physical has been completed within 30 days and I have reviewed it.: Yes Section B - Complete if H&P > 30 days Chief Complaint: schizoaffective disorder, bipolar type Allergies: Allergies Allergy/AdvReac Type Severity Reaction Status Date / Time lithium Allergy Hives Verified 11/02/24 18:44 Exam Exam Comment: 109/61 rr Plan Diagnosis/Plan: Unchanged I have reviewed the history and physical and performed a pertinent physical examination on my patient. No changes have occurred unless specified. icu notes reviewed pt has been meduically stable tolerating 8 treatments without difficulty tx had been started in icu with icu attending on board. Will get med consult going forward to clarify but need for tx overrides need , and has tolerated tx to this pt . reviewed with anesthesia Time Spent With Patient Time: Total time managing care of this patient today _30___ minutes.
--- NOTE | 2024-12-28 08:08 | HO.ECTPROC ---
ECT Procedure Note Diagnosis/Treatment Date of Service: 12/28/24 Diagnosis: Schizoaffective Disorder Previous ECT Date: 12/26/24 Current Treatment Number: 8 Treatment: Series Interval Clinical Notes: The pt has been gradually improving not combative no side effects noted will start to taper . Time: Total time managing care of this patient today ____ minutes. ECT Settings Device: THYMATRON DGx Electrode Placement: Bitemporal Program/Pulse Width: 0.50 Energy Percent: 100 Seizure Duration By EEG (in seconds): 24 Medications Administration General Anesthetic: Etomidate (16) Muscle Relaxant: Succinylcholine (140) Ancillary Medications Miscillaneous Medications: Propofol, Midazolam and Flumazenil Airway Management Airway Management: Bag Mask Ventilation Treatment Recommendations Notes: Begin taperof ect monitor response Pt Tolerated Procedure w/o Issue: Yes
[2024-12-28] MEDS: DIVALPROEX SODIUM 1250 MG PO (09:04)
[2024-12-28] MEDS: OLANZapine ODT 10 MG TAB.RAPDIS TRANSLINGU ×3 (09:04→22:07)
[2024-12-28] MEDS: Lithium Carbonate ER 300 MG TABLET.ER PO (09:04)
[2024-12-28] MEDS: fluPHENAZine HCl 5 MG TABLET 15 MG PO ×2 (09:04→22:07)
[2024-12-28] MEDS: FISH OIL 1 EACH PO ×2 (09:07→22:07)
[2024-12-28] MEDS: Propranolol HCL 20 MG TABLET PO ×3 (09:12→22:07)
--- NOTE | 2024-12-28 13:24 | P.EN_ITS ---
Event Note Date of Service: 12/28/24 Event Note: Pt is a 29-year-old male admitted to [facility] with hospitalist consult for right shoulder pain and apparent reduced range of motion and inability to raise his right arm. Pt seen and evaluated in his room where he is resting comfortably in bed. Pt reports has had right shoulder pain for the past 2 days and he feels like his shoulder ?comes out of the socket? when he moves it. Denies trauma to the area. No falls. Apparently just woke up in the [place] and noticed the pain. Physical examination benign. Preserved and symmetric active and passive ROM of both right and left shoulder with flexion, extension, abduction, adduction, internal rotation, and external rotation. Preserved and symmetric strength 5/5 of upper extremities bilaterally. No tenderness to palpation to right shoulder noted. No abnormal movement of right glenohumeral joint. Given benign exam of both passive and active ROM as well as no known trauma to the area, would treat conservatively at this time with ibuprofen and/or Tylenol as necessary. No indication at this time for imaging. If patient's symptoms persist or worsen, would suggest consulting Orthopedics or Physical therapy, and consider possible shoulder x-ray. Time Spent With Patient Time: Total time managing care of this patient today ____ minutes.
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
[2024-12-28] MEDS: Divalproex Sodium ER 500 MG TAB.ER.24H 2500 MG PO (22:07)
[2024-12-28] MEDS: Lithium Carbonate ER 300 MG TABLET.ER 600 MG PO (22:07)
[2024-12-29 08:00] VITALS: BP 124/62; PULSE 72; RESP 16; O2SAT 99
--- NOTE | 2024-12-29 08:44 | P.PNPSI_ITS ---
Documented by User: Shaista Briseno NP 12/29/24 11:59 Subjective Subjective Date of Service: 12/29/24 Reason For Visit: schizoaffective disorder, bipolar type Subjective Notes: Section 8 Interim History: Active on unit. calm. social with staff. Pt reports feeling good and hoping to go home soon ; denies any issues at this time. denies SI/HI/VH/AH. Medication Compliance: Yes Side effects from medications: No Mental Status Exam Mental Status Exam Narrative: Pt is alert and oriented; behavior is cooperative, friendly and calm; dressed in casual attire; mood is described as good ; eye contact appropriate; Speech is normal rate, not pressured; general PMR, no notable tremors; thought process organized; Thought content is on discharge; patient did not express any paranoid delusions; denies SI/HI/AV/VH. Diagnostics Vital Signs (24Hr): Vital Signs - 24 hr 12/28/24 08:58 12/28/24 15:05 12/28/24 15:15 Temperature 98.5 F 98.7 F Pulse Rate 80 84 84 Respiratory Rate 16 16 Blood Pressure 121/63 107/58 L 107/58 L Pulse Oximetry 96 98 Oxygen Delivery Method Room Air 12/28/24 21:56 Temperature 98.6 F Pulse Rate 88 Respiratory Rate Blood Pressure 113/64 Pulse Oximetry 97 Oxygen Delivery Method Room Air BMI result Body Mass Index 38.3 Labs 12/27/24 20:19 12/27/24 20:19 Labs: Laboratory Results - last 48 hr 12/27/24 12/27/24 15:30 20:19 WBC 10.4 RBC 4.22 L Hgb 11.2 L Hct 34.8 L MCV 82.5 MCH 26.5 L MCHC 32.2 RDW 15.2 Plt Count 249 MPV 10.2 Immature Gran % (Auto) 0.5 H Neut % (Auto) 58.0 Lymph % (Auto) 28.0 [place] % (Auto) 10.3 Eos % (Auto) 2.8 Baso % (Auto) 0.4 Lymph # (Auto) 2.9 [place] # (Auto) 1.1 Eos # (Auto) 0.3 Baso # (Auto) 0.0 Abs Immat Gran (auto) 0.05 H Absolute Neuts (auto) 6.0 Absolute Nucleated RBC 0.000 Nucleated RBC % (auto) 0.0 Sodium 143 Potassium 4.3 Chloride 104 Carbon Dioxide 29 Anion Gap 14 BUN 12 Creatinine 0.92 Estim Creat Clear Calc 154.5 Estimated GFR > 60 Random Glucose 97 Calcium 10.0 D Total Bilirubin 0.2 Direct Bilirubin < 0.2 AST 14 ALT 28 Alkaline Phosphatase 85 Ammonia 39 Total Protein 8.0 Albumin 4.1 Urine Color Yellow Urine Appearance Clear Urine pH 6.0 Ur Specific [place] 1.020 Urine Protein Negative Urine Glucose (UA) Negative Urine Ketones Negative Urine Blood Negative Urine Nitrite Negative Ur Leukocyte Esterase Negative Valproic Acid 93.7 [place] 0.53 L Medications Medications Current Medications Acetaminophen (Acetaminophen 325 Mg Tablet) 650 mg PO Q6H PRN PRN Reason: Headache/Pain Mild Scale (1-3) Last Admin: 12/27/24 21:06 Dose: 650 mg Al Hydroxide/Mg Hydroxide (Magnesium Hydrox/Alum Hydrox 30 Ml Oral.Susp) 30 ml PO Q6H PRN PRN Reason: Heartburn/Nausea Albuterol Sulfate (Albuterol Sulfate 90 Mcg 8 Gm Inhaler) 2 puff INHALE Q4H PRN PRN Reason: Shortness Of Breath/Wheezing Last Admin: 12/26/24 21:28 Dose: 2 puff Artificial Tears (Artificial Tears 15 Ml Drops) 2 drop EYE-BOTH Q1H PRN PRN Reason: Dry Eyes Calcium Carbonate (Calcium Carbonate 750 Mg Tab.Chew) 750 mg PO Q6H PRN PRN Reason: Heartburn Capsaicin (Capsaicin 0.025% Cream 60 Gm Tube) 1 appl TOPICAL TID PRN; Protocol PRN Reason: Pain, Mild (Pain Scale 1-3) Last Admin: 12/26/24 16:05 Dose: 1 appl Chlorpromazine HCl (Chlorpromazine Hcl 100 Mg Tablet) 100 mg PO QID PRN PRN Reason: agitation Divalproex Sodium 1,000 mg/ (Divalproex Sodium 250 mg) 1,250 mg PO DAILY [facility] Last Admin: 12/28/24 09:04 Dose: 1,250 mg Divalproex Sodium (Divalproex Sodium Er 500 Mg Tab.Er.24h) 2,500 mg PO BEDTIME [facility] Last Admin: 12/28/24 22:07 Dose: 2,500 mg Fluphenazine HCl (Fluphenazine Hcl 5 Mg Tablet) 15 mg PO BID [facility] Last Admin: 12/28/24 22:07 Dose: 15 mg Fluphenazine HCl (Fluphenazine Hcl 2.5 Mg/Ml 10 Ml Vial) 15 mg IM BID PRN PRN Reason: give IM if refuses PO Valproic Acid 1,250 mg/ (Dextrose) 62.5 mls @ 52.5 mls/hr IV BID PRN PRN Reason: If refuses PO [place] Carbonate ([place] Carbonate Er 300 Mg Tablet.Er) 300 mg PO DAILY [facility] Last Admin: 12/28/24 09:04 Dose: 300 mg [place] Carbonate ([place] Carbonate Er 300 Mg Tablet.Er) 600 mg PO BEDTIME [facility] Last Admin: 12/28/24 22:07 Dose: 600 mg Magnesium Hydroxide (Milk Of Magnesia 30 Ml Oral.Susp) 30 ml PO DAILY PRN PRN Reason: Constipation Miconazole Nitrate (Miconazole Nitrate 2% Oint 57 Gm Oint...G.) 1 appl TOPICAL BID [facility]; Protocol Last Admin: 12/28/24 22:10 Dose: Not Given Naloxone HCl (Naloxone Hcl 0.4 Mg/Ml Vial) 0.04 mg IVPUSH Q5M PRN PRN Reason: Excessive sedation or RR < 8 Naloxone HCl (Naloxone Hcl 0.4 Mg/Ml Vial) 0.04 mg IVPUSH Q5M PRN PRN Reason: Excessive sedation or RR < 8 Nicotine (Nicotine 21 Mg Patch.Td24) 21 mg TRANSDERMA DAILY PRN PRN Reason: smoking cessation Nicotine Polacrilex (Nicotine Polacrilex 2 Mg Gum) 4 mg BUCCAL Q2H PRN PRN Reason: Nicotine Cravings Patient Own Medication (Fish Oil ) 1 each PO BID [facility] Last Admin: 12/28/24 22:07 Dose: 1 each Olanzapine (Olanzapine Odt 10 Mg Tab.Rapdis) 10 mg TRANSLINGU TID [facility] Last Admin: 12/28/24 22:07 Dose: 10 mg Olanzapine (Olanzapine 10 Mg Vial) 10 mg IM TID PRN PRN Reason: if refuses PO Paliperidone Palmitate (Paliperidone Palmitate 234 Mg/1.5 Ml Syringe) 234 mg IM Q30D [facility] Last Admin: 12/18/24 11:35 Dose: 234 mg Propranolol HCl (Propranolol Hcl 20 Mg Tablet) 20 mg PO TID [facility]; Protocol Last Admin: 12/28/24 22:07 Dose: 20 mg Sodium Chloride (Sodium Chloride 0.65 % Nasal 44 Ml Sprbtl) 1 spray NOSTRIL-B Q1H PRN PRN Reason: Dry Nasal Passages Trazodone HCl (Trazodone Hcl 50 Mg Tablet) 50 mg PO BEDTIME MRX1 PRN PRN Reason: Insomnia Allergies Allergies Allergy/AdvReac Type Severity Reaction Status Date / Time No Known Allergies Allergy Verified 12/28/24 07:52 Assessment & Plan Assessment & Plan (1) Schizoaffective disorder, bipolar type: Status: Acute Code(s): F25.0 - Schizoaffective disorder, bipolar type Plan Pt is a 28 yo male with hx of Schizoaffective disorder, pt transferred back from ICU today. Pt was 1st admitted to [facility] 10/31/24 for decompensation and paranoid delusions having stopped his medications for a week. On the unit patient had increasingly manic behaviors and psychotic symptoms resulting in several staff and peer assaults and requiring transfer to the ICU on 11/08 to 11/14 for medication sedation to help reestablish a medication regimen to help him be in control; patient seemed to stabilize and return to [facility] and for about a week remained in mildly improved behavior, however he again decompensated, again became uncontrollably violent and was again transferred to the ICU on 12/07 for medication assisted sedation, unable to be safe. He was initially sedated with precedex and started on IV depakote was was titrated to help re-establish some nadege control. Patient was on scheduled Prolixin and Zyprexa; had also received Invega Sustenna; he was also started on lithium. In the ICU, he remained intermittently aggressive, with florid paranoid delusions, talking about wanting to fight staff and several times required some combination of security, IM/IV medication and physical restraint. Court reconvened and patient was court ordered for ECT if medications could not be effective enough. After numerous discussions with multiple physicians associated with the case, it was decided that patient remained to disorganized, paranoid and [id number] dangerous for medication management only and ECT initiated. Patient received 3 ECT treatments and said he would continue with ECT. On the ICU, patient again became in adequate behavioral control and was able to return to [facility]. He remains with delusional and disorganized thoughts and does not remember some of his past behaviors; he now wants all his medications to be at put in tablet form. It was explained that he will not be able to constantly switch inbetween medication forms (liquid verse tablet) and that IM backups will be available to ensure medication adherence. See ICU discharge summary and [facility] discharge summary for more detailed history. Formulation/clinical reasoning: Patient has been floridly manic, with paranoid delusions in reviewed with trauma history, resulting in patient being wildly out of control, aggressive and assaultive. He is currently on 2 mood stabilizers and 3 antipsychotics; at this time, for patient, milieu and staff safety it is necessary to have patient on these medications as lesser regimens have not been effective and resulted in dangerousness. He is also getting ECT in the hope is that he remains adherent with treatment plan and as he improves, team will be able to taper down and potentially DC some of this medication regimen. For now patient is on a very strict behavioral plan with security and MHA present 20/06. Of note, patient's mother has consistently been bringing patient excessive amounts of clothes and food to the unit, despite staff asking her to refrain, numerous times as patient gets triggered by these items, demanding them every few minutes and becoming angry when demands are not met. [employer] discussed treatment plan, including this portion of it, with patient's mother. [employer] explained that part of patient's treatment plan includes the need that for the time being, she needs her to refrain from bringing any food or clothing items to the unit due to patient being triggered into uncontrolled violence. Patient's mother hesitantly agreed; lead technical writer empathized with her desire to comfort her son, however explained that due to the severity of patient's symptoms patient needs to maintain a very structured environment for him to stabilize and to keep people safe. [employer] explained that for the time being this rule was absolute and if she was unable to adhere to this rule, her visits would have to be temporarily suspended. She understood and agreed (of note, patient's entire treatment plan, including this specific portion, was thoroughly discussed and agreed upon with treatment team and administration, including HOUSEPERSON, ORCHARD HAND, CNO, clinical nurse leader on [facility], patient's geriatric social worker and charge nurse). HOSPITAL COURSE: 12/18 So far, patient is in better behavioral control. He remains floridly psychotic, talking about paranoid delusions which he clearly references as his justified reasons for attacking a specific staff person and a peer, saying that Patricio stole my soul... And talking about selling his veins, eyes and testicles. -initially refused Invega Sustenna however allowed after told court ordered and with additional security; he was angry, slammed his bedroom door but otherwise remained in behavioral control. -insists that Invega Sustenna causes him blurry vision; [employer] tried to explain that his outpatient provider Dr. Mnedez reported that patient did well on Invega Sustenna and had no side effects. -lead technical writer discussed ECT and patient says that he is willing to continue getting it, liking the idea that it is treatment without pills -continued left hand tremor; left upper arm fungal infection, miconazole ordered -Patient pushing some boundaries of behavioral plan but remains redirectable. [employer] discussed behavioral plan and that his behavioral control will earn him additional privileges. He did get access to TV today. Given that patient does not like pills, lead technical writer consolidating some of his medication regimen to make it less cumbersome: -will change Depakote to b.i.d. dosing (instead of t.i.d: it is long-acting and blood levels reach a steady state so it should change its effectiveness) -will change lithium to b.i.d. dosing (instead of t.i.d: it is long-acting and blood levels reach a steady state so it should change its effectiveness) -for now, will leave Zydis/Zyprexa t.i.d. dosing in case afternoon dose has a sedating/calming side effect that is helpful 12/20 continue treatment plan; ECT tomorrow -further discussed behavioral plan with team ways to modified so that patient can be more participative in earning back privileges 12/21 continue treatment plan 12/22: Continue current management and treatment plan. 12/23: Continue ECT per primary team. Continue current management and treatment plan. 12/24 Patient reports that he is feeling better. He says he feels embarrassed by his behavior before and wishes he could see Patricio to apologize; he says it would mean a lot to me and I know it would mean something to Patricio... Reiterating that he feels badly about it. Patient says he is feeling in much more control of himself and comments that he has also demonstrated the same. Patient is asking about discharge and he agreed to continue with ECT this weekend while discussing discharge plans. Staff concurs the patient has remained in good behavioral control -discussed case with Dr. Nguyen who agrees 2 more ECTs this week and then probably okay to move to ECT once a week -this is the beginning of patient's 2nd week out of the ICU; good behavioral control last week though still focused on paranoid delusions; so far not discussing paranoid thinking. Will continue to monitor 12/25: vast improvement from last time this lead technical writer saw pt. no psychotic content. linear, logical, goal-directed, calm. continue current mgmt. case d/w emile. 12/26: continues vastly improved. ECT #7 completed. plan for 8 ECTs, then weekly thereafter. discharge likely sometime next week, tentatively ECTs weekly on fridays moving forward. 12/27: ECT #8 tomorrow. check labs tonight. stable. 12/28: VPA level less than 100, labs reassuring including ammonia. ECT #8 completed without incident. planning to skip tuesday ECT, give ECT. if pt stable through , plan to D/C or tuesday and continue weekly outpt ECT. 12/29: continue current tx plan PLAN: Section 8/8b Close bs/2 security/MHA ECT #7 pending for 12/26 Fluphenazine HCl 15 mg PO BID BRIGITTE (court ordered; give IM if refuses) CHANGE to Valproic Acid to b.i.d. dosing (instead of t.i.d.): Depakote ER 1250mg daily Depakote ER 2500mg Qhs (court ordered; give IV if refuses: Valproic Acid 1,250 mg/ (Dextrose) 62.5 mls @ 57.5 mls/hr IV BID prn) CHANGE to [place] Carbonate ER to b.i.d. dosing (was 300 mg tid) [place] ER 300 mg daily [place] ER 600 mg q.h.s. (court ordered but no back up for now) Zydis 10 mg TRANSLINGU TID BRIGITTE (court ordered; give IM if refuses) Propranolol HCl 20 mg PO TID BRIGITTE; Invega Sustenna 234 mg Q 30 days; last dose received 12/18/24 Patient educated on: therapeutic strategies Reason for continued inpatient stay Substantial Risk for: med/psych decompensation Time Spent With Patient Time: Total time managing care of this patient today _20___ minutes. Documented by User: Bear Nguyen MD 12/29/24 19:24 Subjective Subjective Reason For Visit: schizoaffective disorder, bipolar type Diagnostics Labs 12/27/24 20:19 12/27/24 20:19 Assessment & Plan Assessment & Plan (1) Schizoaffective disorder, bipolar type: Status: Acute Code(s): F25.0 - Schizoaffective disorder, bipolar type Plan Pt is a 28 yo male with hx of Schizoaffective disorder, pt transferred back from ICU today. Pt was 1st admitted to [facility] 10/31/24 for decompensation and paranoid delusions having stopped his medications for a week. On the unit patient had increasingly manic behaviors and psychotic symptoms resulting in several staff and peer assaults and requiring transfer to the ICU on 11/08 to 11/14 for medication sedation to help reestablish a medication regimen to help him be in control; patient seemed to stabilize and return to [facility] and for about a week remained in mildly improved behavior, however he again decompensated, again became uncontrollably violent and was again transferred to the ICU on 12/07 for medication assisted sedation, unable to be safe. He was initially sedated with precedex and started on IV depakote was was titrated to help re-establish some nadege control. Patient was on scheduled Prolixin and Zyprexa; had also received Invega Sustenna; he was also started on lithium. In the ICU, he remained intermittently aggressive, with florid paranoid delusions, talking about wanting to fight staff and several times required some combination of security, IM/IV medication and physical restraint. Court reconvened and patient was court ordered for ECT if medications could not be effective enough. After numerous discussions with multiple physicians associated with the case, it was decided that patient remained to disorganized, paranoid and [id number] dangerous for medication management only and ECT initiated. Patient received 3 ECT treatments and said he would continue with ECT. On the ICU, patient again became in adequate behavioral control and was able to return to [facility]. He remains with delusional and disorganized thoughts and does not remember some of his past behaviors; he now wants all his medications to be at put in tablet form. It was explained that he will not be able to constantly switch inbetween medication forms (liquid verse tablet) and that IM backups will be available to ensure medication adherence. See ICU discharge summary and M[facility] discharge summary for more detailed history. Formulation/clinical reasoning: Patient has been floridly manic, with paranoid delusions in reviewed with trauma history, resulting in patient being wildly out of control, aggressive and assaultive. He is currently on 2 mood stabilizers and 3 antipsychotics; at this time, for patient, milieu and staff safety it is necessary to have patient on these medications as lesser regimens have not been effective and resulted in dangerousness. He is also getting ECT in the hope is that he remains adherent with treatment plan and as he improves, team will be able to taper down and potentially DC some of this medication regimen. For now patient is on a very strict behavioral plan with security and MHA present 20/06. Of note, patient's mother has consistently been bringing patient excessive amounts of clothes and food to the unit, despite staff asking her to refrain, numerous times as patient gets triggered by these items, demanding them every few minutes and becoming angry when demands are not met. [employer] discussed treatment plan, including this portion of it, with patient's mother. [employer] explained that part of patient's treatment plan includes the need that for the time being, she needs her to refrain from bringing any food or clothing items to the unit due to patient being triggered into uncontrolled violence. Patient's mother hesitantly agreed; lead technical writer empathized with her desire to comfort her son, however explained that due to the severity of patient's symptoms patient needs to maintain a very structured environment for him to stabilize and to keep people safe. [employer] explained that for the time being this rule was absolute and if she was unable to adhere to this rule, her visits would have to be temporarily suspended. She understood and agreed (of note, patient's entire treatment plan, including this specific portion, was thoroughly discussed and agreed upon with treatment team and administration, including HOUSEPERSON, ORCHARD HAND, CNO, clinical nurse leader on M[facility], patient's geriatric social worker and charge nurse). HOSPITAL COURSE: 12/18 So far, patient is in better behavioral control. He remains floridly psychotic, talking about paranoid delusions which he clearly references as his justified reasons for attacking a specific staff person and a peer, saying that Patricio stole my soul... And talking about selling his veins, eyes and testicles. -initially refused Invega Sustenna however allowed after told court ordered and with additional security; he was angry, slammed his bedroom door but otherwise remained in behavioral control. -insists that Invega Sustenna causes him blurry vision; [employer] tried to explain that his outpatient provider Dr. Mendez reported that patient did well on Invega Sustenna and had no side effects. -lead technical writer discussed ECT and patient says that he is willing to continue getting it, liking the idea that it is treatment without pills -continued left hand tremor; left upper arm fungal infection, miconazole ordered -Patient pushing some boundaries of behavioral plan but remains redirectable. [employer] discussed behavioral plan and that his behavioral control will earn him additional privileges. He did get access to TV today. Given that patient does not like pills, lead technical writer consolidating some of his medication regimen to make it less cumbersome: -will change Depakote to b.i.d. dosing (instead of t.i.d: it is long-acting and blood levels reach a steady state so it should change its effectiveness) -will change lithium to b.i.d. dosing (instead of t.i.d: it is long-acting and blood levels reach a steady state so it should change its effectiveness) -for now, will leave Zydis/Zyprexa t.i.d. dosing in case afternoon dose has a sedating/calming side effect that is helpful 12/20 continue treatment plan; ECT tomorrow -further discussed behavioral plan with team ways to modified so that patient can be more participative in earning back privileges 12/21 continue treatment plan 12/22: Continue current management and treatment plan. 12/23: Continue ECT per primary team. Continue current management and treatment plan. 12/24 Patient reports that he is feeling better. He says he feels embarrassed by his behavior before and wishes he could see Patricio to apologize; he says it would mean a lot to me and I know it would mean something to Patricio... Reiterating that he feels badly about it. Patient says he is feeling in much more control of himself and comments that he has also demonstrated the same. Patient is asking about discharge and he agreed to continue with ECT this weekend while discussing discharge plans. Staff concurs the patient has remained in good behavioral control -discussed case with Dr. Nguyen who agrees 2 more ECTs this week and then probably okay to move to ECT once a week -this is the beginning of patient's 2nd week out of the ICU; good behavioral control last week though still focused on paranoid delusions; so far not discussing paranoid thinking. Will continue to monitor 12/25: vast improvement from last time this lead technical writer saw pt. no psychotic content. linear, logical, goal-directed, calm. continue current mgmt. case d/w emile. 12/26: continues vastly improved. ECT #7 completed. plan for 8 ECTs, then weekly thereafter. discharge likely sometime next week, tentatively ECTs weekly on fridays moving forward. 12/27: ECT #8 tomorrow. check labs tonight. stable. 12/28: VPA level less than 100, labs reassuring including ammonia. ECT #8 completed without incident. planning to skip tuesday ECT, give ECT. if pt stable through , plan to D/C or tuesday and continue weekly outpt ECT. 12/29: continue current tx plan pt stabilizing monitor for any relapse sx PLAN: Section 8/8b Close bs/2 security/MHA ECT #7 pending for 12/26 Fluphenazine HCl 15 mg PO BID BRIGITTE (court ordered; give IM if refuses) CHANGE to Valproic Acid to b.i.d. dosing (instead of t.i.d.): Depakote ER 1250mg daily Depakote ER 2500mg Qhs (court ordered; give IV if refuses: Valproic Acid 1,250 mg/ (Dextrose) 62.5 mls @ 57.5 mls/hr IV BID prn) CHANGE to [place] Carbonate ER to b.i.d. dosing (was 300 mg tid) [place] ER 300 mg daily [place] ER 600 mg q.h.s. (court ordered but no back up for now) Zydis 10 mg TRANSLINGU TID BRIGITTE (court ordered; give IM if refuses) Propranolol HCl 20 mg PO TID BRIGITTE; Invega Sustenna 234 mg Q 30 days; last dose received 12/18/24
[2024-12-29] MEDS: DIVALPROEX SODIUM 1250 MG PO (09:46)
[2024-12-29] MEDS: FISH OIL 1 EACH PO ×2 (09:46→21:29)
[2024-12-29] MEDS: OLANZapine ODT 10 MG TAB.RAPDIS TRANSLINGU ×3 (09:46→21:18)
[2024-12-29] MEDS: Lithium Carbonate ER 300 MG TABLET.ER PO (09:46)
[2024-12-29] MEDS: fluPHENAZine HCl 5 MG TABLET 15 MG PO ×2 (09:48→21:18)
[2024-12-29] MEDS: Propranolol HCL 20 MG TABLET PO ×3 (10:16→21:18)
[2024-12-29] MEDS: Acetaminophen 325 MG TABLET 650 MG PO ×2 (15:41→21:29)
[2024-12-29 15:44] VITALS: BP 117/62; PULSE 64
[2024-12-29 18:46] VITALS: BP 127/58; PULSE 84; RESP 16; TEMP 37.1; O2SAT 97
[2024-12-29 21:18] VITALS: BP 131/63; PULSE 79
[2024-12-29] MEDS: Lithium Carbonate ER 300 MG TABLET.ER 600 MG PO (21:18)
[2024-12-29] MEDS: Divalproex Sodium ER 500 MG TAB.ER.24H 2500 MG PO (21:19)
[2024-12-29] MEDS: Capsaicin 0.025% Cream 60 GM TUBE 1 APPL TOPICAL (22:47)
[2024-12-30 08:56] VITALS: BP 125/64; PULSE 65; RESP 16; TEMP 36.6; O2SAT 98
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
[2024-12-30] MEDS: OLANZapine ODT 10 MG TAB.RAPDIS TRANSLINGU ×3 (09:02→20:07)
[2024-12-30] MEDS: fluPHENAZine HCl 5 MG TABLET 15 MG PO ×2 (09:02→20:06)
[2024-12-30] MEDS: Lithium Carbonate ER 300 MG TABLET.ER PO (09:02)
[2024-12-30] MEDS: DIVALPROEX SODIUM 1250 MG PO (09:03)
[2024-12-30] MEDS: FISH OIL 1 EACH PO ×2 (09:09→20:12)
[2024-12-30] MEDS: Acetaminophen 325 MG TABLET 650 MG PO (09:10)
[2024-12-30] MEDS: Propranolol HCL 20 MG TABLET PO ×3 (09:18→20:08)
[2024-12-30 15:06] VITALS: BP 138/74; PULSE 106
[2024-12-30] MEDS: Capsaicin 0.025% Cream 60 GM TUBE 1 APPL TOPICAL (18:45)
[2024-12-30 18:50] VITALS: BP 109/56; PULSE 72; RESP 16; TEMP 36.6; O2SAT 98
[2024-12-30] MEDS: Divalproex Sodium ER 500 MG TAB.ER.24H 2500 MG PO (20:07)
[2024-12-30] MEDS: Lithium Carbonate ER 300 MG TABLET.ER 600 MG PO (20:07)
[2024-12-30 20:08] VITALS: BP 114/63; PULSE 88
[2024-12-31 09:52] VITALS: BP 121/71; PULSE 85; RESP 14; TEMP 36.9
[2024-12-31] MEDS: FISH OIL 1 EACH PO ×2 (10:02→21:00)
[2024-12-31] MEDS: Lithium Carbonate ER 300 MG TABLET.ER PO (10:02)
[2024-12-31] MEDS: DIVALPROEX SODIUM 1250 MG PO (10:03)
[2024-12-31] MEDS: Propranolol HCL 20 MG TABLET PO ×3 (10:03→20:33)
[2024-12-31] MEDS: OLANZapine ODT 10 MG TAB.RAPDIS TRANSLINGU ×3 (10:04→20:33)
[2024-12-31] MEDS: fluPHENAZine HCl 5 MG TABLET 15 MG PO ×2 (10:04→20:32)
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
[2024-12-31 14:31] VITALS: BP 134/56; PULSE 84
[2024-12-31] MEDS: Acetaminophen 325 MG TABLET 650 MG PO (15:37)
[2024-12-31] MEDS: Capsaicin 0.025% Cream 60 GM TUBE 1 APPL TOPICAL (19:40)
[2024-12-31 20:00] VITALS: BP 121/75; PULSE 96; RESP 16; TEMP 37.1; O2SAT 97
[2024-12-31 20:33] VITALS: BP 121/75; PULSE 96
[2024-12-31] MEDS: Lithium Carbonate ER 300 MG TABLET.ER 600 MG PO (20:34)
[2024-12-31] MEDS: Divalproex Sodium ER 500 MG TAB.ER.24H 2500 MG PO (20:35)
[2025-01-01 08:00] VITALS: BP 118/66; PULSE 82; RESP 16
[2025-01-01] MEDS: Lithium Carbonate ER 300 MG TABLET.ER PO (09:12)
[2025-01-01] MEDS: DIVALPROEX SODIUM 1250 MG PO (09:12)
[2025-01-01 09:13] VITALS: BP 118/66
[2025-01-01] MEDS: fluPHENAZine HCl 5 MG TABLET 15 MG PO ×2 (09:13→21:05)
[2025-01-01] MEDS: Propranolol HCL 20 MG TABLET PO ×3 (09:13→21:05)
[2025-01-01] MEDS: OLANZapine ODT 10 MG TAB.RAPDIS TRANSLINGU ×3 (09:13→21:05)
[2025-01-01] MEDS: Miconazole Nitrate 2% Oint 57 GM OINT...G. 1 APPL TOPICAL (09:16)
[2025-01-01] MEDS: FISH OIL 1 EACH PO (09:16)
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
[2025-01-01 14:08] VITALS: BP 114/64; PULSE 83
[2025-01-01] MEDS: Acetaminophen 325 MG TABLET 650 MG PO (14:29)
[2025-01-01 20:14] VITALS: BP 142/61; PULSE 89; TEMP 36.9; O2SAT 99
[2025-01-01] MEDS: Lithium Carbonate ER 300 MG TABLET.ER 600 MG PO (21:08)
[2025-01-01] MEDS: Divalproex Sodium ER 500 MG TAB.ER.24H 2500 MG PO (21:08)
[2025-01-02] VITALS (10 sets, daily range): BP systolic 115–148; BP diastolic 65–91; PULSE 79–115; RESP 16–20; TEMP 36.6–37.3; O2SAT 94–100
--- NOTE | 2025-01-02 07:07 | MHC.SHP ---
Pre-Procedural Eval Section A - 24 Hr Update-Section A only Date of Service: 01/02/25 The patient is an INPATIENT: Yes Changes since office visit: No Cold of Flu in the past 2 weeks, No New Medical Problems, No Changes in Medication and No Patient answered all questions The patient has been examined within 24 hours of the surgical procedure. The History & Physical has been completed within 30 days and I have reviewed it.: Yes Section B - Complete if H&P > 30 days Chief Complaint: schizoaffective disorder, bipolar type Allergies: Allergies Allergy/AdvReac Type Severity Reaction Status Date / Time No Known Allergies Allergy Verified 12/28/24 07:52 Plan I have reviewed the history and physical and performed a pertinent physical examination on my patient. No changes have occurred unless specified. Time Spent With Patient Time: Total time managing care of this patient today ____ minutes.
--- NOTE | 2025-01-02 07:58 | HO.ECTPROC ---
ECT Procedure Note Diagnosis/Treatment Date of Service: 01/02/25 Diagnosis: Schizoaffective Disorder Previous ECT Date: 12/28/24 Current Treatment Number: 9 Interval Clinical Notes: The patient reported no side effects, no new symptoms, no evidence of aggression recently. Tappering of ECT was started. ECT done as usual but since he is not taking benzodiazepines, no Flumazenil. Versed and Propofol given post ECT, no complications, woke up well. Time: Total time managing care of this patient today ____ minutes. ECT Settings Device: THYMATRON DGx Electrode Placement: Bitemporal Program/Pulse Width: 0.50 Energy Percent: 100 Seizure Duration By EEG (in seconds): 42 By Motor Observation (in seconds): 21 Medications Administration General Anesthetic: Etomidate (16) Muscle Relaxant: Succinylcholine (140) Ancillary Medications Anti-emetics: Zofran - Pre ECT Miscillaneous Medications: Propofol and Midazolam Airway Management Airway Management: Bag Mask Ventilation Treatment Recommendations No Changes Recommended: No change Pt Tolerated Procedure w/o Issue: Yes
--- NOTE | 2025-01-02 08:30 | HO.ANESPROP2 ---
HPI - Anesthesia Eval Consult details Narrative: 29 yo male patient for ECT PMFSH Active Problems Active Problems: All Active Problems Pre-op evaluation (Acute) Schizoaffective disorder, bipolar type (Acute) Past Medical History Medical History Mild intermittent asthma Schizoaffective disorder, bipolar type Chronic post-traumatic stress disorder (PTSD) Family History Family history of problems with anesthesia: No Surgical History History of Problems with Anesthesia: No Social History Social History Household Members: Family Housing: Unknown / Unable to assess Do you presently have visiting nurse or other home services: No Comment: refuses to wear yellow socks Patient Tobacco Use Status: Former Tobacco user Second Hand Smoke Exposure: No service: No Sexual orientation: Straight/Heterosexual Meds Allergies Allergy/AdvReac Type Severity Reaction Status Date / Time No Known Allergies Allergy Verified 12/28/24 07:52 Active Medications: Current Medications Acetaminophen (Acetaminophen 325 Mg Tablet) 650 mg PO Q6H PRN PRN Reason: Headache/Pain Mild Scale (1-3) Last Admin: 01/01/25 14:29 Dose: 650 mg Al Hydroxide/Mg Hydroxide (Magnesium Hydrox/Alum Hydrox 30 Ml Oral.Susp) 30 ml PO Q6H PRN PRN Reason: Heartburn/Nausea Albuterol Sulfate (Albuterol Sulfate 90 Mcg 8 Gm Inhaler) 2 puff INHALE Q4H PRN PRN Reason: Shortness Of Breath/Wheezing Last Admin: 12/26/24 21:28 Dose: 2 puff Artificial Tears (Artificial Tears 15 Ml Drops) 2 drop EYE-BOTH Q1H PRN PRN Reason: Dry Eyes Calcium Carbonate (Calcium Carbonate 750 Mg Tab.Chew) 750 mg PO Q6H PRN PRN Reason: Heartburn Capsaicin (Capsaicin 0.025% Cream 60 Gm Tube) 1 appl TOPICAL TID PRN; Protocol PRN Reason: Pain, Mild (Pain Scale 1-3) Last Admin: 12/31/24 19:40 Dose: 1 appl Chlorpromazine HCl (Chlorpromazine Hcl 100 Mg Tablet) 100 mg PO QID PRN PRN Reason: agitation Divalproex Sodium 1,000 mg/ (Divalproex Sodium 250 mg) 1,250 mg PO DAILY [facility] Last Admin: 01/01/25 09:12 Dose: 1,250 mg Divalproex Sodium (Divalproex Sodium Er 500 Mg Tab.Er.24h) 2,500 mg PO BEDTIME [facility] Last Admin: 01/01/25 21:08 Dose: 2,500 mg Fluphenazine HCl (Fluphenazine Hcl 5 Mg Tablet) 15 mg PO BID [facility] Last Admin: 01/01/25 21:05 Dose: 15 mg Fluphenazine HCl (Fluphenazine Hcl 2.5 Mg/Ml 10 Ml Vial) 15 mg IM BID PRN PRN Reason: give IM if refuses PO Valproic Acid 1,250 mg/ (Dextrose) 62.5 mls @ 52.5 mls/hr IV BID PRN PRN Reason: If refuses PO [place] Carbonate ([place] Carbonate Er 300 Mg Tablet.Er) 300 mg PO DAILY [facility] Last Admin: 01/01/25 09:12 Dose: 300 mg [place] Carbonate ([place] Carbonate Er 300 Mg Tablet.Er) 600 mg PO BEDTIME [facility] Last Admin: 01/01/25 21:08 Dose: 600 mg Magnesium Hydroxide (Milk Of Magnesia 30 Ml Oral.Susp) 30 ml PO DAILY PRN PRN Reason: Constipation Miconazole Nitrate (Miconazole Nitrate 2% Oint 57 Gm Oint...G.) 1 appl TOPICAL BID [facility]; Protocol Last Admin: 01/01/25 21:08 Dose: Not Given Naloxone HCl (Naloxone Hcl 0.4 Mg/Ml Vial) 0.04 mg IVPUSH Q5M PRN PRN Reason: Excessive sedation or RR < 8 Naloxone HCl (Naloxone Hcl 0.4 Mg/Ml Vial) 0.04 mg IVPUSH Q5M PRN PRN Reason: Excessive sedation or RR < 8 Nicotine (Nicotine 21 Mg Patch.Td24) 21 mg TRANSDERMA DAILY PRN PRN Reason: smoking cessation Nicotine Polacrilex (Nicotine Polacrilex 2 Mg Gum) 4 mg BUCCAL Q2H PRN PRN Reason: Nicotine Cravings Patient Own Medication (Fish Oil ) 1 each PO BID [facility] Last Admin: 01/01/25 22:20 Dose: Not Given Olanzapine (Olanzapine Odt 10 Mg Tab.Rapdis) 10 mg TRANSLINGU TID [facility] Last Admin: 01/01/25 21:05 Dose: 10 mg Olanzapine (Olanzapine 10 Mg Vial) 10 mg IM TID PRN PRN Reason: if refuses PO Paliperidone Palmitate (Paliperidone Palmitate 234 Mg/1.5 Ml Syringe) 234 mg IM Q30D [facility] Last Admin: 12/18/24 11:35 Dose: 234 mg Propranolol HCl (Propranolol Hcl 20 Mg Tablet) 20 mg PO TID [facility]; Protocol Last Admin: 01/01/25 21:05 Dose: 20 mg Sodium Chloride (Sodium Chloride 0.65 % Nasal 44 Ml Sprbtl) 1 spray NOSTRIL-B Q1H PRN PRN Reason: Dry Nasal Passages Trazodone HCl (Trazodone Hcl 50 Mg Tablet) 50 mg PO BEDTIME MRX1 PRN PRN Reason: Insomnia Exam Height,Weight and Vital Signs: Height 5 ft 10 in Weight 121 kg Vital Signs Temp Pulse Resp BP Pulse Ox O2 Del Method 97.8 F 81 16 118/71 100 Room Air 01/02/25 06:11 01/02/25 06:11 01/02/25 06:11 01/02/25 06:11 01/02/25 06:11 01/02/25 06:11 Last Vital Signs Temp 99.1 F 01/02/25 08:06 Pulse 93 01/02/25 08:21 Resp 20 01/02/25 08:21 BP 123/86 01/02/25 08:21 Pulse Ox 95 01/02/25 08:21 O2 Del Method Room Air 01/02/25 08:21 O2 Flow Rate 2 01/02/25 08:16 Pertinent Lab Results Pertinent Lab Results: Laboratory Tests 12/27/24 12/27/24 15:30 20:19 WBC 10.4 RBC 4.22 L Hgb 11.2 L Hct 34.8 L MCV 82.5 MCH 26.5 L MCHC 32.2 RDW 15.2 Plt Count 249 MPV 10.2 Immature Gran % (Auto) 0.5 H Neut % (Auto) 58.0 Lymph % (Auto) 28.0 Nelson % (Auto) 10.3 Eos % (Auto) 2.8 Baso % (Auto) 0.4 Lymph # (Auto) 2.9 Nelson # (Auto) 1.1 Eos # (Auto) 0.3 Baso # (Auto) 0.0 Abs Immat Gran (auto) 0.05 H Absolute Neuts (auto) 6.0 Absolute Nucleated RBC 0.000 Nucleated RBC % (auto) 0.0 Sodium 143 Potassium 4.3 Chloride 104 Carbon Dioxide 29 Anion Gap 14 BUN 12 Creatinine 0.92 Estim Creat Clear Calc 154.5 Estimated GFR > 60 Random Glucose 97 Calcium 10.0 D Total Bilirubin 0.2 Direct Bilirubin < 0.2 AST 14 ALT 28 Alkaline Phosphatase 85 Ammonia 39 Total Protein 8.0 Albumin 4.1 Urine Color Yellow Urine Appearance Clear Urine pH 6.0 Ur Specific [place] 1.020 Urine Protein Negative Urine Glucose (UA) Negative Urine Ketones Negative Urine Blood Negative Urine Nitrite Negative Ur Leukocyte Esterase Negative Valproic Acid 93.7 [place] 0.53 L Airway Mallampati Class: III TM Dist: >3cm Neck ROM: Full Loose/Missing/Broken Teeth: Yes (Missing tooth bottom right back. Denies broken or loose teeth) Heart: RRR Lungs: CTAB Assessment and Plan Assessment Anesthesia Assessment: Anesthesia Plan Discussed and Chart Reviewed Final Anesthetic Review Family History of Problems with Anesthesia: No History of Problems with Anesthesia: No NPO: Yes ASA Class: III Final Preanesthetic Review: No Changes in Pt Med Stat, Meds/Allgs Chart Reviewed, Consent Obtained/Reviewed and Anes Risks/Benef Reviewed Patient Risk: Intermediate Procedure Risk: Intermediate Assessment/Block/Sedation in SS: Assess/Block/Sedation-SS Anesthetic Plan Anesthetic Plan: GA Disposition: Standard PACU
[2025-01-02] MEDS: OLANZapine ODT 10 MG TAB.RAPDIS TRANSLINGU ×3 (09:42→20:25)
[2025-01-02] MEDS: fluPHENAZine HCl 5 MG TABLET 15 MG PO ×2 (09:42→20:25)
[2025-01-02] MEDS: FISH OIL 1 EACH PO ×2 (09:42→20:25)
[2025-01-02] MEDS: DIVALPROEX SODIUM 1250 MG PO (09:43)
[2025-01-02] MEDS: Lithium Carbonate ER 300 MG TABLET.ER PO (09:43)
[2025-01-02] MEDS: Propranolol HCL 20 MG TABLET PO ×3 (09:46→20:25)
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
[2025-01-02] MEDS: Lithium Carbonate ER 300 MG TABLET.ER 600 MG PO (20:25)
[2025-01-02] MEDS: Divalproex Sodium ER 500 MG TAB.ER.24H 2500 MG PO (20:25)
--- NOTE | 2025-01-03 08:44 | HO.POSTANES ---
Post Anesthesia Evaluation Post Anesthesia Evaluation Date of Service: 01/03/25 Anesthesia: General Mental Status: Awake Pain Control: Satisfactory Nausea/Vomiting: None Hydration: Adequate Anesthesia-Related Issues: No Anes. Related Issues
[2025-01-03 08:50] VITALS: BP 111/63; PULSE 111; RESP 16; TEMP 36.6; O2SAT 98
[2025-01-03] MEDS: fluPHENAZine HCl 5 MG TABLET 15 MG PO (08:54)
[2025-01-03 08:55] VITALS: BP 111/63; PULSE 106
[2025-01-03] MEDS: DIVALPROEX SODIUM 1250 MG PO (08:55)
[2025-01-03] MEDS: Propranolol HCL 20 MG TABLET PO (08:55)
[2025-01-03] MEDS: Lithium Carbonate ER 300 MG TABLET.ER PO (08:56)
[2025-01-03] MEDS: OLANZapine ODT 10 MG TAB.RAPDIS TRANSLINGU (08:56)
[2025-01-03] MEDS: FISH OIL 1 EACH PO (08:57)
== END 2025-01-03 11:25 | disposition home or self-care (01) | DRG 885 ==
PROVIDERS: Psychiatry & Neurology Psychiatry; Admitting Provider Psychiatry & Neurology Psychiatry; Visit Provider Psychiatry & Neurology Psychiatry
PROC: GZB4ZZZ Other Electroconvulsive Therapy (ICD-10-PCS; CPT 90870; principal; 2024-12-19 08:00)
DX: F25.0 Schizoaffective disorder, bipolar type (principal); F43.12 Post-traumatic stress disorder, chronic; J45.20 Mild intermittent asthma, uncomplicated; Z87.891 Personal history of nicotine dependence; Z79.899 Other long term (current) drug therapy
CPT/HCPCS: 36415; 80048; 80076; 80164; 80178; 81003; 82140; 85025; 90870; J0330; J1596; J1805; J2250; J2426; J2704; J7120

== ENCOUNTER → 2024-12-17 16:33 | Outpatient (BNV) | payer MEDICARE, MEDICAID, SELFPAY | PROVIDERS: Admitting Provider Psychiatry & Neurology Psychiatry; Visit Provider Psychiatry & Neurology Psychiatry | DX: F25.0 Schizoaffective disorder, bipolar type (principal) | CPT/HCPCS: 90870 ==

== ENCOUNTER → 2024-12-17 16:33 | Outpatient (BNV) | payer MEDICARE, MEDICAID, SELFPAY | PROVIDERS: Admitting Provider Psychiatry & Neurology Psychiatry; Visit Provider Psychiatry & Neurology Psychiatry | DX: F25.0 Schizoaffective disorder, bipolar type (principal); F43.12 Post-traumatic stress disorder, chronic; J45.20 Mild intermittent asthma, uncomplicated | CPT/HCPCS: 90792; 90870; 99231; 99232; 99233 ==

== ENCOUNTER → 2024-12-17 16:33 | Outpatient (BNV) | payer MEDICARE, MEDICAID, SELFPAY | PROVIDERS: Admitting Provider Psychiatry & Neurology Psychiatry; Visit Provider Student in an Organized Health Care Education/Training Program | DX: Z01.818 Encounter for other preprocedural examination (principal) | CPT/HCPCS: 99222; 99499 ==

== ENCOUNTER 2025-01-09 05:48 | Day surgery (SDC) | payer MEDICARE, MEDICAID, SELFPAY ==
[2025-01-09] VITALS (7 sets, daily range): BP systolic 101–124; BP diastolic 69–77; PULSE 89–103; RESP 16–28; TEMP 36.2–36.9; O2SAT 94–97; BMI 38.4
--- OUTSIDE RECORDS SUMMARY | 2025-01-09 05:50 | XMS_ITS | Encounter Summary ---
Author Organization [facility] Address [address] [place] [address] Care Team Providers Care Student Dean Name Role Phone Karlo Hart MD Primary Care Provider [phone] Reason for Visit * Reason Onset Date Comments Hospital Follow-up 01/01/2025 Encounter Details Date Type Department Care Team (Late st Contact Info) Description 01/01/2025 Telephone [facility] [address] [place] [phone] Karlo Hart MD [address] [place] [id number] Hospital Follow-up Social History Tobacco Use Types Packs/Day Years Used Date Smoking Tobacco: Never Smokeless Tobacco: Never Alcohol Use Standard Drinks/Week Comments Not Currently 0 (1 standard drink = 0.6 oz pur e alcohol) Sex and Gender Information Value Date Recorded Sex Assigned at Male 10/29/2024 3:13 PM EST Legal Sex Male 1:03 AM EST Gender Identity Male 10/29/2024 3:13 PM EST Sexual Orientation Straight 10/29/2024 3: 13 PM EST documented as of this encounter Functional Status * Are you deaf or do you have serious difficulty hearing? Answer Date of Assessment Author No 10/29/2024 6:07 PM Alix Stanley RN * Are you blind or do you have serious difficulty seeing, even when wearing glasses? Answer Date of Assessment Author No 10/29/2024 6:07 PM EST Swati, Alix, RN * Do you have serious difficulty walking or climbing stairs? Answer Date of Assessment Author No 10/29/2024 6:07 PM Alix Stanley RN * Do you have serious difficulty dressing or bathing? Answer Date of Assessment Author No 10/29/2024 6:07 PM Alix Stanley RN * Because of a physical, mental, or emotional condition, do you have serious difficulty doing errandsalone such as visiting the doctor? Answer Date of Assessment Author No 10/29/2024 6:07 PM Alix Stanley RN documented as of this encounter Mental Status * Because of a physical, mental, or emotional condition, do you have serious difficulty concentrating, remembering, or making decisions? (5 years old or older) Answer Entry Date Author No 10/29/2024 6:07 PM Alix Stanley RN documented in this encounter Progress Notes * Ema Mejia MA - 01/01/2025 11:44 AM EST [place] [facility] [place] will fax the notes to [phone], appt made. * Niru Mendes - 01/01/2025 11:17 AM EST Hospital/ER follow up appointment needed Hospital patient was treated at: [facility] Was this only an ER visit or was the patient admitted to the hospital? Admitted to the hospital/kept overnight Date of visit if ER visit only: If patient was admitted what was the date of discharge? 01-03-25 or 01-04-25 Reason/diagnosis for visit or stay: PTSD, asthma , schizo effective disorder When was the patient told to follow up? 7-10 days Was visit or stay related to an injury? If yes, what was the date of injury (DOI)? No If yes, was the injury due to: documented in this encounter Plan of Treatment Upcoming Encounters Date Type Department Care Team (Late st Contact Info) Description 01/24/2025 10:30 AM EST Office Visit Internal [facility] - [facility] [address] [place] [phone] Karlo Hart MD [address] [place] [address] documented as of this encounter Visit Diagnoses Not on filedocumented in this encounter Care Teams Student Dean Relationship Specialty Start Date End Date Karlo Hart MD [address] [place] [address] PCP - General Internal Medicine 04/27/17 documented as of this encounter
--- OUTSIDE RECORDS SUMMARY | 2025-01-09 05:50 | XMS_ITS | Clinical Summary ---
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 Name Role Phone Unavailable Primary Care Provider Unavailabl e Source Comments PLEASE NOTE, if this patient is a minor, it may be UNLAWFUL to discuss sensitive information that is contained in these records (such as FAMILY PLANNING, MENTAL HEALTH or SUBSTANCE ABUSE) with the minor patient's parent or other person without the patient's specific authorization.[facility] Immunizations Name Administration Dates Next Due Moderna COVID-19 Vaccine, re d cap blue label, 12+ Primary Series 11/24/2021 Social History Tobacco Use Types Packs/Day Years Used Date Smoking Tobacco: Never Assessed Sex and Gender Information Value Date Recorded Sex Assigned at Not on file Legal Sex Male 6:49 AM PST Gender Identity Not on file Sexual Orientation Not on file Plan of Treatment Health Maintenance Due Date Last Done Comments Hepatitis C Screening 1995 Tobacco Screening 1995 HIV Screening 2010 Annual Preventive Care Visit 2013 Hypertension Screening (#1) 2013 Atz-IPXFN-95 ( season) 2024 11/24/2021, 04/11/2021, 03/14/2021 Imm-Influenza (#1) 2024 09/19/2019, 08/27/2019 Alcohol and Drug Screen 11/28/2024 Depression Annual Screen 11/28/2024 Imm-DTaP/Tdap/Td (9 - Td or Tdap) 09/07/2025 09/07/2015, 09/14/2011, 11/01/2006, Additional history exists Imm-Hepatitis B Completed 08/17/1996, 01/26, 1995 Insurance [facility]/ BRAD Member Subscriber Plan / Payer (Ef fective 2018-Present) Name:Oliver Moser Relation to Subscriber:Self Name:Oliver Moser Payer ID:[id number] Type:[employer] Address: [address] [place] [address]
--- OUTSIDE RECORDS SUMMARY | 2025-01-09 05:50 | XMS_ITS | Clinical Summary ---
Author Organization [facility] Address [address] [place] [address] Phone Care Team Providers Care Transport Tech Name Role Phone Karlo Hart MD Primary Care Provider [phone] Allergies No known active allergies Medications cholecalcifero l (VITAMIN D-3) 50 mcg (2,000 unit) capsule TAKE 1 CAPSULE BY MOUTH EVERY DAY 60 capsule 1 10/03/20 24 Active divalproex (DEPAKOTE ER) 500 mg 24 hr tablet Take 1 tablet (500 mg total) by mouth at bedtime. Active LORazepam (ATIVAN) 1 mg tablet TAKE 1 TAB BY MOUTH EVERY MORNING, 1 TAB AT NOON, AND 1 TAB ONCE A DAY, NEEDED Active omega-3 acid ethyl esters (LOVAZA) 1 gram capsule Take 1 capsule (1 g total) by mouth. 07/12/20 24 Active Invega Sustenna 156 mg/mL syringe INJECT 1 ML INTRAMUSCULARLY EVERY 4 WEEKS 09/07/20 24 Active propranoloL (INDERAL) 10 mg tablet Take 1 tablet (10 mg total) by mouth 2 (two) times a day. 09/13/20 24 Active pantoprazole (PROTONIX) 40 mg EC tablet Take 1 tablet (40 mg total) by mouth 1 (one) time each day. 90 tablet 1 10/03/20 24 Active Active Problems Problem Noted Date Diagnosed Date Asthma 01/02/2025 Overview (01/02/2025): DX:Asthma Bipolar affective 01/02/2025 Overview (01/02/2025): DX:Bipolar affective (HCC) [employer] - prescriber ARIANA Duque, counselor psychologist Dr. Danny Powell Schizophrenia 01/02/2025 Overview (01/02/2025): DX:Schizophrenia (HCC) Admission to [facility] for acute psychotic episode 11/24/15 Tardive dyskinesia 07/12/2024 Overview (01/02/2025): Left arm/hand NAFLD (nonalcoholic fatty liver disease) 022 Elevated liver enzymes 03/18/2022 Mixed hyperlipidemia 11/24/2020 Overview (01/02/2025): DX:Mixed hyperlipidemia Last Assessment & Plan: Patient has evidence of mixed hyperlipidemia. It is interesting that his labs were normal 4 years ago and I tried to get out of him was changing this for years whether there is been a substantial weight gain and he says there has been my suspicion is is that he has steatosis from significant obesity. And that his liver function is affected by that therefore processing of cholesterol is somewhat limited. He needs to be evaluated by GI he needs to increase his physical activity he needs to lose weight and after all that if he iis not able to get back to to the lipid levels that he had 4 years ago with diet exercise weight loss then his LFTs hopefully will be improved enough to be able to tolerate statin therapy. Obesity, morbid, BMI 40.0-49.9 11/20/2020 Gastroesophageal reflux disease without esophagi tis 02/25/2020 Encounters Date Type Department Care Team Description 01/04/2025 Telephone Internal Medicine - [facility] [address] [place] [address] Karlo Hart MD Hospital Follow-up 01/01/2025 Telephone Internal Medicine - [facility] [address] [place] [address] Karlo Hart MD Hospital Follow-up 10/29/2024 12:52 PM EST - 10/30/2024 1:00 PM EST Emergency [facility] Emergency [address] [place] [address] Tylor Cloud MD Patel, Parth B, MD Millay, Scot A, MD Cauchon, Matthew C, Schizophrenia, unspecified type ([facility]) (Primary Dx) Discharge Disposition: Another Health Care Institution Not Defined from Last 3 Months Immunizations Name Administration Dates Next Due DTaP (Infanrix) 6wks to less than 7yo ,07/11/1997,08/17/1996,05/02,02/22/1996 [id number] (Pentacel) 2mo to less than 5yo 07/01/1997,08/17/1996,05/02/1996,02/21 HPV, Quadrivalent 02/05/2014,10/02/2013,07/31/20 13 Hepatitis B Pediatric (Enger ix B; Recombivax HB) to less than 20 yo 08/17/1996,02/08/1996,1995 IPV Inactivated polio (Ipol) 6wks and older 09/19/2000,08/17/1996,05/02/1996,02/21 Influenza Quadravalent, MDCK , 0.5ml, with preservative (Flucelvax) 6mo and older 09/14/2017 MMR, measles mumps and rubel la Live (Priorix; M-M-R II) 12mo and older 09/19/2000,01/03/1997 Meningococcal MCV4P 08/26/2010 Moderna SARS-CoV-2 COVID-19, mRNA, LNP-S, preservative free 11/24/2021 Pneumococcal polysaccharide 23 valent (Pneumovax 23) 2yo and older 01/18/2018 Td Tetanus diptheria (Tdvax) 7yo and older 09/14/2011 Tdap Tetanus diptheria acell ular pertussis (Boostrix; Adacel) 7yo and older 11/01/2006 Varicella live (Varivax) 12m o and older 08/26/2010,11/30/1998 Surgical History Surgery Date Site/Laterality Comments OTHER SURGICAL HISTORY PROCEDURE: DENIES PREVIOUS SURGERY Medical History Medical History Date Comments Bipolar affective ([facility]) 01/02/2025 DX:B ipolar affective (HCC) Schizophrenia (CMS/HCC) 01/02/2025 DX:Schiz ophrenia (HCC) Asthma 01/02/2025 DX:Asthma Obesity (BMI 30.0-34.9) 11/13/2018 DX:Obesi ty (BMI 30.0-34.9) Mixed hyperlipidemia 11/24/2020 DX:Mixed hy perlipidemia Family History Medical History Relation Name Comments Hypertension Father Prostate cancer Maternal Grandfather colo n cancer Breast cancer Maternal Grandmother thyroi d cancer Asthma Mother Relation Name Status Comments Father Maternal Grandfather Maternal Grandmother Mother Social History Tobacco Use Types Packs/Day Years [...] Orientation Straight 10/29/2024 3: 13 PM EST Obstetrics History Last Filed Vital Signs Vital Sign Reading Time Taken Comments Blood Pressure 138/74 10/30/2024 12:34 PM EST Pulse 98 10/30/2024 12:34 PM EST Temperature 37 ??C (98.6 ??F) 10/30/2024 12:34 PM EST Respiratory Rate 16 10/30/2024 12:34 PM EST Oxygen Saturation 100% 10/30/2024 12:34 PM EST Inhaled Oxygen Concentration - - Weight 126 kg (278 lb) 10/29/2024 1:11 PM EST Height 177.8 cm (5' 10 ) 10/29/2024 1:11 PM EST Body Mass Index 39.89 10/29/2024 1:11 PM EST Plan of Treatment Upcoming Encounters Date Type Department Care Team (Late st Contact Info) Description 01/24/2025 10:30 AM EST Office Visit Internal Medicine - [address] [place] [phone] Karlo Hart MD [address] [place] [id number] Health Maintenance Due Date Last Done Comments Hepatitis A Vaccines (1 of 2 - Risk 2-dose series) 2014 Pneumococcal Vaccine: Pediatrics (0 to 5 Years) and At-Risk Patients (6 to 64 Years) (2 of 2 - PCV) 01/18/2019 01/18/2018, 12/12/2015 Depression Screening 11/06/2022 Medicare Annual Wellness Visit 11/06/2022 Social Influencers of Health Screening 11/06/2022 COVID-19 Vaccine ( season) 2024 10/08/2022, 11/24/2021, 04/11/2021, Additional history exists Influenza Vaccine (#1) 2024 , 09/19/2019, 08/27/2019, Additional history exists DTaP,Tdap,and Td Vaccines (9 - Td or Tdap) 09/07/2025 09/07/2015, 09/14/2011, 11/01/2006, Additional history exists Cholesterol Screening (Lipid Panel) 05/24/2028 05/24/2023 Hepatitis B Vaccines Completed 08/17/1996, 02/08/1996, 1995 HIB Vaccines Completed 07/01/1997, 07/30, 05/02/1996, Additional history exists IPV Vaccines Completed 09/19/2000, 02/1997, 08/17/1996, Additional history exists MMR Vaccines Completed 09/19/2000, 01/03/1997 Meningococcal ACWY Vaccine Aged Out 08/26/2010 N o longer eligible based on patient's age to complete this topic Varicella Vaccines Completed 08/26/2010, 11/30/1998 HPV Vaccines Completed 02/05/2014, 0 03/2013, 07/31/2013 HIV Screening Completed 06/21/2019 Hepatitis C Screening Completed 11/06/2021 RSV Immunization Patients Under 20 months Aged Out No longer eligible based on patient's age to complete this topic Procedures Procedure Name Priority Date/Time Associated Diagnosis Comments METHADONE SCREEN, URINE STAT 10/29/2024 3:54 PM EST PHENCYCLIDINE, URINE STAT 10/29/2024 3:54 PM EST BUPRENORPHINE SCREEN, URINE STAT 10/29/2024 3:54 PM EST DRUG ABUSE SCREEN 8A PANEL, URINE STAT 10/29/2024 3:54 PM EST ECG 12-LEAD STAT 10/29/2024 2:12 PM EST CBC WITH AUTO DIFFERENTIAL STAT 10/29/2024 1:26 PM EST SALICYLATE LEVEL STAT 10/29/2024 1:26 PM EST ACETAMINOPHEN LEVEL STAT 10/29/2024 1 :26 PM EST ETHANOL STAT 10/29/2024 1:26 PM EST COMPREHENSIVE METABOLIC PANEL STAT 10/29/2024 1:26 PM EST CBC AND DIFFERENTIAL STAT 10/29/2024 1:26 PM EST LIPID PANEL Routine 05/24/2023 HEPATITIS C SCREENING Routine 11/06/2021 HIV SCREENING Routine 06/21/2019 from Last 3 Months or Most Recently Relevant to Health Maintenance Results * Drug abuse screen 8a panel, urine (10/29/2024 3:54 PM EST) Amphetamine Screen, Ur Negative Negative LAB CHEMISTRY METHOD 10/29/2024 4:38 PM EST [facility] Comment:Certain OTC medicati ons containing ephedrine, phenylephrine, pseudoephedrine and phenylpropanolamine can cause false positive results. Barbiturate Screen, Ur Negative Negative LAB CHEMISTRY METHOD 10/29/2024 4:38 PM EST [facility] Benzodiazepine Screen, Ur Negative Negative LAB CHEMISTRY METHOD 10/29/2024 4:38 PM EST [facility] Cocaine Screen, Ur Negative Negative LAB CHEMISTRY METHOD 10/29/2024 4:38 PM EST [facility] Opiate Screen, Ur Negative Negative LAB CHEMISTRY METHOD 10/29/2024 4:38 PM EST [facility] Cannabinoid (THC) Screen, Ur Negative Negative LAB CHEMISTRY METHOD 10/29/2024 4:38 PM EST [facility] Comment:Specimens from patie nts taking pantoprazole sodium (Protonix) have been shown to produce false positive results. Oxycodone Screen, Ur Negative Negative LAB CHEMISTRY METHOD 10/29/2024 4:38 PM EST [facility] Fentanyl, Ur Negative Negative LAB CHEMISTRY METHOD 10/29/2024 4:38 PM [facility] Urine Urine specimen obtained by clean catch procedure / Unknown Non-blood Collection / Unknown 10/29/2024 3:54 PM EST 10/29/2024 4:03 PM EST Narrative [facility] - 10/29/2024 4:38 PM EST Assay cutoffs: Amphetamines ? 1000 ng/mL Barbiturates ?200 ng/mL Benzodiazepines ?? 200 ng/mL Cocaine ? 300 ng/mL Fentanyl ?1 ng/mL Opiates ? 300 ng/mL Oxycodone ? 100 ng/mL THC ?50 ng/mL Semi-quantitative assay for screening purposes only. Unconfirmed screening result should not be used for non-medical purposes. *ALTERNATE METHOD CONFIRMATION DONE UPON REQUEST ONLY* us Nader Souza DO LAB URINE ORDERABLES Final Result [facility] [address] [place] [address], * Buprenorphine screen, urine (10/29/2024 3:54 PM EST) Buprenorphine Screen Urine Negative Negative LAB CHEMISTRY METHOD 10/29/2024 4:38 PM EST [facility] Urine Urine specimen obtained by clean catch procedure / Unknown Non-blood Collection / Unknown 10/29/2024 3:54 PM EST 10/29/2024 4:03 PM EST Narrative [facility] - 10/29/2024 4:38 PM EST Assay cutoff 5 ng/mL Semi-quantitative assay for screening purposes only. Unconfirmed screening result should not be used for non-medical purposes. *ALTERNATE METHOD CONFIRMATION DONE UPON REQUEST ONLY* Nader Garret Souza LAB URINE ORDERABLES Final Result Performing Organization Address City/[facility]/ZIP Co de Phone Number [facility] [address] [place] [address], [place] [phone] * Methadone, urine (10/29/2024 3:54 PM EST) Methadone Screen, Urine Negative Negative LAB CHEMISTRY METHOD 10/29/2024 4:38 PM EST [facility] Comment: Assay cutoff 300 ng/mL Semi-quantitative assay for screening purposes only. Unconfirmed screening result should not be used for non-medical purposes. *ALTERNATE METHOD CONFIRMATION DONE UPON REQUEST ONLY* Urine Urine specimen obtained by clean catch procedure / Unknown Non-blood Collection / Unknown 10/29/2024 3:54 PM EST 10/29/2024 4:03 PM EST Nader Garret Souza [facility] URINE ORDERABLES Final Result [facility] [address] [place] [address], [place] [phone] * Phencyclidine, urine (10/29/2024 3:54 PM EST) PCP Scrn, Ur Negative Negative LAB CHEMISTRY METHOD 10/29/2024 4:38 PM EST [facility] Comment: Assay cutoff 25 ng/mL Semi-quantitative assay for screening purposes only. Unconfirmed screening result should not be used for non-medical purposes. *ALTERNATE METHOD CONFIRMATION DONE UPON REQUEST ONLY* Urine Urine specimen obtained by clean catch procedure / Unknown Non-blood Collection / Unknown 10/29/2024 3:54 PM EST 10/29/2024 4:03 PM EST Nader Souza DO LAB URINE ORDERABLES Final Result Performing Organization Address City/[facility]/ZIP Co de Phone Number [facility] [address] [place] [address], [place] [phone] * ECG 12 lead (10/29/2024 2:12 PM EST) Ventricular Rate ECG 88 BPM GEMUSE Atrial Rate 88 BPM GEMUSE P-R Interval 162 ms GEMUSE QRS Duration 88 ms GEMUSE Q-T Interval 354 ms GEMUSE QTc 428 ms GEMUSE P Wave [place] 54 degrees GEMUSE R [place] 52 degrees GEMUSE T [place] 37 degrees GEMUSE ECG Interpretation Normal sinus rhythm Possible Left atrial enlargement Borderline ECG When compared with ECG of 21-APR-2023 12:47, No significant change was found Confirmed by ERNESTO AGIUAR ([id number]) on 10/30/2024 3:48:54 PM GEMUSE 10/29/2024 2:12 PM EST 10/30/2024 3:48 PM EST Nader Souza DO ECG ORDERABLES Final Resul t Performing Organization Address [facility] de Phone Number GEMUSE * (ABNORMAL) CBC auto differential (10/29/2024 1:26 PM EST) WBC 7.7 4.8 - 10.8 [facility] LAB HEMETOLOGY METHOD 10/29/2024 2:10 PM EST [facility] RBC 4.70 4.50 - 5.50 M/mcL LAB HEMETOLOGY METHOD 10/29/2024 2:10 PM EST [facility] Hemoglobin 12.4(L) 13.5 - 17.5 g/dL LAB HEMETOLOGY METHOD 10/29/2024 2:10 PM [facility] Hematocrit 37.8(L) 42.0 - 54.0 % LAB HEMETOLOGY METHOD 10/29/2024 2:10 PM [facility] MCV 81.1 79.0 - 98.0 FL LAB HEMETOLOGY METHOD 10/29/2024 2:10 PM [facility] MCH 26.6(L) 27.0 - 32.0 pcg LAB HEMETOLOGY METHOD 10/29/2024 2:10 PM [facility] MCHC 32.8 32.0 - 37.0 g/dL LAB HEMETOLOGY METHOD 10/29/2024 2:10 PM [facility] RDW 12.8 11.0 - 15.0 % LAB HEMETOLOGY METHOD 10/29/2024 2:10 PM [facility] Platelets 219 130 - 400 K/mcL LAB HEMETOLOGY METHOD 10/29/2024 2:10 PM [facility] MPV 9.7 7.0 - 11.0 FL LAB HEMETOLOGY METHOD 10/29/2024 2:10 PM [facility] NRBC 0.0 <1.0 % LAB HEMETOLOGY METHOD 10/29/2024 2:10 PM [facility] NRBC Absolute 0.00 <0.10 K/mcL LAB HEMETOLOGY METHOD 10/29/2024 2:10 PM [facility] Neutrophils Relative 62.0 % LAB HEMETOLOGY METHOD 10/29/2024 2:10 PM [facility] Lymphocytes Relative 26.7 % LAB HEMETOLOGY METHOD 10/29/2024 2:10 PM [facility] Monocytes Relative 9.8 % LAB HEMETOLOGY METHOD 10/29/2024 2:10 PM [facility] Eosinophils Relative 0.8 % LAB HEMETOLOGY METHOD 10/29/2024 2:10 PM EST [facility] Basophils Relative 0.4 % LAB HEMETOLOGY METHOD 10/29/2024 2:10 PM EST [facility] Immature Granulocytes Relative 0.3 % LAB HEMETOLOGY METHOD 10/29/2024 2:10 PM EST [facility] Neutrophils Absolute 4.80 1.50 - 7.00 K/mcL LAB HEMETOLOGY METHOD 10/29/2024 2:10 PM EST [facility] Lymphocytes Absolute 2.07 1.00 - 5.00 K/mcL LAB HEMETOLOGY METHOD 10/29/2024 2:10 PM EST [facility] Monocytes Absolute 0.76 0.20 - 1.00 K/mcL LAB HEMETOLOGY METHOD 10/29/2024 2:10 PM EST [facility] Eosinophils Absolute 0.06 0.00 - 0.50 K/mcL LAB HEMETOLOGY METHOD 10/29/2024 2:10 PM EST [facility] Basophils Absolute 0.03 0.00 - 0.20 K/mcL LAB HEMETOLOGY METHOD 10/29/2024 2:10 PM EST [facility] Immature Granulocytes Absolute 0.02 0.00 - 0.03 K/mcL LAB HEMETOLOGY METHOD 10/29/2024 2:10 PM EST [facility] Blood Venous blood specimen / Unknown Venipuncture / Unknown 10/29/2024 1:26 PM EST 10/29/2024 2:09 PM EST us Nader Souza DO LAB BLOOD ORDERABLES Final Result [facility] [address] [place] [address], * Ethanol (10/29/2024 1:26 PM EST) Ethanol Level <3 0 - 10 mg/dL LAB CHEMISTRY METHOD 10/29/2024 2:23 PM EST [facility] Blood Venous blood specimen / Unknown Venipuncture / Unknown 10/29/2024 1:26 PM EST 10/29/2024 2:23 PM EST us Nader Souza DO LAB BLOOD ORDERABLES Final Result Performing Organization Address [facility]/ZIP Co de Phone Number [facility] [address] [place] [address], [place] [phone] * (ABNORMAL) Acetaminophen level (10/29/2024 1:26 PM EST) Acetaminophen Level <2.0(L) 10.0 - 30.0 mcg/mL LAB CHEMISTRY METHOD 10/29/2024 2:29 PM EST [facility] Blood Venous blood specimen / Unknown Venipuncture / Unknown 10/29/2024 1:26 PM EST 10/29/2024 2:23 PM EST us Nader Souza DO LAB BLOOD ORDERABLES Final Result Performing Organization Address [facility] de Phone Number [facility] [address] [place] [address], [place] [phone] * (ABNORMAL) Salicylate level (10/29/2024 1:26 PM EST) Salicylate Level <1.7(L) 2.0 - 29.0 mg/dL LAB CHEMISTRY METHOD 10/29/2024 2:23 PM EST [facility] Blood Venous blood specimen / Unknown Venipuncture / Unknown 10/29/2024 1:26 PM EST 10/29/2024 2:23 PM EST us Nader Souza DO LAB BLOOD ORDERABLES Final Result Performing Organization Address City/[facility]/ZIP Co de Phone Number [facility] [address] [place] [address], [place] [phone] * (ABNORMAL) Comprehensive metabolic panel (10/29/2024 1:26 PM EST) Sodium 141 133 - 145 mmol/L LAB CHEMISTRY METHOD 10/29/2024 2:23 PM [facility] Potassium 4.0 3.5 - 5.5 mmol/L LAB CHEMISTRY METHOD 10/29/2024 2:23 PM [facility] Chloride 106 96 - 110 mmol/L LAB CHEMISTRY METHOD 10/29/2024 2:23 PM [facility] CO2 26 21 - 32 mmol/L LAB CHEMISTRY METHOD 10/29/2024 2:23 PM [facility] Anion Gap 9 3 - 11 LAB CHEMISTRY METHOD 10/29/2024 2:23 PM [facility] Glucose 90 70 - 100 mg/dL LAB CHEMISTRY METHOD 10/29/2024 2:23 PM [facility] BUN 12 5 - 25 mg/dL LAB CHEMISTRY METHOD 10/29/2024 2:23 PM [facility] Creatinine 1.19 0.70 - 1.30 mg/dL LAB CHEMISTRY METHOD 10/29/2024 2:23 PM [facility] eGFR 85 >=60 mL/min/1. 73m2 LAB CHEMISTRY METHOD 10/29/2024 2:23 PM [facility] Comment:Calculation based on the??Chronic Kidney Disease Epidemiology Collaboration (CKD-EPI) equation refit??without adjustment for race. BUN/Creatinine Ratio 10.1 LAB CHEMISTRY METHOD 10/29/2024 2:23 PM [facility] Calcium 9.3 8.5 - 10.5 mg/dL LAB CHEMISTRY METHOD 10/29/2024 2:23 PM [facility] AST (SGOT) 134(H) 10 - 42 unit/L LAB CHEMISTRY METHOD 10/29/2024 2:23 PM [facility] ALT (SGPT) 71(H) 10 - 60 unit/L LAB CHEMISTRY METHOD 10/29/2024 2:23 PM [facility] Alkaline Phosphatase 97 42 - 121 unit/L LAB CHEMISTRY METHOD 10/29/2024 2:23 PM [facility] Total Protein 7.5 6.0 - 8.0 g/dL LAB CHEMISTRY METHOD 10/29/2024 2:23 PM [facility] Albumin 4.2 3.2 - 5.0 g/dL LAB CHEMISTRY METHOD 10/29/2024 2:23 PM [facility] Total Bilirubin 0.7 0.0 - 1.4 mg/dL LAB CHEMISTRY METHOD 10/29/2024 2:23 PM [facility] Blood Venous blood specimen / Unknown Venipuncture / Unknown 10/29/2024 1:26 PM EST 10/29/2024 2:23 PM EST Nader Souza DO LAB BLOOD ORDERABLES Final Result Performing Organization Address City/State/[facility] Co de Phone Number [facility] [address] [place] [address], * (ABNORMAL) Lipid panel (05/24/2023) Pathologist [facility] LDL/HDL Ratio 5(A) 0 - 4 Triglycerides 180(A) 0 - 150 mg/dL Cholesterol 224(A) 0 - 200 mg/dL HDL 43 >=40 mg/dL LDL Cholesterol 145(A) 0 - 100 mg/dL Blood Venous blood specimen / Unknown us Historical Provider LAB BLOOD ORDERABLES Sophie l Result * Hepatitis C Screening (11/06/2021) Pathologist [facility] Hepatitis C Screening Abstracted us Historical Provider HEALTH MAINTENANCE Final Result * HIV Screening (06/21/2019) HIV Screening Abstracted us Historical Provider HEALTH MAINTENANCE Final Result from Last 3 Months or Most Recently Relevant to Health Maintenance Insurance [employer] MEDICARE MEDICAID - [place] Care Teams Transport Tech Relationship Specialty Start Date End Date Karlo Hart MD [address] [place] [id number] PCP - General Internal Medicine 04/27/17
--- OUTSIDE RECORDS SUMMARY | 2025-01-09 05:50 | XMS_ITS | Clinical Summary ---
Author Organization [address] Address [address] [place] [phone] Phone Care Team Providers Care Hand Suture Winder Name Role Phone No, Pcp (Do Not Change Name) Primary Care Provid er Unavailable Allergies Active Allergy Reactions Criticality Noted Date Comments Perley 05/31/2017 Trazodone 05/31/2017 Olanzapine 05/31/2017 Social History Tobacco Use Types Packs/Day Years Used Date Smoking Tobacco: Never Assessed Sex and Gender Information Value Date Recorded Sex Assigned at Not on file Legal Sex Male 5:14 PM EDT Gender Identity Not on file Sexual Orientation Not on file Last Filed Vital Signs Vital Sign Reading Time Taken Comments Blood Pressure 101/62 05/31/2017 8:08 PM EDT Pulse 64 05/31/2017 8:08 PM EDT Temperature 36.6 ??C (97.8 ??F) 05/31/2017 8:08 PM ED T Respiratory Rate 16 05/31/2017 8:08 PM EDT Oxygen Saturation 99% 05/31/2017 8:08 PM EDT Inhaled Oxygen Concentration - - Weight 83 kg (182 lb 15.7 oz) 05/31/2017 5:17 PM EDT Height 180.3 cm (5' 11 ) 05/31/2017 5:17 PM EDT Body Mass Index 25.52 05/31/2017 5:17 PM EDT Plan of Treatment Health Maintenance Due Date Last Done Comments HIV screening 2008 Hepatitis C screening 2013 Tetanus adult (Td q 10,TDAP once) 2015 Influenza vaccine 06/28/2024 Covid-19 vaccine series ( season) 2024 RSV Discussion (1 - 1-dose 7 5+ series) 2070 Meningococcal Vaccine Aged Out No deonna fiona eligible based on patient's age to complete this topic Pneumococcal Vaccine Aged Out No long er eligible based on patient's age to complete this topic Insurance [facility] [id number] MEDICAID [facility] [id number] MEDICAID [facility] [id number] MEDICAID [facility] [id number] MEDICAID Care Teams Hand Suture Winder Relationship Specialty Start Date End Date No, Pcp (Do Not Change Name) PCP - General 05/31/17
--- OUTSIDE RECORDS SUMMARY | 2025-01-09 05:50 | XMS_ITS | Encounter Summary ---
Author Organization [facility] Address [address] [place] [address] Care Team Providers Care Sugarcane Research Technician Name Role Phone Karlo Hart MD Primary Care Provider [phone] Reason for Visit * Reason Onset Date Comments Hospital Follow-up 01/04/2025 Encounter Details Date Type Department Care Team (Late st Contact Info) Description 01/04/2025 [facility] [address] [place] [phone] Karlo Hart MD [address] [place] [id number] Hospital Follow-up Social History Tobacco Use Types [...] Assessment Author No 10/29/2024 6:07 PM Alix tSanley RN * Are you blind or do [...] Progress Notes * Ema Mejia MA - 01/04/2025 4:21 PM EST Called and new appt made * Olga Vivar - 01/04/2025 4:13 PM EST Pt was scheduled a hospital follow up for 01/09/25. He is unable to make this appointment and needs it rescheduled documented in this encounter Plan of Treatment Upcoming Encounters Date Type Department Care Team (Late st Contact Info) Description 01/24/2025 10:30 AM EST [facility] [address] [place] [phone] Karlo Hart MD [address] [place] [phone] documented as of this encounter Visit Diagnoses Not on filedocumented in this encounter Care Teams Sugarcane Research Technician Relationship Specialty Start Date End Date Karlo Hart MD [address] [place] [id number] PCP - General Internal Medicine 04/27/17 documented as of this encounter
[2025-01-09] MEDS: Lactated Ringers 1,000 ML 100 ML IVCONT (06:50)
--- NOTE | 2025-01-09 07:56 | MHC.SHP ---
Pre-Procedural Eval Section A - 24 Hr Update-Section A only Date of Service: 01/09/25 Section B - Complete if H&P > 30 days Chief Complaint: depression Details of Present Illness: not psychotic some dysthynia Relevant Social History: None Present Medications: see Short Stay Collaborative assessment Allergies: Allergies Allergy/AdvReac Type Severity Reaction Status Date / Time No Known Allergies Allergy Verified 12/28/24 07:52 Review of Systems Sugical H&P ROS: Negative: Cardiovascular, Respiratory, Neurological and Gastrointestinal and Yes, Specify: Psychiatric (blues silva PI) Exam Surgical H&P Exam: Normal: Heart, Normal: Lungs and Normal: Neurological Plan I have reviewed the history and physical and performed a pertinent physical examination on my patient. No changes have occurred unless specified. Time Spent With Patient Time: Total time managing care of this patient today ____ minutes.
--- NOTE | 2025-01-09 08:01 | HO.ECTPROC ---
ECT Procedure Note Diagnosis/Treatment Date of Service: 01/09/25 Diagnosis: Schizoaffective Disorder Previous ECT Date: 12/28/24 Current Treatment Number: 10 Interval Clinical Notes: Pt has been doing well since d/c home taking meds no psychosis mood stable ect done as previous tolerated well Time: Total time managing care of this patient today _30___ minutes. ECT Settings Device: THYMATRON DGx Electrode Placement: Bitemporal Program/Pulse Width: 0.50 Energy Percent: 100 Seizure Duration By EEG (in seconds): 44 Medications Administration General Anesthetic: Etomidate (16) Muscle Relaxant: Succinylcholine (140) Ancillary Medications Anti-emetics: Zofran - Pre ECT Miscillaneous Medications: Midazolam (1mg) Airway Management Airway Management: Bag Mask Ventilation Treatment Recommendations No Changes Recommended: No change Pt Tolerated Procedure w/o Issue: Yes
--- NOTE | 2025-01-09 09:55 | HO.ANESPROP2 ---
[facility] Active Problems Active Problems: All Active Problems Pre-op evaluation (Acute) Schizoaffective disorder, bipolar type (Acute) Past Medical History Medical History Mild intermittent asthma Schizoaffective disorder, bipolar type Chronic post-traumatic stress disorder (PTSD) Functional capacity: independent ambulation Family History Family history of problems with anesthesia: No Surgical History History of Problems with Anesthesia: No Social History Social History Household Members: Family Housing: Unknown / Unable to assess Do you presently have visiting nurse or other home services: No Comment: refuses to wear yellow socks Patient Tobacco Use Status: Former Tobacco user Second Hand Smoke Exposure: No Advance Directives: No Advance Directives Information Provided: Yes service: No Sexual orientation: Straight/Heterosexual Meds Allergies Allergy/AdvReac Type Severity Reaction Status Date / Time No Known Allergies Allergy Verified 12/28/24 07:52 Exam Height,Weight and Vital Signs: Height 5 ft 11 in Weight 124.738 kg Last Vital Signs Temp 97.2 F 01/09/25 09:17 Pulse 93 01/09/25 09:17 Resp 18 01/09/25 09:17 BP 121/71 01/09/25 09:05 Pulse Ox 96 01/09/25 09:17 O2 Del Method Room Air 01/09/25 09:17 O2 Flow Rate 2 01/09/25 08:50 Airway Mallampati Class: III TM Dist: >3cm Neck ROM: Full Heart: RRR Lungs: CTA Assessment and Plan Assessment Anesthesia Assessment: Anesthesia Plan Discussed and Chart Reviewed Final Anesthetic Review Family History of Problems with Anesthesia: No History of Problems with Anesthesia: No NPO: Yes ASA Class: III Final Preanesthetic Review: Meds/Allgs Chart Reviewed, Consent Obtained/Reviewed and Anes Risks/Benef Reviewed Patient Risk: Low Procedure Risk: Low Anesthetic Plan Anesthetic Plan: GA Disposition: Standard PACU
--- NOTE | 2025-01-09 09:57 | HO.POSTANES ---
Post Anesthesia Evaluation Post Anesthesia Evaluation Date of Service: 01/09/25 Vital Signs: Vital Signs Temp Pulse Resp BP Pulse Ox O2 Del Method O2 Flow Rate 01/09/25 09:17 97.2 F 93 18 96 Room Air 01/09/25 09:05 92 18 121/71 96 Nasal Cannula 01/09/25 08:50 93 21 H 119/73 96 Nasal Cannula 2 01/09/25 08:43 93 18 123/75 96 Nasal Cannula 4 01/09/25 08:38 97 27 H 124/70 96 Nasal Cannula 4 01/09/25 08:33 98.5 F 103 H 28 H 101/77 94 Nasal Cannula 2 01/09/25 06:37 97.7 F 89 16 119/69 97 Room Air Anesthesia: General Mental Status: Awake Pain Control: Satisfactory Nausea/Vomiting: None Hydration: Adequate Anesthesia-Related Issues: No Anes. Related Issues
== END 2025-01-09 09:40 | disposition home or self-care (01) ==
PROVIDERS: Visit Provider Psychiatry & Neurology Psychiatry
PROC: (CPT 90870; principal; 2025-01-09 14:30)
DX: F25.0 Schizoaffective disorder, bipolar type (principal); F43.12 Post-traumatic stress disorder, chronic; J45.20 Mild intermittent asthma, uncomplicated; Z87.891 Personal history of nicotine dependence; Z79.899 Other long term (current) drug therapy
CPT/HCPCS: 90870; J0330; J2250

== ENCOUNTER → 2025-01-09 05:48 | Outpatient (BNV) | payer MEDICARE, MEDICAID, SELFPAY | PROVIDERS: Visit Provider Psychiatry & Neurology Psychiatry | DX: F33.3 Major depressive disorder, recurrent, severe with psychotic symptoms (principal) | CPT/HCPCS: 90870 ==

== ENCOUNTER 2025-01-16 05:41 | Day surgery (SDC) | payer MEDICARE, MEDICAID, SELFPAY ==
[2025-01-16] VITALS (7 sets, daily range): BP systolic 102–128; BP diastolic 55–76; PULSE 81–92; RESP 16–25; TEMP 36.4–36.9; O2SAT 95–98; BMI 37.2
--- NOTE | 2025-01-16 07:48 | MHC.SHP ---
Pre-Procedural Eval Section A - 24 Hr Update-Section A only Date of Service: 01/16/25 The patient is an INPATIENT: No Changes since office visit: Yes New Medical Problems and Yes Patient answered all questions; No Cold of Flu in the past 2 weeks and No Changes in Medication The patient has been examined within 24 hours of the surgical procedure. The History & Physical has been completed within 30 days and I have reviewed it.: Yes Section B - Complete if H&P > 30 days Chief Complaint: depression Allergies: Allergies Allergy/AdvReac Type Severity Reaction Status Date / Time No Known Allergies Allergy Verified 12/28/24 07:52 Plan I have reviewed the history and physical and performed a pertinent physical examination on my patient. No changes have occurred unless specified. Time Spent With Patient Time: Total time managing care of this patient today ____ minutes.
--- NOTE | 2025-01-16 07:49 | HO.ECTPROC ---
ECT Procedure Note Diagnosis/Treatment Date of Service: 01/16/25 Diagnosis: Schizoaffective Disorder Previous ECT Date: 12/28/24 Current Treatment Number: 10 Interval Clinical Notes: Pt has been doing well since d/c home taking meds no psychosis mood stable ect done as previous tolerated well Time: Total time managing care of this patient today ____ minutes. ECT Settings Device: THYMATRON DGx Electrode Placement: Bitemporal Program/Pulse Width: 0.50 Energy Percent: 100 Seizure Duration By EEG (in seconds): 44 Medications Administration General Anesthetic: Etomidate (16) Muscle Relaxant: Succinylcholine (140) Ancillary Medications Anti-emetics: Zofran - Pre ECT Miscillaneous Medications: Midazolam (1mg) Airway Management Airway Management: Bag Mask Ventilation Treatment Recommendations No Changes Recommended: No change Pt Tolerated Procedure w/o Issue: Yes
--- NOTE | 2025-01-16 08:31 | HO.ANESPROP2 ---
HPI - Anesthesia Eval Consult details Narrative: 29 yo male patient for ECT PMFSH Active Problems Active Problems: All Active Problems Schizoaffective disorder, bipolar type (Acute) Past Medical History Medical History Pre-op evaluation Mild intermittent asthma Schizoaffective disorder, bipolar type Chronic post-traumatic stress disorder (PTSD) Family History Family history of problems with anesthesia: No Surgical History History of Problems with Anesthesia: No Social History Social History Household Members: Family Housing: Unknown / Unable to assess Do you presently have visiting nurse or other home services: No Comment: refuses to wear yellow socks Patient Tobacco Use Status: Former Tobacco user Second Hand Smoke Exposure: No Advance Directives: No Advance Directives Information Provided: Yes service: No Sexual orientation: Straight/Heterosexual Meds Allergies Allergy/AdvReac Type Severity Reaction Status Date / Time No Known Allergies Allergy Verified 12/28/24 07:52 Exam Height,Weight and Vital Signs: Height 5 ft 11 in Weight 121.109 kg Last Vital Signs Temp 97.6 F 01/16/25 06:33 Pulse 81 01/16/25 06:33 Resp 16 01/16/25 06:33 BP 103/55 L 01/16/25 06:33 Pulse Ox 96 01/16/25 06:33 O2 Del Method Room Air 01/16/25 06:33 Airway Mallampati Class: III TM Dist: >3cm Neck ROM: Full Loose/Missing/Broken Teeth: Yes (Missing tooth bottom right back. Denies broken or loose teeth) Heart: RRR Lungs: CTAB Assessment and Plan Assessment Anesthesia Assessment: Anesthesia Plan Discussed and Chart Reviewed Final Anesthetic Review Family History of Problems with Anesthesia: No History of Problems with Anesthesia: No NPO: Yes ASA Class: III Final Preanesthetic Review: No Changes in Pt Med Stat, Meds/Allgs Chart Reviewed, Consent Obtained/Reviewed and Anes Risks/Benef Reviewed Patient Risk: Intermediate Procedure Risk: Intermediate Assessment/Block/Sedation in SS: Assess/Block/Sedation- Anesthetic Plan Anesthetic Plan: GA Disposition: Standard PACU
[2025-01-16 09:03] LABS: Basophils Percent Auto 0.4 % (0-2); Eosinophils Absolute Auto 0.3 X10*3/uL (0.0-0.4); Eosinophils Percent Auto 4.5 % (0-4); Hematocrit 38.1 % (42.0-52.0); Imm Gran Abs Auto 0.04 X10*3/uL (0.00-0.03); Imm Gran Pct Auto 0.6 % (0.0-0.4); Lymphocytes Percent Auto 27.5 % (20-40); MANUAL DIFF FLAG NO; Mean Corpuscular HGB Conc 31.5 g/dl (31.0-36.0); Mean Corpuscular Hemoglobin 26.3 pg (27.0-33.0); Mean Corpuscular Volume 83.4 fL (80.0-98.0); Monocytes Percent Auto 13.3 % (2-11); Neutrophils Absolute Auto 3.8 x10*3/uL (2.0-8.3); Neutrophils Percent Auto 53.7 % (45-73); Platelet Count 161 X10*3/uL (160-400); Red Blood Count 4.57 X10*6/uL (4.60-5.80); Red Cell Distribution Width 16.9 % (11.0-16.0); White Blood Count 7.1 X10*3/uL (4.8-10.8)
[2025-01-16 09:06] LABS: Ammonia 59 umol/L (13-55); Lithium 0.46 mmol/L (0.60-1.20)
[2025-01-16 09:13] LABS: Alanine Aminotransferase 29 U/L (0-40); Albumin Level 4.2 g/dL (3.5-5.0); Alkaline Phosphatase 66 U/L (39-117); Anion Gap 13 (12-20); Aspartate Amino Transferase 26 U/L (5-37); Bilirubin Total 0.3 mg/dL (0.0-1.0); Blood Urea Nitrogen 14 mg/dL (9-16); Carbon Dioxide 25 mmol/L (22-29); Chloride 105 mmol/L (96-108); Creatinine Clr Calc Pharmacy 178.1; Estimated Glomerular Filt Rate > 60; Glucose Random 91 mg/dL (60-115); Sodium 138 mmol/L (135-145)
== END 2025-01-16 09:25 | disposition home or self-care (01) ==
PROVIDERS: Visit Provider Psychiatry & Neurology Psychiatry
PROC: (CPT 90870; principal; 2025-01-16 08:00)
DX: F25.0 Schizoaffective disorder, bipolar type (principal); F43.12 Post-traumatic stress disorder, chronic; J45.20 Mild intermittent asthma, uncomplicated; M25.511 Pain in right shoulder; Z79.899 Other long term (current) drug therapy; Z87.891 Personal history of nicotine dependence
CPT/HCPCS: 36415; 80053; 80164; 80178; 82140; 85025; 90870; J0330; J1596; J1805; J1885; J1920; J2250; J2405; J2704

== ENCOUNTER → 2025-01-16 05:41 | Outpatient (BNV) | payer MEDICARE, MEDICAID, SELFPAY | PROVIDERS: Visit Provider Psychiatry & Neurology Psychiatry | DX: F25.0 Schizoaffective disorder, bipolar type (principal) | CPT/HCPCS: 90870 ==

== ENCOUNTER 2025-01-23 05:40 | Day surgery (SDC) | payer MEDICARE, MEDICAID, SELFPAY ==
[2025-01-23] VITALS (7 sets, daily range): BP systolic 106–140; BP diastolic 49–85; PULSE 75–90; RESP 16–23; TEMP 36.6–36.9; O2SAT 95–98; BMI 39.0
--- NOTE | 2025-01-23 06:54 | HO.ANESPROP2 ---
[facility] Active Problems Active Problems: All Active Problems Schizoaffective disorder, bipolar type (Acute) Past Medical History Medical History Pre-op evaluation Mild intermittent asthma Schizoaffective disorder, bipolar type Chronic post-traumatic stress disorder (PTSD) Family History Family history of problems with anesthesia: No Surgical History History of Problems with Anesthesia: No Social History Social History Household Members: Family Housing: Unknown / Unable to assess Do you presently have visiting nurse or other home services: No Comment: refuses to wear yellow socks Patient Tobacco Use Status: Former Tobacco user Second Hand Smoke Exposure: No Advance Directives: No Advance Directives Information Provided: Yes service: No Sexual orientation: Straight/Heterosexual Meds Allergies Allergy/AdvReac Type Severity Reaction Status Date / Time No Known Allergies Allergy Verified 12/28/24 07:52 Exam Height,Weight and Vital Signs: Height 5 ft 10.5 in Weight 125.191 kg Last Vital Signs Temp 98.5 F 01/23/25 06:43 Pulse 75 01/23/25 06:43 Resp 16 01/23/25 06:43 BP 122/70 01/23/25 06:43 Pulse Ox 96 01/23/25 06:43 O2 Del Method Room Air 01/23/25 06:43 Airway Mallampati Class: II TM Dist: >3cm Neck ROM: Full Heart: rrr Lungs: cta Assessment and Plan Assessment Anesthesia Assessment: Anesthesia Plan Discussed and Chart Reviewed Final Anesthetic Review Family History of Problems with Anesthesia: No History of Problems with Anesthesia: No NPO: Yes ASA Class: III Final Preanesthetic Review: No Changes in Pt Med Stat, Meds/Allgs Chart Reviewed and Consent Obtained/Reviewed Patient Risk: Intermediate Procedure Risk: Intermediate Anesthetic Plan Anesthetic Plan: GA Disposition: Standard PACU
--- NOTE | 2025-01-23 07:04 | MHC.SHP ---
Pre-Procedural Eval Section A - 24 Hr Update-Section A only Date of Service: 01/23/25 The patient is an INPATIENT: No Changes since office visit: No Cold of Flu in the past 2 weeks, No New Medical Problems, No Changes in Medication and No Patient answered all questions The patient has been examined within 24 hours of the surgical procedure. The History & Physical has been completed within 30 days and I have reviewed it.: Yes Section B - Complete if H&P > 30 days Chief Complaint: depression Allergies: Allergies Allergy/AdvReac Type Severity Reaction Status Date / Time No Known Allergies Allergy Verified 12/28/24 07:52 Plan I have reviewed the history and physical and performed a pertinent physical examination on my patient. No changes have occurred unless specified. Time Spent With Patient Time: Total time managing care of this patient today ____ minutes.
--- NOTE | 2025-01-23 07:50 | HO.ECTPROC ---
ECT Procedure Note Diagnosis/Treatment Date of Service: 01/23/25 Diagnosis: Schizoaffective Disorder Previous ECT Date: 01/16/25 Current Treatment Number: 11 Treatment: Series Interval Clinical Notes: The patient is euthymic, no evidence of psychosis, complaintis of drooling with Clozaril and some involuntary movements compatible with EPS. No side effects with the previous ECT. ECT done as usual, no complications, wokeu up well. Time: Total time managing care of this patient today __30__ minutes. ECT Settings Device: THYMATRON DGx Electrode Placement: Bitemporal Program/Pulse Width: 0.50 Energy Percent: 100 Seizure Duration By EEG (in seconds): 51 By Motor Observation (in seconds): 23 Medications Administration General Anesthetic: Etomidate (20) Muscle Relaxant: Succinylcholine (140) Ancillary Medications Analgesics: Torodol - Pre ECT Anti-emetics: Zofran - Pre ECT Miscillaneous Medications: Midazolam (2 mg post ECT) Airway Management Airway Management: Bag Mask Ventilation Treatment Recommendations No Changes Recommended: No change Pt Tolerated Procedure w/o Issue: Yes
== END 2025-01-23 08:53 | disposition home or self-care (01) ==
PROVIDERS: Visit Provider Psychiatry & Neurology Psychiatry
PROC: (CPT 90870; principal; 2025-01-23 07:00)
DX: F25.0 Schizoaffective disorder, bipolar type (principal); F43.12 Post-traumatic stress disorder, chronic; R25.9 Unspecified abnormal involuntary movements; J45.20 Mild intermittent asthma, uncomplicated; Z79.899 Other long term (current) drug therapy; Z87.891 Personal history of nicotine dependence
CPT/HCPCS: 90870; J0330; J1596; J1805; J1885; J2250; J2405; J2704

== ENCOUNTER → 2025-01-23 05:40 | Outpatient (BNV) | payer MEDICARE, MEDICAID, SELFPAY | PROVIDERS: Visit Provider Psychiatry & Neurology Psychiatry | DX: F33.3 Major depressive disorder, recurrent, severe with psychotic symptoms (principal) | CPT/HCPCS: 90870 ==

== ENCOUNTER 2025-01-30 05:46 | Day surgery (SDC) | payer MEDICARE, MEDICAID, SELFPAY ==
[2025-01-30 06:27] VITALS: BMI 39.5
[2025-01-30 06:29] VITALS: BP 124/83; PULSE 73; RESP 20; TEMP 36.2; O2SAT 98
[2025-01-30] MEDS: Lactated Ringers 1,000 ML 50 ML IVCONT (07:00)
--- NOTE | 2025-01-30 07:00 | MHC.SHP ---
Pre-Procedural Eval Section A - 24 Hr Update-Section A only Date of Service: 01/30/25 The patient is an INPATIENT: No Changes since office visit: Yes Cold of Flu in the past 2 weeks, Yes New Medical Problems, Yes Changes in Medication and Yes Patient answered all questions The patient has been examined within 24 hours of the surgical procedure. The History & Physical has been completed within 30 days and I have reviewed it.: No Section B - Complete if H&P > 30 days Chief Complaint: depression Allergies: Allergies Allergy/AdvReac Type Severity Reaction Status Date / Time No Known Allergies Allergy Verified 12/28/24 07:52 Plan I have reviewed the history and physical and performed a pertinent physical examination on my patient. No changes have occurred unless specified. Time Spent With Patient Time: Total time managing care of this patient today ____ minutes.
--- NOTE | 2025-01-30 07:27 | P.CONAN_ITS ---
HPI - Anesthesia Eval Consult details Narrative: 29 yo male patient for ECT PMFSH Active Problems Active Problems: All Active Problems (Updated 01/11/25 @ 00:01 by Maricruz Bradford) Schizoaffective disorder, bipolar type (Acute) Back and Right upper arm pain Past Medical History Medical History Pre-op evaluation Mild intermittent asthma Schizoaffective disorder, bipolar type Chronic post-traumatic stress disorder (PTSD) Family History Family history of problems with anesthesia: No Surgical History History of Problems with Anesthesia: No Social History Social History Household Members: Family Housing: Unknown / Unable to assess Do you presently have visiting nurse or other home services: No Patient Tobacco Use Status: Former Tobacco user Second Hand Smoke Exposure: No Advance Directives: No Advance Directives Information Provided: Yes service: No Sexual orientation: Straight/Heterosexual Meds Allergies Allergy/AdvReac Type Severity Reaction Status Date / Time No Known Allergies Allergy Verified 12/28/24 07:52 Exam Height,Weight and Vital Signs: Height 5 ft 10 in Weight 124.738 kg Last Vital Signs Temp 97.2 F 01/30/25 06:29 Pulse 73 01/30/25 06:29 Resp 20 01/30/25 06:29 BP 124/83 01/30/25 06:29 Pulse Ox 98 01/30/25 06:29 O2 Del Method Nasal Cannula 01/30/25 06:29 O2 Flow Rate 2 01/30/25 06:29 Airway Mallampati Class: III TM Dist: >3cm Neck ROM: Full Loose/Missing/Broken Teeth: Yes (Missing tooth bottom right back. Denies broken or loose teeth) Heart: RRR Lungs: CTAB Assessment and Plan Assessment Anesthesia Assessment: Anesthesia Plan Discussed and Chart Reviewed Final Anesthetic Review Family History of Problems with Anesthesia: No History of Problems with Anesthesia: No NPO: Yes ASA Class: III Final Preanesthetic Review: No Changes in Pt Med Stat, Meds/Allgs Chart Re viewed, Consent Obtained/Reviewed and Anes Risks/Benef Reviewed Patient Risk: Intermediate Procedure Risk: Intermediate Assessment/Block/Sedation in SS: Assess/Block/Sedation-SS Anesthetic Plan Anesthetic Plan: GA Disposition: Standard PACU
[2025-01-30 07:56] VITALS: BP 142/86; PULSE 96; RESP 18; TEMP 36.6; O2SAT 96
--- NOTE | 2025-01-30 07:58 | HO.ECTPROC ---
ECT Procedure Note Diagnosis/Treatment Date of Service: 01/30/25 Diagnosis: Schizoaffective Disorder Previous ECT Date: 01/23/25 Current Treatment Number: 12 Treatment: Series Interval Clinical Notes: the patient is at baseline, no evidence of nadege or psychosis at this moment. He complained of muscle aches after the last procedure. Anesthesiology informed and they decided to add Roncuronium 5 mg extra on top o Succynilcholine. ECT done as usual, no complications Time: Total time managing care of this patient today ____ minutes. ECT Settings Device: THYMATRON DGx Electrode Placement: Bitemporal Program/Pulse Width: 0.50 Energy Percent: 100 Seizure Duration By EEG (in seconds): 41 By Motor Observation (in seconds): 32 Medications Administration General Anesthetic: Etomidate (20) Muscle Relaxant: Succinylcholine (140) and Rocuronium (5 mg no reversal) Ancillary Medications Analgesics: Torodol - Pre ECT Anti-emetics: Zofran - Pre ECT Miscillaneous Medications: Midazolam (2 mg after ECT) Airway Management Airway Management: Bag Mask Ventilation Treatment Recommendations No Changes Recommended: No change Pt Tolerated Procedure w/o Issue: Yes
[2025-01-30 08:01] VITALS: BP 145/85; PULSE 84; RESP 18; O2SAT 96
[2025-01-30 08:06] VITALS: BP 105/63; PULSE 78; RESP 16; O2SAT 95
[2025-01-30 08:11] VITALS: BP 107/69; PULSE 86; RESP 16; O2SAT 95
[2025-01-30 08:26] VITALS: BP 107/72; PULSE 77; RESP 16; TEMP 36.6; O2SAT 96
== END 2025-01-30 08:53 | disposition home or self-care (01) ==
PROVIDERS: Visit Provider Psychiatry & Neurology Psychiatry
PROC: (CPT 90870; principal; 2025-01-30 07:00)
DX: F25.0 Schizoaffective disorder, bipolar type (principal); F43.12 Post-traumatic stress disorder, chronic; J45.20 Mild intermittent asthma, uncomplicated; M25.511 Pain in right shoulder; Z79.899 Other long term (current) drug therapy; Z87.891 Personal history of nicotine dependence
CPT/HCPCS: 90870; J0330; J1885; J2250; J2405

== ENCOUNTER → 2025-01-30 05:46 | Outpatient (BNV) | payer MEDICARE, MEDICAID, SELFPAY | PROVIDERS: Visit Provider Psychiatry & Neurology Psychiatry | DX: F33.3 Major depressive disorder, recurrent, severe with psychotic symptoms (principal) | CPT/HCPCS: 90870 ==